=== PATIENT | male | born 1960 | race Caucasian/White ===

== ENCOUNTER → 2017-09-08 13:37 | Outpatient (CLI) | payer OTHER, SELFPAY ==
[2017-09-08 14:44] LABS: PSA,Total- Diagnostic 2.84 ng/mL (0.0-4.0)
== END ==
PROVIDERS: Family Provider Family Medicine Geriatric Medicine; PCP Family Medicine Geriatric Medicine; Visit Provider Urology
DX: R97.20 Elevated prostate specific antigen [PSA] (principal)
CPT/HCPCS: 36415; 84153

== ENCOUNTER → 2017-09-09 13:50 | Outpatient (CLI) | payer OTHER, SELFPAY ==
--- NOTE | 2017-09-09 13:52 | CT_ITS ---
STUDY: CT ABDOMEN AND PELVIS WITHOUT AND WITH CONTRAST REASON FOR EXAM: Male, 57 years old. Gross hematuria RADIATION DOSAGE (If Supplied By Facility): CTDIvol = ( 16.69 ) mGy, DLP = ( 2181.78 ) mGycm TECHNIQUE: Transaxial images were obtained from the lower chest to the upper thighs without oral contrast. Imaging was obtained before and after administration of 100 ml of Isovue 300. Sagittal and coronal images were reconstructed. Individualized dose optimization techniques were used for this CT. COMPARISON: February 02, 2013 FINDINGS: There is minimal dependent atelectasis in both lung bases. There is no pleural effusion. The heart is normal in size. The liver is unremarkable. The gallbladder and biliary system are unremarkable. The spleen is unremarkable. The pancreas is unremarkable. The adrenal glands are unremarkable. There are cysts in the right kidney without suspicious features. The largest measures about 2.2 cm in the midpole. There are approximately six calcifications in the right kidney measuring up to 4 mm in size in the mid pole. There is no dilatation of the collecting system in the right kidney. There are cysts in the left kidney without suspicious features. The largest measures about 1.8 cm in the upper pole. This shows stable rim calcification and no significant enhancement. At least three calcifications are seen in the left kidney measuring up to 3 mm in size. There is no dilatation of the collecting system in the left kidney. The stomach is unremarkable. The small bowel is unremarkable. There are diverticula scattered throughout the colon without adjacent stranding. The appendix is visualized and appears normal. There are minimal vascular calcifications. The inferior vena cava is unremarkable. The retroperitoneum is unremarkable. There is no free fluid in the abdomen. The urinary bladder is unremarkable. The prostate is normal in size with calcifications. There are small phleboliths scattered in the lower pelvis. There is a small umbilical hernia containing fat. There are mild degenerative changes in the visualized spine. CT/CT Abd/Pelvis W/WO Contrast IMPRESSION: There are calyceal stones in both kidneys which appear stable compared to the prior CT. Approximately six are seen in the right kidney and approximately three are seen in the left kidney. The largest measures about 4 mm in the midpole of the right kidney. There is no urinary tract dilatation bilaterally. No stones are seen in the ureters. There are cysts in both kidneys which are both simple and minimally complicated. These appear stable compared to the prior CT, however intravenous contrast was not given on the prior CT. A six month follow-up CT with renal mass protocol is recommended to document stability of the minimally complicated cysts. There are no abnormalities seen in the bladder. There is diverticulosis of the colon. There are no acute bowel abnormalities. There is no ascites, free air, inflammation or significant lymphadenopathy. Electronically Signed: Mayi Wright MD at 15:27 EDT Tel Direct: [phone], Service support ,
== END ==
PROVIDERS: Family Provider Family Medicine Geriatric Medicine; PCP Family Medicine Geriatric Medicine; Visit Provider Nurse Practitioner Adult Health
DX: R31.0 Gross hematuria (principal); Z87.442 Personal history of urinary calculi
CPT/HCPCS: 74178; Q9967

== ENCOUNTER → 2018-02-22 16:47 | Outpatient (CLI) | payer OTHER, SELFPAY ==
[2018-02-22 17:27] LABS: Absolute Lymphocyte Count 0.92 X10^3/ul (0.83-4.51); Absolute Neutrophil Count 5.5 X10^3/uL (2.0-7.7); Basophil# 0.02 X10^3/uL; Basophil% 0.3 % (0-1); Eosinophil# 0.08 X10^3/uL; Eosinophils% 1.1 % (0-5); Hematocrit 40.7 % (40-54); Hemoglobin 12.8 g/dl (13.0-16.5); Lymphocyte # 0.92 X10^3/ul (4.0); Lymphocyte % 12.7 % (19-41); Mean Corp Hgb Conc 31.4 g/gl (32-36); Mean Corpuscular Hgb 27.2 pg (27.0-32.0); Mean Corpuscular Volume 86.4 fL (80-94); Mean Platelet Vol. 9.6 fl (6.2-12.0); Monocyte# 0.76 X10^3/uL; Monocyte% 10.5 % (0-10); Neutrophil # 5.45 X10^3/uL (2.7-7.7); Neutrophil % 75.3 % (47-70); POSITIVE COUNT NO; POSITIVE DIFFERENTIAL NO; POSITIVE MORPHOLOGY NO; Platelet Count 420 K/mm3 (150-450); RBC Distribution Width CV 14.3 % (11.6-14.6); RBC Distribution Width SD 45.5 fl (35.1-43.9); Red Blood Count 4.71 M/mm3 (4.6-6.2); White Blood Count 7.2 K/mm3 (4.4-11.0)
[2018-02-22 17:40] LABS: Erythrocyte Sedimentation Rate 30 mm/hr (0-20)
[2018-02-22 18:19] LABS: Anion Gap 6 (5-15); BUN 19 mg/dL (7-18); BUN/Creat Ratio 15.6 RATIO (10-20); Calcium,Total 11.8 mg/dL (8.5-10.1); Chloride 104 mmol/L (98-107); Creatinine, Serum 1.22 mg/dL (0.70-1.30); EST Glomerular Filtration Rate 64 mL/min (>60); Est Glom Filt Rate - Afr Amer 78 mL/min (>60); Glucose 84 mg/dL (74-106); Potassium 4.2 mmol/L (3.5-5.1); Sodium Level 138 mmol/L (136-145); Uric Acid 7.4 mg/dL (3.5-7.2)
== END ==
PROVIDERS: Family Provider Family Medicine Geriatric Medicine; PCP Family Medicine Geriatric Medicine; Visit Provider Family Medicine Geriatric Medicine
DX: I10 Essential (primary) hypertension (principal); M10.9 Gout, unspecified
CPT/HCPCS: 36415; 80048; 84550; 85025; 85652; 86140

== ENCOUNTER → 2018-03-31 13:32 | Outpatient (CLI) | payer OTHER, SELFPAY ==
--- NOTE | 2018-03-31 13:35 | RAD_ITS ---
STUDY: X-RAY - PELVIS AND RIGHT HIP REASON FOR EXAM: Male, 57 years old. Pain TECHNIQUE: Radiological exam, hip, unilateral, with pelvis when performed; 2 or 3 views. COMPARISON: None. FINDINGS: There is a non-specific bowel gas pattern. Normal visualized soft tissue structures. Normal bilateral iliac wings, sacroiliac joints and visualized sacrum. Normal bilateral superior and inferior pubic rami. Normal pubic symphysis. Normal bilateral ischial tuberosities. Normal visualized femoral head. Normal acetabulum. Normal hip joint. RAD/HIP, UNI W/ Pelvis 2-3 Views IMPRESSION: Normal x-ray examination of the pelvis and hip. Electronically Signed: Matthew Aparicio DO at 19:13 EDT Tel [phone], Service support ,
== END ==
PROVIDERS: Family Provider Family Medicine Geriatric Medicine; PCP Family Medicine Geriatric Medicine; Referring Provider Family Medicine Geriatric Medicine; Visit Provider Family Medicine Geriatric Medicine
DX: M25.551 Pain in right hip (principal)
CPT/HCPCS: 73502

== ENCOUNTER → 2018-04-15 11:12 | Outpatient (CLI) | payer OTHER, SELFPAY ==
[2018-04-15 12:05] LABS: Absolute Lymphocyte Count 0.73 X10^3/ul (0.83-4.51); Absolute Neutrophil Count 9.2 X10^3/uL (2.0-7.7); Basophil# 0.02 X10^3/uL; Basophil% 0.2 % (0-1); Eosinophil# 0.15 X10^3/uL; Eosinophils% 1.4 % (0-5); Hematocrit 38.1 % (40-54); Hemoglobin 12.2 g/dl (13.0-16.5); Lymphocyte # 0.73 X10^3/ul (4.0); Lymphocyte % 6.6 % (19-41); Mean Corpuscular Volume 84.3 fL (80-94); Mean Platelet Vol. 10.4 fl (6.2-12.0); Monocyte# 0.89 X10^3/uL; Monocyte% 8.1 % (0-10); Neutrophil # 9.15 X10^3/uL (2.7-7.7); Neutrophil % 83.3 % (47-70); Platelet Count 360 K/mm3 (150-450); RBC Distribution Width CV 14.5 % (11.6-14.6); Red Blood Count 4.52 M/mm3 (4.6-6.2)
[2018-04-15 12:06] LABS: POSITIVE COUNT NO; POSITIVE DIFFERENTIAL NO; POSITIVE MORPHOLOGY NO
[2018-04-15 12:23] LABS: AST(SGOT) 10 U/L (15-37); Alanine Aminotransfer ALT/SGPT 24 U/L (16-61); Albumin, Serum 3.5 g/dL (3.2-5.0); Alkaline Phosphatase 52 U/L (45-117); Anion Gap 8 (5-15); BUN 31 mg/dL (7-18); BUN/Creat Ratio 22.6 RATIO (10-20); Calcium,Total 11.1 mg/dL (8.5-10.1); Chloride 104 mmol/L (98-107); Creatinine, Serum 1.37 mg/dL (0.70-1.30); EST Glomerular Filtration Rate 56 mL/min (>60); Est Glom Filt Rate - Afr Amer 68 mL/min (>60); Globulin 3.6 g/dL (2.2-4.2); Glucose 83 mg/dL (74-106); Potassium 4.6 mmol/L (3.5-5.1); Protein, Total 7.1 g/dL (6.4-8.2); Sodium Level 138 mmol/L (136-145); Thyroid Stim Hormone (TSH) 1.36 uIU/mL (0.358-3.74); Uric Acid 7.3 mg/dL (3.5-7.2)
== END ==
PROVIDERS: Family Provider Family Medicine Geriatric Medicine; PCP Family Medicine Geriatric Medicine; Visit Provider Family Medicine Geriatric Medicine
DX: I10 Essential (primary) hypertension (principal); M10.9 Gout, unspecified; Z12.5 Encounter for screening for malignant neoplasm of prostate
CPT/HCPCS: 36415; 80053; 84443; 84550; 85025

== ENCOUNTER → 2018-06-01 11:14 | Outpatient (CLI) | payer OTHER, SELFPAY ==
--- NOTE | 2018-06-01 11:18 | RAD_ITS ---
STUDY: X-RAY - LEFT SHOULDER REASON FOR EXAM: Male, 58 years old. Chronic bilateral shoulder pain. TECHNIQUE: 4 view(s) of the shoulder. COMPARISON: None. FINDINGS: Normal glenohumeral articulation. There is degenerative arthrosis of the acromioclavicular joint without inferior osseous spur formation. Normal acromion. Normal humeral head and visualized proximal humerus. The soft tissue structures are unremarkable. Normal visualized pulmonary apex. RAD/Shoulder min 2 Views IMPRESSION: Degenerative changes of both acromioclavicular joints. Electronically Signed: Hasmukh Whaley MD at 11:38 EST Tel [phone], Service support ,
--- NOTE | 2018-06-01 11:18 | RAD_ITS ---
STUDY: X-RAY - RIGHT SHOULDER REASON FOR EXAM: Male, 58 years old. Chronic shoulder pain. TECHNIQUE: 4 view(s) of the shoulder. COMPARISON: None. FINDINGS: Normal glenohumeral articulation. There is widening of the AC joint, with displacement of the clavicle, consistent with a Type III acromioclavicular joint separation. Normal acromion. Normal humeral head and visualized proximal humerus. The soft tissue structures are unremarkable. Normal visualized pulmonary apex. 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 Electronically Signed: Hasmukh Whaley MD at 11:39 EST Tel [phone], Service support ,
== END ==
PROVIDERS: Family Provider Family Medicine Geriatric Medicine; PCP Family Medicine Geriatric Medicine; Referring Provider Family Medicine Geriatric Medicine; Visit Provider Family Medicine Geriatric Medicine
DX: M25.511 Pain in right shoulder (principal); M25.512 Pain in left shoulder
CPT/HCPCS: 73030

== ENCOUNTER → 2019-04-18 15:22 | Outpatient (CLI) | payer OTHER, SELFPAY ==
[2019-04-18 17:48] LABS: Absolute Lymphocyte Count 0.77 X10^3/uL (0.83-4.51); Absolute Neutrophil Count 4.9 X10^3/uL (2.0-7.7); Basophil# 0.03 X10^3/uL; Basophil% 0.5 % (0-1); Eosinophil# 0.06 X10^3/uL; Eosinophils% 0.9 % (0-5); Hematocrit 39.4 % (40-54); Hemoglobin 12.4 g/dL (13.0-16.5); Lymphocyte # 0.77 X10^3/ul (4.0); Lymphocyte % 11.8 % (19-41); Mean Corp Hgb Conc 31.5 g/dL (32-36); Mean Corpuscular Hgb 27.6 pg (27.0-32.0); Mean Corpuscular Volume 87.8 fL (80-94); Mean Platelet Vol. 10.4 fl (6.2-12.0); Monocyte# 0.72 X10^3/uL; NRBC Flagged by Analyzer 0 % (0-5); Neutrophil # 4.91 X10^3/uL (2.7-7.7); Neutrophil % 75.3 % (47-70); Platelet Count 315 K/mm3 (150-450); Red Blood Count 4.49 M/mm3 (4.6-6.2); White Blood Count 6.5 K/mm3 (4.4-11.0)
[2019-04-18 18:14] LABS: ALB/GLOB Ratio 1.5 RATIO (0.9-2.4); AST(SGOT) 16 U/L (15-37); Alanine Aminotransfer ALT/SGPT 21 U/L (16-61); Albumin, Serum 4.1 g/dL (3.2-5.0); Alkaline Phosphatase 53 U/L (45-117); Anion Gap 4 (5-15); BUN 21 mg/dL (7-18); Calcium,Total 11.1 mg/dL (8.5-10.1); Chloride 104 mmol/L (98-107); EST Glomerular Filtration Rate 55 mL/min (>60); Est Glom Filt Rate - Afr Amer 66 mL/min (>60); Globulin 2.8 g/dL (2.2-4.2); Glucose 91 mg/dL (74-106); PSA,Total - Annual Screen 3.58 ng/mL (0.00-4.00); Potassium 4.4 mmol/L (3.5-5.1); Protein, Total 6.9 g/dL (6.4-8.2); Sodium Level 138 mmol/L (136-145); Thyroid Stim Hormone (TSH) 1.14 uIU/mL (0.358-3.74); Uric Acid 8.3 mg/dL (3.5-7.2)
[2019-04-18 18:52] LABS: Hepatitis C Antibody Non-Reactive (Nonreactive); Vitamin D,25 Hydroxy 21.3 ng/mL (29.95-100.01)
== END ==
PROVIDERS: Family Provider Family Medicine Geriatric Medicine; PCP Family Medicine Geriatric Medicine; Visit Provider Family Medicine Geriatric Medicine
DX: E55.9 Vitamin D deficiency, unspecified (principal); I10 Essential (primary) hypertension; M10.9 Gout, unspecified; Z12.5 Encounter for screening for malignant neoplasm of prostate; Z13.89 Encounter for screening for other disorder
CPT/HCPCS: 36415; 80053; 82306; 84153; 84443; 84550; 85025; 86803; G0103

== ENCOUNTER → 2019-04-25 10:05 | Outpatient (CLI) | payer OTHER, SELFPAY ==
--- NOTE | 2019-04-25 10:05 | RAD_ITS ---
STUDY: X-RAY - PELVIS AND RIGHT HIP REASON FOR EXAM: Pain, increased with bearing weight. TECHNIQUE: 2 views of the pelvis and hip. COMPARISON: Radiographs 03/31/2018. FINDINGS: There are prostatic calcifications as on the prior study. Normal bilateral iliac wings, sacroiliac joints and visualized sacrum. Normal bilateral superior and inferior pubic rami. Normal pubic symphysis. Normal bilateral ischial tuberosities. Normal visualized femoral head. Normal acetabulum. There is interval development of moderate joint space narrowing of the superolateral right hip joint and small marginal osteophytes of the right femoral head. RAD/HIP, UNI W/ Pelvis 2-3 Views IMPRESSION: Right hip arthrosis. Electronically Signed: Aries Singh MD at 10:56 EDT Tel , Service support ,
== END ==
PROVIDERS: Family Provider Family Medicine Geriatric Medicine; PCP Family Medicine Geriatric Medicine; Referring Provider Orthopaedic Surgery; Visit Provider Orthopaedic Surgery
DX: R10.31 Right lower quadrant pain (principal)
CPT/HCPCS: 73502

== ENCOUNTER → 2019-06-16 14:57 | Outpatient (CLI) | payer OTHER, SELFPAY ==
[2019-06-13 08:26] VITALS: BMI 22.4
[2019-06-16 16:55] LABS: Absolute Lymphocyte Count 0.88 X10^3/uL (0.83-4.51); Absolute Neutrophil Count 4.2 X10^3/uL (2.0-7.7); Basophil# 0.04 X10^3/uL; Basophil% 0.7 % (0-1); Eosinophil# 0.06 X10^3/uL; Hematocrit 41.1 % (40-54); Lymphocyte # 0.88 X10^3/ul (4.0); Lymphocyte % 15.1 % (19-41); Mean Corp Hgb Conc 31.6 g/dL (32-36); Mean Corpuscular Hgb 27.4 pg (27.0-32.0); Mean Corpuscular Volume 86.5 fL (80-94); Mean Platelet Vol. 10.2 fl (6.2-12.0); Monocyte# 0.59 X10^3/uL; Monocyte% 10.1 % (0-10); NRBC Flagged by Analyzer 0 % (0-5); Neutrophil # 4.24 X10^3/uL (2.7-7.7); Neutrophil % 72.8 % (47-70); Platelet Count 320 K/mm3 (150-450); RBC Distribution Width CV 13.4 % (11.6-14.6); RBC Distribution Width SD 42.6 fl (35.1-43.9); Red Blood Count 4.75 M/mm3 (4.6-6.2); White Blood Count 5.8 K/mm3 (4.4-11.0)
[2019-06-16 17:03] LABS: Anion Gap 6 (5-15); BUN 17 mg/dL (7-18); BUN/Creat Ratio 14.7 RATIO (10-20); Calcium,Total 10.9 mg/dL (8.5-10.1); Chloride 105 mmol/L (98-107); Creatinine, Serum 1.16 mg/dL (0.70-1.30); EST Glomerular Filtration Rate 68 mL/min (>60); Est Glom Filt Rate - Afr Amer 82 mL/min (>60); Glucose 96 mg/dL (74-106); Potassium 4.1 mmol/L (3.5-5.1); Sodium Level 138 mmol/L (136-145)
== END ==
PROVIDERS: Family Provider Family Medicine Geriatric Medicine; PCP Family Medicine Geriatric Medicine; Visit Provider Family Medicine Geriatric Medicine
DX: Z01.818 Encounter for other preprocedural examination (principal)
CPT/HCPCS: 36415; 80048; 85025

== ENCOUNTER 2019-07-12 09:15 | Observation (INO) | payer OTHER, SELFPAY ==
[2019-06-13 08:26] VITALS: BMI 22.4
[2019-07-05 14:54] VITALS: BMI 22.4
--- NOTE | 2019-07-06 10:06 | EKG12_ITS ---
Test Reason : PRE OP Blood Pressure : / mmHG Vent. Rate : 077 BPM Atrial Rate : 077 BPM P-R Int : 182 ms QRS Dur : 108 ms QT Int : 364 ms P-R-T Axes : 056 089 047 degrees QTc Int : 411 ms Normal sinus rhythm Normal ECG Confirmed by TERA DUMAS ([id number]), electronic news gathering editor THOMAS RIBEIRO ([id number]) on 07/07/2019 10:42:23 AM Referred By: Cayetano Rubio Confirmed By:TERA DUMAS
[2019-07-06 13:22] LABS: M R Staph aureus DNA By PCR POSITIVE (Negative); Probe Check PASS; Specimen Processing Control PASS
--- NOTE | 2019-07-11 14:28 | PCM.HP.BLA ---
History and Physical Date of Admission: 07/12/19 Intake Vital Signs 06/13/19 BMI 22.4 Intake Visit Reasons: SX CONSENT SIGNING Is patient in pain?: Yes Allergies No Known Allergies Allergy (Verified 06/04/15 13:43) Medications Losartan/Hydrochlorothiazide [Losartan-Hctz 100-12.5 mg Tab] 1 tab PO DAILY 06/04/15 [History Confirmed 06/13/19] sertraline 25 mg tablet 12.5 mg PO DAILY PRN 04/25/19 [History Confirmed 06/13/19] PFS Social History (Updated 06/14/19 @ 14:38 by SANGITA Toth) Smoking Status: Never smoker HPI SX CONSENT SIGNING: Details: Parts of this documentation were recorded by a scribe, this documentation accurately reflects the service provided and the decisions made by me, SANGITA Toth 06/13/19 0826. GREGORY MAGAÑA is a 59 year old M here today for right hip pain. He is here to sign consent for upcoming 07/12/19 right total hip arthroplasty. He continues to have pain with prolonged walking and sit to stand. Denies numbness, tingling or other associated symptoms.He has pain in his buttock and shooting pain down the leg when he does any twisting on the right leg. He does use tylenol prn. Ortho Exam Right Hip Skin: No Ecchymosis, No soft tissue swelling, No Erythema Special Tests: No TTP Greater Troch Homans Sign: No HIP: Patient has evident decreased internal and external rotation of the hip as pretty significant discomfort with these maneuvers. He does have good strength against resistance. He has normal sensation throughout the extremity. Assessment & Plan Problems 1. Arthritis of right hip M16.11 Plan Patient presents the office today to sign surgical consent for a right total hip arthroplasty. Patient is already met with the surgeon and discussed the procedure in detail and questions were answered. We did review the procedure today in office and again discussed questions with him regarding the procedure as well as the rehabilitation/recovery. We did discuss potential risks as well as possible benefits of the procedure. Once his questions were answered consent was signed in office today. Patient already has the date of his surgery and will be notified the day before of the time of his procedure. Patient be contacted by surgical department for presurgery/anesthesia testing. Patient was given antimicrobial cleansed to be used the week prior to his procedure. Patient can notify the office if he has any questions or other concerns or complaints in the meantime. This note was generated with [employer] dictation software. It may contain incorrect words, spelling, and punctuation that were not noted in checking the note before signing. Coding Level of Care Code Off vis,est,level 2 Diagnoses Arthritis of right hip M16.11 I have re-examined the patient. There are no clinical changes since date of exam
[2019-07-12] VITALS (27 sets, daily range): BP systolic 80–155; BP diastolic 51–101; PULSE 48–79; RESP 16–18; TEMP 36.2–37; O2SAT 94–100; BMI 22.7
[2019-07-12 06:16] LABS: Bedside Glucose 75 mg/dL (70-110)
[2019-07-12] MEDS: Lactated Ringers 1,000 ML 100 ML IV (06:17)
[2019-07-12] MEDS: Magnesium Sulfate 4gm/100mL 4 GM/100 ML IV.SOLN. IV (06:18)
[2019-07-12] MEDS: Acetaminophen 500 MG Tablet 1000 MG PO ×3 (06:23→21:56)
[2019-07-12] MEDS: Gabapentin 600 MG Tablet PO (06:23)
[2019-07-12] MEDS: Scopolamine 1mg/72hr Patch 1 PATCH TRANSDERM. (06:23)
[2019-07-12] MEDS: dexAMETHasone 10 MG/ML Vial IV (07:21)
[2019-07-12] MEDS: Cefazolin 2 GM in 0.9% Normal Saline 100 ML IV (07:23)
--- NOTE | 2019-07-12 09:19 | PCM.OPRPT ---
Report of Operation Date of Procedure: 07/12/19 Description of Surgical Findings:: Preoperative diagnosis: DJD right hip Postoperative diagnosis: Same Procedure: Right total hip arthroplasty Implants: [place] Accolade II stem size 5 132 degree neck angle +2.5 neck length 56 mm cup with 40 and 20 mm cancellous screw 36 mm ceramic head Anesthesia: Spinal EBL: 300 cc Complications: None Condition: Stable to PACU Indication for procedure: This is a 59-year-old male who has had long-standing arthrosis of the hip who has failed conservative treatment and wished to undergo total hip arthroplasty. We did discuss operative versus nonoperative intervention including risks of bleeding, infection , nerve artery tissue damage, need for further surgery, fracture, leg length discrepancy dislocation blood clot and need for postoperative physical therapy and postoperative expectations. An informed consent was signed. Procedure: Patient was met in the preoperative holding area once again the operative extremity was identified by both patient and physician and was marked. Patient was met by anesthesia and a spinal was placed. patient was then positioned in the lateral decubitus position on a well-padded pegboard with an axillary roll. All bony prominences were checked and padded. The patient was prepped and draped in the usual sterile fashion. A timeout was called to ensure the proper patient procedure and extremity were being contemplated. Anatomic landmarks were palpated and marked for a standard posterior lateral approach. A 10 blade scalpel was used to make a posterior incision through the skin and subcutaneous tissue. In retractors were used and electrocautery was used to maintain meticulous hemostasis and dissect full-thickness flaps until the gluteal fascia was reached. The gluteal fascia was incised in line with the gluteal fibers. The bursal tissue was then freed from the underside and a Charnley retractor was placed. The fat pad was elevated off of the external rotators with electrocautery and the external rotators were dissected off of the greater trochanter including the piriformis and were tagged with #1 Ethibond for later repair. The joint capsule opened with posterior trapdoor technique. The hip was surgically dislocated. Hohmann was placed around the lesser trochanter. A neck cutting guide was used to lisa the neck with a Bovie and an oscillating saw was used complete the femoral neck cut. The femoral head was then removed and sized. We then turned our attention to the acetabulum. A Bovie was used to make a perforation in the anterior joint capsule and a pointed Hohmann was placed this was repeated in the 6 o'clock position a wide fatimah was placed there. With a long handled knife the labral and pulvinar tissue were removed. We then began sequential reaming until the appropriate size was achieved. We then fit the acetabular shell in place with good dinkey mechanic to the acetabulum. We then proceeded to place a posterior superior screw by drilling first measuring and inserting the screw. We then inserted a trial liner. And turned our attention back to the femur at this point a femoral elevator was used. As well as a pointed wide Hohmann around the lesser trochanter and a Hohmann to help retract the gluteus medius. A box chisel was used to remove excess lateral neck followed by a canal finder and a lateralizing reamer. This was followed by sequential broaches. Attention was made of the version within the canal. Once the final broach was seated we then trialed reduced the hip it was determined that a 132 degree neck angle with a +2.5 neck length was the appropriate size. We then checked ability with shuck testing as well as flexion and internal rotation. then proceeded with hip extension and checked leg lengths at the knees and heels. At this point trials were removed. A posterior lipped liner was inserted to the cup. The femoral stem was inserted. We re-trialed and then proceeded to impact the femoral head onto the Anibal taper. We then surgically reduce the hip check stability again and leg lengths and were satisfied. Betadine rinse was allowed to sit for 5 minutes while everyone changed their gloves. Thorough irrigation was performed. Followed by closure of the external rotators with #2 FiberWire followed by closure of gluteal fascia with #1 Ethibond. 0 Vicryl fat stitches and 2-0 Vicryl subcutaneous stitches and guicho in the skin. Dressing was applied Mepilex Ag and an abduction pillow was placed. Patient tolerated the procedure well there was no intraoperative complications all counts were correct and the patient was brought back to the PACU in stable condition
[2019-07-12] MEDS: Lactated Ringers 1,000 ML 125 ML IV ×3 (09:54→21:56)
[2019-07-12] MEDS: Cefazolin 1 GM/50 ML BAG IV ×2 (09:57→18:21)
--- NOTE | 2019-07-12 10:00 | RAD_ITS ---
STUDY: X-RAY - PELVIS REASON FOR EXAM: Male, 59 years old. POST OP TECHNIQUE: One view of the pelvis was obtained. COMPARISON: Comparison is made with prior study dated April 25, 2019. FINDINGS: The patient is status post right hip replacement. There appears to be superior and lateral subluxation of the prosthetic joint. RAD/Pelvis 1 or 2 Views IMPRESSION: Status post right hip replacement with evidence of superior and lateral subluxation at the prosthetic joint. Electronically Signed: Hasmukh Whaley, at 10:42 EST , Service support ,
--- NOTE | 2019-07-12 11:34 | SUR.PHASEI ---
Pt returned to OR from PACU per Dr Luke.
--- NOTE | 2019-07-12 11:40 | RAD_ITS ---
STUDY: X-RAY - PELVIS AND RIGHT HIP REASON FOR EXAM: Reduction of dislocated hip arthroplasty. TECHNIQUE: 2 fluoroscopic views of the pelvis and hip. COMPARISON: Radiograph of the pelvis at 0957 hours the same day. FINDINGS: There is a right total hip arthroplasty with reduction of the dislocation. Electronically Signed: Aries Singh MD at 14:25 EST Tel , Service support , RAD/Hip Min 2 Views (Portable)
--- NOTE | 2019-07-12 12:11 | RAD_ITS ---
STUDY: X-RAY - PELVIS AND RIGHT HIP REASON FOR EXAM: Status post reduction in operating room. TECHNIQUE: 2 views of the pelvis and hip. COMPARISON: Radiograph of the same day at 0957 hours. FINDINGS: There are skin guicho overlying the right hip and postoperative gas in the soft tissues. There are prostatic calcifications. Normal visualized bilateral iliac wings, visualized sacroiliac joints and visualized sacrum. Normal bilateral superior and inferior pubic rami. Normal pubic symphysis. Normal bilateral ischial tuberosities. There is reduction of the right hip arthroplasty. RAD/Hip 1 view with Pelvis IMPRESSION: Reduction of right hip arthroplasty. Electronically Signed: Aries Singh MD at 15:23 EST Tel , Service support ,
[2019-07-12] MEDS: oxyCODONE HCl Cr 10 MG Tablet PO (13:24)
[2019-07-12] MEDS: Senna/Docusate Sodium 1 Tablet 2 TABLET PO ×2 (13:30→21:56)
--- NOTE | 2019-07-12 15:20 | NURSING ---
therapy working with pt at this time- will completed Post op checks as soon as finished
--- NOTE | 2019-07-12 15:40 | NURSING ---
Pt ambulating in hallway with PT/OT, c/o blurry vision and not feeling well. Pt assisted to recliner in hallway and laid back. BP 80/51, pulse 48. Ce ALBARADO aware. Dr. Rubio paged, new orders for NS bolus 500cc and to consult hospitalist.
--- NOTE | 2019-07-12 16:14 | NURSING ---
SANGITA Tapia in with pt at this time.
[2019-07-12] MEDS: Ketorolac 15 MG/ML Vial IV (16:23)
--- NOTE | 2019-07-12 16:23 | PN_ITS ---
<Jerry Perales - Last Filed: 07/12/19 16:23> Reason for Visit: hypotension Subjective: Consult for hypotension: The patient is a 59 yr old male with pmhx of HTN, depression, and nonaggressive prostate cancer for which he is not receiving treatment. He underwent a right total hip today which post op was dislocated requiring operative reduction. Post op he was up ambulating with therapy when he became lightheaded, had blurry vision, and turned oliveira. He was found to have low BP with 70s systolic. He was laid flat and administered IV NaCl. Currently his pressure is now 140s systolic and he has no LH/dizziness/nausea/palp/chest pain/LE edema/SOB. He does have 8/10 right hip pain and is requesting pain medication. Vitals/I&O's: Vital Signs Temp Pulse Resp BP Pulse Ox 97.8 F 64 18 145/82 H 100 07/12/19 14:58 07/12/19 16:20 07/12/19 14:58 07/12/19 16:20 07/12/19 14:58 Oxygen Flow Rate (L/min) 6 Oxygen Delivery Method Room Air Weight: 172 lb 6.424 oz Body Mass Index (BMI) 22.7 Intake and Output for Last 24 Hours 07/10/19 07/11/19 07/12/19 23:59 23:59 23:59 Intake Total 2317.50 / 2317.50 Balance 2317.50 / 2317.50 General: Alert, Oriented x3, Cooperative HEENT: Atraumatic, PERRLA, EOMI, Normocephalic Neck: Supple, No JVD, Negative Carotid Bruits Lungs: Clear to auscultation, Normal air movement Cardiovascular: Regular rate, No murmurs Abdomen: Bowel Sounds Present, Soft, Non Tender Extremities: No edema, Capillary Refill Less than 3 Seconds Skin: No rashes, No breakdown Musculoskeletal: No Tenderness to Palpation of Joints or Extremities Neurological: Cranial nerves II-XII grossly intact Psych/Mental Status: Normal Affect, Appropriate, Alert and oriented to time, place, person, mood and affect Laboratory Results 07/12/19 06:07: POC Glucose 75 Current Medications Acetaminophen (Tylenol) 1,000 mg PO Q8 [facility] Last Admin: 07/12/19 13:30 Dose: 1,000 mg Documented by: Apixaban (Eliquis) 2.5 mg PO BID [facility] Hydromorphone HCl (Dilaudid Inj) 0.5 mg IV Q2H PRN PRN PRN Reason: .BREAKTHROUGH PAIN (>4/10) Lactated Ringer's () 1,000 mls @ 125 mls/hr IV .Q8H [facility] Last Admin: 07/12/19 13:25 Dose: 125 mls/hr Documented by: Cefazolin Sodium () 1 gm in 50 mls @ 100 mls/hr IV Q8H [facility] Stop: 07/13/19 01:59 Last Infusion: 07/12/19 10:43 Dose: Infused Documented by: Sodium Chloride () 250 mls @ 15 mls/hr IV .[id number] PRN PRN Reason: Saline Flush Sodium Chloride () 250 mls @ 15 mls/hr IV .[id number] PRN PRN Reason: Additional IVPB Infusion Sodium Chloride () 500 mls @ 999 mls/hr IV .Q31M ONE Stop: 07/12/19 16:43 Insulin Human Lispro (Humalog Kwikpen (Bkc)) 1 - 6 unit SC Q4H PRN PRN; Protocol PRN Reason: BG>/= 180, SEE PROTOCOL Ketorolac Tromethamine (Toradol) 15 mg IV Q6H PRN PRN PRN Reason: Pain Score 1-5/10 Stop: 07/14/19 09:16 Ondansetron HCl (Zofran) 4 mg IV Q6H PRN PRN PRN Reason: NAUSEA Oxycodone HCl (Oxyir) 5 - 10 mg PO Q4H PRN PRN PRN Reason: Pain Score 4-10/10 Oxycodone HCl (Oxycontin) 10 mg PO BID [facility] Stop: 07/12/19 22:01 Last Admin: 07/12/19 13:24 Dose: 10 mg Documented by: Senna/Docusate Sodium (Senokot-S, Saba-Colace) 2 tablet PO BID [facility] Last Admin: 07/12/19 13:30 Dose: 2 tablet Documented by: Sodium Chloride () 5 - 15 ml IV UD PRN PRN Reason: SALINE FLUSH Sodium Chloride () 10 - 40 ml IV UD PRN PRN Reason: SALINE FLUSH STROKE Vital Signs/Narrative: Vital Signs Temp Pulse Resp BP BP Pulse Ox 07/12/19 16:20 64 145/82 H 07/12/19 16:12 64 144/76 H 07/12/19 15:40 56 L 93/69 07/12/19 15:38 54 L 91/53 L 07/12/19 15:35 48 L 80/51 L 07/12/19 14:58 97.8 F 59 L 18 98/62 100 07/12/19 13:59 95 07/12/19 12:58 97.6 F L 57 L 18 141/91 H 99 07/12/19 12:30 97.6 F L 65 16 129/78 H 95 Medical Necessity - Tobacco Use Smoking Status: Never smoker Tobacco Use: Non-smoker Assessment/Plan 1. post op Right total hip/right hip reduction of dislocation - care per ortho. doing well. 02/05 pain. received perioperative cefazolin 2. Post op hypotension - symptoms are c/w orthostatic hypotension. He recovered his pressure laying flat and receiving IV fluids, and currently is asymptomatic. total bolus will be 1000 nacl continue LR maintenance fluids. Scopalamine patch removed. Hold pain meds until pressures remain stable with position change. Currently has oxycontin on board. Will check orthostatic vitals once 1000 cc bolus complete. Home HTN meds held for now but likely ok to restart in the AM. 3. HTN - as above likely ok to resume home meds in AM. 4. Hx prostate cancer - states this is nonaggressive and he has opted for surveillance only with Dr. Bacon. DVT ppx: per ortho-Eliquis Thank you for the opportunity to participate in the care of this patient This patient was seen by Jerry Perales PA-C under the supervision of Doctor Lam. <Britt Lam - Last Filed: 07/12/19 20:09> Vitals/I&O's: Vital Signs Temp Pulse Resp BP Pulse Ox 97.5 F L 68 16 141/78 H 96 07/12/19 16:58 07/12/19 17:34 07/12/19 16:58 07/12/19 17:34 07/12/19 16:58 Oxygen Flow Rate (L/min) 6 Oxygen Delivery Method Room Air Weight: 172 lb 6.424 oz Body Mass Index (BMI) 22.7 Orthostatic Vital Signs Start: 07/12/19 17:34 Freq: q24h Status: Active Protocol: Activity Type Activity Date Activity User E-Sign Co-Sign Detail Recorded Client Recorded Date Recorded By Document 07/12/19 17:34 [facility] [id number] 07/12/19 17:35 [facility] 07/12/19 17:34 Orthostatic Vitals Standing -Blood Pressure (90/60-120/80) 117/79 -Extremity Use Right Arm -Pulse Rate (60-100) 79 Sitting -Blood Pressure (90/60-120/80) 135/89 H -Extremity Use Right Arm -Pulse Rate (60-100) 68 Lying -Blood Pressure (90/60-120/80) 141/78 H -Extremity Use Right Arm -Pulse Rate (60-100) 68 Intake and Output for Last 24 Hours 07/10/19 07/11/19 07/12/19 23:59 23:59 23:59 Intake Total 4184.17 / 4184.17 Balance 4184.17 / 4184.17 Laboratory Results 07/12/19 06:07: POC Glucose 75 Current Medications Acetaminophen (Tylenol) 1,000 mg PO Q8 [facility] Last Admin: 07/12/19 13:30 Dose: 1,000 mg Documented by: Apixaban (Eliquis) 2.5 mg PO BID [facility] Hydromorphone HCl (Dilaudid Inj) 0.5 mg IV Q2H PRN PRN PRN Reason: .BREAKTHROUGH PAIN (>4/10) Lactated Ringer's () 1,000 mls @ 125 mls/hr IV .Q8H [facility] Last Infusion: 07/12/19 19:00 Dose: 125 mls/hr Documented by: Cefazolin Sodium () 1 gm in 50 mls @ 100 mls/hr IV Q8H [facility] Stop: 07/13/19 01:59 Last Infusion: 07/12/19 18:51 Dose: Infused Documented by: Sodium Chloride () 250 mls @ 15 mls/hr IV .[id number] PRN PRN Reason: Saline Flush Sodium Chloride () 250 mls @ 15 mls/hr IV .[id number] PRN PRN Reason: Additional IVPB Infusion Insulin Human Lispro (Humalog Ferny (Bkc)) 1 - 6 unit SC Q4H PRN PRN; Protocol PRN Reason: BG>/= 180, SEE PROTOCOL Ketorolac Tromethamine (Toradol) 15 mg IV Q6H PRN PRN PRN Reason: Pain Score 1-5/10 Stop: 07/14/19 09:16 Last Admin: 07/12/19 16:23 Dose: 15 mg Documented by: Ondansetron HCl (Zofran) 4 mg IV Q6H PRN PRN PRN Reason: NAUSEA Oxycodone HCl (Oxyir) 5 - 10 mg PO Q4H PRN PRN PRN Reason: Pain Score 4-10/10 Senna/Docusate Sodium (Senokot-S, Saba-Colace) 2 tablet PO BID [facility] Last Admin: 07/12/19 13:30 Dose: 2 tablet Documented by: Sodium Chloride () 5 - 15 ml IV UD PRN PRN Reason: SALINE FLUSH Last Admin: 07/12/19 16:24 Dose: 10 ml Documented by: Sodium Chloride () 10 - 40 ml IV UD PRN PRN Reason: SALINE FLUSH STROKE Vital Signs/Narrative: Vital Signs Temp Pulse Pulse Pulse Pulse Resp BP 07/12/19 17:34 68 68 79 07/12/19 16:58 97.5 F L 68 16 135/89 H 07/12/19 16:20 64 07/12/19 16:12 64 07/12/19 15:40 56 L 07/12/19 15:38 54 L 07/12/19 15:35 48 L BP BP BP BP Pulse Ox 07/12/19 17:34 141/78 H 135/89 H 117/79 07/12/19 16:58 96 07/12/19 16:20 145/82 H 07/12/19 16:12 144/76 H 07/12/19 15:40 93/69 07/12/19 15:38 91/53 L 07/12/19 15:35 80/51 L Assessment/Plan Patient seen by Jerry Perales PA-C under my supervision Patient is a 59-year-old male with a history as above who was admitted onto the orthopedic surgery service today for right total hip replacement. Patient was ambulating with therapy after surgery and became lightheaded with blurry vision. Blood pressure was found to be in the 70s systolic. Hospitalist service was consulted for management of hypotension. He was started on hydration with IV fluid. Patient seen and examined. Pain was well controlled. He denied any lightheadedness or dizziness or chest pain, palpitations, abdominal pain, shortness of breath, diarrhea vomiting. Review systems otherwise negative. o/e: Vital Signs Height 6 ft 1 in Weight: 172 lb 6.424 oz Weight in Pounds 172.4 lbs Pulse Ox 96 Temperature 97.5 F Pulse Rate [Standing] 79 Pulse Rate [Sitting] 68 Pulse Rate [Lying] 68 Pulse Rate 68 Respiratory Rate 16 Blood Pressure [Standing] 117/79 Blood Pressure [Sitting] 135/89 Blood Pressure [Lying] 141/78 Blood Pressure [BP] 145/82 Blood Pressure 135/89 Blood Pressure Position [BP] Supine Blood Pressure Position Sitting General: Alert, Oriented x3, Cooperative HEENT: Atraumatic, PERRLA, EOMI, Normocephalic Neck: Supple, No JVD, Negative Carotid Bruits Lungs: Clear to auscultation, Normal air movement Cardiovascular: Regular rate, No murmurs Abdomen: Bowel Sounds Present, Soft, Non Tender Extremities: No edema, Capillary Refill Less than 3 Seconds Skin: No rashes, No breakdown Musculoskeletal: No Tenderness to Palpation of Joints or Extremities Neurological: Cranial nerves II-XII grossly intact Psych/Mental Status: Normal Affect, Appropriate, Alert and oriented to time, place, person, mood and affect Symptoms are consistent with hypotension likely due to surgery. Orthostatic hypotension were positive. Continue hydration with IV fluid normal saline. Hold home BP meds of losartan and hydrochlorothiazide for now. Monitor blood pressure. Fall precautions. Rest as per Jerry Perales PA-C's notes which I have reviewed and endorsed. Thank you for the courtesy of the consult. We will continue to follow with you. Please do not hesitate to contact hospitalist team if you have any questions. Code Visit Inpatient E&M: 30424 Subs Hosp L2
[2019-07-12] MEDS: 0.9% NaCl Peripheral Flush Adult/Peds IV (16:24)
--- NOTE | 2019-07-12 17:52 | NURSING ---
scop patch removed from behind pt's right ear- ortho vitals taken and documented. Pt requested to walk hallways and was able to walk around nurses' station without any issues.
--- NOTE | 2019-07-12 18:13 | NURSING ---
Pt experiencing hesitancy with urination- however, refusing to be straight cath'ed at this time. Pt able to urinate but states it takes a while.
[2019-07-13 02:34] VITALS: BP 131/79; PULSE 65; RESP 16; TEMP 36.9; O2SAT 96
[2019-07-13] MEDS: Cefazolin 1 GM/50 ML BAG IV (02:35)
[2019-07-13] MEDS: Ketorolac 15 MG/ML Vial IV ×2 (02:59→15:37)
[2019-07-13] MEDS: 0.9% NaCl Peripheral Flush Adult/Peds IV ×2 (03:00→15:37)
[2019-07-13 06:03] LABS: Hematocrit 29.7 % (40-54); Hemoglobin 9.6 g/dL (13.0-16.5); Mean Corp Hgb Conc 32.3 g/dL (32-36); Mean Corpuscular Hgb 27.6 pg (27.0-32.0); Mean Corpuscular Volume 85.3 fL (80-94); Platelet Count 222 K/mm3 (150-450); RBC Distribution Width CV 13.9 % (11.6-14.6); RBC Distribution Width SD 43.1 fl (35.1-43.9); Red Blood Count 3.48 M/mm3 (4.6-6.2); White Blood Count 9.6 K/mm3 (4.4-11.0)
[2019-07-13 06:21] LABS: Anion Gap 5 (5-15); BUN 21 mg/dL (7-18); BUN/Creat Ratio 18.1 RATIO (10-20); Calcium,Total 9.7 mg/dL (8.5-10.1); Chloride 108 mmol/L (98-107); Creatinine, Serum 1.16 mg/dL (0.70-1.30); EST Glomerular Filtration Rate 68 mL/min (>60); Est Glom Filt Rate - Afr Amer 82 mL/min (>60); Estimated Creatinine Clearance 73.97 ml/min; Glucose 104 mg/dL (74-106); Potassium 4.1 mmol/L (3.5-5.1); Sodium Level 138 mmol/L (136-145)
[2019-07-13] MEDS: Acetaminophen 500 MG Tablet 1000 MG PO ×2 (06:37→15:14)
[2019-07-13] MEDS: APIXABAN 2.5 MG TABLET PO (06:37)
--- NOTE | 2019-07-13 07:12 | PN_ITS ---
Reason for Visit: ?Status post right total hip arthroplasty ?Hypotension Subjective: Patient is a 59-year-old gentleman who underwent right total hip arthroplasty on 07/12/2019. Patient did develop significant hypotension following the procedure admitted to regular nursing floor with consultation placed to hospitalist service. Patient seen this a.m. denies being dizzy blood pressure appears to have stabilized. Objective: GENERAL: cooperative HEENT: Atraumatic; EYES; Anicteric, Normal Conjunctiva NECK; supple, normal thyroid, RESPIRATORY: Diminished to auscultation CARDIOVASCULAR: Regular S1 S2, GI: soft, normoactive bowel sounds, : No Renal angle tenderness; EXTREMITIES: No edema, no clubbing, MUSCULOSKELETAL: no muscle waisting NEURO: Awake; no lateralizing signs. SKIN: No Rash PSYCH; Flat affect Vitals/I&O's: Vital Signs Temp Pulse Resp BP Pulse Ox 98.4 F 65 16 131/79 H 96 07/13/19 02:34 07/13/19 02:34 07/13/19 02:34 07/13/19 02:34 07/13/19 02:34 Oxygen Flow Rate (L/min) 6 Oxygen Delivery Method Room Air Weight: 78.2 kg Body Mass Index (BMI) 22.7 Orthostatic Vital Signs Start: 07/12/19 17:34 Freq: q24h Status: Active Protocol: Activity Type Activity Date Activity User E-Sign Co-Sign Detail Recorded Client Recorded Date Recorded By Document 07/12/19 17:34 [facility] [id number] 07/12/19 17:35 [facility] 07/12/19 17:34 Orthostatic Vitals Standing -Blood Pressure (90/60-120/80) 117/79 -Extremity Use Right Arm -Pulse Rate (60-100) 79 Sitting -Blood Pressure (90/60-120/80) 135/89 H -Extremity Use Right Arm -Pulse Rate (60-100) 68 Lying -Blood Pressure (90/60-120/80) 141/78 H -Extremity Use Right Arm -Pulse Rate (60-100) 68 Intake and Output for Last 24 Hours 07/11/19 07/12/19 07/13/19 23:59 23:59 23:59 Intake Total 5600.84 / 5600.84 1650.00 / 1650.00 Output Total 575 / 575 Balance 5600.84 / 5600.84 1075.00 / 1075.00 Laboratory Results 07/13/19 05:36: WBC 9.6, RBC 3.48 L, Hgb 9.6 L, Hct 29.7 L, MCV 85.3, MCH 27.6, MCHC 32.3, RDW Std Deviation 43.1, RDW Coeff of Izzy 13.9, Plt Count 222, MPV 10.0 07/13/19 05:36: Sodium 138, Potassium 4.1, Chloride 108 H, Carbon Dioxide 25.0, Anion Gap 5, BUN 21 H, Creatinine 1.16, Estim Creat Clear Calc 73.97, Est GFR (MDRD) Af Amer 82, Est GFR (MDRD) Non-Af 68, BUN/Creatinine Ratio 18.1, Glucose 104, Calcium 9.7 Current Medications Acetaminophen (Tylenol) 1,000 mg PO Q8 [facility] Last Admin: 07/13/19 06:37 Dose: 1,000 mg Documented by: Apixaban (Eliquis) 2.5 mg PO BID [facility] Last Admin: 07/13/19 06:37 Dose: 2.5 mg Documented by: Hydromorphone HCl (Dilaudid Inj) 0.5 mg IV Q2H PRN PRN PRN Reason: .BREAKTHROUGH PAIN (>4/10) Sodium Chloride () 250 mls @ 15 mls/hr IV .[id number] PRN PRN Reason: Saline Flush Sodium Chloride () 250 mls @ 15 mls/hr IV .[id number] PRN PRN Reason: Additional IVPB Infusion Insulin Human Lispro (Humalog Kwikpen (Bkc)) 1 - 6 unit SC Q4H PRN PRN; Protocol PRN Reason: BG>/= 180, SEE PROTOCOL Ketorolac Tromethamine (Toradol) 15 mg IV Q6H PRN PRN PRN Reason: Pain Score 1-5/10 Stop: 07/14/19 09:16 Last Admin: 07/13/19 02:59 Dose: 15 mg Documented by: Ondansetron HCl (Zofran) 4 mg IV Q6H PRN PRN PRN Reason: NAUSEA Oxycodone HCl (Oxyir) 5 - 10 mg PO Q4H PRN PRN PRN Reason: Pain Score 4-10/10 Senna/Docusate Sodium (Senokot-S, Saba-Colace) 2 tablet PO BID [facility] Last Admin: 07/12/19 21:56 Dose: 2 tablet Documented by: Sodium Chloride () 5 - 15 ml IV UD PRN PRN Reason: SALINE FLUSH Last Admin: 07/13/19 03:00 Dose: 10 ml Documented by: Sodium Chloride () 10 - 40 ml IV UD PRN PRN Reason: SALINE FLUSH Medical Necessity - Tobacco Use Smoking Status: Never smoker Tobacco Use: Non-smoker Assessment/Plan Patient is a 59-year-old gentleman who underwent right total hip arthroplasty on 07/12/2019. Patient did develop significant hypotension following the procedure admitted to regular nursing floor with consultation placed to hospitalist service. 1. Degenerative joint disease involving the right hip ?Patient underwent right total hip arthroplasty on 07/12/[address] Rubio patient should not postoperative orders regarding PT OT DVT prophylaxis as well as pain management deferred to primary service 2. Postop hypotension - Patient was resuscitated with IV fluids. His scheduled antihypertensive medications held. Blood pressure as of the morning of 07/13/2019?131/79 3. Essential hypertension Does patient antihypertensive medication were held in view of above reasons 4. History of prostate cancer ?Currently being managed with surveillance by urology as outpatient 5. DVT prophylaxis ?Eliquis Code Visit Inpatient E&M: 06365 Subs Hosp L2
[2019-07-13 09:15] VITALS: BP 151/88; PULSE 69; RESP 18; TEMP 36.9; O2SAT 96
[2019-07-13] MEDS: Senna/Docusate Sodium 1 Tablet 2 TABLET PO (10:42)
--- NOTE | 2019-07-13 10:55 | CASEMGMT ---
RN DELFINO Face to Face with patient for initial transition planning/care coordination assessment. RN CM introduced self and role at [facility]. Patient sitting in chair, alert and oriented. Patient willing to participate in assessment and is able to answer all questions appropriately. Care providers, pharmacy, and demographics verified. Patient wishes to discharge home, has outpatient therapy scheduled at [facility] for tomorrow. Patient will need FWW at discharge. Patient states he has no further needs or concerns at this time. CM to follow for discharge planning needs that may arise. PCP: Lance Specialists: Joanne Simon Pharmacy: [facility] Insurance: [employer] Prescription Benefit: yes Living Will/HPOA: none LNOK: Living Arrangements: patient lives with in 1 story home with 2 steps to enter. Patient independent at home. Transportation: DME/HHC: Patient has shower chair, cane, raised toilet. Patient will need FWW at discharge. Patient provided with list of DME in-network with insurance, patient would like [employer] Disposition Plan: Patient to discharge home with outpatient therapy, family support, and follow-up plans in place. Massiel CHU, RN, CM
--- NOTE | 2019-07-13 13:30 | CASEMGMT ---
RN CM received script for FWW. [place] [facility] and arranged for walker to be delivered to patient's room prior to discharge.
--- NOTE | 2019-07-13 13:45 | PCM.DC.ORTHO ---
Discharge Diet: No Restrictions Call your doctor if you observe: Shortness of breath, Dizziness, Chest pain Additional Instructions: Begin daily showering warm water antibacterial soap postop day #3( 72hrs Post-operatively) and then daily. Leave the dressing on for 72 hours postoperatively then may remove prior to first shower and change dressing daily after this until no drainage for 2 consecutive days then may leave open to air. Follow hip precautions as reviewed by hospital physical therapist. Wear compression stockings, may remove at night. Start physical therapy as directed in hospital. Call with any concerns. If feeling dizzy or lightheaded hold blood pressure medications and call physician. Allergies/Adverse Reactions: Allergies No Known Allergies Allergy (Verified 07/12/19 05:58) Medications to take at Discharge Losartan/Hydrochlorothiazide [Losartan-Hctz 100-12.5 mg Tab] 1 tab PO DAILY 06/04/15 Acetaminophen [Tylenol] 1,000 mg PO Q6H PRN #100 tab 07/13/19 Apixaban [Eliquis] 2.5 mg PO BID #42 tab 07/13/19 Oxycodone [Oxyir] 5 - 10 mg PO Q4H PRN PRN #60 tablet 07/13/19 The following prescriptions were given: Apixaban [Eliquis] 2.5 mg PO BID #42 tab Transmission Status: Pending to [facility] Oxycodone [Oxyir] 5 - 10 mg PO Q4H PRN PRN #60 tablet PRN Reason: Pain Score 4-10/10 Transmission Status: Sent to [facility] Acetaminophen [Tylenol] 1,000 mg PO Q6H PRN #100 tab Transmission Status: Pending to [facility] Primary Care Physician: Josué Lucas Chi, MD [Primary Care Provider] - Test Results: Test results from this visit will be discussed in further detail at your follow-up appointment, if applicable. Please Follow Up With: Cayetano Rubio DO - 2 weeks
--- NOTE | 2019-07-13 13:47 | DS.PCM_ITS ---
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 Patient underwent left total hip arthroplasty day of admission. Patient did receive pre-and postoperative antibiotics which were discontinued within 23 hours postoperatively. Patient did receive spinal anesthesia and postoperatively her pain was controlled with both IV and p.o. pain medication. Between the operating room and the postanesthesia care unit patient had dislocated his operative hip which was demonstrated on postop x-rays in PACU. Patient was then brought back to the operating room and a close reduction was performed postreduction x-rays demonstrated no fracture and reduced joint. Patient did receive 2 g of tranexamic acid. Her hemoglobin and hematocrit were monitored postoperatively as well as her vital signs and she did not require any blood transfusion. Patient did have hypotension postoperatively which resolved with IV fluids and vitals remained stable and patient asymptomatic following this.Dressing will be changed daily beginning postop day #3 before shower will be removed and replaced after. Pt was started on Eliquis 2.5 mg twice daily postop day #1 for which will continue for 3 weeks post hospital discharge . Patient was seen by physical therapy was ambulating the halls well. patient will be discharged home with home health longterm physical therapy will follow-up in the office in 2 weeks. No intrahospital complications. Subjective: Patient is doing well now denies any shortness of breath chest pain dizziness today pain controlled ambulating well - Physical Exam Vitals/I&O's: Vital Signs Temp Pulse Resp BP Pulse Ox 98.4 F 69 18 151/88 H 96 07/13/19 09:15 07/13/19 09:15 07/13/19 09:15 07/13/19 09:15 07/13/19 09:15 Oxygen Flow Rate (L/min) 6 Oxygen Delivery Method Room Air Weight: 172 lb 6.424 oz Body Mass Index (BMI) 22.7 Orthostatic Vital Signs Start: 07/12/19 17:34 Freq: q24h Status: Active Protocol: Activity Type Activity Date Activity User E-Sign Co-Sign Detail Recorded Client Recorded Date Recorded By Document 07/12/19 17:34 [facility] [id number] 07/12/19 17:35 [facility] 07/12/19 17:34 Orthostatic Vitals Standing -Blood Pressure (90/60-120/80) 117/79 -Extremity Use Right Arm -Pulse Rate (60-100) 79 Sitting -Blood Pressure (90/60-120/80) 135/89 H -Extremity Use Right Arm -Pulse Rate (60-100) 68 Lying -Blood Pressure (90/60-120/80) 141/78 H -Extremity Use Right Arm -Pulse Rate (60-100) 68 Intake and Output for Last 24 Hours 07/11/19 07/12/19 07/13/19 23:59 23:59 23:59 Intake Total 5600.84 / 5600.84 1650.00 / 1650.00 Output Total 575 / 575 Balance 5600.84 / 5600.84 1075.00 / 1075.00 General: Alert, Oriented x3, Cooperative, No apparent distress Extremities: - - Dressing clean dry and intact compartment soft neurovascular intact Laboratory Results 07/13/19 05:36: WBC 9.6, RBC 3.48 L, Hgb 9.6 L, Hct 29.7 L, MCV 85.3, MCH 27.6, MCHC 32.3, RDW Std Deviation 43.1, RDW Coeff of Izzy 13.9, Plt Count 222, MPV 10.0 07/13/19 05:36: Sodium 138, Potassium 4.1, Chloride 108 H, Carbon Dioxide 25.0, Anion Gap 5, BUN 21 H, Creatinine 1.16, Estim Creat Clear Calc 73.97, Est GFR (MDRD) Af Amer 82, Est GFR (MDRD) Non-Af 68, BUN/Creatinine Ratio 18.1, Glucose 104, Calcium 9.7 Current Medications Acetaminophen (Tylenol) 1,000 mg PO Q8 [facility] Last Admin: 07/13/19 06:37 Dose: 1,000 mg Documented by: Apixaban (Eliquis) 2.5 mg PO BID [facility] Last Admin: 07/13/19 06:37 Dose: 2.5 mg Documented by: Hydrochlorothiazide () 12.5 mg PO DAILY [facility] Hydromorphone HCl (Dilaudid Inj) 0.5 mg IV Q2H PRN PRN PRN Reason: .BREAKTHROUGH PAIN (>4/10) Sodium Chloride () 250 mls @ 15 mls/hr IV .[id number] PRN PRN Reason: Saline Flush Sodium Chloride () 250 mls @ 15 mls/hr IV .[id number] PRN PRN Reason: Additional IVPB Infusion Insulin Human Lispro (Humalog Kwikpen (Bkc)) 1 - 6 unit SC Q4H PRN PRN; Protocol PRN Reason: BG>/= 180, SEE PROTOCOL Ketorolac Tromethamine (Toradol) 15 mg IV Q6H PRN PRN PRN Reason: Pain Score 1-5/10 Stop: 07/14/19 09:16 Last Admin: 07/13/19 02:59 Dose: 15 mg Documented by: Losartan Potassium (Cozaar) 100 mg PO DAILY [facility] Ondansetron HCl (Zofran) 4 mg IV Q6H PRN PRN PRN Reason: NAUSEA Oxycodone HCl (Oxyir) 5 - 10 mg PO Q4H PRN PRN PRN Reason: Pain Score 4-10/10 Senna/Docusate Sodium (Senokot-S, Saba-Colace) 2 tablet PO BID [facility] Last Admin: 07/13/19 10:42 Dose: 2 tablet Documented by: Sodium Chloride () 5 - 15 ml IV UD PRN PRN Reason: SALINE FLUSH Last Admin: 07/13/19 03:00 Dose: 10 ml Documented by: Sodium Chloride () 10 - 40 ml IV UD PRN PRN Reason: SALINE FLUSH Discharge Diet: No Restrictions Call your doctor if you observe: Shortness of breath, Dizziness, Chest pain Home Medications: Medications to take at Discharge Losartan/Hydrochlorothiazide [Losartan-Hctz 100-12.5 mg Tab] 1 tab PO DAILY 06/04/15 Acetaminophen [Tylenol] 1,000 mg PO Q6H PRN #100 tab 07/13/19 Apixaban [Eliquis] 2.5 mg PO BID #42 tab 07/13/19 Oxycodone [Oxyir] 5 - 10 mg PO Q4H PRN PRN #60 tablet 07/13/19 Following Prescrptions Were Given to Patient: Apixaban [Eliquis] 2.5 mg PO BID #42 tab Transmission Status: Pending to [facility] Oxycodone [Oxyir] 5 - 10 mg PO Q4H PRN PRN #60 tablet PRN Reason: Pain Score 4-10/10 Transmission Status: Sent to [facility] Acetaminophen [Tylenol] 1,000 mg PO Q6H PRN #100 tab Transmission Status: Pending to [facility] Primary Care Physician: Josué Lucas Chi, MD [Primary Care Provider] - Please Follow Up With: Cayetano Rubio DO - 2 weeks Additional Instructions: Begin daily showering warm water antibacterial soap postop day #3( 72hrs Post- operatively) and then daily. Leave the dressing on for 72 hours postoperatively then may remove prior to first shower and change dressing daily after this until no drainage for 2 consecutive days then may leave open to air. Follow hip precautions as reviewed by hospital physical therapist. Wear compression stockings, may remove at night. Start physical therapy as directed in hospital. Call with any concerns. If feeling dizzy or lightheaded hold blood pressure medications and call physician. Medical Necessity - Tobacco Use Smoking Status: Never smoker Tobacco Use: Non-smoker Meaningful Use Info Meaningful Use Diagnoses (Choose all that apply): None applicable
[2019-07-13] MEDS: oxyCODONE 5 MG Tablet PO (15:14)
[2019-07-13 15:28] VITALS: BP 158/73; PULSE 76; RESP 18; TEMP 37.1; O2SAT 98
[2019-07-13] MEDS: Losartan Potassium 100 MG Tablet PO (15:37)
[2019-07-13] MEDS: hydroCHLOROthiazide 12.5mg 12.5 MG PO (15:37)
[2019-07-13 18:15] VITALS: BP 135/72; PULSE 78; RESP 18; TEMP 36.7; O2SAT 97
== END 2019-07-13 18:26 | disposition home or self-care (01) ==
LOC: SDC 10:04 → MS3 10:56
PROVIDERS: Admitting Provider Orthopaedic Surgery; Family Provider Family Medicine Geriatric Medicine; PCP Family Medicine Geriatric Medicine; Referring Provider Orthopaedic Surgery; Visit Provider Internal Medicine
PROC: 0SR90JZ Replacement of Right Hip Joint with Synthetic Substitute, Open Approach (ICD-10-PCS; CPT 27130; principal; 2019-07-12 07:05)
PROC: (CPT 27570; principal; 2019-07-12 15:05)
DX: M16.11 Unilateral primary osteoarthritis, right hip (principal); I10 Essential (primary) hypertension; Z79.899 Other long term (current) drug therapy; T84.020A Dislocation of internal right hip prosthesis, initial encounter; Y79.2 Prosthetic and other implants, materials and accessory orthopedic devices associated with adverse incidents; Y92.239 Unspecified place in hospital as the place of occurrence of the external cause; I95.81 Postprocedural hypotension; Z85.46 Personal history of malignant neoplasm of prostate
CPT/HCPCS: 01200; 01214; 27130; 27266; 36415; 72170; 73501; 73502; 76000; 80048; 82962; 85027; 87081; 87641; 93005; 96361; 96365; 96366; 96375; 96376; 97110; 97116; 97163; 97166; 97530; 97535; 99218; 99251; C1713; C1776; J7040; J7120; A4216; G0378; G0379; G0463

== ENCOUNTER → 2019-07-27 10:53 | Outpatient (CLI) | payer OTHER, SELFPAY ==
[2019-07-27 07:48] VITALS: BMI 22.7
[2019-07-27 12:32] LABS: Absolute Lymphocyte Count 0.64 X10^3/uL (0.83-4.51); Absolute Neutrophil Count 5.8 X10^3/uL (2.0-7.7); Basophil# 0.03 X10^3/uL; Basophil% 0.4 % (0-1); Eosinophil# 0.07 X10^3/uL; Hematocrit 35.1 % (40-54); Hemoglobin 11.1 g/dL (13.0-16.5); Lymphocyte # 0.64 X10^3/ul (4.0); Lymphocyte % 8.9 % (19-41); Mean Corp Hgb Conc 31.6 g/dL (32-36); Mean Corpuscular Hgb 27.1 pg (27.0-32.0); Mean Corpuscular Volume 85.6 fL (80-94); Mean Platelet Vol. 9.6 fl (6.2-12.0); Monocyte# 0.58 X10^3/uL; Monocyte% 8.1 % (0-10); NRBC Flagged by Analyzer 0 % (0-5); Neutrophil # 5.84 X10^3/uL (2.7-7.7); Neutrophil % 81.3 % (47-70); Platelet Count 496 K/mm3 (150-450); RBC Distribution Width CV 13.2 % (11.6-14.6); RBC Distribution Width SD 41.7 fl (35.1-43.9); White Blood Count 7.2 K/mm3 (4.4-11.0)
== END ==
PROVIDERS: PCP Family Medicine Geriatric Medicine; Visit Provider Family Medicine Geriatric Medicine
DX: D64.9 Anemia, unspecified (principal)
CPT/HCPCS: 36415; 85025

== ENCOUNTER → 2019-08-22 11:31 | Outpatient (CLI) | payer OTHER, SELFPAY ==
[2019-07-27 07:48] VITALS: BMI 22.7
[2019-08-22 11:34] LABS: Pathologist Comment May follow
[2019-08-22 12:21] LABS: Anion Gap 6 (5-15); BUN 19 mg/dL (7-18); BUN/Creat Ratio 15.8 RATIO (10-20); CRP < 2.90 mg/L (0.0-3.0); Calcium,Total 10.5 mg/dL (8.5-10.1); Chloride 106 mmol/L (98-107); EST Glomerular Filtration Rate 65 mL/min (>60); Est Glom Filt Rate - Afr Amer 79 mL/min (>60); Glucose 87 mg/dL (74-106); Potassium 4.3 mmol/L (3.5-5.1); Sodium Level 139 mmol/L (136-145); Uric Acid 8.5 mg/dL (3.5-7.2)
[2019-08-22 12:25] LABS: Erythrocyte Sedimentation Rate 6 mm/hr (0-20)
[2019-08-22 12:32] LABS: Synovial Fld Mononuclear WBC % 77.9 %; Synovial Fld Polynuclear WBC # 0.059 10^3/uL; Synovial Fld Polynuclear WBC % 22.1 %
[2019-08-22 12:33] LABS: Absolute Lymphocyte Count 0.83 X10^3/uL (0.83-4.51); Absolute Neutrophil Count 4.2 X10^3/uL (2.0-7.7); Basophil# 0.03 X10^3/uL; Basophil% 0.5 % (0-1); Eosinophil# 0.08 X10^3/uL; Eosinophils% 1.4 % (0-5); Hematocrit 39.4 % (40-54); Hemoglobin 12.3 g/dL (13.0-16.5); Lymphocyte # 0.83 X10^3/ul (4.0); Lymphocyte % 14.5 % (19-41); Mean Corp Hgb Conc 31.2 g/dL (32-36); Mean Corpuscular Hgb 27.3 pg (27.0-32.0); Mean Corpuscular Volume 87.4 fL (80-94); Mean Platelet Vol. 9.8 fl (6.2-12.0); Monocyte# 0.59 X10^3/uL; Monocyte% 10.3 % (0-10); NRBC Flagged by Analyzer 0 % (0-5); Neutrophil # 4.16 X10^3/uL (2.7-7.7); Neutrophil % 72.9 % (47-70); Platelet Count 336 K/mm3 (150-450); RBC Distribution Width CV 14.9 % (11.6-14.6); RBC Distribution Width SD 47.1 fl (35.1-43.9); Red Blood Count 4.51 M/mm3 (4.6-6.2); White Blood Count 5.7 K/mm3 (4.4-11.0)
[2019-08-22 12:34] LABS: RBC /Synovial Fluid 0.003 10^6/uL (0)
[2019-08-22 14:00] LABS: AUTO B FLUID DILUENT BKGD CT WBC <0.1 RBC <0.01 (W<.1,R<.01); Lymph 13 %; Monocyte /Synovial Fluid 87 %
[2019-08-22 14:01] LABS: Appearance /Synovial Fluid Sl Cl (CLEAR); Color / Synovial Fluid Yellow (Pale Yellow)
[2019-08-22 14:03] LABS: Source- Body Fluid SYNOVIAL
[2019-08-22 14:10] LABS: Body Fluid QC Type(s) BF1Q,BF2Q
[2019-08-23 14:35] LABS: Pathologist Review Reviewed
== END ==
PROVIDERS: PCP Family Medicine Geriatric Medicine; Visit Provider Family Medicine Geriatric Medicine
DX: I10 Essential (primary) hypertension (principal); M10.9 Gout, unspecified; D18.1 Lymphangioma, any site
CPT/HCPCS: 36415; 80048; 84550; 85025; 85652; 86140; 87070; 87075; 87205; 89050; 89051; 89060

== ENCOUNTER 2019-09-02 15:30 | Outpatient (RCR) | payer OTHER, SELFPAY ==
[2019-06-13 08:26] VITALS: BMI 22.4
[2019-07-12 12:58] VITALS: BMI 22.7
--- NOTE | 2019-07-14 12:20 | HP.PTEVAL ---
Patient's Visit Information GREGORY MAGAÑA is a 59 year old M referred to Physical Therapy by Cayetano Rubio DO with a diagnosis of R MARCO ANTONIO. Date of Evaluation: 07/14/19 Physical Therapist: Gomez Raygoza, PT, ATC - Visit Plan Frequency: 2-3x /Week Duration: 6 Weeks Plan: R LE strengthening, balance and proprio, core stab ex's, nustep, and HEP - Subjective Findings: DOS: 07/12/19. Pt reports he had a R MARCO ANTONIO performed after a chronic Hx of R hip pain. Pt reports he is really sore today. Pt reports he had his hip surgery performed. Pt reports he literally woke up in the recovery room and was told he had to go back to surgery due to his hip being out of socket. Pt reports he had PT twice yesterday in the hospital which was very taxing on him. Pt denies tingling or numbness in R LE this date. Sleep difficulty without pain meds. Pt reports he only has 2 steps into house, then he lives on one floor. 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 pt notes this is a physical job that requires a lot of lifting. 1/10 pain at rest, 7/10 pain after doing ex's. - Pain R hip Pain Intensity (Out of 10): 1 Pain Intensity Range: 7 - Objective Neuro: B LE sensation is WNL to light touch. B patellar reflex= 2/3. MMT: R LE is grossly 3/5 and painful. L LE 5/5 throughout. ROM: B LE's are WFL following hip precautions. Gait: Pt ambulates with a slow cadance. able to ambulate 340' with WW and CGAx1. Needs VC'ing for heelstrike and toe off. - Goals Goal 1:: Decrease R hip pain x 50% to aid with sleep Goal Time Frame: 6-8 Weeks Goal 2:: Increase R hip strength x 1 grade to aid with RTW without limitation Goal Time Frame: 6-8 Weeks Goal 3:: Pt will be able to ambulate 1000 feet with least restrictive device to aid with community ambulation Goal Time Frame: 6-8 Weeks Goal 4:: I with HEP Goal Time Frame: 6-8 Weeks - Rehabilitation Potential Physical Therapy Diagnosis: Pt has R hip pain, weakness, and difficulty with ambulation secondary to R MARCO ANTONIO Rehabilitation Potential: Good - Anticipated Interventions Patient/Client Instruction: Educate patient on: Condition, Plan of Care For the Purpose of:: To improve self management Therapeutic Exercise to Include: Strength training, Endurance training, Balance training, Gait and locomotor training, Dynamic Lumbar Stabilization For the Purpose of:: To decrease pain, To increase ROM, To improve muscle performance and motor function Cryotherapy (ice pack, ice massage): Yes For the Purpose of:: To decrease pain Thank you for the opportunity to evaluate your patient. For Medicare and Medicare HMO plans, please review the plan of care and approve it. It will need to be FAXED BACK to us at [phone] for Medicare purposes. For Medicare only, by signing this I certify the plan of care. Please let me know if there are questions or concerns regarding this plan of care. Physician Signature: Date:
--- NOTE | 2019-09-02 16:06 | HP.PTDCSUM ---
HP - PT D/C Summary It has been my pleasure to treat GREGORY MAGAÑA referred by Cayetano Rubio DO, with the diagnosis of R MARCO ANTONIO for a total of 20 visit(s). Discharge Date: Please see the following information for a summary of their discharge status. - Subjective Subjective: Pt reports no pain this date - Pain R hip Pain Intensity (Out of 10): 0 - Overall Improvement % Improvement: 95 - Objective Objective/Function: R hip pain 0/10. R LE strength 5/5. Pt can ambulate 1000' with ease. Pt is I with HEP. Rx goals achieved - Goals Goal 1:: Decrease R hip pain x 50% to aid with sleep Goal Progress: Goal Met Goal 2:: Increase R hip strength x 1 grade to aid with RTW without limitation Goal Progress: Goal Met Goal 3:: Pt will be able to ambulate 1000 feet with least restrictive device to aid with community ambulation Goal Progress: Goal Met Goal 4:: I with HEP Goal Progress: Goal Met - Plan Plan: Discharge - D/C Information If there are questions or concerns regarding this patient's physical therapy, please feel free to call me at [phone]. Thank you for the referral of this patient. Sincerely, Gomez Raygoza, PT, ATC
== END 2019-09-02 19:00 | disposition home or self-care (01) ==
LOC: PT 15:30
PROVIDERS: Family Provider Family Medicine Geriatric Medicine; PCP Family Medicine Geriatric Medicine; Referring Provider Orthopaedic Surgery; Visit Provider Orthopaedic Surgery
DX: Z96.641 Presence of right artificial hip joint (principal); Z47.1 Aftercare following joint replacement surgery
CPT/HCPCS: 97110; 97116; 97161; 97164; 97530

== ENCOUNTER → 2019-11-23 11:52 | Outpatient (CLI) | payer OTHER, SELFPAY ==
[2019-08-24 08:53] VITALS: BMI 22.7
[2019-11-28 03:06] LABS: Lyme IgG P18 Ab Absent (.); Lyme IgG P23 Ab Absent (.); Lyme IgG P28 Ab Absent (.); Lyme IgG P30 Ab Absent (.); Lyme IgG P39 Ab Absent (.); Lyme IgG P41 Ab Absent (.); Lyme IgG P45 Ab Absent (.); Lyme IgG P58 Ab Absent (.); Lyme IgG P66 Ab Absent (.); Lyme IgG P93 Ab Absent (.); Lyme IgM P23 Ab Absent (.); Lyme IgM P39 Ab Absent (.); Lyme IgM P41 Ab Absent (.)
[2019-11-28 04:45] LABS: Lyme IgG WB Interpretation Negative (.); Lyme IgM WB Interpretation Negative (.)
== END ==
PROVIDERS: PCP Family Medicine Geriatric Medicine; Visit Provider Family Medicine Geriatric Medicine
DX: T14.90XA Injury, unspecified, initial encounter (principal); B95.62 Methicillin resistant Staphylococcus aureus infection as the cause of diseases classified elsewhere; X58.XXXA Exposure to other specified factors, initial encounter; Y93.9 Activity, unspecified; Y92.9 Unspecified place or not applicable
CPT/HCPCS: 36415; 86617; 87070; 87205; 87640

== ENCOUNTER → 2020-04-24 15:20 | Outpatient (CLI) | payer OTHER, SELFPAY ==
[2019-08-24 08:53] VITALS: BMI 22.7
[2020-04-24 16:22] LABS: Absolute Lymphocyte Count 0.79 X10^3/uL (0.83-4.51); Absolute Neutrophil Count 3.7 X10^3/uL (2.0-7.7); Basophil# 0.03 X10^3/uL; Basophil% 0.6 % (0-1); Eosinophils% 1.9 % (0-5); Hematocrit 40.2 % (40-54); Hemoglobin 12.6 g/dL (13.0-16.5); Lymphocyte # 0.79 X10^3/ul (4.0); Lymphocyte % 15.2 % (19-41); Mean Corp Hgb Conc 31.3 g/dL (32-36); Mean Corpuscular Hgb 28.4 pg (27.0-32.0); Mean Corpuscular Volume 90.5 fL (80-94); Mean Platelet Vol. 10.1 fl (6.2-12.0); Monocyte# 0.53 X10^3/uL; Monocyte% 10.2 % (0-10); NRBC Flagged by Analyzer 0 % (0-5); Neutrophil # 3.74 X10^3/uL (2.7-7.7); Neutrophil % 71.7 % (47-70); Platelet Count 308 K/mm3 (150-450); RBC Distribution Width CV 13.2 % (11.6-14.6); RBC Distribution Width SD 43.6 fl (35.1-43.9); Red Blood Count 4.44 M/mm3 (4.6-6.2); White Blood Count 5.2 K/mm3 (4.4-11.0)
[2020-04-24 16:39] LABS: Vitamin D,25 Hydroxy 14.4 ng/mL
[2020-04-24 16:43] LABS: ALB/GLOB Ratio 1.2 RATIO (0.9-2.4); AST(SGOT) 16 U/L (15-37); Alanine Aminotransfer ALT/SGPT 26 U/L (16-61); Albumin, Serum 3.8 g/dL (3.2-5.0); Alkaline Phosphatase 47 U/L (45-117); Anion Gap 6 (5-15); BUN 15 mg/dL (7-18); BUN/Creat Ratio 11.5 RATIO (10-20); Calcium,Total 10.4 mg/dL (8.5-10.1); Chloride 106 mmol/L (98-107); Creatinine, Serum 1.31 mg/dL (0.70-1.30); EST Glomerular Filtration Rate 59 mL/min (>60); Est Glom Filt Rate - Afr Amer 71 mL/min (>60); Globulin 3.2 g/dL (2.2-4.2); Glucose 99 mg/dL (74-106); PSA,Total - Annual Screen 3.91 ng/mL (0.00-4.00); Potassium 3.9 mmol/L (3.5-5.1); Sodium Level 141 mmol/L (136-145); Thyroid Stim Hormone (TSH) 1.11 uIU/mL (0.358-3.74); Uric Acid 7.8 mg/dL (3.5-7.2)
== END ==
PROVIDERS: PCP Family Medicine Geriatric Medicine; Visit Provider Family Medicine Geriatric Medicine
DX: I10 Essential (primary) hypertension (principal); E55.9 Vitamin D deficiency, unspecified; M10.9 Gout, unspecified; Z12.5 Encounter for screening for malignant neoplasm of prostate
CPT/HCPCS: 36415; 80053; 82306; 84153; 84443; 84550; 85025; G0103

== ENCOUNTER → 2021-04-18 11:49 | Outpatient (CLI) | payer OTHER, SELFPAY ==
[2021-04-18 12:39] LABS: Absolute Lymphocyte Count 0.82 X10^3/uL (0.83-4.51); Absolute Neutrophil Count 5.9 X10^3/uL (2.0-7.7); Basophil# 0.03 X10^3/uL; Basophil% 0.4 % (0-1); Eosinophils% 1.3 % (0-5); Hematocrit 42.1 % (40-54); Hemoglobin 13.3 g/dL (13.0-16.5); Lymphocyte # 0.82 X10^3/ul (0.83-4.51); Lymphocyte % 10.8 % (19-41); Mean Corp Hgb Conc 31.6 g/dL (32-36); Mean Corpuscular Volume 88.6 fL (80-94); Monocyte# 0.67 X10^3/uL; Monocyte% 8.8 % (0-10); NRBC Flagged by Analyzer 0 % (0-5); Neutrophil # 5.91 X10^3/uL (2.7-7.7); Platelet Count 306 K/mm3 (150-450); RBC Distribution Width CV 13.5 % (11.6-14.6); RBC Distribution Width SD 44.3 fl (35.1-43.9); Red Blood Count 4.75 M/mm3 (4.6-6.2); White Blood Count 7.6 K/mm3 (4.4-11.0)
[2021-04-18 12:55] LABS: Anion Gap 7 (5-15); BUN 24 mg/dL (7-18); BUN/Creat Ratio 19.2 RATIO (10-20); Calcium,Total 11.4 mg/dL (8.5-10.1); Chloride 104 mmol/L (98-107); Creatinine, Serum 1.25 mg/dL (0.70-1.30); EST Glomerular Filtration Rate 62 mL/min (>60); Est Glom Filt Rate - Afr Amer 75 mL/min (>60); Glucose 105 mg/dL (74-106); Potassium 4.1 mmol/L (3.5-5.1); Sodium Level 137 mmol/L (136-145); Uric Acid 6.5 mg/dL (3.5-7.2)
== END ==
PROVIDERS: PCP Family Medicine Geriatric Medicine; Visit Provider Family Medicine Geriatric Medicine
DX: R79.9 Abnormal finding of blood chemistry, unspecified (principal)
CPT/HCPCS: 36415; 80048; 84550; 85025

== ENCOUNTER → 2021-04-25 15:10 | Outpatient (CLI) | payer OTHER, SELFPAY ==
[2021-04-25 16:42] LABS: Absolute Lymphocyte Count 0.62 X10^3/uL (0.83-4.51); Absolute Neutrophil Count 12.1 X10^3/uL (2.0-7.7); Basophil# 0.04 X10^3/uL; Basophil% 0.3 % (0-1); Eosinophil# 0.01 X10^3/uL; Eosinophils% 0.1 % (0-5); Hematocrit 41.2 % (40-54); Hemoglobin 13.6 g/dL (13.0-16.5); Lymphocyte # 0.62 X10^3/ul (0.83-4.51); Lymphocyte % 4.3 % (19-41); Mean Corpuscular Hgb 28.1 pg (27.0-32.0); Mean Corpuscular Volume 85.1 fL (80-94); Mean Platelet Vol. 10.1 fl (6.2-12.0); Monocyte# 1.06 X10^3/uL; Monocyte% 7.4 % (0-10); NRBC Flagged by Analyzer 0 % (0-5); Neutrophil # 12.12 X10^3/uL (2.7-7.7); Neutrophil % 83.9 % (47-70); Platelet Count 383 K/mm3 (150-450); RBC Distribution Width CV 13.7 % (11.6-14.6); RBC Distribution Width SD 42.7 fl (35.1-43.9); Red Blood Count 4.84 M/mm3 (4.6-6.2); White Blood Count 14.4 K/mm3 (4.4-11.0)
[2021-04-25 16:59] LABS: Vitamin D,25 Hydroxy 12.7 ng/mL
[2021-04-25 17:04] LABS: ALB/GLOB Ratio 1.1 RATIO (0.9-2.4); AST(SGOT) 14 U/L (15-37); Alanine Aminotransfer ALT/SGPT 32 U/L (16-61); Albumin, Serum 3.8 g/dL (3.2-5.0); Alkaline Phosphatase 36 U/L (45-117); Anion Gap 9 (5-15); BUN 50 mg/dL (7-18); BUN/Creat Ratio 26.6 RATIO (10-20); Calcium,Total 10.5 mg/dL (8.5-10.1); Chloride 106 mmol/L (98-107); Creatinine, Serum 1.88 mg/dL (0.70-1.30); EST Glomerular Filtration Rate 39 mL/min (>60); Est Glom Filt Rate - Afr Amer 47 mL/min (>60); Globulin 3.5 g/dL (2.2-4.2); Glucose 88 mg/dL (74-106); PSA,Total - Annual Screen 4.93 ng/mL (0.00-4.00); Potassium 4.5 mmol/L (3.5-5.1); Protein, Total 7.3 g/dL (6.4-8.2); Sodium Level 138 mmol/L (136-145); Thyroid Stim Hormone (TSH) 0.66 uIU/mL (0.358-3.74); Uric Acid 9.1 mg/dL (3.5-7.2)
== END ==
PROVIDERS: PCP Family Medicine Geriatric Medicine; Visit Provider Family Medicine Geriatric Medicine
DX: I10 Essential (primary) hypertension (principal); E55.9 Vitamin D deficiency, unspecified; M10.9 Gout, unspecified; Z12.5 Encounter for screening for malignant neoplasm of prostate
CPT/HCPCS: 36415; 80053; 82306; 84153; 84443; 84550; 85025; G0103

== ENCOUNTER 2021-07-09 15:45 | Outpatient (CLI) | payer OTHER, SELFPAY ==
[2021-07-09 16:33] LABS: Absolute Lymphocyte Count 0.67 X10^3/uL (0.83-4.51); Absolute Neutrophil Count 4.6 X10^3/uL (2.0-7.7); Basophil# 0.03 X10^3/uL; Basophil% 0.5 % (0-1); Eosinophil# 0.23 X10^3/uL; Eosinophils% 3.7 % (0-5); Hematocrit 40.1 % (40-54); Hemoglobin 12.7 g/dL (13.0-16.5); Lymphocyte # 0.67 X10^3/ul (0.83-4.51); Lymphocyte % 10.7 % (19-41); Mean Corp Hgb Conc 31.7 g/dL (32-36); Mean Corpuscular Hgb 27.6 pg (27.0-32.0); Mean Corpuscular Volume 87.2 fL (80-94); Mean Platelet Vol. 9.7 fl (6.2-12.0); Monocyte# 0.67 X10^3/uL; Monocyte% 10.7 % (0-10); NRBC Flagged by Analyzer 0 % (0-5); Neutrophil # 4.61 X10^3/uL (2.7-7.7); Neutrophil % 73.9 % (47-70); Platelet Count 299 K/mm3 (150-450); RBC Distribution Width CV 14.9 % (11.6-14.6); RBC Distribution Width SD 47.8 fl (35.1-43.9); White Blood Count 6.2 K/mm3 (4.4-11.0)
[2021-07-09 16:53] LABS: ALB/GLOB Ratio 1.2 RATIO (0.9-2.4); AST(SGOT) 18 U/L (15-37); Alanine Aminotransfer ALT/SGPT 33 U/L (16-61); Albumin, Serum 4.1 g/dL (3.2-5.0); Alkaline Phosphatase 36 U/L (45-117); Anion Gap 3 (5-15); BUN 23 mg/dL (7-18); Chloride 104 mmol/L (98-107); Cholesterol 259 mg/dL (200); Creatinine, Serum 1.28 mg/dL (0.70-1.30); EST Glomerular Filtration Rate 60 mL/min (>60); Est Glom Filt Rate - Afr Amer 73 mL/min (>60); Globulin 3.3 g/dL (2.2-4.2); Glucose 114 mg/dL (74-106); High Density Lipoprotein 85 mg/dL; Potassium 4.1 mmol/L (3.5-5.1); Protein, Total 7.4 g/dL (6.4-8.2); Sodium Level 138 mmol/L (136-145); Triglycerides 161 mg/dL; Uric Acid 7.7 mg/dL (3.5-7.2); Very Low Density Lipoprotein 32 mg/dL (5-40)
[2021-07-09 17:00] LABS: Vitamin D,25 Hydroxy 23.6 ng/mL
[2021-07-10 15:31] LABS: PTHIN 121.3 pg/mL (18.4-80.1)
== END 2021-07-09 23:59 | disposition short-term general hospital (02) ==
LOC: BIMLAB 15:46
PROVIDERS: PCP Internal Medicine; Visit Provider Internal Medicine
DX: I10 Essential (primary) hypertension (principal); E83.52 Hypercalcemia; E55.9 Vitamin D deficiency, unspecified; M10.9 Gout, unspecified
CPT/HCPCS: 36415; 80053; 80061; 82306; 83970; 84550; 85025

== ENCOUNTER 2021-07-15 07:12 | Outpatient (CLI) | payer OTHER, SELFPAY ==
--- NOTE | 2021-07-15 07:15 | US_ITS ---
STUDY: THYROID ULTRASOUND REASON FOR EXAM: Male, 61 years old. Hyperparathyroidism TECHNIQUE: Ultrasound evaluation of the thyroid was performed with real-time and static donis-scale imaging. COMPARISON: None. FINDINGS: RIGHT LOBE: The right lobe of the thyroid gland measures 4.1 cm x 2.2 cm x 0.9 cm. There is a homogeneous echotexture. There is a 4 mm x 4 mm x 4 mm cyst in the posterior aspect of the right lobe in the midportion. A similar-appearing cystic nodule is seen in the midpole measuring 3 mm x 2 mm x 3 mm. LEFT LOBE: The left lobe of the thyroid gland measures 3.7 cm x 2 cm x 0.8 cm. There is a homogeneous echotexture. There is a 3 mm x 3 mm x 2 mm solid and cystic nodule in the upper pole. There is also evidence of a 5 mm x 4 mm x 3 mm cyst with low level echoes within it and increased vascularity in the midpole. ISTHMUS: The isthmus measures 3 mm. The regional lymph nodes are normal. US/Thyroid IMPRESSION: 2 small cysts are seen in the right lobe. There is evidence of a 5 mm x 4 mm x 3 mm cyst with low-level echoes and increased vascularity in the midpole of the left lobe of the thyroid. Follow-up sonogram in 6 months is recommended. Electronically Signed: Hasmukh Whaley MD at 8:21 EST , Service support ,
== END 2021-07-15 23:59 | disposition short-term general hospital (02) ==
PROVIDERS: PCP Internal Medicine; Referring Provider Internal Medicine; Visit Provider Internal Medicine
DX: E21.3 Hyperparathyroidism, unspecified (principal)
CPT/HCPCS: 76536

== ENCOUNTER 2021-08-14 08:50 | Outpatient (CLI) | payer OTHER, SELFPAY ==
--- NOTE | 2021-08-14 08:55 | BD_ITS ---
STUDY: DUAL ENERGY X-RAY ABSORPTIOMETRY / DXA REASON FOR EXAM: Male, 61 years old. Hyperparathyroidism -- HYPERTHYROIDISM TECHNIQUE: Bone Mineral Density (BMD) measurements of lumbar spine and left hip were obtained. COMPARISON: None. FINDINGS: Lumbar Spine (L1-L4): g/cm2 (0.926) / T-score (-1.5) / Z-score (-0.8) Findings are suggestive of osteopenia with a moderate fracture risk. Left Femur Total: g/cm2 (0.797) / T-score (-1.6) / Z-score (-1.1) Left Femoral Neck: g/cm2 (0.697) / T-score (-1.7) / Z-score (-0.7) BD/Dexa Bone Density Study IMPRESSION: The patient is considered osteopenic as outlined below according to World [place] Organization (WHO) criteria with a moderate fracture risk. Reference Information: The T-score is the number of standard deviations above or below the standard which is normal for young adults at their peak bone mineral density. The World Health Organization (WHO) interprets the T-scores as follows: Above -1 Normal bone density Between -1 and -2.5 Osteopenia Equal to / or below -2.5 Osteoporosis As a practical clinical guideline, osteopenia may be graded as follows: Mild -1 through -1.5 Moderate -1.6 through -2.0 Severe -2.1 through -2.4 The Z-score is the number of standard deviations above or below age-matched controls. A Z-score of less than -1.5 would be considered abnormal. References: 1. NIH Osteoporosis and Related Bone Diseases www osteo.org 2. International Society for Clinical Densitometry www iscd.org 3. National Osteoporosis Foundation www nof.org Electronically Signed: Hasmukh Whaley MD at 9:11 EST ,
== END 2021-08-14 23:59 | disposition home or self-care (01) ==
LOC: OPBD 08:50
PROVIDERS: PCP Internal Medicine; Referring Provider Surgery; Visit Provider Surgery
DX: E21.3 Hyperparathyroidism, unspecified (principal); E83.52 Hypercalcemia
CPT/HCPCS: 77080

== ENCOUNTER 2021-08-26 09:56 | Outpatient (CLI) | payer OTHER, SELFPAY ==
--- NOTE | 2021-08-26 09:57 | NM_ITS ---
CLINICAL: 61-year-old male with history of clinical hyperparathyroidism. 99m Tc SESTAMIBI DUAL PHASE PLANAR and SPECT PARATHYROID SCINTIGRAPHY COMPARISON: Thyroid ultrasound report 07/15/2021 FINDINGS: Following the intravenous administration of 26.3 mCi of 99m Tc sestamibi, planar image acquisitions of the anterior neck at approximately 15 minutes and 3.0 hours post radiopharmaceutical provision and SPECT reconstructions obtained at 3.0 hours reveal: 1. Immediate static blood pool acquisitions demonstrate uniform distribution of the radiopharmaceutical in the right-left thyroid colloid. 2. Delayed planar images depict persistent visualized radiotracer in the right-left thyroid beds without evidence of focal retention readily identified. Emission computed tomographic reconstructions of the anterior neck reveal confirmation of the planar projection findings. NM/Parathyroid Image w/ SPECT IMPRESSION: 1. NEGATIVE 99m Tc SESTAMIBI PLANAR-SPECT PARATHYROID IMAGING DUAL PHASE EXAMINATION. 2. There is no definitive typical scintigraphic evidence of parathyroid adenoma on the current evaluation. 3. Incomplete-delayed washout of the radiopharmaceutical from the entire functioning thyroid colloid may be secondary to multinodular goiter, chronic lymphocytic thyroiditis. (Mora, Radiographics 19: 601, 1999). Electronically Signed: Mahesh Thorne DO at 22:33 EST ,
== END 2021-08-26 23:59 | disposition home or self-care (01) ==
LOC: NM 09:57
PROVIDERS: PCP Internal Medicine; Referring Provider Surgery; Visit Provider Surgery
DX: E21.3 Hyperparathyroidism, unspecified (principal); E83.52 Hypercalcemia
CPT/HCPCS: 78071; A9500

== ENCOUNTER 2021-09-27 15:57 | Outpatient (CLI) | payer OTHER, SELFPAY ==
[2021-09-27 17:24] LABS: ALB/GLOB Ratio 1.3 RATIO (0.9-2.4); AST(SGOT) 18 U/L (15-37); Alanine Aminotransfer ALT/SGPT 33 U/L (16-61); Albumin, Serum 4.1 g/dL (3.2-5.0); Alkaline Phosphatase 42 U/L (45-117); Anion Gap 2 (5-15); BUN 24 mg/dL (7-18); BUN/Creat Ratio 17.4 RATIO (10-20); Calcium,Total 11.4 mg/dL (8.5-10.1); Chloride 106 mmol/L (98-107); Creatinine, Serum 1.38 mg/dL (0.70-1.30); EST Glomerular Filtration Rate 55 mL/min (>60); Est Glom Filt Rate - Afr Amer 67 mL/min (>60); Globulin 3.1 g/dL (2.2-4.2); Glucose 103 mg/dL (74-106); Potassium 4.6 mmol/L (3.5-5.1); Protein, Total 7.2 g/dL (6.4-8.2); Sodium Level 137 mmol/L (136-145)
[2021-09-27 17:26] LABS: Vitamin D,25 Hydroxy 32.8 ng/mL
== END 2021-09-27 23:59 | disposition home or self-care (01) ==
LOC: BIMLAB 15:58
PROVIDERS: PCP Internal Medicine; Referring Provider Internal Medicine Endocrinology, Diabetes & Metabolism; Visit Provider Internal Medicine Endocrinology, Diabetes & Metabolism
DX: E21.3 Hyperparathyroidism, unspecified (principal); E83.52 Hypercalcemia; E55.9 Vitamin D deficiency, unspecified
CPT/HCPCS: 36415; 80053; 82306; 82330

== ENCOUNTER 2021-09-30 10:17 | Outpatient (CLI) | payer OTHER, SELFPAY ==
[2021-09-30 13:24] LABS: Calcium Urine pH Range 2; Urine Calcium (Random) 6.4 (Not Estab.)
[2021-09-30 13:30] LABS: 24HR. Urine Creatinine 107.14 g/24 HR (0.90-2.10)
[2021-09-30 13:32] LABS: (24 HR) Urine Calcium 138.2 mg/24 HR (42.0-353.0); 24HR UR TOTAL VOLUME 2160 ml
== END 2021-09-30 23:59 | disposition home or self-care (01) ==
LOC: LABSPEC 10:19
PROVIDERS: PCP Internal Medicine; Referring Provider Internal Medicine Endocrinology, Diabetes & Metabolism; Visit Provider Internal Medicine Endocrinology, Diabetes & Metabolism
DX: E21.3 Hyperparathyroidism, unspecified (principal); E83.52 Hypercalcemia
CPT/HCPCS: 81050; 82340; 82570

== ENCOUNTER 2021-10-07 15:02 | Outpatient (CLI) | payer OTHER, SELFPAY ==
--- NOTE | 2021-10-07 16:13 | US_ITS ---
STUDY: RENAL ULTRASOUND - COMPLETE REASON FOR EXAM: Male, 61 years old. follow-up status of kidney stones TECHNIQUE: Ultrasound evaluation of the kidneys was performed with real-time and static oliveira-scale imaging. COMPARISON: None. FINDINGS: RIGHT KIDNEY: Normal location of the right kidney, which is normal in size. The right kidney measures 11.0 x 6.0 x 6.0 cm. There is a normal cortex of the right kidney. The renal cortex measures 1.0 cm. Within the right kidney there are 2 round anechoic structure consistent with simple cysts, largest measuring 2.2 x 2.1 x 2.2 cm seen in the mid upper pole. Within the right kidney there are several echogenic structures largest measuring 0.5 x 0.5 x 0.3 cm suggestive of small stones versus nonspecific calcifications versus foci of sinus fat. There is no right hydronephrosis. DISTAL RIGHT URETER: There is non-visualization of the distal right ureter. There is no demonstrated right ureterovesical junction calculus. There is no demonstrated right ureteral jet. LEFT KIDNEY: Normal location of the left kidney, which is normal in size. The left kidney measures 11.8 x 5.3 x 5.1 cm. There is a normal cortex of the left kidney. The renal cortex measures 1.1 cm. There is no left renal mass or cyst. Within the left kidney there is a small echogenic focus which could represent nonspecific stone or calcification versus renal sinus fat measuring 0.3 x 0.5 x 0.3 cm. There is no left hydronephrosis. DISTAL LEFT URETER: There is non-visualization of the distal left ureter. There is no demonstrated left ureterovesical junction calculus. There is no demonstrated left ureteral jet. BLADDER: The urinary bladder has a volume of 42.4 ml There is a normal wall thickness of the distended urinary bladder. There is no demonstrated mass within the urinary bladder. There are no demonstrated bladder calculi. US/Kidney and Bladder IMPRESSION: Bilateral echogenic foci within the kidneys which could represent vascular calcifications, small stones are volume averaging related to sinus fat. No hydronephrosis seen bilaterally. Nonspecific right-sided simple renal cysts. Electronically Signed: Naz Willett MD at 3:49 EDT ,
== END 2021-10-07 23:59 | disposition home or self-care (01) ==
LOC: BIMLAB 15:04 → US 16:12
PROVIDERS: PCP Internal Medicine; Referring Provider Surgery; Visit Provider Internal Medicine
DX: E21.3 Hyperparathyroidism, unspecified (principal); N20.0 Calculus of kidney
CPT/HCPCS: 36415; 76770; 84550

== ENCOUNTER 2021-10-14 14:51 | Outpatient (CLI) | payer OTHER, SELFPAY ==
--- NOTE | 2021-10-14 14:52 | CT_ITS ---
EXAM: CT NECK WITHOUT AND WITH INTRAVENOUS CONTRAST CLINICAL INDICATION: Parathyroid localization TECHNIQUE: Helically acquired images were obtained of the neck without and with intravenous contrast. This CT exam was performed using one or more of the following dose reduction techniques: automated exposure control, adjustment of the mA and/or kV according to patient size, and/or use of iterative reconstruction technique. This report was created using [email or web address] report generation technology. CONTRAST: IV 100mL Isovue-300 RADIATION DOSE: CTDIvol = 6.15 mGy, DLP = 863.71 mGy-cm. COMPARISON: None. FINDINGS: NASOPHARYNX: Unremarkable. SUPRAHYOID NECK: Unremarkable. Oropharynx, oral cavity, parapharyngeal space and retropharyngeal space are unremarkable. INFRAHYOID NECK: Unremarkable. The larynx, hypopharynx and supraglottis are unremarkable. SUBMANDIBULAR/PAROTID GLANDS: Unremarkable. Glands are normal in size. THYROID: Unremarkable. No enlarged or calcified nodules. SINUSES: Mild mucosal thickening bilateral maxillary sinuses. BONES/JOINTS: No acute fracture. SOFT TISSUES: Unremarkable. VASCULATURE: No acute findings. LYMPH NODES: Unremarkable. No lymphadenopathy. LUNG APICES: Unremarkable as visualized. CT/Soft Tissue Neck W/WO Contrast IMPRESSION: No acute findings in the neck. Electronically Signed: Harvey Boyd MD at 6:36 EDT ,
== END 2021-10-14 23:59 | disposition home or self-care (01) ==
LOC: CT 14:51
PROVIDERS: PCP Internal Medicine; Visit Provider Surgery
DX: E21.3 Hyperparathyroidism, unspecified (principal)
CPT/HCPCS: 70492; Q9967

== ENCOUNTER → 2021-12-05 | Outpatient (CLI) | payer OTHER, SELFPAY ==
[2021-12-05 11:03] LABS: PSA,Total- Diagnostic 7.35 ng/mL (0.0-4.0)
== END | disposition home or self-care (01) ==
LOC: LAB 09:23
PROVIDERS: PCP Internal Medicine; Referring Provider Registered Nurse; Visit Provider Registered Nurse
DX: R97.20 Elevated prostate specific antigen [PSA] (principal)
CPT/HCPCS: 36415; 84153

== ENCOUNTER → 2021-12-06 | Outpatient (CLI) | payer OTHER, SELFPAY ==
--- NOTE | 2021-12-06 08:41 | EKG12_ITS ---
Test Reason : PREOP Blood Pressure : / mmHG Vent. Rate : 062 BPM Atrial Rate : 062 BPM P-R Int : 192 ms QRS Dur : 096 ms QT Int : 412 ms P-R-T Axes : 031 073 055 degrees QTc Int : 418 ms Normal sinus rhythm Normal ECG Confirmed by WYATT JAMES, JAMES ([id number]), editor dictionary TANIA MYERS ([id number]) on 12/09/2021 7:16:47 AM Referred By: Darrell Bacon Confirmed By:JAMES SCHNEIDER MD
[2021-12-06 09:15] LABS: Hematocrit 37.7 % (40-54); Hemoglobin 12.2 g/dL (13.0-16.5); Mean Corp Hgb Conc 32.4 g/dL (32-36); Mean Corpuscular Hgb 27.8 pg (27.0-32.0); Mean Corpuscular Volume 85.9 fL (80-94); Mean Platelet Vol. 9.3 fl (6.2-12.0); Platelet Count 378 K/mm3 (150-450); RBC Distribution Width CV 14.4 % (11.6-14.6); RBC Distribution Width SD 45.2 fl (35.1-43.9); Red Blood Count 4.39 M/mm3 (4.6-6.2); White Blood Count 6.4 K/mm3 (4.4-11.0)
[2021-12-06 09:33] LABS: BUN 23 mg/dL (7-18); Creatinine, Serum 1.36 mg/dL (0.70-1.30); Glucose 91 mg/dL (74-106)
[2021-12-06 09:34] LABS: Anion Gap 4 (5-15); BUN/Creat Ratio 16.9 RATIO (10-20); Calcium,Total 10.4 mg/dL (8.5-10.1); Chloride 108 mmol/L (98-107); EST Glomerular Filtration Rate 56 mL/min (>60); Est Glom Filt Rate - Afr Amer 68 mL/min (>60); Potassium 4.4 mmol/L (3.5-5.1); Sodium Level 140 mmol/L (136-145)
== END | disposition home or self-care (01) ==
LOC: PSN 08:39
PROVIDERS: PCP Internal Medicine; Referring Provider Urology; Visit Provider Urology
DX: Z01.810 Encounter for preprocedural cardiovascular examination (principal); Z01.812 Encounter for preprocedural laboratory examination
CPT/HCPCS: 36415; 80048; 85027; 93005

== ENCOUNTER → 2021-12-13 | Outpatient (CLI) | payer OTHER, SELFPAY ==
--- NOTE | 2021-12-13 | IMM_PTH ---
PATIENT: GREGORY MAGAÑA LOC: [facility] U#:[id number] AGE/SX: 61/M ROOM: RE12/13/[address]: Dr. Darrell Bcaon MD : 1960 BED: DIS: 12/13/2021 SPEC #: [id number] RECD: 12/17/21 11:41 STATUS: JANUSZ REQ #: [id number] JOLYNN: 12/13/21 00:[address]: Darrell Bacon DEPT: IMMUNOHISTOCHEMISTRY RECD BY: Saray Nolasco ENTERED: 12/17/21 11:42 SP TYPE: IMMUNO OTHR DR: Dr. Courtney Barton MD Tissues: F - PROSTATE LEFT Procedures: P40 (add) 34BE12 (initial) PHYSICIAN [facility] INSTITUTION [address] [address] SPECIMEN INFORMATION: Tissue Source: F - Left prostate, apex, core biopsy Clinical Info: Elevated PSA, malignant neoplasm Specimen Number: [id number] CPT code: 94985, 11740 METHODOLOGY: Deparaffinized sections of prefer/formalin-fixed tissue or PAP/DQ stained slides are incubated with monoclonal/polyclonal antibodies/oligonucleotide probes. Localization is made via biotin free immunoperoxidase method. Appropriate controls are performed and reacted as expected. Results on target cell population are indicated in the following table: RESULTS: ANTIBODY / CLONE RESULT Block F P40 (BC28) negative 34BE12 (34BE12) negative These tests were developed and their performance characteristics determined by [facility]. They may not have been cleared or approved by the U.S. Food and Drug Administration. The FDA has determined that such clearance or approval is not necessary. The above immunohistochemical/dualISH markers are ordered and reviewed by the Pathologist. INTERPRETATION: F. Left prostate, apex, core biopsy: Adenocarcinoma. FRANCINE:pavithra 12/18/2021
--- NOTE | 2021-12-13 10:30 | PROSBIL_PTH ---
PATIENT: GREGORY MAGAÑA LOC: [facility] U#:[id number] AGE/SX: 61/M ROOM: RE12/13/[address]: Dr. Darrell Bacon MD : 1960 BED: DIS: 12/13/2021 SPEC #: [id number] RECD: 12/13/21 15:01 STATUS: JANUSZ REArun #: [id number] JOLYNN: 12/13/21 10:[address]: Darrell Bacon DEPT: SURGICAL PATHOLOGY RECD BY: Whitney Eid ENTERED: 12/16/21 09:38 SP TYPE: PROST BX KUSHAL DR: [place]. Courtney [place] [facility] [place]: A - PROSTATE RIGHT B - PROSTATE RIGHT C - PROSTATE RIGHT D - PROSTATE LEFT E - PROSTATE LEFT F - PROSTATE LEFT Procedures: PROSTATE BX HEADER OPERATION: Prostate biopsy PRE-OP DIAGNOSIS: Elevated PSA, malignant neoplasm TISSUE SUBMITTED: A - Right base, B - Right mid, C - Right apex, D - Left base, E - Left mid, F - Left apex MICROSCOPIC DIAGNOSIS A. Right prostate, base, core biopsy: Prostatic tissue, negative for malignancy. B. Right prostate, mid, core biopsy: Prostatic tissue, negative for malignancy. C. Right prostate, apex, core biopsy: Prostatic tissue, negative for malignancy. D. Left prostate, base, core biopsy: Prostatic tissue, negative for malignancy. E. Left prostate, mid, core biopsy: Prostatic tissue, negative for malignancy. F. Left prostate, apex, core biopsy: Prostatic adenocarcinoma. [place] grade: 3+3=6 Number of cores involved: 1/2 Proportion of tissue involved: 5% to10% Perineural invasion: Not identified. Greatest tumor length: 0.9 cm, discontinuous See comment. SJ:pavithra 12/17/2021 COMMENT F. Immunohistochemistry ([id number]) supports the above diagnosis. Please make reference to previous specimens ([id number]) right prostate, apex, core biopsy with diagnosis of ?prostatic adenocarcinoma? and right prostate, mid and base, left prostate, apex, mid and base, core biopsies with diagnosis of ?negative for malignancy? and ([id number]) right prostate, apex, mid and base and left prostate, apex, mid and base, core biopsies with diagnosis of ?negative for malignancy.? Case has been reviewed in consultation with Dr. Boo who concurs with the above diagnosis. IDC:AM MICROSCOPIC DESCRIPTION Slides are reviewed. GROSS DESCRIPTION A - Received is one container designated prostate, right base. The specimen consists of two elongated fragments of light celis-white soft tissue each measuring 1 cm in length and 0.1 cm in diameter. The specimen is totally submitted in one cassette. B - Received is one container designated prostate, right mid. The specimen consists of three elongated fragments of light celis-white soft tissue measuring 0.5 to 1 cm in length and 0.1 cm in diameter. The specimen is totally submitted in one cassette. C - Received is one container designated prostate, right apex. The specimen consists of two elongated fragments of light celis-white soft tissue each measuring 1.5 cm in length and 0.1 cm in diameter. The specimen is totally submitted in one cassette. D - Received is one container designated prostate, left base. The specimen consists of two elongated fragments of light celis-white soft tissue each measuring 1.6 cm in length and 0.1 cm in diameter. The specimen is totally submitted in one cassette. E - Received is one container designated prostate, left mid. The specimen consists of three elongated fragments of light celis-white soft tissue measuring 1.2 to 1.9 cm in length and 0.1 cm in diameter. The specimen is totally submitted in one cassette. F - Received is one container designated prostate, left apex. The specimen consists of two elongated fragments of light celis-white soft tissue each measuring 1.4 cm in length and 0.1 cm in diameter. The specimen is totally submitted in one cassette. / SJ:rg 12/16/2021 TC:0 [facility]: [id number] [phone]
== END | disposition home or self-care (01) ==
LOC: LABSPEC 15:22
PROVIDERS: PCP Internal Medicine; Referring Provider Urology; Visit Provider Urology
DX: C61 Malignant neoplasm of prostate (principal)
CPT/HCPCS: 88305; 88341; 88342; G0416

== ENCOUNTER → 2022-01-15 | Outpatient (CLI) | payer OTHER, SELFPAY ==
[2022-01-15 17:53] LABS: Vitamin D,25 Hydroxy 34.5 ng/mL
== END | disposition home or self-care (01) ==
LOC: LAB 14:48
PROVIDERS: PCP Internal Medicine; Referring Provider Surgery; Visit Provider Surgery
DX: E21.3 Hyperparathyroidism, unspecified (principal); E55.9 Vitamin D deficiency, unspecified
CPT/HCPCS: 36415; 82306

== ENCOUNTER 2022-02-13 13:50 | Observation (INO) | payer OTHER, SELFPAY ==
[2022-02-13] VITALS (11 sets, daily range): BP systolic 135–151; BP diastolic 78–91; PULSE 69–79; RESP 14–16; TEMP 36.2–37.7; O2SAT 94–98; BMI 23.0
[2022-02-13] MEDS: Lactated Ringers 1,000 ML 15 ML IV ×2 (06:51→14:25)
--- NOTE | 2022-02-13 07:23 | HP.PCM_ITS ---
History and Physical Date of Service:? 11/21/21 MR#: [id number] Acct: [id number] Name:? GREGORY MAGAÑA Rep #: [id number] : 1960 ? ? Provider: Dr. Harvey Dotson MD Age/Sex:? 61/M ? ? Location: [facility] Status: Signed Intake Vital Signs ? 11/21/2214:08 Height 6 ft 1 in Weight: 178 lb BMI 23.5 BP 134/72 H Blood Pressure Location Rt brachial Position Sitting Respiration 16 Pulse 80 Pulse Source Monitor Temp 97.5 F L Temp Source Temporal Pulse Oximetry (%) 97 Oxygen Delivery Method room air Intake Visit Reasons:?DISCUSS THYROID Chief Complaint: Discuss thyroid/parathyroid options Lapping Machine Set Up Operator Required: No Is patient in pain?: No Allergies No Known Allergies Allergy (Verified 11/21/21 15:09) Medications acetaminophen 1,000 mg PO Q6H PRN #100 tab 07/13/19 [Rx Confirmed 11/21/21] colchicine 0.6 mg tablet 0.6 mg PO DAILY 08/24/19 [History Confirmed 11/21/21] cholecalciferol (vitamin D3) 50 mcg (2,000 unit) capsule 50 mcg PO DAILY 07/09/21 [History Confirmed 11/21/21] esomeprazole magnesium 20 mg capsule,delayed release 20 mg PO DAILY 07/09/21 [History Confirmed 11/21/21] allopurinol 100 mg tablet 100 mg PO DAILY #90 tab 07/31/21 [Rx Confirmed 11/21/21] losartan 100 mg-hydrochlorothiazide 12.5 mg tablet 1 tab PO DAILY #90 tab 08/26/21 [Rx Confirmed 11/21/21] PFSH Medical History? Arthritis Gout Hypercalcemia Hyperparathyroidism Hypertension Kidney stones Osteopenia Prostate cancer Vitamin D deficiency Surgical History? Hip joint replacement status History of hernia repair History of hip replacement Family History? Brother Myocardial infarction,? Onset Age: 55Sister Myocardial infarction,? Onset Age: 43Other Hypertension Social History? Smoking Status:? Never smoker alcohol intake:? current alcohol intake frequency: 3 or more drinks per day Alcohol type: beer substance use type:? does not use what type of physical activity do you participate in:? walking HPI HPI HPI: GREGORY MAGAÑA, is a 61 M who presents to the office today for hyperparathyroidism.? They are referred from Dr. Barton.? Patient has initial surgical consultation on 08/12/2021.? He presents with his today to review his work-up to?date and discuss his surgical options.? He denies any interval changes to his health history aside from the development of some gout. Below is recapitulated from patient's initial surgical consultation for ease of review: Patient has no history of bone densitometry. Patient has no history of pathologic fractures but does claim a history of significant arthritis.? He states this led to a hip replacement with Dr. Dumont in June 2019. ? Patient has a history of kidney stones.? He states for a while he was experiencing an attack every 5 to 6 years.? He had a stone so large that it required as well therapy in the late .? His last kidney stone issue was greater than 10 years ago.? Patient has a history of cavities, but no history of frequent dental caries or chipped teeth and states his last cavity was diagnosed some 20 years ago.? Patient has no history of brittle fingernails.? Patient has a history of GERD, but conditions this stating that his reflux was in response to the start of Suboxone stat for his gout and once this medication was stopped his symptoms resolved.? Patient has a history of hypertension which has been well controlled on losartan for roughly the last 10 years.? Pertinent negatives otherwise include no history of constipation, no difficulty concentrating, and no recent fatigue. Patient has no history of prior radiation exposure.? Patient has a family history of other endocrinopathies including a younger sister who is diagnosed with primary hyperparathyroidism.? He believes she was treated with medications for her calcium. Patient's current labs are calcium: 12 mg/dL 07/09/2021 range of 9.7-12 since 2011, Vitamin D: 23.6 ng/mL 07/09/2021, Ionized calcium: [Value]mg/dL [date], PTH: 121.3 pg/mL 07/09/2021 AD ~121.3 since 2011, Phosphorus: [Value] [date] Current medications include: Cholecalciferol 50 mcg daily. Imaging has been done with thyroid ultrasound on 07/15/2021 and showed 2 small cysts of the right thyroid lobe as well as a 5 mm x 4 mm x 3 mm cyst in the midpole of the left thyroid lobe. Interval history: Patient completed DEXA imaging as well as nuclear medicine, sestamibi imaging.? He denies any changes to his health history.? He did meet with Dr. Sanchez of endocrinology last week and urine studies were requested to completely exclude a diagnosis of familial hypocalciuric hypercalcemia as well as secondary hyperparathyroidism due to vitamin D deficiency.? Mr. Magaña presents with his to today's visit.? He states that he finds it strange that he is not experienced any kidney stone troubles since he met his in 2001, but prior to this time experienced kidney stones approximately every 5 years. ROS General General: No weight change, appetite, fatigue, colon cancer, breast cancer or weakness HEENT HEENT: No difficulty swallowing, eye injury, eye surgery, swollen glands or hoarseness Endo Endocrine: No thyroid disease, diabetes mellitus, thyroid cancer, Hair loss, heat intolerance or cold intolerance Skin Skin: No rash or changing moles Musc Musculoskeletal: Yes gout; No back problems, arthritis, rheumatoid arthritis or joint pain Cardio Cardiovascular: Yes high blood pressure; No murmur, pacemaker, heart disease, atrial fibrillation, heart attack, heart stent, palpitations, shortness of breat with exertion or chest pain Psych Psychiatric: No depression, anxiety or hearing voices Resp Respiratory: No shortness of breath, No sleep apnea, No cough, No COPD, No asthma, No emphysema and No wheezing Gastro Gastrointestinal: No abdominal pain, No nausea or vomiting, No diarrhea, No constipation, No blood in stool, No acid reflux, Yes hemorrhoids, No ulcers, No gallbladder problem and No black,tarry stools Shankar Hematologic: No blood thinners, No blood disorders, No bleeding, No anemia and No blood clots Neuro Neurologic: No system reviewed and no additional complaints, except as documented, No as per HPI, No abnormal gait, No abnormal hearing, No abnormal movements, No abnormal speech, No behavioral changes, No burning sensations, No confusion, No convulsions, No disequilibrium, No dizziness, No localized weakness, No frequent falls, No headache(s), No lack of coordination, No loss of vision, No memory loss, No numbness, No other visual disturbances, No radicular pain, No restless legs, No sensory deficit, No syncope, No tingling, No tremor(s), No weakness and No other Exam Const General: cooperative, comfortable and no acute distress Orientation: alert, awake and oriented x3 Assessment and Plan Assessment and Plan (1) Hyperparathyroidism: ?Status:?Acute ?Comment: This is a 61-year-old male with diagnosis of primary hyperparathyroidism who presents for review of his clinical work-up as well as discussion of his surgical options.? He has undergone rule out for familial hypocalciuric hypercalcemia.? He has undergone localization studies with ultrasound, sestamibi, and 4D CT imaging.? However, all of these have been nonlocalizing.? Additionally, he has completed renal ultrasound to assess for any persistent nephrolithiasis and DEXA imaging for evaluation of his skeletal health.? These latter studies were somewhat equivocal for the ultrasound imaging and densitometry was remarkable for some bone loss consistent with osteopenia.? I shared with Mr. Magaña and his that he meets criteria for surgical exploration of an asymptomatic primary hyperparathyroid patient being that he has experienced kidney stones in the past, has evidence of bone demineralization, and has a calcium greater than 1 g/dL over the range of normal.? I also shared with him that his nonlocalizing work-up puts him at a higher risk for diagnosis of parathyroid hyperplasia and thereby likely would require a 4 gland exploration.? We discussed the risks of such a surgery to include nerve injury, increased risk of postoperative hypoparathyroidism, and even persistent hyperparathyroidism should we encounter a scenario of ectopic glands.? I have shared with him the reasons to pursue an operative exploration would be to decrease his risk for recurrent kidney stones (preserve kidney function) and reduces future fracture risk.? I have also detailed 1 approach to his situation operatively could be to perform internal jugular venous sampling and assess for any PTH differentials.? Patient expresses an understanding of all this information and wishes for additional time to discuss this with his .? They promised to deliver a phone call with her decision in the next couple of days. ?Plan - Dr. Harvey Dotson MD: ? Await phone call from Mr. Magaña regarding his decision for surgery or not I have examined the patient the following changes are noted: Patient has elected for surgery to include parathyroidectomy versus subtotal parathyroidectomy via a 4 gland exploration. He has been counseled on the surgical plan to include PTH monitoring in the risk for both possible postoperative hypoparathyroidism as well as a failure of cure in the event of a ectopic gland. Both he and his spouse expressed understanding of this information and willing to proceed. If we are successful with keeping the procedure a simple parathyroidectomy, patient is planning for outpatient status, however, if 4 gland exploration with subtotal parathyroidectomy is required he is planning for an observation status. This will be dependent on the proceedings in the OR. Consents were reviewed and signed.
[2022-02-13 07:32] LABS: PTHIN 88.3 pg/mL (18.4-80.1)
[2022-02-13 08:48] LABS: PTHIN 116.8 pg/mL (18.4-80.1)
[2022-02-13 08:52] LABS: PTHIN 117.2 pg/mL (18.4-80.1)
--- NOTE | 2022-02-13 09:49 | PARA_PTH ---
PATIENT: GREGORY MAGAÑA LOC: [facility] U#:[id number] AGE/SX: 61/M ROOM: TX317 RE02/13/[address]: Dr. Harvey Dotson MD : 1960 BED: 1 DIS: 02/14/2022 SPEC #: [id number] RECD: 02/13/22 09:55 STATUS: JANUSZ REArun #: [id number] JOLYNN: 02/13/22 09:[address]: Harvey Dotson DEPT: SURGICAL PATHOLOGY RECD BY: Jose Armstrong ENTERED: 02/13/22 10:24 SP TYPE: PARATHY OTHR DR: Dr. Courtney Barton MD Tissues: A - Parathyroid B - Parathyroid C - Parathyroid D - Parathyroid E - Parathyroid F - Thyroid gland, NOS G - Thyroid gland, NOS Procedures: Frozen Section (charge) Surgery Specimen Level IV HEADER OPERATION: Parathyroidectomy vs subtotal with intraoperative nerve monitoring PRE-OP DIAGNOSIS: Hyperparathyroidism TISSUE SUBMITTED: A - Right inferior parathyroid sent at 0949, FS, B - Right superior parathyroid sent at 1003, FS, C - Left parathyroid sent at 1008, FS, D - Right inferior parathyroid tissue #1, FS, E - Right inferior parathyroid tissue #2, FS, F - Left thymus tissue, G - Additional left thymus tissue FROZEN SECTION DIAGNOSIS A. Right inferior parathyroid, biopsy: Parathyroid tissue. B. Right superior parathyroid, biopsy: Fibrofatty tissue. C: Left parathyroid, biopsy: Parathyroid tissue. D. Right inferior parathyroid tissue #1, biopsy: Fibrofatty tissue. E. Right inferior parathyroid tissue #2, biopsy: Parathyroid tissue. AM:sanchez 02/13/22 MICROSCOPIC DIAGNOSIS A. Right inferior parathyroid tissue, biopsy: Parathyroid tissue. B. Right superior parathyroid, biopsy: A piece of fibrofatty tissue. C. Left parathyroid, biopsy: Parathyroid tissue. D. Right inferior parathyroid tissue #1, biopsy: A piece of adipose tissue. E. Right inferior parathyroid tissue #2, biopsy: Parathyroid tissue. F. Left thymus tissue: Benign thymic tissue. G. Additional left thymic tissue: Predominantly adipose tissue with a minute fragment of benign thymic tissue. FRANCINE:pavithra 02/17/2022 COMMENT Case has been reviewed in consultation with Dr. Boo who concurs with the above diagnosis. IDC:IVONNE MICROSCOPIC DESCRIPTION Slides are reviewed. GROSS DESCRIPTION A - Received fresh for frozen section diagnosis labeled with the patient's name is a specimen designated right inferior parathyroid. The specimen consists of a piece of celis-pink soft tissue measuring 0.6 x 0.2 x 0.1 cm. The entire specimen is submitted for frozen section diagnosis in one cassette. / AM: 02/14/2022 B - Received fresh for frozen section diagnosis labeled with the patient's name is a specimen designated right superior parathyroid. The specimen consists of a piece of celis-pink soft tissue measuring 0.5 x 0.3 x 0.1 cm. The entire specimen is submitted for frozen section diagnosis in one cassette. / AM: 02/14/2022 C - Received fresh for frozen section diagnosis labeled with the patient's name is a specimen designated left parathyroid. The specimen consists of a piece of celis-pink soft tissue measuring 0.2 x 0.2 x 0.1 cm. The entire specimen is submitted for frozen section diagnosis in one cassette. / AM: 02/14/2022 D - Received fresh for frozen section diagnosis labeled with the patient's name is a specimen designated right inferior parathyroid #1. The specimen consists of a piece of celis-yellow soft tissue measuring 0.8 x 0.3 x 0.1 cm. The entire specimen is submitted for frozen section diagnosis in one cassette. / AM: 02/14/2022 E - Received fresh for frozen section diagnosis labeled with the patient's name is a specimen designated right inferior parathyroid tissue #2. The specimen consists of two fragments of celis soft tissue measuring in aggregate 0.2 x 0.2 x 0.1 cm in greatest dimension. The entire specimen is submitted for frozen section diagnosis in one cassette. / AM: 02/14/2022 F - Received in fixative is one container labeled with the patient's name and designated left thymus tissue. The specimen consists of an irregular and partially disrupted piece of yellow adipose tissue weighing 13.9 gm and measuring 8 x 4 x 1 cm. Sections reveal adipose cut surfaces. No obvious glandular tissue is identified. The entire specimen is submitted in eight cassettes. / SJ: 02/14/2022 G - Received in fixative is one container labeled with the patient's name and designated additional left thymus tissue. The specimen consists of a piece of celis-yellow adipose tissue measuring 2.5 x 1 x 0.3 cm. Also present is a piece of celis-yellow adipose tissue measuring 0.8 x 0.5 x 0.2 cm. The entire specimen is submitted in one cassette. / SJ: 02/14/2022 TC:5 CPT: 77816 x7, 28924 x5
[2022-02-13 11:45] LABS: PTHIN 84.7 pg/mL (18.4-80.1)
[2022-02-13 12:52] LABS: PTHIN 79.9 pg/mL (18.4-80.1)
[2022-02-13] MEDS: Bupivacaine 0.25% 30 ML Vial (13:30)
[2022-02-13 14:32] LABS: PTHIN 70.4 pg/mL (18.4-80.1)
[2022-02-13] MEDS: 0.9% Normal Saline 1,000 ML 125 ML IV ×2 (15:37→23:52)
[2022-02-13] MEDS: Acetaminophen 500 MG Tablet PO (16:33)
[2022-02-13] MEDS: BENZOCAINE/MENTHOL 1 LOZENGE MUCOUS MEM ×2 (16:33→21:31)
[2022-02-13] MEDS: Ibuprofen 400 MG Tablet PO ×2 (17:30→23:31)
[2022-02-13 18:41] LABS: PTHIN 26.3 pg/mL (18.4-80.1)
--- NOTE | 2022-02-13 20:32 | OP.PCM_ITS ---
Report of Operation Date of Procedure: 02/13/22 Pre-Operative Diagnosis: Primary hyperparathyroidism Post-Operative Diagnosis: Same Surgery/Procedure Performed:: 1. Parathyroidectomy with 4 gland exploration 2. Cervical thymectomy Description of Surgical Findings:: ? Biopsy-proven identification of right superior and inferior parathyroid glands that are grossly normal in appearance ? Biopsy-proven identification of left superior parathyroid gland that was grossly normal in appearance ? Intact recurrent laryngeal nerve signals ? Minimal downturn of intraoperative PTH values from 88 preop to 79.9 Surgeon: Harvey Dotson strategic communications specialist: Boyd Weathers strategic communications specialist: Dahlia Melendez Type of Anesthesia: General/Supplemental Anesthesiologist: Mikel Baron Specimen's removed: 1. Right inferior parathyroid?frozen confirmed as parathyroid tissue 2. Right superior parathyroid??Frozen confirmed as fibrofatty tissue 3. Left parathyroid??Frozen confirmed as parathyroid tissue (later confirmed as superior gland based on relationship to inferior thyroid artery and recurrent laryngeal nerve) 4. Left thymus tissue 5. Additional left thymus tissue Drains: None Estimated Blood Loss (mL): <50 Description of Procedure: After appropriate identification in the preoperative holding area the patient was brought to the operating room where he was positioned supine on the operating room table. There he was induced with general endotracheal anesthetic. Of note, a preoperative PTH had been obtained and was reported as 88. Patient was then intubated using a NIMS tube and glide a scope to ensure coaptation between the vocal cords and the Nims tube electrodes. A resistance check confirmed appropriate function of the tube after the electrodes were properly connected to the monitoring box. Patient was then positioned on a shoulder roll to optimize exposure. He was prepped and draped in the usual sterile fashion and a formal timeout followed to confirm patient and the procedure to be performed. A local block was produced with infiltration of local anesthetic and an incision was made 4 cm in transverse orientation. This was deepened through the platysma with the use of electrocautery. Subplatysmal flaps were raised with electrocautery. The strap muscles were exposed and these were divided along their raphe with electrocautery. I then the sternohyoid and sternothyroid muscles bilaterally and carried my dissection laterally until I could expose the anterior surface of the internal jugular veins. PTH specimens were sent from each side to attempt to assess whether t here was a differential and the values. However, these values were not very telling as they both returned 117 pg/mL. Since I had a small suspicion for a right-sided adenoma based on a hypoechoic area in the mid polar region on the right, I elected to start with dissection on this side. The right thyroid lobe was exposed and freed of all muscular attachments laterally. Additionally, the middle thyroid vein was sacrificed with the hand-held LigaSure device to provide mobility on the gland. Ultimately we uncovered a normal?appearing right superior parathyroid gland on the underside of the right thyroid lobe superior to the tubercle of Zuckerkandl. A biopsy of this gland was performed by placing a clip along the distal aspect and sharply removing its tip. This was submitted for frozen section and pathology confirmed its identity is parathyroid tissue. Moving inferiorly the thyroid thymic ligament was scrutinized. I biopsied a lobular structure within the tissue (using similar technique to that described previously), but unfortunately this returned as consistent with fibrofatty tissue. More medially, however, I did encounter a second structure at that appeared, grossly, like normal parathyroid tissue and again a clip was placed and a biopsy was obtained. This time pathology confirmed its identity as parathyroid tissue. It should be noted that during the dissection of the thyroid thymic ligament and investigation for the inferior parathyroid gland, I visually identified the right recurrent laryngeal nerve and elicited a strong signal with our [employer] nerve monitor. With 2 grossly?normal-appearing glands on the right we moved to the left side of the neck and discovered a left superior parathyroid gland at an almost identical location to the right-sided superior gland. This gland was biopsied with the same technique as had been used on the patient's right side and pathology confirmed this as parathyroid tissue. Its identity as a true superior gland was further confirmed with its superior position to the recurrent laryngeal nerve and inferior thyroid artery which crossed inferior to its vascular pole. A careful investigation for the patient's left inferior parathyroid gland was undertaken, but despite opening all the soft tissue planes apparent between the recurrent laryngeal nerve and the trachea, no candidates were found. With this result, I elected to perform a cervical thymectomy, but identified the left recurrent laryngeal nerve both visually and with nerve monitor before doing so. Thymic tissue was delivered out of the mediastinum with gentle traction and LigaSure was used to seal all vessels that we encountered to maintain hemostasis. This tissue was carefully inspected for possible parathyroid candidates, but, again none were found. It was therefore passed off the field for permanent pathologic processing. Prior to clearly determining that our positively identified parathyroid gland on the left side was a true superior gland, a search was made of the usual locations for ectopic parathyroid of the superior position?including examination of the paratracheal and retroesophageal spaces?as well as opening the carotid sheath. No parathyroid adenoma was found in any of these locations. I did repeat a PTH on the left side at this time given the removal of the thymic tissue?on the chance that we had inadvertently removed the offending adenoma. This value returned at 80 ng/mL. I considered the possibility of performing a subtotal parathyroidectomy, however, the patient's left superior parathyroid gland appeared somewhat dusky and its viability was questionable. I then decided not to remove the 2 glands on the right, given the higher probability of creating a situation of postoperative hypoparathyroidism. Instead, I proceeded to lisa each positively identified gland with a long 3-0 Prolene stitch. The surgical cavity was then inspected for hemostasis and very selective electrocautery was used along with Surgicel hemostatic agent to obtain this status. Given the extensive dissection on patient's left side of the neck, I again checked for a signal in the left recurrent laryngeal nerve and found this to be strongly present. Once this was confirmed as intact, I performed closure of the neck in layers. The strap muscles were run with a 3-0 Vicryl suture to approximate the raphe but a gap was left in the inferior most portion of the strap muscles. Then the platysmal layer was reapproximated with interrupted 3-0 Vicryl. Additional local anesthetic was instilled. Then the skin was closed using a running 4-0 Monocryl in a subcuticular fashion. Steri-Strips and Telfa OpSite was applied as a dressing. Patient was then awoken from general anesthetic and taken to PACU for ongoing recovery. Complications None Admit VTE Documentation VTE Present on Admission: Yes VTE Mechan Device Prophylaxis: SCD's
[2022-02-13] MEDS: MELATONIN 3 MG TABLET PO (23:49)
[2022-02-14 03:30] VITALS: BP 138/79; PULSE 69; RESP 16; TEMP 36.3; O2SAT 98
[2022-02-14 06:36] LABS: Calcium,Total 9.5 mg/dL (8.5-10.1)
[2022-02-14] MEDS: Ibuprofen 400 MG Tablet PO (06:56)
--- NOTE | 2022-02-14 07:16 | DCINST_ITS ---
Discharge Instructions Diet Discharge Diet: Soft diet (Okay to advance to unrestricted once tolerating) Activity Discharge Activity: May Not Drive (While still difficult to turn head from side to side (impairing blindspot checking) OR if taking narcotic pain medications) May shower in (days): 2 Ice area for (Minutes): 20 Dressing / Incision Call your doctor if your incision/area has: Continuous Slow Oozing, Sudden Increased Bleeding, Increased Pain/ Swelling, Increased Redness and Swelling at the incision site Call your doctor if you observe: Fever of 101 or Higher, Numbness or Tingling (of fingertips or lips) and - (Difficulty swallowing) Remove Dressing in: 2 days (Remove outer dressing but leave steri strips in place until they fall off spontaneously) Cleanse incision/area with: Soap & Water (Avoid scrubbing/ submersing) Follow Up Care Please Follow Up With: Harvey Dotson MD When: In 10days-2weeks for postop check Test Results: Test results from this visit will be discussed in further detail at your follow- up appointment, if applicable. Discharge Plan Admission Admit Date/Time: 02/13/22 13:50 Primary Reason for Your Visit: Hyperparathyroidism Attending Provider: Harvey Dotson Primary Care Provider: Courtney Barton Instructions Patient Instructions: Having Parathyroid Surgery Discharge Orders/Prescriptions Prescriptions: No Action cholecalciferol (vitamin D3) 50 mcg (2,000 unit) capsule 50 mcg PO DAILY esomeprazole magnesium 20 mg capsule,delayed release(DR/EC) 20 mg PO DAILY losartan-hydrochlorothiazide 100-12.5 mg tablet 1 tab PO DAILY Qty: 90 1RF acetaminophen 500 MG tablet 1,000 mg PO Q6H PRN Qty: 100 1RF allopurinol 100 mg tablet 100 mg PO DAILY Qty: 90 1RF Referrals / Follow Up: Courtney Barton MD [Primary Care Provider] - Disposition Disposition (needs filled in before D/C Order can be placed): Home, Self Care
--- NOTE | 2022-02-14 07:19 | PCM.DC.SUM ---
Providers Date of Admission: 02/13/22 Primary Care Physician: Dr. Courtney Barton MD Reason For Visit: HYPERPARATHYROIDISM Medications at Discharge Home Medications acetaminophen 500 mg tablet 1,000 mg PO Q6H PRN #100 tabs 07/13/19 cholecalciferol (vitamin D3) 50 mcg (2,000 unit) capsule 50 mcg PO DAILY 07/09/21 esomeprazole magnesium 20 mg capsule,delayed release 20 mg PO DAILY 07/09/21 losartan 100 mg-hydrochlorothiazide 12.5 mg tablet 1 tab PO DAILY BP #90 tabs 11/22/21 allopurinol 100 mg tablet 100 mg PO DAILY #90 tabs 02/04/22 Hospital Course Operations - (Parathyroidectomy for gland exploration and cervical thymectomy) Summary of Care Provided Hospital Course: Patient underwent parathyroidectomy with 4 gland exploration and cervical thymectomy on 02/13/2022. He was admitted for observation postoperatively given the extensiveness of his surgical dissection. He immediately tolerated a liquid diet and was advanced to a soft diet without issue the following morning. Postoperative day 1 he denied any paresthesias and stated that he felt somewhat better, but still had a slight sore throat. His calcium was rechecked and was within normal limits. With these positive clinic improvements, he is discharged home with postoperative instructions to continue range of motion exercising and application of ice to his incision. We are planning for postoperative follow-up in 10 days to 2 weeks for review of his healing and repeat labs. Physical Exam Const alert, oriented x3 and no apparent distress General Appearance: cooperative Neck Neck Narrative: Operative dressing intact without strikethrough. Soft tissues remain soft. He has some expected tenderness right overlying the incision site. Resp normal respiratory effort Weight / BMI Weight Weight: 174 lb 9.698 oz Body Mass Index (BMI) 23.0 ABG / Lab / Microbiology Data Laboratory: Laboratory Results - last 24 hr 02/13/22 07:08: PTH Intact 88.3 H 02/13/22 14:10: PTH Intact 70.4 02/13/22 17:10: PTH Intact 26.3 02/13/22 : PTH Intact 116.8 H 02/13/22 : PTH Intact 117.2 H 02/13/22 : PTH Intact 84.7 H 02/13/22 : PTH Intact 79.9 02/14/22 05:48: Calcium 9.5 D/C Instructions Discharge Diet: Soft diet (Okay to advance to unrestricted once tolerating) May shower in (days): 2 Ice area for (Minutes): 20 Call your doctor if your incision/area has: Continuous Slow Oozing, Sudden Increased Bleeding, Increased Pain/ Swelling, Increased Redness and Swelling at the incision site Call your doctor if you observe: Fever of 101 or Higher, Numbness or Tingling (of fingertips or lips) and - (Difficulty swallowing) Cleanse incision/area with: Soap & Water (Avoid scrubbing/ submersing) Please Follow Up With: Harvey Dotson MD When: In 10days-2weeks for postop check Meaningful Use Info Meaningful Use Diagnoses (Choose all that apply): None applicable Discharge Plan Admission Admit Date/Time: 02/13/22 13:50 Primary Reason for Your Visit: Hyperparathyroidism Attending Provider: Harvey Dotson Primary Care Provider: Courtney Barton Instructions Patient Instructions: Having Parathyroid Surgery Discharge Orders/Prescriptions Prescriptions: No Action cholecalciferol (vitamin D3) 50 mcg (2,000 unit) capsule 50 mcg PO DAILY esomeprazole magnesium 20 mg capsule,delayed release(DR/EC) 20 mg PO DAILY losartan-hydrochlorothiazide 100-12.5 mg tablet 1 tab PO DAILY Qty: 90 1RF acetaminophen 500 MG tablet 1,000 mg PO Q6H PRN Qty: 100 1RF allopurinol 100 mg tablet 100 mg PO DAILY Qty: 90 1RF Referrals / Follow Up: Courtney Barton MD [Primary Care Provider] - Disposition Disposition (needs filled in before D/C Order can be placed): Home, Self Care Charges/Coding Visit Charges Inpatient E&M: 95397 Disch Hosp
[2022-02-14 08:06] LABS: PTHIN 74.7 pg/mL (18.4-80.1)
[2022-02-14 08:10] VITALS: BP 154/81; PULSE 68; RESP 16; TEMP 36.6; O2SAT 95
--- NOTE | 2022-02-14 09:53 | PHA.DC.MR ---
Pharmacy Service has performed discharge medication reconciliation for this patient. The patient's discharge medication list was reviewed for discrepancies and discrepancies were resolved. Home Medications acetaminophen 500 mg tablet 1,000 mg PO Q6H PRN #100 tabs 07/13/19 cholecalciferol (vitamin D3) 50 mcg (2,000 unit) capsule 50 mcg PO DAILY 07/09/21 esomeprazole magnesium 20 mg capsule,delayed release 20 mg PO DAILY 07/09/21 losartan 100 mg-hydrochlorothiazide 12.5 mg tablet 1 tab PO DAILY BP #90 tabs 11/22/21 allopurinol 100 mg tablet 100 mg PO DAILY #90 tabs 02/04/22
[2022-02-14 11:24] VITALS: BP 145/88; PULSE 76; RESP 16; TEMP 36.6; O2SAT 98
== END 2022-02-14 11:19 | disposition home or self-care (01) ==
LOC: SDC 14:08 → MS3 14:08
PROVIDERS: Admitting Provider Surgery; PCP Internal Medicine; Referring Provider Surgery; Visit Provider Surgery
PROC: (CPT 60500; principal; 2022-02-13 07:15)
DX: E21.0 Primary hyperparathyroidism (principal); I10 Essential (primary) hypertension; Z79.899 Other long term (current) drug therapy; M10.9 Gout, unspecified; E55.9 Vitamin D deficiency, unspecified; M19.90 Unspecified osteoarthritis, unspecified site
CPT/HCPCS: 60500; 60520; 36415; 82310; 83970; 88305; 88307; 88331; 96360; 96361; 99218; J7030; J7120; G0378; J2405

== ENCOUNTER → 2022-02-24 | Outpatient (CLI) | payer OTHER, SELFPAY ==
[2022-02-24 15:43] LABS: Absolute Lymphocyte Count 0.95 X10^3/uL (0.83-4.51); Absolute Neutrophil Count 4.9 X10^3/uL (2.0-7.7); Basophil# 0.03 X10^3/uL; Basophil% 0.5 % (0-1); Eosinophil# 0.04 X10^3/uL; Eosinophils% 0.6 % (0-5); Hematocrit 37.6 % (40-54); Hemoglobin 12.1 g/dL (13.0-16.5); Lymphocyte # 0.95 X10^3/ul (0.83-4.51); Lymphocyte % 14.4 % (19-41); Mean Corp Hgb Conc 32.2 g/dL (32-36); Mean Corpuscular Hgb 27.3 pg (27.0-32.0); Mean Corpuscular Volume 84.9 fL (80-94); Mean Platelet Vol. 9.9 fl (6.2-12.0); Monocyte% 10.6 % (0-10); NRBC Flagged by Analyzer 0 % (0-5); Neutrophil # 4.87 X10^3/uL (2.7-7.7); Neutrophil % 73.6 % (47-70); Platelet Count 397 K/mm3 (150-450); RBC Distribution Width SD 46.5 fl (35.1-43.9); Red Blood Count 4.43 M/mm3 (4.6-6.2); White Blood Count 6.6 K/mm3 (4.4-11.0)
[2022-02-24 16:16] LABS: Anion Gap 8 (5-15); BUN 27 mg/dL (7-18); BUN/Creat Ratio 19.7 RATIO (10-20); Chloride 106 mmol/L (98-107); Creatinine, Serum 1.37 mg/dL (0.70-1.30); EST Glomerular Filtration Rate 56 mL/min (>60); Est Glom Filt Rate - Afr Amer 67 mL/min (>60); Glucose 65 mg/dL (74-106); Sodium Level 139 mmol/L (136-145)
[2022-02-25 08:19] LABS: PTHIN 86.8 pg/mL (18.4-80.1)
== END | disposition home or self-care (01) ==
LOC: LAB 13:37
PROVIDERS: PCP Internal Medicine; Referring Provider Surgery; Visit Provider Surgery
DX: I10 Essential (primary) hypertension (principal); E89.2 Postprocedural hypoparathyroidism; M10.9 Gout, unspecified
CPT/HCPCS: 36415; 80048; 83970; 84550; 85025

== ENCOUNTER → 2022-03-17 | Outpatient (CLI) | payer OTHER, SELFPAY ==
[2022-03-17 08:17] LABS: Calcium,Total 11.3 mg/dL (8.5-10.1)
[2022-03-17 08:34] LABS: PTHIN 86.6 pg/mL (18.4-80.1)
== END | disposition home or self-care (01) ==
LOC: LAB 07:19
PROVIDERS: PCP Internal Medicine; Referring Provider Surgery; Visit Provider Surgery
DX: E89.2 Postprocedural hypoparathyroidism (principal)
CPT/HCPCS: 36415; 82310; 83970

== ENCOUNTER 2022-03-22 05:53 | Emergency (ER) | payer OTHER, SELFPAY ==
[2022-03-22 05:54] VITALS: BP 163/95; PULSE 73; RESP 16; TEMP 36.1; O2SAT 99; BMI 23.3
--- NOTE | 2022-03-22 06:03 | RAD_ITS ---
INDICATION: Injury to foot, painful and swollen at proximal left fourth and fifth metatarsal regions. EXAMINATION/TECHNIQUE: X-RAY - LEFT XR Foot Min 3 Views COMPARISON: Left foot radiographs from 02/01/2013 FINDINGS: SOFT TISSUES: No significant soft tissue swelling. No radiopaque foreign body detected. BONES/JOINTS: No acute fracture or subluxation. Adequate alignment. Preservation of the joint space(s). Mild degenerative spurring dorsum of midfoot. Small plantar calcaneal enthesophyte. RAD/Foot min 3 Views IMPRESSION: No significant injury. Mild degenerative changes noted. Electronically Signed: Kyrie Durand MD at 6:24 EDT ,
--- NOTE | 2022-03-22 06:05 | EX.ED.DYSGE1 ---
HPI History of Present Illness Chief Complaint: Lower Extremity Injury Narrative Narrative: Patient is a 61-year-old male with past medical history of hyperparathyroidism hypertension and gout. He states that on his 150 pound dog jumped out of the car and landed on his left foot. He states he had pain after the trauma but did not think much of this. He states this time past the foot became swollen and more painful. He states he has been no repeat trauma but since the initial injury the foot continues to swell and has had increasing pain which is not controlled with [id number] medications. Therefore with concern for underlying fracture he presents for evaluation [facility] Medical History Alcohol use Anxiety and depression Arthritis Blackout Gastric reflux GERD (gastroesophageal reflux disease) Gout History of stress test Hypercalcemia Hyperparathyroidism Hypertension Kidney stones Leg cramps Osteopenia Osteoporosis Prostate cancer Vitamin D deficiency Home Medications acetaminophen 500 mg tablet 1,000 mg PO Q6H PRN #100 tabs 07/13/19 [Rx Last Taken Unknown] cholecalciferol (vitamin D3) 50 mcg (2,000 unit) capsule 50 mcg PO DAILY 07/09/21 [History Last Taken 02/12/22] esomeprazole magnesium 20 mg capsule,delayed release 20 mg PO DAILY 07/09/21 [History Last Taken 02/12/22] losartan 100 mg-hydrochlorothiazide 12.5 mg tablet 1 tab PO DAILY BP #90 tabs 11/22/21 [Rx Last Taken 02/12/22] allopurinol 100 mg tablet 200 mg PO DAILY 3 months #180 tabs 03/14/22 [Rx Last Taken Unknown] methylprednisolone 4 mg tablets in a dose pack (Medrol (Erik)) See Rx Instructions PO PER PKG DIR #21 tabs 03/18/22 [Rx Last Taken Unknown] oxycodone-acetaminophen 5 mg-325 mg tablet (Percocet) 1 tab PO Q6H PRN pain 3 days #12 tabs 03/22/22 [Rx Last Taken Unknown] sulfamethoxazole 800 mg-trimethoprim 160 mg tablet (Bactrim DS) 1 tab PO BID 7 days #14 tabs 03/22/22 [Rx Last Taken Unknown] Allergy/AdvReac Type Severity Reaction Status Date / Time No Known Allergies Allergy Verified 03/17/22 09:46 Family History Brother Myocardial infarction, Onset Age: 55 Sister Myocardial infarction, Onset Age: 43 Other Hypertension Surgical History (Updated 03/17/22 @ 11:[address] Harvey Dotson MD) Hip joint replacement status History of cardiac catheterization History of colonoscopy History of hernia repair History of hip replacement History of parathyroidectomy Social History Smoking Status: Never smoker alcohol intake: current alcohol intake frequency: 3 or more drinks per day Alcohol type: beer substance use type: does not use what type of physical activity do you participate in: walking ROS ROS ED Constitutional Constitutional ED: Denies chills or fever(s) ENT ENT ED: Denies sore throat Cardiovascular Cardiovascular: Denies chest pain Respiratory/Chest Respiratory/Chest: Denies cough or dyspnea Gastrointestinal Gastrointestinal: Denies abdominal pain, diarrhea, nausea or vomiting Genitourinary Genitourinary ED: Denies dysuria Musculoskeletal Musculoskeletal: Reports other Details: Positive left foot pain ; Denies myalgias Integumentary Reports other Details: Positive erythema/soft tissue swelling to the left foot ; Denies rash Neurologic Neurologic: Denies headache(s) or paresthesias Hematologic/Lymphatic Hematologic/Lymphatic: Denies easy bleeding or easy bruising EXAM Physical Exam Const Vital Signs: 03/22/22 05:54 Temperature 97.0 F L Temperature Source Temporal Pulse Rate 73 Respiratory Rate 16 Blood Pressure 163/95 H Blood Pressure Mean 117 Pulse Ox 99 Oxygen Delivery Method Room Air Positive well nourished and well developed General Appearance ED: well developed Eyes PERRL and EOMs intact bilaterally Neck supple Resp normal respiratory effort and clear to auscultation bilaterally Cardio regular rate and regular rhythm Extremity Extremity Narrative: Left lower extremity is neurovascularly intact. Dorsalis pedis pulses plus 2 out of 4 and capillary refill is less than 3 seconds. Patient has diffuse soft tissue swelling to the left foot with faint erythema and warmth mainly along the dorsal aspect of the lateral foot over top the fourth and fifth metatarsals. There is no obvious bony deformity or joint effusion. No ligamentous or tendon injury noted. No lymphangitic streaking. Remainder of the exam is normal Neuro oriented x3 and CN's II-XII intact bilaterally Sensorium / Orientation: alert Psych mental status grossly normal Skin Skin Narrative: Soft tissue changes to the left foot as documented above MDM MDM MDM Narrative Medical decision making narrative: Patient presented to the ER hypertensive but has a history of hypertension and has not had his morning medication yet so this was value was expected. He reported pain in his left foot that began after his large dog weighing approximately 150 pounds jumped on it from the back of his car. Therefore the most likely reason for his pain was a possible fracture so an x-ray was ordered. The x-ray revealed no acute fracture or dislocation. The patient does have a history of gout but his redness and warmth is not located over the joint space to suggest this and patient has been on prednisone for the past few days which should have helped reduce the gout flare by now. The patient does not have any calf swelling or tenderness or streaking and even though he had a surgery 1 month ago there is no physical exam findings to suggest DVT so do not feel there is need for a venous duplex. Also he has maintained a strong pulse with good capillary refill going against a arterial occlusion or compartment syndrome. There is a chance that this could be an atypical soft tissue infection because of the persistent swelling redness and warmth. Therefore this time I will trial the patient on a 7-day course of Bactrim. He will finish out his steroids and also prescribed pain medication. If patient does not have improvement of symptoms in the next few days he was advised to return to the hospital for repeat evaluation. Patient states he is comfortable with this plan Radiography Diagnostic Testing: Clinical Impression(s) from Imaging Studies Foot X-Ray 03/22/22 06:03 IMPRESSION: No significant injury. Mild degenerative changes noted. Electronically Signed: Kyrie Durand MD at 6:24 EDT , Left foot x-ray interpreted by the emergency medicine physician reveals degenerative changes without acute fracture dislocation or foreign body Discharge Plan Triage Chief Complaint: Lower Extremity Injury ED Provider: Marcelo Cotter Dx/Rx/DC Orders Clinical Impression: Contusion of foot, left, Cellulitis of foot, left Instructions: ED Cellulitis, ED Foot Contusion Prescriptions: New sulfamethoxazole-trimethoprim [Bactrim DS] 800-160 mg tablet 1 tab PO BID 7 Days Qty: 14 0RF oxycodone-acetaminophen [Percocet] 5-325 mg tablet 1 tab PO Q6H PRN (Reason: pain) 3 Days Qty: 12 0RF No Action cholecalciferol (vitamin D3) 50 mcg (2,000 unit) capsule 50 mcg PO DAILY esomeprazole magnesium 20 mg capsule,delayed release(DR/EC) 20 mg PO DAILY losartan-hydrochlorothiazide 100-12.5 mg tablet 1 tab PO DAILY Qty: 90 1RF allopurinol 100 mg tablet 200 mg PO DAILY 90 Days Qty: 180 1RF acetaminophen 500 MG tablet 1,000 mg PO Q6H PRN Qty: 100 1RF methylprednisolone [Medrol (Erik)] 4 mg tablets,dose pack See Rx Instructions PO PER PKG DIR Qty: 21 0RF Rx Instructions: PO PER PKG DIR Primary Care Provider: Courtney Barton Referrals: Courtney Barton MD [Primary Care Provider] - Activity Restrictions/Additional Instructions: Please take the pain medication and antibiotic as directed as I do have concern that the redness and swelling could be an atypical presentation for infection as your x-ray did not reveal any fracture or dislocation. Continue to ice the area to help reduce pain and speed healing and if you have any further concerns or no improvement despite treatment please return for repeat evaluation Disposition Disposition: Home, Self Care
[2022-03-22] MEDS: morphine 10 MG/ML Syringe IM (06:09)
[2022-03-22] MEDS: Ondansetron ODT 4 MG Tablet PO (06:09)
[2022-03-22] MEDS: Smz/Tmp Ds Tablet 1 TABLET PO (06:53)
[2022-03-22 07:03] VITALS: BP 145/81; PULSE 75; RESP 16; O2SAT 98
== END 2022-03-22 07:05 | disposition home or self-care (01) ==
PROVIDERS: Emergency Provider Emergency Medicine; PCP Internal Medicine; Visit Provider Emergency Medicine
DX: S90.32XA Contusion of left foot, initial encounter (principal); E21.3 Hyperparathyroidism, unspecified; L03.116 Cellulitis of left lower limb; M10.9 Gout, unspecified; I10 Essential (primary) hypertension; K21.9 Gastro-esophageal reflux disease without esophagitis; F32.A Depression, unspecified; F41.9 Anxiety disorder, unspecified; Z87.442 Personal history of urinary calculi; Z85.46 Personal history of malignant neoplasm of prostate; E55.9 Vitamin D deficiency, unspecified; M81.0 Age-related osteoporosis without current pathological fracture; Z79.899 Other long term (current) drug therapy; W54.1XXA Struck by dog, initial encounter
CPT/HCPCS: 73630; 96372; 99283

== ENCOUNTER 2022-04-22 05:59 | Day surgery (SDC) | payer OTHER, SELFPAY ==
[2022-04-22 06:44] VITALS: BP 150/91; PULSE 72; RESP 16; TEMP 36.7; O2SAT 96; BMI 22.9
[2022-04-22] MEDS: Lactated Ringers 1,000 ML 15 ML IV (06:53)
--- NOTE | 2022-04-22 07:36 | DS.PCM_ITS ---
Providers Primary Care Physician: Dr. Courtney Barton MD Reason For Visit: DIRECT LARYNGOSCOPY WITH VOCAL CORD INJECTION Medications at Discharge Home Medications acetaminophen 500 mg tablet 1,000 mg PO Q6H PRN #100 tabs 07/13/19 cholecalciferol (vitamin D3) 50 mcg (2,000 unit) capsule 50 mcg PO DAILY 07/09/21 esomeprazole magnesium 20 mg capsule,delayed release 20 mg PO DAILY 07/09/21 losartan 100 mg-hydrochlorothiazide 12.5 mg tablet 1 tab PO DAILY BP #90 tabs 0 11/22/21 allopurinol 100 mg tablet 200 mg PO DAILY 3 months #180 tabs 03/14/22 Weight / BMI Weight Weight: 79 kg Body Mass Index (BMI) 22.9 D/C Instructions Discharge Diet: No restrictions Discharge Activity: Return to Normal Activity Additional Activity Instructions: Absolute voice rest for 3 days. arms length talking for a week after that. Meaningful Use Info Meaningful Use Diagnoses (Choose all that apply): None applicable Discharge Plan Admission Attending Provider: Catarino Aguilera Primary Care Provider: Courtney Barton Discharge Orders/Prescriptions Prescriptions: No Action cholecalciferol (vitamin D3) 50 mcg (2,000 unit) capsule 50 mcg PO DAILY esomeprazole magnesium 20 mg capsule,delayed release(DR/EC) 20 mg PO DAILY losartan-hydrochlorothiazide 100-12.5 mg tablet 1 tab PO DAILY Qty: 90 1RF allopurinol 100 mg tablet 200 mg PO DAILY 90 Days Qty: 180 1RF acetaminophen 500 MG tablet 1,000 mg PO Q6H PRN Qty: 100 1RF Referrals / Follow Up: Courtney Barton MD [Primary Care Provider] - Disposition Disposition (needs filled in before D/C Order can be placed): Home, Self Care
[2022-04-22] MEDS: Epinephrine (1 mg/ml) 1 MG/ML VIAL (08:08)
--- NOTE | 2022-04-22 08:24 | PCM.OPRPT ---
Report of Operation Date of Procedure: 04/22/22 Pre-Operative Diagnosis: left vocal cord paralysis hoarseness Post-Operative Diagnosis: same Surgery/Procedure Performed:: MicroDirect Laryngoscopy with injection of the left vocal cord (prolaryn gel) Surgeon: Catarino Aguilera Type of Anesthesia: General Anesthesiologist: Thiago Montano Estimated Blood Loss (mL): minimal Description of Procedure: The patient was taken to the operating room on 04/22/2022. He was placed in the supine position on the operating room table. He was given sufficient general endotracheal anesthesia. The table was turned 90 degrees in a clockwise fashion. The patient was draped sterilely. A gum guard was placed on the patient's upper dentition. A Jaycee laryngoscope was inserted in the patient's mouth and into the pharynx. The epiglottis was identified. The larynx was then exposed. He was then placed in suspension on the [place] stand. The operating microscope was then brought into use. Next, I identified the vocal process on the left side. I inserted the needle just anterior and lateral to the vocal process. I then injected the entire syringe of prolaryn gel. This provided excellent medialization of the left vocal cord. The needle was then removed. I then treated the injection site with some topical adrenaline for hemostasis. Once hemostasis was achieved all instrumentation was then removed. The patient was then awoken brought to recovery room in stable condition. Blood loss minimal, replacement none. Sponge, needle, and instrument count were correct at the end of the procedure.
[2022-04-22 08:43] VITALS: BP 150/91; BP 151/86; PULSE 72; RESP 18; TEMP 36.8; O2SAT 96
[2022-04-22 08:58] VITALS: BP 148/90; BP 150/91; PULSE 73; RESP 18; O2SAT 95
[2022-04-22 09:13] VITALS: BP 134/87; BP 150/91; PULSE 65; RESP 16; O2SAT 93
[2022-04-22 09:16] VITALS: BP 138/87; BP 150/91; PULSE 65; RESP 18; TEMP 36.9; O2SAT 95
[2022-04-22 10:01] VITALS: BP 150/91; BP 157/86; PULSE 57; RESP 16; TEMP 36.6; O2SAT 94
== END 2022-04-22 10:04 | disposition home or self-care (01) ==
LOC: SDC 06:00 → AC 06:01
PROVIDERS: PCP Internal Medicine; Referring Provider Otolaryngology; Visit Provider Otolaryngology
PROC: 0CJS8ZZ Inspection of Larynx, Via Natural or Artificial Opening Endoscopic (ICD-10-PCS; CPT 31575; principal; 2022-04-22 07:25)
DX: J38.01 Paralysis of vocal cords and larynx, unilateral (principal); E21.3 Hyperparathyroidism, unspecified; C61 Malignant neoplasm of prostate; R49.0 Dysphonia; I10 Essential (primary) hypertension; K21.9 Gastro-esophageal reflux disease without esophagitis; E55.9 Vitamin D deficiency, unspecified; M19.90 Unspecified osteoarthritis, unspecified site; M10.9 Gout, unspecified; M81.0 Age-related osteoporosis without current pathological fracture; Z79.899 Other long term (current) drug therapy
CPT/HCPCS: 31571; 00320; J7120; J2405

== ENCOUNTER 2022-05-15 14:32 | Outpatient (CLI) | payer OTHER, SELFPAY ==
[2022-05-15 16:57] LABS: Anion Gap 7 (5-15); BUN 18 mg/dL (7-18); BUN/Creat Ratio 13.7 RATIO (10-20); Chloride 105 mmol/L (98-107); Creatinine, Serum 1.31 mg/dL (0.70-1.30); EST Glomerular Filtration Rate 59 mL/min (>60); Est Glom Filt Rate - Afr Amer 71 mL/min (>60); Glucose 80 mg/dL (74-106); PSA,Total- Diagnostic 5.28 ng/mL (0.0-4.0); Potassium 4.3 mmol/L (3.5-5.1); Sodium Level 139 mmol/L (136-145); Uric Acid 4.6 mg/dL (3.5-7.2)
== END 2022-05-15 23:59 | disposition home or self-care (01) ==
LOC: BIMLAB 14:33
PROVIDERS: PCP Internal Medicine; Referring Provider Urology; Visit Provider Urology
DX: R97.20 Elevated prostate specific antigen [PSA] (principal); I10 Essential (primary) hypertension; M10.9 Gout, unspecified
CPT/HCPCS: 36415; 80048; 84153; 84550

== ENCOUNTER → 2022-06-27 | Outpatient (CLI) | payer OTHER, SELFPAY | END | disposition home or self-care (01) | LOC: LABSPEC 14:21 | PROVIDERS: PCP Internal Medicine; Referring Provider Internal Medicine; Visit Provider Internal Medicine | DX: J01.90 Acute sinusitis, unspecified (principal) | CPT/HCPCS: 87635; U0003; U0005 ==

== ENCOUNTER → 2022-08-06 | Outpatient (CLI) | payer OTHER, SELFPAY ==
[2022-08-06 16:05] LABS: Calcium,Total 10.6 mg/dL (8.5-10.1)
[2022-08-06 16:12] LABS: Vitamin D,25 Hydroxy 34.2 ng/mL
[2022-08-07 08:32] LABS: PTHIN 78.5 pg/mL (18.4-80.1)
== END | disposition home or self-care (01) ==
LOC: LAB 14:40
PROVIDERS: PCP Internal Medicine; Visit Provider Surgery
DX: E21.3 Hyperparathyroidism, unspecified (principal); E89.2 Postprocedural hypoparathyroidism; E55.9 Vitamin D deficiency, unspecified
CPT/HCPCS: 36415; 82306; 82310; 83970

== ENCOUNTER → 2022-12-03 | Outpatient (CLI) | payer OTHER, SELFPAY | END | disposition home or self-care (01) | LOC: LAB 10:33 | PROVIDERS: PCP Internal Medicine; Referring Provider Urology; Visit Provider Urology | DX: C61 Malignant neoplasm of prostate (principal) | CPT/HCPCS: 36415; 84153 ==

== ENCOUNTER → 2023-06-05 | Outpatient (CLI) | payer OTHER, SELFPAY ==
[2023-06-05 10:53] LABS: PSA,Total- Diagnostic 6.64 ng/mL (0.0-4.0)
== END | disposition home or self-care (01) ==
LOC: LAB 09:40
PROVIDERS: PCP Internal Medicine; Referring Provider Urology; Visit Provider Urology
DX: C61 Malignant neoplasm of prostate (principal)
CPT/HCPCS: 36415; 84153

== ENCOUNTER → 2023-07-10 | Outpatient (CLI) | payer OTHER, SELFPAY ==
[2023-07-10 12:10] LABS: Absolute Lymphocyte Count 0.81 X10^3/uL (0.83-4.51); Absolute Neutrophil Count 5.7 X10^3/uL (2.0-7.7); Basophil# 0.03 X10^3/uL; Basophil% 0.4 % (0-1); Eosinophil# 0.12 X10^3/uL; Eosinophils% 1.6 % (0-5); Hematocrit 42.1 % (40-54); Hemoglobin 13.2 g/dL (13.0-16.5); Lymphocyte # 0.81 X10^3/ul (0.83-4.51); Lymphocyte % 11.1 % (19-41); Mean Corp Hgb Conc 31.4 g/dL (32-36); Mean Corpuscular Hgb 27.8 pg (27.0-32.0); Mean Corpuscular Volume 88.6 fL (80-94); Mean Platelet Vol. 10.4 fl (6.2-12.0); Monocyte# 0.64 X10^3/uL; Monocyte% 8.8 % (0-10); NRBC Flagged by Analyzer 0 % (0-5); Neutrophil # 5.65 X10^3/uL (2.7-7.7); Neutrophil % 77.6 % (47-70); Platelet Count 289 K/mm3 (150-450); RBC Distribution Width CV 14.4 % (11.6-14.6); RBC Distribution Width SD 46.7 fl (35.1-43.9); Red Blood Count 4.75 M/mm3 (4.6-6.2); White Blood Count 7.3 K/mm3 (4.4-11.0)
[2023-07-10 12:31] LABS: Vitamin D,25 Hydroxy 48.9 ng/mL
[2023-07-10 12:34] LABS: PTHIN 98.6 pg/mL (18.4-80.1)
[2023-07-10 12:47] LABS: ALB/GLOB Ratio 1.2 RATIO (0.9-2.4); AST(SGOT) 22 U/L (15-37); Alanine Aminotransfer ALT/SGPT 25 U/L (16-61); Albumin, Serum 3.9 g/dL (3.2-5.0); Alkaline Phosphatase 44 U/L (45-117); Anion Gap 4 (5-15); BUN 20 mg/dL (7-18); BUN/Creat Ratio 15.2 RATIO (10-20); Calcium,Total 10.6 mg/dL (8.5-10.1); Chloride 106 mmol/L (98-107); Cholesterol 207 mg/dL (200); Creatinine, Serum 1.32 mg/dL (0.70-1.30); EST Glomerular Filtration Rate 58 mL/min (>60); Est Glom Filt Rate - Afr Amer 70 mL/min (>60); Globulin 3.2 g/dL (2.2-4.2); Glucose 102 mg/dL (74-106); High Density Lipoprotein 76 mg/dL; Potassium 4.8 mmol/L (3.5-5.1); Protein, Total 7.1 g/dL (6.4-8.2); Sodium Level 138 mmol/L (136-145); Triglycerides 100 mg/dL; Uric Acid 4.9 mg/dL (3.5-7.2); Very Low Density Lipoprotein 20 mg/dL (5-40)
== END | disposition home or self-care (01) ==
PROVIDERS: PCP Internal Medicine; Referring Provider Internal Medicine; Visit Provider Internal Medicine
DX: I10 Essential (primary) hypertension (principal); E21.3 Hyperparathyroidism, unspecified; M10.9 Gout, unspecified
CPT/HCPCS: 36415; 80053; 80061; 82306; 83970; 84550; 85025

== ENCOUNTER → 2023-09-24 | Outpatient (CLI) | payer OTHER, SELFPAY ==
[2023-09-24 07:57] LABS: 24H Urine Creat. Total Vol. 1.75 L; 24HR UR TOTAL VOLUME 1750 ml; 24HR. Urine Creatinine 1.44 g/24 HR (0.90-2.10); Calcium Urine pH Range 1; Urine Calcium (Random) < 5.0 (Not Estab.)
== END | disposition home or self-care (01) ==
LOC: LABSPEC 07:15
PROVIDERS: PCP Internal Medicine; Referring Provider Internal Medicine Endocrinology, Diabetes & Metabolism; Visit Provider Internal Medicine Endocrinology, Diabetes & Metabolism
DX: E21.0 Primary hyperparathyroidism (principal); M85.89 Other specified disorders of bone density and structure, multiple sites
CPT/HCPCS: 81050; 82340; 82570

== ENCOUNTER 2023-10-28 13:22 | Outpatient (CLI) | payer OTHER, SELFPAY ==
[2023-10-28 13:38] VITALS: BP 129/70; PULSE 87; RESP 16; TEMP 36.3; O2SAT 98; BMI 24.0
[2023-10-28] MEDS: Zoledronic Acid 5 MG 100 ML 300 MG IV (13:48)
[2023-10-28] MEDS: 0.9% NaCl Peripheral Flush Adult/Peds IV (13:48)
[2023-10-28 14:09] VITALS: BP 117/65; PULSE 81; RESP 16; TEMP 35.8; O2SAT 97
== END 2023-10-28 13:23 | disposition home or self-care (01) ==
PROVIDERS: PCP Internal Medicine; Referring Provider Internal Medicine Endocrinology, Diabetes & Metabolism; Visit Provider Internal Medicine Endocrinology, Diabetes & Metabolism
DX: M85.89 Other specified disorders of bone density and structure, multiple sites (principal)
CPT/HCPCS: 96365; A4216; J3489

== ENCOUNTER → 2023-12-10 | Outpatient (CLI) | payer OTHER, SELFPAY ==
[2023-12-10 10:29] LABS: PSA,Total- Diagnostic 6.33 ng/mL (0.0-4.0)
== END | disposition home or self-care (01) ==
LOC: LAB 07:31
PROVIDERS: PCP Internal Medicine; Referring Provider Urology; Visit Provider Urology
DX: C61 Malignant neoplasm of prostate (principal)
CPT/HCPCS: 36415; 84153

== ENCOUNTER → 2024-02-04 | Outpatient (CLI) | payer OTHER, SELFPAY ==
[2024-02-04 08:47] LABS: Anion Gap 5 (5-15); BUN 29 mg/dL (7-18); BUN/Creat Ratio 18.6 RATIO (10-20); Calcium,Total 9.7 mg/dL (8.5-10.1); Chloride 109 mmol/L (98-107); Creatinine, Serum 1.56 mg/dL (0.70-1.30); EST Glomerular Filtration Rate 48 mL/min (>60); Est Glom Filt Rate - Afr Amer 58 mL/min (>60); Glucose 99 mg/dL (74-106); Potassium 4.2 mmol/L (3.5-5.1); Sodium Level 139 mmol/L (136-145)
== END | disposition home or self-care (01) ==
LOC: LAB 07:58
PROVIDERS: PCP Internal Medicine; Referring Provider Internal Medicine Endocrinology, Diabetes & Metabolism; Visit Provider Internal Medicine Endocrinology, Diabetes & Metabolism
DX: E21.0 Primary hyperparathyroidism (principal)
CPT/HCPCS: 36415; 80048

== ENCOUNTER → 2024-04-13 | Outpatient (CLI) | payer OTHER, SELFPAY ==
[2024-04-13 12:18] LABS: Absolute Lymphocyte Count 0.63 X10^3/uL (0.83-4.51); Basophil# 0.03 X10^3/uL; Basophil% 0.6 % (0-1); Eosinophil# 0.08 X10^3/uL; Eosinophils% 1.5 % (0-5); Hematocrit 40.2 % (40-54); Hemoglobin 12.4 g/dL (13.0-16.5); Lymphocyte # 0.63 X10^3/ul (0.83-4.51); Mean Corp Hgb Conc 30.8 g/dL (32-36); Mean Corpuscular Hgb 27.9 pg (27.0-32.0); Mean Corpuscular Volume 90.3 fL (80-94); Mean Platelet Vol. 10.3 fl (6.2-12.0); Monocyte# 0.51 X10^3/uL; Monocyte% 9.7 % (0-10); NRBC Flagged by Analyzer 0 % (0-5); Neutrophil # 3.97 X10^3/uL (2.7-7.7); Neutrophil % 75.6 % (47-70); Platelet Count 289 K/mm3 (150-450); RBC Distribution Width CV 14.9 % (11.6-14.6); RBC Distribution Width SD 49.2 fl (35.1-43.9); Red Blood Count 4.45 M/mm3 (4.6-6.2); White Blood Count 5.3 K/mm3 (4.4-11.0)
[2024-04-13 13:28] LABS: Anion Gap 6 (5-15); BUN 19 mg/dL (7-18); BUN/Creat Ratio 14.8 RATIO (10-20); Calcium,Total 9.8 mg/dL (8.5-10.1); Chloride 105 mmol/L (98-107); Cholesterol 204 mg/dL (200); Creatinine, Serum 1.28 mg/dL (0.70-1.30); EST Glomerular Filtration Rate 60 mL/min (>60); Est Glom Filt Rate - Afr Amer 72 mL/min (>60); Glucose 103 mg/dL (74-106); High Density Lipoprotein 69 mg/dL; Potassium 4.4 mmol/L (3.5-5.1); Sodium Level 137 mmol/L (136-145); Triglycerides 166 mg/dL; Very Low Density Lipoprotein 33 mg/dL (5-40)
== END | disposition home or self-care (01) ==
PROVIDERS: PCP Internal Medicine; Referring Provider Internal Medicine; Visit Provider Internal Medicine
DX: I10 Essential (primary) hypertension (principal)
CPT/HCPCS: 36415; 80048; 80061; 85025

== ENCOUNTER → 2024-06-09 | Outpatient (CLI) | payer OTHER, SELFPAY ==
[2024-06-09 08:26] LABS: PSA,Total- Diagnostic 5.79 ng/mL (0.0-4.0)
== END | disposition home or self-care (01) ==
LOC: LAB 07:39
PROVIDERS: PCP Internal Medicine; Referring Provider Urology; Visit Provider Urology
DX: C61 Malignant neoplasm of prostate (principal)
CPT/HCPCS: 36415; 84153

== ENCOUNTER 2024-10-27 13:37 | Outpatient (CLI) | payer OTHER, SELFPAY ==
[2024-10-27 13:52] VITALS: BP 158/93; PULSE 68; RESP 16; TEMP 36.1; O2SAT 99; BMI 23.7
[2024-10-27] MEDS: Zoledronic Acid 5 MG 100 ML 300 MG IV (14:04)
[2024-10-27] MEDS: 0.9% NaCl IVPB Med Flush (100mL) 15 ML IV (14:06)
[2024-10-27] MEDS: 0.9% NaCl Peripheral Flush Adult IV (14:06)
[2024-10-27 14:44] VITALS: BP 153/84; PULSE 64; RESP 16; TEMP 36.2; O2SAT 97
== END 2024-10-27 23:59 | disposition home or self-care (01) ==
LOC: MEDOUTP 13:38
PROVIDERS: PCP Internal Medicine; Referring Provider Internal Medicine Endocrinology, Diabetes & Metabolism; Visit Provider Internal Medicine Endocrinology, Diabetes & Metabolism
DX: M85.89 Other specified disorders of bone density and structure, multiple sites (principal)
CPT/HCPCS: 96365; A4216; J3489

== ENCOUNTER → 2024-12-08 | Outpatient (CLI) | payer OTHER, SELFPAY ==
[2024-12-08 15:57] LABS: Absolute Lymphocyte Count 0.82 X10^3/uL (0.83-4.51); Absolute Neutrophil Count 3.6 X10^3/uL (2.0-7.7); Basophil# 0.04 X10^3/uL; Basophil% 0.8 % (0-1); Eosinophil# 0.14 X10^3/uL; Eosinophils% 2.8 % (0-5); Hematocrit 37.6 % (40-54); Hemoglobin 12.1 g/dL (13.0-16.5); Lymphocyte # 0.82 X10^3/ul (0.83-4.51); Lymphocyte % 16.1 % (19-41); Mean Corp Hgb Conc 32.2 g/dL (32-36); Mean Corpuscular Hgb 28.3 pg (27.0-32.0); Mean Corpuscular Volume 88.1 fL (80-94); Mean Platelet Vol. 10.4 fl (6.2-12.0); Monocyte% 9.8 % (0-10); NRBC Flagged by Analyzer 0 % (0-5); Neutrophil # 3.55 X10^3/uL (2.7-7.7); Neutrophil % 69.9 % (47-70); Platelet Count 305 K/mm3 (150-450); RBC Distribution Width SD 44.8 fl (35.1-43.9); Red Blood Count 4.27 M/mm3 (4.6-6.2); White Blood Count 5.1 K/mm3 (4.4-11.0)
[2024-12-08 18:03] LABS: ALB/GLOB Ratio 1.9 RATIO (0.9-2.4); AST(SGOT) 21 U/L (<=37); Alanine Aminotransfer ALT/SGPT 19 U/L (<=46); Albumin, Serum 4.5 g/dL (3.4-4.8); Alkaline Phosphatase 31 U/L (40-129); Anion Gap 11 (5-15); BUN 20 mg/dL (4-19); BUN/Creat Ratio 16.1 RATIO (10-20); Calcium,Total 10.6 mg/dL (7.6-11.0); Carbon Dioxide 24.5 mmol/L (21.0-32.0); Chloride 102 mmol/L (98-108); Creatinine, Serum 1.22 mg/dL (0.70-1.20); EST Glomerular Filtration Rate 65 (>60); Globulin 2.3 g/dL (2.2-4.2); Glucose 93 mg/dL (70-99); Potassium 4.5 mmol/L (3.3-5.1); Protein, Total 6.8 g/dL (5.9-8.4); Sodium Level 138 mmol/L (133-145); Total Bilirubin 0.28 mg/dL (0.00-1.30)
== END | disposition home or self-care (01) ==
LOC: BIMLAB 14:06
PROVIDERS: PCP Internal Medicine; Referring Provider Internal Medicine; Visit Provider Internal Medicine
DX: I10 Essential (primary) hypertension (principal)
CPT/HCPCS: 36415; 80053; 85025

== ENCOUNTER → 2025-01-26 | Outpatient (CLI) | payer OTHER, SELFPAY ==
--- OUTSIDE RECORDS SUMMARY | 2025-01-26 07:40 | XMS RPT_ITS | CCD ---
Author Organization [facility] Care Team Providers Care Immigration Services Officer Name Role Phone VRABEC, FAROOQ BLANCA Unavailable Unavailable VRABEC, FAROOQ BLANCA Unavailable Unavailable VRABEC, FAROOQ BLANCA Unavailable Unavailable VRABEC, FAROOQ BLANCA Unavailable Unavailable VRABEC, FAROOQ BLANCA Unavailable Unavailable VRABEC, FAROOQ BLANCA Unavailable Unavailable VRABEC, FAROOQ BLANCA Unavailable Unavailable VRABEC, FAROOQ BLANCA Unavailable Unavailable GURAN, REENA Unavailable Unavailable VRABEC, FAROOQ BLANCA Unavailable Unavailable VRABEC, FAROOQ BLANCA Unavailable Unavailable VRABEC, FAROOQ BLANCA Unavailable Unavailable VRABEC, FAROOQ BLANCA Unavailable Unavailable VRABEC, FAROOQ BLANCA Unavailable Unavailable VRABEC, FAROOQ BLANCA Unavailable Unavailable VRABEC, FAROOQ BLANCA Unavailable Unavailable VRABEC, FAROOQ A Unavailable Unavailable VRABEC, FAROOQ A Unavailable Unavailable NO REFERRING DR Unavailable Unavailable IMCA Unavailable Unavailable VRABEC, FAROOQ A Unavailable Unavailable IMCA Unavailable Unavailable VRABEC, FAROOQ A Unavailable Unavailable GURAN, REENA Unavailable Unavailable VRABEC, FAROOQ A Unavailable Unavailable VRABEC, FAROOQ A Unavailable Unavailable IMCA Unavailable Unavailable VRABEC, FAROOQ A Unavailable Unavailable VRABEC, FAROOQ A Unavailable Unavailable VRABEC, FAROOQ A Unavailable Unavailable VRABEC, FAROOQ A Unavailable Unavailable VRABEC, FAROOQ A Unavailable Unavailable VRABEC, FAROOQ A Unavailable Unavailable Josué Lucas Chi Primary Care Provider Dr. Josué Lucas Chi Primary Care Provider Dr. Josué Lucas Chi Referring Provider [phone] Min Barton Attending Provider Dr. Min Barton Primary Care Provider Dr. Min Barton Referring Provider [phone] Dr. Harvey Dotson Attending Provider Dr. Santy Sanchez Attending Provider Dr. Harvey Dotson Referring Provider Mick, Dr. Valdez Attending Provider [phone] [place], [place] Nimisha Attending Provider [facility] Mick, Dr. Valdez Primary Care Provider [phone] 0) Mick, Dr. Valdez Referring Provider [phone])2 Dr. Harvey Dotson Attending Provider Dr. Michael Eduardo Attending Provider Arleen, Dr. Darrell Enriquez Referring Provider Dr. Santy Sanchez Attending Provider Mick, Dr. Valdez Primary Care Provider 1(33 0) Dr. Min Barton Referring Provider [phone])2 Dr. Harvey Dotson Attending Provider Mauri, Dr. Gabriel Referring Provider Mauri, Dr. Gabriel Other Provider Mauri, Dr. Gabriel Admit Provider Dr. Min Barton Attending Provider [phone])2 Mick, Dr. Valdez Primary Care Provider 1(33 0) Dr. Min Barton Referring Provider [phone])2 Dr. Harvey Dotson Attending Provider Mick, Dr. Valdez Primary Care Provider [phone] Dr. Min Barton Referring Provider [phone])2 Mick, Dr. Valdez Primary Care Provider [phone] Dr. Harvey Dotson Attending Provider Dr. Harvey Dotson Referring Provider BorDr. Harvey robison Other Provider Dr. Harvey Dotson Admit Provider Dr. Min Barton Attending Provider [phone] Mick, Dr. Valdez Referring Provider [phone])2 SANGITA Siddiqi Attending Provider [phone] MIN BARTON Primary Care Unavailable АЛЕКСАНДР, JOSUÉ CHI Primary Care Unavailable АЛЕКСАНДР, JOSUÉ CHI Primary Care Unavailable АЛЕКСАНДР, JOSUÉ CHI Primary Care Unavailable Dr. Min Barton Primary Care Provider [phone] Dr. Min Barton Attending Provider [phone] Dr. Min Barton Referring Provider [phone])2 Dr. Harvey Dotson Attending Provider [phone] Min Barton MD Primary Care Provider [phone]) Mick, Dr. Valdez Primary Care Provider 1(33 0) Mick, Dr. Valdez Attending Provider [phone])2 Dr. Min Barton Referring Provider [phone])2 Dr. Harvey Dotson Attending Provider [phone] Min Barton Unavailable Unavailable Unavailable Bahman, Dr. Tracy Fletcher Attending U anupama Ruggiero, Dr. Tracy Fletcher Referring U navramiro Barton, Dr. Min Yun Primary Care Unavailable Bahman, Dr. Tracy Fletcher Attending U anupama Barton, Dr. Min Yun Primary Care Unavailable Bahman, Dr. Tracy Fletcher Attending U anupama Ruggiero, Dr. Tracy Fletcher Referring U anupama Ruggiero, Dr. Tracy Fletcher Admitting U anupama Barton, Dr. Min Yun Primary Care Unavailable Bahman, Dr. Tracy Fletcher Attending U anupama Barton, Dr. Min Yun Primary Care Unavailable Bahman, Dr. Tracy Fletcher Attending U anupama Barton, Dr. Min Yun Primary Care Unavailable Mick JAMES, Min Yun Primary Care Prov ider Mick, Dr. Valdez Primary Care Provider [phone] Mick, Dr. Valdez Referring Provider [phone] SANGITA Triana Attending Provider Dr. Trevor Giles Attending Provider [phone] Dr. Min Barton Attending Provider [phone] Mick, Dr. Valdez Primary Care Provider 1(33 0) Mick, Dr. Valdez Attending Provider [phone] Mick, Dr. Valdez Referring Provider [phone] TRACY RUGGIERO Attending Unavailable MIN BARTONCTA Primary Care Unav ailable TRACY RUGGIERO Attending Unavailable MIN BARTONCTA Primary Care Unav ailable BETH HINTON MD Attending Unavailable Mick JAMES, Dr. Valdez Primary Care Provider Dr. Beth Hinton MD Attending Provider Dr. Beth Hinton MD Referring Provider [phone] Mick JAMES, Dr. Valdez Attending Provider [phone]) Mick JAMES, Dr. Valdez Referring Provider [phone] Cayetano Rubio Attending Unavailable Oleghe, Efewongbe Primary Care Unavailable Oleghe, Efewongbe Referring Unavailable Oleghe, Efewongbe Primary Care Unavailable Oleghe, Efewongbe Attending Unavailable Oleghe, Efewongbe Referring Unavailable Oleghe, Efewongbe Primary Care Unavailable Oleghe, Efewongbe Attending Unavailable Oleghe, Efewongbe Referring Unavailable Oleghe, Efewongbe Primary Care Unavailable Oleghe, Efewongbe Attending Unavailable Oleghe, Efewongbe Referring Unavailable Runer, Beth Attending Unavailable Runer, Beth Referring Unavailable Oleghe, Efewongbe Primary Care Unavailable Oleghe, Efewongbe Attending Unavailable Oleghe, Efewongbe Referring Unavailable Oleghe, Efewongbe Primary Care Unavailable Oleghe, Efewongbe Primary Care Unavailable Runer, Beth Referring Unavailable Runer, Beth Attending Unavailable Oleghe, Efewongbe Primary Care Unavailable ArleenDarrellKeo Attending Unavailable Arleen Keo Referring Unavailable Oleghe, Efewongbe Primary Care Unavailable Oleghe, Efewongbe Attending Unavailable Oleghe, Efewongbe Referring Unavailable Oleghe, Efewongbe Attending Unavailable Oleghe, Efewongbe Referring Unavailable Oleghe, Efewongbe Primary Care Unavailable Oleghe, Efewongbe Primary Care Unavailable TishaTrevor nice Attending Unavailable Medications Current Medications Medication Drug Class(es) Dates Sig (Normalized) Sig (Original) acetaminophen 325 mg / oxyCODONE hydrochloride 5 mg oral tablet (1 source) Opioid Agonist Start: 03-22-2022 take 1 tablet by mouth every six hours Oxycodone-Acetami nophen (Percocet) 5-325 mg tablet Active 1 TABLET PO EVERY 6 HOURS 12 March 22, 2022 Start: 03-22-2022 take 1 tablet by yamilka th every six hours Oxycodone-Acetaminophen (Percocet) 5-325 mg tablet Active 1 TABLET PO EVERY 6 HOURS 12 March 22, 2022 cephalexin 500 mg oral capsule (2 sources) Cephalosporin Antibacterial Start: 07-27-2023 End: 02-09-2024 cephalexin (Keflex) 500 mg capsule TAKE 4 CAPSULES 1 HOUR PRIOR TO APPOINTMENT 07/27/2023 02/09/2024 Discontinued (Therapy completed) cholecalciferol 0.05 mg oral capsule (20 sources) Vitamin D Start: 07-09-2021 take 1 capsule by mouth once daily Cholecalciferol (Vitamin D3) 50 mcg (2,000 unit) capsule Active 50 ug PO DAILY July 09, 2021 1:00am cinacalcet 30 mg oral tablet (5 sources) Calcium-sensing Receptor Agonist Start: 01-11-2024 End: 12-08-2024 take 1 tablet by mouth once daily Cinacalcet 30 mg tablet Active 60 mg PO DAILY December 08, 2024 1:33pm methylPREDNISolone (20 sources) Corticosteroid Start: 03-19-2023 End: 02-09-2024 methylPREDNISolone (Medrol Dospak) 4 mg tablets TAKE 6 TABLETS ON DAY 1 DIRECTED ON PACKAGE AND DECREASE BY 1 TAB EACH DAY FOR A TOTAL OF 6 DAYS 03/19/2023 02/09/2024 Discontinued (Therapy completed) Start: 03-19-2023 methylPREDNISo lone (Medrol Dospak) 4 mg tablets TAKE 6 TABLETS ON DAY 1 DIRECTED ON PACKAGE AND DECREASE BY 1 TAB EACH DAY FOR A TOTAL OF 6 DAYS 0 03/19/2023 Active Start: 03-19-2023 End: 03-25-2023 take 1 tablet by mouth once Methylprednisolone (Medrol (Thad)) 4 mg tablets,dose pack Discontinued 4 mg PO per package directions 17 12March 19, 2023 12:00am March 24, 2023 12:00am March 25, 2023 12:04am Start: 03-14-2022 End: 03-18-2022 take 1 tablet by mouth once daily in the morning Methylprednisolone (Medrol (Thad)) 4 mg tablets,dose pack Discontinued 4 mg PO EVERY MORNING March 14, 2022 12:00am March 18, 2022 12:31pm Start: 04-28-2017 methylPREDNISo lone (MEDROL, THAD,) 4 mg Dose-Pack As Instructed per package 1 Package 0 04/28/2017 Active Comment on above: As Instructed per sangita reynoso omeprazole 40 mg delayed release oral capsule (4 sources) Proton Pump Inhibitor Start: 01-11-2024 End: 04-13-2024 take 1 capsule by mouth once daily Omeprazole 40 mg capsule,delayed release(DR/EC) Active 40 mg PO DAILY April 13, 2024 8:25am predniSONE 10 mg oral tablet (20 sources) Start: 06-29-2022 End: 07-04-2022 take 5 tablets by mouth once daily, then take 4 tablets by mouth once daily, then take 3 tablets by mouth once daily, then take 2 tablets by mouth once daily, then take 1 tablet by mouth once daily predniSONE (DELTASONE) 10 mg tablet Indications: Sore throat Take 5 tablets by mouth once daily for 1 day, THEN 4 tablets once daily for 1 day, THEN 3 tablets once daily for 1 day, THEN 2 tablets once daily for 1 day, THEN 1 tablet once daily for 1 day. 15 tablet 0 06/29/2022 07/04/2022 Active Start: 08-24-2019 End: 07-09-2021 Prednisone 10 mg tablet Disc ontinued PO August 24, 2019 1:00am July 09, 2021 3:53pm Start: 08-24-2019 End: 07-09-2021 Prednisone Discontinued PO F ebruary 2019 1:00am July 09, 2021 3:53pm Comment on above: Take 5 tablets by mo uth once daily for 1 day, THEN 4 tablets once daily for 1 day, THEN 3 tablets once daily for 1 day, THEN 2 tablets once daily for 1 day, THEN 1 tablet once daily for 1 day. sulfamethoxazole 800 mg / trimethoprim 160 mg oral tablet (1 source) Dihydrofolate Reductase Inhibitor Antibacterial, Sulfonamide Antimicrobial Start: 03-22-20 take 1 tablet by mouth twice daily Sulfamethoxazole- Trimethoprim (Bactrim Ds) 800-160 mg tablet Active 1 TABLET PO TWICE A DAY 14 March 22, 2022 12:00am Completed/Discontinued Medications Medication Drug Class(es) Dates Sig (Normalized) Sig (Original) acetaminophen 500 mg oral tablet (20 sources) Start: 07-13-2019 End: 07-10-2023 take 2 tablets by mouth every six hours as needed Acetaminophen 500 MG tablet Discontinued 1000 mg PO EVERY 6 HOURS NEEDED July 13, 2019 2:45pm July 10, 2023 9:39am Start: 07-13-2019 End: 07-10-2023 take 1000 mg by mouth every six hours as needed Acetaminophen Discontinued 1000 MG PO EVERY 6 HOURS NEEDED July 13, 2019 2:45pm July 10, 2023 9:39am allopurinol 100 mg oral tablet (20 sources) Xanthine Oxidase Inhibitor Start: 03-14-2022 End: 07-08-2024 Allopurinol 100 mg tablet Discontinued 0 .ROUTE .COMPLEX 180 February 09, 2024 12:16pm July 08, 2024 5:29pm TAKE 2 TABLETS EVERY DAY FOR 3 MONTHS Start: 03-14-2022 End: 07-13-2023 take 200 mg by mouth once daily Allopurinol Discontinu ed 200 MG PO DAILY 180 March 14, 2022 8:43am November 19, 2022 10:05am Start: 07-09-2021 End: 03-14-2022 take 1 tablet by mouth once daily Allopurinol 100 mg tablet Discontinued 100 mg PO DAILY February 04, 2022 8:32am March 14, 2022 8:48am amoxicillin 875 mg / clavulanate 125 mg oral tablet (9 sources) Penicillin-class Antibacterial Start: 05-18-2022 End: 06-27-2022 Amoxicillin-Pot Clavulanate 875-125 mg tablet Discontinued 1 {tbl} PO Q12H May 18, 2022 1:00am June 27, 2022 2:47pm Start: 05-18-2022 End: 06-27-2022 take 1 tablet by mouth every twelve hours Amoxicillin-Pot Clavulanate Discontinued 1 TABLET PO Q12H May 18, 2022 1:00am June 27, 2022 2:47pm apixaban 2.5 mg oral tablet (20 sources) Factor Xa Inhibitor Start: 07-13-2019 End: 08-24-2019 take 1 tablet by mouth twice daily Apixaban 2.5 MG tablet Discontinued 2.5 mg PO TWICE A DAY July 13, 2019 1:00am August 24, 2019 9:51am baclofen 10 mg oral tablet (4 sources) gamma-Aminobutyric Acid-ergic Agonist Start: 01-28-2017 baclofen (LIORESAL) 10 mg tablet benzonatate 100 mg oral capsule (9 sources) Non-narcotic Antitussive Start: 05-18-2022 End: 06-27-2022 Benzonatate 100 mg capsule Discontinued 100 mg PO 2 to 3 times per day as needed for cough May 18, 2022 1:00am June 27, 2022 2:47pm celecoxib 100 mg oral capsule (6 sources) Nonsteroidal Anti-inflammatory Drug Start: 07-27-2024 End: 12-08-2024 Celecoxib (Celebrex) 100 mg capsule Discontinued 100 mg PO TWICE A DAY as needed for pain 40 July 27, 2024 1:00am December 08, 2024 1:33pm Take for 2 weeks regularly then as needed . do not take in conjunction with other NSAID. Tylenol is okay Start: 12-05-2016 celecoxib (ALFREDITO EBREX) 200 mg capsule colchicine 0.6 mg oral tablet (20 sources) Start: 03-13-2022 End: 03-14-2022 take 2 tablets by mouth once daily, then take 1 tablet by mouth every hour Colchicine 0.6 mg tablet Discontinued 0.6 mg PO DAILY March 13, 2022 1:38pm March 14, 2022 8:30am 1.2 mg x 1 dose then .6mg 1 hour later Start: 03-13-2022 End: 03-14-2022 take 1.2 mg by mouth once daily, then take 0.6 mg by mouth every hour Colchicine Discontinued 0.6 MG PO DAILY March 13, 2022 1:38pm March 14, 2022 8:30am 1.2 mg x 1 dose then .6mg 1 hour later Start: 12-27-2021 take 1.2 mg by mouth once daily, then take 0.6 mg by mouth every hour Colchicine Active 0.6 MG PO DAILY December 27, 2021 11:05am 1.2 mg x 1 dose then .6mg 1 hour later Start: 11-22-2021 End: 11-26-2021 take 2 tablets by mouth once daily, then take 1 tablet by mouth every hour Colchicine 0.6 mg tablet Discontinued 0.6 mg PO DAILY November 22, 2021 8:10am November 26, 2021 4:26pm 1.2 mg x 1 dose then .6mg 1 hour later Start: 11-22-2021 End: 11-26-2021 take 1.2 mg by mouth once daily, then take 0.6 mg by mouth every hour Colchicine Discontinued 0.6 MG PO DAILY November 22, 2021 8:10am November 26, 2021 4:26pm 1.2 mg x 1 dose then .6mg 1 hour later Start: 08-24-2019 End: 11-22-2021 take 1 tablet by mouth once daily Colchicine 0.6 mg tablet Discontinued 0.6 mg PO DAILY August 24, 2019 1:00am November 22, 2021 8:11am Start: 07-05-2019 End: 07-13-2019 take 1 tablet by mouth once daily Colchicine 0.6 MG tablet Discontinued 0.6 mg PO DAILY July 05, 2019 1:00am July 13, 2019 2:43pm cyclobenzaprine hydrochloride 10 mg oral tablet (20 sources) Muscle Relaxant Start: 07-27-2019 End: 08-24-2019 take 1 tablet by mouth three times daily as needed for muscle spasms Cyclobenzaprine 10 mg tablet Discontinued 10 mg PO THREE TIMES A DAY as needed for muscle spasm July 27, 2019 1:00am August 24, 2019 9:51am esomeprazole 20 mg delayed release oral capsule (20 sources) Proton Pump Inhibitor Start: 07-09-2021 End: 01-11-2024 take 1 capsule by mouth once daily Esomeprazole Magnesium (Nexium) 20 mg capsule,delayed release(DR/EC) Discontinued 20 mg PO DAILY January 11, 2024 12:00am January 11, 2024 8:40am gabapentin 300 mg oral capsule (4 sources) Anti-epileptic Agent Start: 02-27-2017 gabapentin (NEURONTIN) 300 mg capsule hydroCHLOROthiazide 12.5 mg / losartan potassium 100 mg oral tablet (20 sources) Thiazide Diuretic, Angiotensin 2 Receptor Shaun Start: 12-01-2016 Losartan-Hydrochlor othiazide 100-12.5 mg per tablet Start: 06-04-2015 End: 10-07-2024 Losartan-Hydrochlorothiazide 100-12.5 mg tablet Discontinued 1 {tbl} PO DAILY October 09, 2023 10:31am October 07, 2024 11:13pm Start: 06-04-2015 End: 10-09-2023 take 1 tablet by mouth once daily Losartan-Hydrochlorothiazide Active 1 TA BLET PO DAILY October 09, 2023 10:31am indomethacin 50 mg oral capsule (20 sources) Nonsteroidal Anti-inflammatory Drug Start: 11-26-2021 End: 12-11-2021 take 1 capsule by mouth three times daily at mealtime Indomethacin 50 mg capsule Discontinued 50 mg PO THREE TIMES A DAY November 26, 2021 12:00am December 11, 2021 11:14am administer with food or milk meloxicam 15 mg oral tablet (3 sources) Nonsteroidal Anti-inflammatory Drug Start: 06-11-2022 take 1 tablet by mouth once daily Meloxicam 15 MG Oral Tablet TAKE 1 TABLET BY MOUTH EVERY DAY Quantity: 14 Refills: 0 Ordered: 11-Jun-2022 DO Start : 11-Jun-2022 Active Multivitamin (Daily Multi-Vitamin) tablet (3 sources) Start: 10-28-2023 End: 01-11-2024 Multivitamin (Daily Multi-Vitamin) tablet Discontinued 1 {tbl} PO DAILY October 28, 2023 12:00am January 11, 2024 8:28am Start: 10-28-2023 take 1 tablet by [facility] once daily Multivitamin (Daily Multi-Vitamin) tablet Active 1 TABLET PO DAILY October 28, 2023 12:00am oxyCODONE hydrochloride 5 mg oral tablet (20 sources) Opioid Agonist Start: 07-13-2019 End: 08-24-2019 take 5-10 mg by mouth every four hours as needed for pain Oxycodone 5 MG tablet Discontinued 5 - 10 mg PO EVERY 4 HOURS NEEDED as needed for Pain Score 4-10/10 60 July 13, 2019 August 24, 2019 9:50am pregabalin 75 mg oral capsule (12 sources) Start: 04-28-2017 take 1 capsule by mouth three times daily as needed pregabalin (LYRICA) 50 mg capsule Take 1 capsule by mouth three times daily. As needed 90 capsule 0 04/28/2017 Active Start: 04-15-2017 take 1 capsule by mo [facility] every twenty-four hours as needed pregabalin (LYRICA) 75 mg capsule Take 1 capsule by mouth at bedtime as needed. 90 capsule 0 06/12/2017 Active Comment on above: Take 1 capsule by mo [facility] once daily. Take 1 capsule by mo [facility] three times daily. As needed Take 1 capsule by mo [facility] at bedtime as needed. sertraline 25 mg oral tablet (20 sources) Serotonin Reuptake Inhibitor Start: 06-04-2015 End: 04-25-2019 Sertraline 25 MG tablet Discontinued 12.5 mg PO DAILY as needed for Pain June 04, 2015 1:00am April 25, 2019 9:56am Start: 06-04-2015 End: 04-25-2019 take 12.5 mg by mouth once daily Sertraline Discontinued 12.5 MG PO DAILY June 04, 2015 1:00am April 25, 2019 9:56am traMADol hydrochloride 50 mg oral tablet (4 sources) Opioid Agonist Start: 03-20-2017 traMADol (ULTR AM) 50 mg tablet One tablet every eight hours as needed for pain 50 tablet 0 03/20/2017 Active Comment on above: One tablet every eig ht hours as needed for pain Problems Active Problems Problem Classification Problem Date Documented Date Episodic/Chronic Anxiety disorders (20 sources) Mixed anxiety and depressive disorder; Translations: [Anxiety disorder, unspecified] Chronic Calculus of urinary tract (20 sources) Kidney stone; Translations: [Calculus of kidney] 07-09-2021 Episodic Cancer of prostate (20 sources) Malignant neoplasm of prostate; Translations: [Malignant tumor of prostate] Onset: 7 02-27-2017 Chronic Complications of surgical procedures or medical care (20 sources) History of parathyroidectomy; 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 Diverticulosis and diverticulitis (1 source) Diverticulosis of large intestine without perforation or abscess without bleeding; Translations: [DVRTCLOS LG INT NO PERF/] Onset: 7 Chronic Esophageal disorders (5 sources) Gastro-esophageal reflux disease without esophagitis; Translations: [Gastroesophageal reflux disease without esophagitis] Onset: 3 12-24-2022 Chronic Essential hypertension (20 sources) Hypertensive disorder; Translations: [Essential (primary) hypertension] Onset: 3 Chronic Gout and other crystal arthropathies (20 sources) Gout; Translations: [Gout, unspecified] Chronic Nutritional deficiencies (20 sources) Vitamin D deficiency; Translations: [Vitamin D deficiency, unspecified] Chronic Osteoarthritis (20 sources) Arthritis; Translations: [Unspecified osteoarthritis, unspecified site] Onset: 5 07-09-2021 Chronic Other bone disease and musculoskeletal deformities (19 sources) Osteopenia; Translations: [Other specified disorders of bone density and structure, unspecified site] 10-07-2021 Episodic Other bone disease and musculoskeletal deformities (4 sources) Other specified disorders of bone density and structure, unspecified site; Translations: [Disorder of bone and cartilage, unspecified] Episodic Other bone disease and musculoskeletal deformities (1 source) Other specified disorders of bone density and structure, multiple sites; Translations: [Other specified disorders of bone density and structure, multiple sites] Onset: 5 Episodic Other connective tissue disease (20 sources) History of repair of hip joint; Translations: [Presence of unspecified artificial hip joint] 07-09-2021 Chronic Comment on above: 2020 Other connective tissue disease (10 sources) Foot pain; Translations: [Pain in left foot] 05-15-2022 Episodic Other connective tissue disease (6 sources) Pain in left foot; Translations: [Pain in limb] Episodic Other endocrine disorders (20 sources) Hyperparathyroidism; Translations: [Hyperparathyroidism, unspecified] 08-06-2022 Chronic Other endocrine disorders (20 sources) Hyperparathyroidism, unspecified; Translations: [Hyperparathyroidism, unspecified] Chronic Other endocrine disorders (1 source) Primary hyperparathyroidism; Translations: [Primary hyperparathyroidism] Onset: 4 Chronic Other lower respiratory disease (10 sources) Cough; Translations: [Cough] Episodic Other nervous system disorders (20 sources) H/O: migraine; Translations: [Personal history of other diseases of the nervous system and sense organs] 06-06-2015 Episodic Other nutritional; endocrine; and metabolic disorders (20 sources) Hypercalcemia; Translations: [Hypercalcemia] 07-10-2021 Chronic Other nutritional; endocrine; and metabolic disorders (6 sources) Hypercalcemia; Translations: [Hypercalcemia] Chronic Other upper respiratory disease (3 sources) Vocal cord paralysis; Translations: [Unilateral paralysis of vocal cords or larynx, partial] Chronic Other upper respiratory disease (3 sources) Paralysis of vocal cords and larynx, unilateral; Translations: [Paralysis of vocal cords and larynx, unilateral] Onset: 3 Chronic Other upper respiratory disease (4 sources) Paralysis of vocal cords and larynx, unspecified; Translations: [Paralysis of vocal cords and larynx, unspecified] Onset: 3 Chronic Other upper respiratory disease (1 source) Paralysis of larynx; Translations: [Paralysis of vocal cords and larynx, unspecified] 12-22-2022 Chronic Other upper respiratory disease (3 sources) Paralysis of left vocal cord; Translations: [Paralysis of vocal cords and larynx, unilateral] Onset: 4 08-17-2023 Chronic Other upper respiratory disease (20 sources) Hoarse; Translations: [Dysphonia] Onset: 4 08-06-2022 Episodic Comment on above: Patient 6 months sta tus post 4 gland exploration parathyroidectomy with identification of 3 glands and cervical thymectomy (left) and persistent hoarseness of voice. 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 He underwent injection of the cord with a good result, but has subsequently dealt with more hoarseness. He is awaiting repeat evaluation with ENT in September. He suspects possible referral to [facility] for more permanent vocal cord intervention. Other upper respiratory disease (20 sources) Dysphonia; Translations: [Dysphonia] Onset: 3 Episodic Other upper respiratory disease (3 sources) Disorder of vocal cord; Translations: [Other diseases of vocal cords] Episodic Other upper respiratory disease (1 source) Other diseases of larynx; Translations: [Other diseases of larynx] Onset: 3 Episodic Other upper respiratory disease (1 source) Other diseases of vocal cords; Translations: [Other diseases of vocal cords] Onset: 3 Episodic Other upper respiratory disease (1 source) Dysphonia; Translations: [Dysphonia] 12-24-2022 Episodic Other upper respiratory disease (1 source) Disorder of the larynx; Translations: [Other diseases of larynx] 12-24-2022 Episodic Other upper respiratory infections (20 sources) Acute sinusitis; Translations: [Acute sinusitis, unspecified] Episodic Residual codes; unclassified (20 sources) History of hernia repair; Translations: [Other specified postprocedural states] 07-09-2021 Episodic Residual codes; unclassified (1 source) Other specified health status; Translations: [Other specified health status] Onset: 3 Episodic Residual codes; unclassified (6 sources) History of parathyroidectomy; Translations: [Other specified postprocedural states] 08-06-2022 Episodic Comment on above: Patient status post 4 gland exploration with positive identification (via intraoperative frozen section) of 3/4 glands and left cervical thymectomy. Left inferior parathyroid gland was not identified at the time of surgery despite cervical thymectomy. We are planning to update patient's laboratories to assess the state of his hyperparathyroidism as well as repeat his 4D CT imaging to see if his unidentified gland can be localized. I have shared with him that I would only consider intervention if it could be preoperatively localized. Skin and subcutaneous tissue infections (12 sources) Cellulitis of foot; Translations: [Cellulitis of left lower limb] 03-30-2022 Episodic Spondylosis; intervertebral disc disorders; other back problems (20 sources) Radiculopathy, lumbar region; Translations: [Chronic back pain ] Onset: 7 06-06-2015 Episodic Sprains and strains (8 sources) Strain of muscle and/or tendon of elbow region; Translations: [Strain of unspecified muscle, fascia and tendon at shoulder and upper arm level, right arm, initial encounter] 03-19-2023 Episodic Superficial injury; contusion (12 sources) Contusion of foot; Translations: [Contusion of left foot, initial encounter] 03-30-2022 Episodic Unclassified (1 source) Unknown / UNK(Unknown) Onset: 7 Unclassified (2 sources) Hoarseness; Translations: [Hoarseness] Onset: 4 Past or Other Problems Problem Classification Problem Date Documented Da te Episodic/Chronic Other connective tissue disease (7 sources) Patellar tendinitis, left knee; Translations: [Pain in leg, unspecified] Onset: 02-06-2017 Episodic Other connective tissue disease (4 sources) Pain in lower limb; Translations: [Pain in leg, unspecified] Onset: 02-27-2017 02-27-2017 Episodic Other connective tissue disease (1 source) Bicipital tendinitis, right shoulder; Translations: [Bicipital tendinitis, right shoulder] Onset: 07-27-2024 Episodic Other non-traumatic joint disorders (1 source) Pain in unspecified shoulder; Translations: [Pain in unspecified shoulder] Onset: 07-27-2024 Episodic Unclassified (2 sources) Onset: 08-10-2023 Resolved: 02-09-2024 08-10-2023 Results Test Name Value Interpretation Reference Range Facility Absolute lymphocyte countOrd ered By: Min Barton on 12-08-2024 Lymphocytes Auto (Unsp spec) [#/Vol] 0.82 10*3/uL Low 0.83-4.51 [facility] Absolute neutrophil countOrd ered By: Min Barton on 12-08-2024 Neutrophils (Bld) [#/Vol] 3.6 10*3/uL 2.0-7.7 [facility] Anion gap in Serum or Plasma Ordered By: Min Barton on 12-08-2024 Anion gap [Moles/Vol] 11 mmol/L 5-15 [facility] Automated lymphocyte count a s percentage of total leukocytesOrdered By: Min Barton on 12-08-2024 Lymphocytes/100 WBC Auto (Unsp spec) 16.1 % Low 19-41 [facility] BUN/creatinine ratioOrdered By: Min Barton on 12-08-2024 Urea nitrogen/Creatinine [Mass ratio] 16.1 mg/mg 10-20 [facility] Basophil percentageOrdered B y: Min Barton on 12-08-2024 Basophils/100 WBC (Bld) 0.8 % 0-1 [facility] Bilirubin, totalOrdered By: manny Barton on 12-08-2024 Bilirubin [Mass/Vol] 0.28 mg/dL 0.00-1.30 [facility] CBC W/Diff, Automatedon 11-27 Absolute Lymph 0.82 X10 3/uL Low 0.83-4.51 [facility] Comment on above: Performed By: #### L 500.4050, L100.0100 #### [facility] [address] [place], [address] Absolute Neut 3.6 X10 3/uL Normal 2.0-7.7 [facility] Comment on above: Performed By: #### L 500.4050, L100.0100 #### [facility] [address] [place], [address] Basophils/100 WBC (Bld) 0.8 % Normal 0-1 [facility] Comment on above: Performed By: #### L 500.4050, L100.0100 #### [facility] [address] [place], [address] Eosinophils/100 WBC (Bld) 2.8 % Normal 0-5 [facility] Comment on above: Performed By: #### L 500.4050, L100.0100 #### [facility] [address] [place], [address] Erythrocyte distribution width (RBC) [Ratio] 14.0 % Normal 11.6-14.6 [facility] Comment on above: Performed By: #### L 500.4050, L100.0100 #### [facility] [address] [place], [address] Hematocrit (Bld) [Volume fraction] 37.6 % Low 40-54 [facility] Comment on above: Performed By: #### L 500.4050, L100.0100 #### [facility] [address] [place], [address] Hemoglobin (Bld) [Mass/Vol] 12.1 g/dL Low 13.0-16.5 [facility] Comment on above: Performed By: #### L 500.4050, L100.0100 #### [facility] [address] [place], [address] IG% 0.600 Normal 0.0-0.9 [facility] Comment on above: Result Comment: IG% - Immature Granulocytes (promyelocytes, myelocytes and metamyelocytes) > 1% indicates that a LEFT SHIFT is Present. Performed By: #### L 500.4050, L100.0100 #### [facility] [address] [place], [address] Lymphocytes/100 WBC (Bld) 16.1 % Low 19-41 [facility] Comment on above: Performed By: #### L 500.4050, L100.0100 #### [facility] [address] [place], [address] MCH (RBC) [Entitic mass] 28.3 pg Normal 27.0-32.0 [facility] Comment on above: Performed By: #### L 500.4050, L100.0100 #### [facility] [address] [place], [address] MCHC (RBC) [Mass/Vol] 32.2 g/dL Normal 32-36 [facility] Comment on above: Performed By: #### L 500.4050, L100.0100 #### [facility] [address] [place], [address] MCV (RBC) [Entitic vol] 88.1 fL Normal 80-94 [facility] Comment on above: Performed By: #### L 500.4050, L100.0100 #### [facility] [address] [place], [address] Monocytes/100 WBC (Bld) 9.8 % Normal 0-10 [facility] Comment on above: Performed By: #### L 500.4050, L100.0100 #### [facility] [address] [place], [address] Neutrophils/100 WBC (Bld) 69.9 % Normal 47-70 [facility] Comment on above: Performed By: #### L 500.4050, L100.0100 #### [facility] [address] [place], [address] Nucleated RBC (Bld) [#/Vol] 0 10*3/uL Normal 0-5 [facility] Comment on above: Performed By: #### L 500.4050, L100.0100 #### [facility] [address] [place], [address] Platelet mean volume (Bld) [Entitic vol] 10.4 fL Normal 6.2-12.0 [facility] Comment on above: Performed By: #### L 500.4050, L100.0100 #### [facility] [address] [place], [address] Platelets (Bld) [#/Vol] 305 10*3/uL Normal 150-450 [facility] Comment on above: Performed By: #### L 500.4050, L100.0100 #### [facility] [address] [place], [address] RBC (Bld) [#/Vol] 4.27 10*6/uL Low 4.6-6.2 [facility] Comment on above: Performed By: #### L 500.4050, L100.0100 #### [facility] [address] [place], [address] RDW SD 44.8 fl High 35.1-43.9 [facility] Comment on above: Performed By: #### L 500.4050, L100.0100 #### [facility] [address] [place], [address] WBC (Bld) [#/Vol] 5.1 10*3/uL Normal 4.4-11.0 [facility] Comment on above: Performed By: #### L 500.4050, L100.0100 #### [facility] [address] [place], [address] Carbon dioxide, total [Moles /volume] in Central venous bloodOrdered By: Min Barton on 12-08-2024 CO2 [Moles/Vol] 24.5 mmol/L 21.0-32.0 [facility] Chloride assayOrdered By: Chidi Barton on 12-08-2024 Chloride [Moles/Vol] 102 mmol/L 98-108 [facility] Comprehensive Metabolic Prof ilon 12-08-2024 Albumin [Mass/Vol] 4.5 g/dL Normal 3.4-4.8 [facility] Comment on above: Performed By: #### L 500.4050, L100.0100 #### [facility] [address] [place], [address] Albumin/Globulin [Mass ratio] 1.9 {ratio} Normal 0.9-2.4 [facility] Comment on above: Performed By: #### L 500.4050, L100.0100 #### [facility] [address] [place], [address] ALK PHOS 31 U/L Low 40-129 [facility] Comment on above: Performed By: #### L 500.4050, L100.0100 #### [facility] [address] [place], [address] ALT [Catalytic activity/Vol] 19 U/L Normal <=46 [facility] Comment on above: Performed By: #### L 500.4050, L100.0100 #### [facility] [address] [place], [address] AST [Catalytic activity/Vol] 21 U/L Normal <=37 [facility] Comment on above: Performed By: #### L 500.4050, L100.0100 #### [facility] [address] [place], [address] Bilirubin [Mass/Vol] 0.28 mg/dL Normal 0.00-1.30 [facility] Comment on above: Performed By: #### L 500.4050, L100.0100 #### [facility] [address] [place], [address] BUN/CRE 16.1 RATIO Normal 10-20 [facility] Comment on above: Performed By: #### L 500.4050, L100.0100 #### [facility] [address] [place], [address] Calcium [Mass/Vol] 10.6 mg/dL Normal 7.6-11.0 [facility] Comment on above: Performed By: #### L 500.4050, L100.0100 #### [facility] [address] [place], [address] Chloride [Moles/Vol] 102 mmol/L Normal 98-108 [facility] Comment on above: Performed By: #### L 500.4050, L100.0100 #### [facility] [address] [place], [address] CO2 [Moles/Vol] 24.5 mmol/L Normal 21.0-32.0 [facility] Comment on above: Performed By: #### L 500.4050, L100.0100 #### [facility] [address] [place], [address] Creatinine [Mass/Vol] 1.22 mg/dL High 0.70-1.20 [facility] Comment on above: Performed By: #### L 500.4050, L100.0100 #### [facility] [address] [place], [address] GAP 11 Normal 5-15 [facility] Comment on above: Performed By: #### L 500.4050, L100.0100 #### [facility] [address] [place], [address] GFR/1.73 sq M.predicted among non-blacks MDRD (S/P/Bld) [Vol rate/Area] 65 mL/min/{1.73_m2} Normal >60 [facility] Comment on above: Result Comment: mL/m in/1.73m2 CKD-EPI Creatinine Equation (2020) Performed By: #### L 500.4050, L100.0100 #### [facility] [address] [place], [address] Globulin (S) [Mass/Vol] 2.3 g/dL Normal 2.2-4.2 [facility] Comment on above: Performed By: #### L 500.4050, L100.0100 #### [facility] [address] [place], [address] Glucose [Mass/Vol] 93 mg/dL Normal 70-99 [facility] Comment on above: Performed By: #### L 500.4050, L100.0100 #### [facility] [address] [place], [address] Potassium [Moles/Vol] 4.5 mmol/L Normal 3.3-5.1 [facility] Comment on above: Performed By: #### L 500.4050, L100.0100 #### [facility] [address] [place], [address] Sodium [Moles/Vol] 138 mmol/L Normal 133-145 [facility] Comment on above: Performed By: #### L 500.4050, L100.0100 #### [facility] [address] [place], [address] T PROT 6.8 g/dL Normal 5.9-8.4 [facility] Comment on above: Performed By: #### L 500.4050, L100.0100 #### [facility] [address] [place], [address] Urea nitrogen [Mass/Vol] 20 mg/dL High 4-19 [facility] Comment on above: Performed By: #### L 500.4050, L100.0100 #### [facility] [address] [place], [address] Eosinophil percentageOrdered By: Min Barton on 12-08-2024 Eosinophils/100 WBC (Bld) 2.8 % 0-5 [facility] Erythrocyte distribution wid th ratioOrdered By: Min Barton on 12-08-2024 Erythrocyte distribution width (RBC) [Ratio] 14.0 % 11.6-14.6 [facility] Erythrocyte distribution wid th standard deviationOrdered By: Min Barton on 12-08-2024 Erythrocyte distribution width (RBC) [Ratio] 44.8 fl High 35.1-43.9 [facility] Glomerular filtration rate ( GFR) estimation/1.73 sq m using serum, plasma, or whole bOrdered By: Min Barton on 12-08-2024 GFR/1.73 sq M.predicted among non-blacks MDRD (S/P/Bld) [Vol rate/Area] 65 mL/min/{1.73_m2} >60 [facility] Comment on above: mL/min/1.73m2 CKD-EP I Creatinine Equation (2020) Hematocrit Auto (Bld) [Volum e fraction]Ordered By: Min Barton on 12-08-2024 Hematocrit (Bld) [Volume fraction] 37.6 % Low 40-54 [facility] Hemoglobin measurementOrdere d By: Min Barton on 12-08-2024 Hemoglobin (Bld) [Mass/Vol] 12.1 g/dL Low 13.0-16.5 [facility] Immature granulocytes/100 WB C Auto (Bld)Ordered By: Min Barton on 12-08-2024 Immature granulocytes/100 WBC (Bld) 0.600 % 0.0-0.9 [facility] Comment on above: IG% - Immature Granu locytes (promyelocytes, myelocytes and metamyelocytes) > 1% indicates that a LEFT SHIFT is Present. Internal Medicine Office Vis [place] 12-08-2024 Internal Medicine Office Visit [facility] [address] [place] [address] [place] [address] OFFICE VISIT Date of Service: 12/08/24 MR#: [id number] Acct: [id number] Name: GREGORY REYNOSO Rep #: [id number] : 1960 Provider: Dr. Min souza MD Age/Sex: 64/M Location: [facility] Status: Signed Intake Vital Signs 08/02/24 12:00 10/27/24 13:52 12/08/24 13:32 Height 6 ft 1 in 6 ft 1 in 6 ft 1 in Weight: 181 lb BMI 23.8 BP 134/72 H Blood Pressure Location Lt brachial Position Sitting Respiration 18 Pulse 76 Pulse Source Monitor Temp 98.0 F Temp Source Temporal Pulse Oximetry (%) 98 Oxygen Delivery Method room air Intake Visit Reasons: 5 M Chief Complaint: 5 M Is patient in pain?: No Allergies No Known Allergies Allergy (Verified 12/08/24 13:33) Medications ???Medication ???Instructions ???Recorded ???Confirmed ???Type cholecalciferol (vitamin D3) 50 50 mcg PO DAILY 07/09/21 12/08/24 History mcg (2,000 unit) capsule omeprazole 40 mg capsule,delayed 40 mg PO DAILY #90 caps 04/13/24 0 12/08/24 Rx release allopurinol 100 mg tablet See Rx Instructions .Route 5 12/08/24 Rx .COMPLEX #180 tabs losartan 100 1 tab PO DAILY BP #90 tabs 5 12/08/24 Rx mg-hydrochlorothiazide 12.5 mg tablet cinacalcet 30 mg tablet 60 mg PO DAILY 12/08/24 12/08/24 H istory Have you fallen in the past year?: No PFSH Medical History Health care maintenance URI (upper respiratory infection) Cough Left foot pain Non-smoker Osteoporosis GERD (gastroesophageal reflux disease) Anxiety and depression Alcohol use Blackout Gastric reflux Leg cramps History of stress test Osteopenia Hyperparathyroidism Hypercalcemia Vitamin D deficiency Arthritis Kidney stones Prostate cancer Hypertension Gout Surgical History History of parathyroidectomy History of cardiac catheterization History of colonoscopy History of hernia repair History of hip replacement Hip joint replacement status Family History Brother Myocardial infarction, Onset Age: 55 Sister Myocardial infarction, Onset Age: 43 Other Hypertension Social History household members: spouse Smoking Status: Never smoker alcohol intake: current alcohol intake frequency: 3 or more drinks per day Alcohol type: beer substance use type: does not use what type of physical activity do you participate in: walking HPI HPI Chief Complaint: 5 M Details: GREGORY REYNOSO, is a 64 M who presents to the office today for follow-up of his chronic medical conditions. No acute concerns at this time. History of hypertension, blood pressure today is at 134/72 mmHg. He states that he is taking his medications consistently. Stays active but has reduced his work hours overall. No chest pain, palpitation or shortness of breath. History of reflux, worse with certain foods, typically English foods. Takes an [id number] Prilosec which he continues to find helpful for the most part. No dark or bloody stools or unintentional weight changes. Other chronic medical conditions ROS Const Constitutional: No body ache, chills, excessive sweating, fatigue, fever(s), frequent falls, headache(s), snoring, weight change, sleep problems, abnormal sleep pattern or change in appetite Eyes Eyes: No blurry vision, change in vision, floaters, visual disturbances, eye pain or Light sensitivity ENT ENT: No abnormal hearing, ear or mastoid pain, tinnitus, balance problems, nosebleed/epistaxis, nasal congestion, headache(s), neck pain or sore throat Resp Respiratory: No cough, excessive phlegm production, pain on inspiration, shortness of breath, snoring or wheezing Cardio Cardiology: No chest pain at rest, chest pain with exertion, excessive sweating, shortness of breath, dyspnea on exertion, lightheadedness, orthopnea or palpitations Gastro GI: No abdominal pain, change in bowel habits, constipation, cramping, diarrhea, nausea/dyspepsia or vomiting Genitourinary Male: No burning urination, painful urination, urinary incontinence or urinary frequency Musc Musculoskeletal: No abnormal gait, joint pain, back pain, limited range of motion, neck pain, numbness or tingling Skin Skin: No dry skin, redness, excessive hair growth, yellowing of the eye, lesions, itchy eyes, rash or wounds Neuro Neurology: No abnormal gait, abnormal hearing, behavioral changes, unsteady gait/balance, frequent falls, headache(s), memory loss, numbness, tingling or visual disturbances Psych Psychiatric: No abnormal sleep pattern, No anxiety, No behavior (more content not included)... Normal [facility] - Chemistry and C hemistry - challengeOrdered By: Min Barton on 12-08-2024 AST [Catalytic activity/Vol] 21 U/L <38 [facility] MCV (mean corpuscular volume ) determinationOrdered By: Min Barton on 12-08-2024 MCV (RBC) [Entitic vol] 88.1 fL 80-94 [facility] Mean corpuscular hemoglobin (MCH) determinationOrdered By: Min Barton on 12-08-2024 MCH (RBC) [Entitic mass] 28.3 pg 27.0-32.0 [facility] Mean corpuscular hemoglobin concentration (MCHC) determinationOrdered By: Min Barton on 12-08-2024 MCHC (RBC) [Mass/Vol] 32.2 g/dL 32-36 [facility] Mean platelet volume determi nationOrdered By: Min Barton on 12-08-2024 Platelet mean volume (Bld) [Entitic vol] 10.4 fL 6.2-12.0 [facility] Monocyte percentageOrdered B y: Min Barton on 12-08-2024 Monocytes/100 WBC (Bld) 9.8 % 0-10 [facility] Neutrophil percentageOrdered By: Min Barton on 12-08-2024 Neutrophils/100 WBC (Bld) 69.9 % 47-70 [facility] Nucleated red blood cell per centageOrdered By: Min Barton on 12-08-2024 Nucleated RBC/100 WBC (Bld) [Ratio] 0 % 0-5 [facility] Platelet countOrdered By: Chidi Barton on 12-08-2024 Platelets (Bld) [#/Vol] 305 10*3/uL 150-450 [facility] Potassium measurement (mass/ volume)Ordered By: Min Barton on 12-08-2024 Potassium (Unsp spec) [Mass/Vol] 4.5 mmol/L 3.3-5.1 [facility] RBC Auto (Bld) [#/Vol]Ordere d By: Min Barton on 12-08-2024 RBC (Bld) [#/Vol] 4.27 10*6/uL Low 4.6-6.2 [facility] Serum creatinine measurement (mass/volume)Ordered By: Min Barton on 12-08-2024 Creatinine [Mass/Vol] 1.22 mg/dL High 0.70-1.20 [facility] Serum globulin measurementOr dered By: Min Barton on 12-08-2024 Globulin (S) [Mass/Vol] 2.3 g/dL 2.2-4.2 [facility] Serum glucose measurement (m ass/volume)Ordered By: Min Barton on 12-08-2024 Glucose [Mass/Vol] 93 mg/dL 70-99 [facility] Serum or plasma alanine ledezma otransferase (ALT) measurementOrdered By: Min Barton on 12-08-2024 ALT [Catalytic activity/Vol] 19 U/L <47 [facility] Serum or plasma albumin ruthy urement (mass/volume)Ordered By: Min Barton on 12-08-2024 Albumin [Mass/Vol] 4.5 g/dL 3.4-4.8 [facility] Serum or plasma albumin/glob ulin mass ratioOrdered By: Min Barton on 12-08-2024 Albumin/Globulin [Mass ratio] 1.9 {ratio} 0.9-2.4 [facility] Serum or plasma alkaline sara sphatase measurementOrdered By: Min Barton on 12-08-2024 ALP [Catalytic activity/Vol] 31 U/L Low 40-129 [facility] Serum or plasma calcium ruthy urement (mass/volume)Ordered By: Min Barton on 12-08-2024 Calcium [Mass/Vol] 10.6 mg/dL 7.6-11.0 [facility] Serum or plasma urea nitroge n measurement (mass/volume)Ordered By: Min Barton on 12-08-2024 Urea nitrogen [Mass/Vol] 20 mg/dL High 4-19 [facility] Sodium levelOrdered By: Michael jiricky Mick on 12-08-2024 Sodium [Moles/Vol] 138 mmol/L 133-145 [facility] Total proteinOrdered By: Jaswant Barton on 12-08-2024 Protein [Mass/Vol] 6.8 g/dL 5.9-8.4 [facility] White blood cell (WBC) count Ordered By: Min Barton on 12-08-2024 WBC (Bld) [#/Vol] 5.1 10*3/uL 4.4-11.0 [facility] .GFRon 08-03-2024 Estimated Glomerular Filtration Rate 59 ml/min/1.73sqm Normal [facility] Comment on above: Result Comment: Stages of Chronic Kidney Disease [...] calculate the eGFR results. Performed By: #### P TH, BMP, VIDH, GFR #### [address] [address] [facility] BUN/Creatinine Ratio 20.5 ratio Normal 10.0-22.0 [facility] Comment on above: Performed By: #### P TH, BMP, VIDH, GFR #### [address] [address] Calcium [Mass/Vol] 10.7 mg/dL High 8.7-10.4 [facility] Comment on above: Performed By: #### P TH, BMP, VIDH, GFR #### [address] [address] Chloride [Moles/Vol] 103 mmol/L Normal 98-110 [facility] Comment on above: Performed By: #### P TH, BMP, VIDH, GFR #### [address] [address] CO2 [Moles/Vol] 29 mmol/L Normal 22-32 [facility] Comment on above: Performed By: #### P TH, BMP, VIDH, GFR #### [address] [address] Creatinine [Mass/Vol] 1.32 mg/dL Normal 0.60-1.40 [facility] Comment on above: Result Comment: Test ing performed on [employer] analyzer using enzymatic creatinine methodology. Performed By: #### P TH, BMP, VIDH, GFR #### [address] [address] Electrolyte Balance 7.0 mEq/L Normal 4.0-15.0 [facility] Comment on above: Performed By: #### P TH, BMP, VIDH, GFR #### [address] [address] Glucose [Mass/Vol] 103 mg/dL Normal 82-115 [facility] Comment on above: Performed By: #### P TH, BMP, VIDH, GFR #### [address] [address] Potassium [Moles/Vol] 5.0 mmol/L Normal 3.5-5.0 [facility] Comment on above: Performed By: #### P TH, BMP, VIDH, GFR #### [address] [address] Sodium [Moles/Vol] 139 mmol/L Normal 136-145 [facility] Comment on above: Performed By: #### P TH, BMP, VIDH, GFR #### [address] [address] Urea nitrogen [Mass/Vol] 27.0 mg/dL High 8.0-22.0 [facility] Comment on above: Performed By: #### P TH, BMP, VIDH, GFR #### [address] [address] PTHon 08-03-2024 PTH, Intact 98.6 pg/mL High 18.5-88.0 [facility] Comment on above: Performed By: #### P TH, BMP, VIDH, GFR #### [address] [address] VIDHon 08-03-2024 Vit. D 25-Hydroxy 37.4 ng/mL Normal [facility] Comment on above: Result Comment: Inte rpretive Values Based on Total 25(OH)D: Severe Deficiency <20 ng/mL Mild to Moderate Deficiency 20-30 ng/mL Optimum Levels 30-100 ng/mL Toxicity Possible >100 ng/mL Performed By: #### P TH, BMP, VIDH, GFR #### [address] [place], [place] [address] Orthopedic Visit Reporton Orthopedic Visit Report [facility] [address] [place], [place] [address] OFFICE VISIT Date of Service: 07/27/24 MR#: [id number] Acct: [id number] Name: GREGORY REYNOSO Rep #: [id number] : 1960 Provider: Dr. Cayetano Coleman so, DO Age/Sex: 64/M Location[facility] Status: Signed Intake Vital Signs 04/13/24 08:13 07/27/24 09:56 Height 6 ft 1 in 6 ft 1 in Weight: 184 lb 184 lb BMI 24.3 24.3 BP 118/76 Blood Pressure Location Lt brachial Position Sitting Respiration 16 Pulse 87 Pulse Source Monitor Temp 97.8 F Temp Source Temporal Pulse Oximetry (%) 95 Oxygen Delivery Method room air Intake Visit Reasons: RIGHT SHOULDER Accompanied by: Self Is patient in pain?: Yes Pain scale (1-10): 7 Allergies No Known Allergies Allergy (Verified 07/27/24 09:57) Medications ???Medication ???Instructions ???Recorded ???Confirmed ???Type cholecalciferol (vitamin D3) 50 50 mcg PO DAILY 07/09/21 07/27/24 History mcg (2,000 unit) capsule losartan 100 1 tab PO DAILY BP #90 tabs 10/09/23 07/27/24 Rx mg-hydrochlorothiazide 12.5 mg tablet cinacalcet 30 mg tablet 30 mg PO DAILY 01/11/24 07/27/24 History omeprazole 40 mg capsule,delayed 40 mg PO DAILY #90 caps 04/13/24 07/27/24 Rx release allopurinol 100 mg tablet See Rx Instructions .Route 07/08/24 07/27/24 Rx .COMPLEX #180 tabs celecoxib 100 mg capsule (Celebrex) 100 mg PO BID PRN pain #40 caps 07/27/24 07/27/24 Rx Have you fallen in the past year?: No PFSH Medical History Health care maintenance URI (upper respiratory infection) Cough Left foot pain Non-smoker Osteoporosis GERD (gastroesophageal reflux disease) Anxiety and depression Alcohol use Blackout Gastric reflux Leg cramps History of stress test Osteopenia Hyperparathyroidism Hypercalcemia Vitamin D deficiency Arthritis Kidney stones Prostate cancer Hypertension Gout Surgical History History of parathyroidectomy History of cardiac catheterization History of colonoscopy History of hernia repair History of hip replacement Hip joint replacement status Family History Brother Myocardial infarction, Onset Age: 55 Sister Myocardial infarction, Onset Age: 43 Other Hypertension Social History (Updated 07/27/24 @ 09:58 by Ritika Nielsen) household members: spouse Smoking Status: Never smoker alcohol intake: current alcohol intake frequency: 3 or more drinks per day Alcohol type: beer substance use type: does not use what type of physical activity do you participate in: walking HPI RIGHT SHOULDER Details: This documentation accurately reflects the service provided and the decisions made by me, Dr. Cayetano Rubio, DO 07/27/24 0808. Part of today???s visit was documented by [ ], acting as scribe. GREGORY REYNOSO is a 64 year old M here today for right shoulder pain. Patient notes that he has had shoulder pain since March. He denies any known injury although he does heavy lifting for work. Patient denies any prior surgery or injury to his shoulder. Patient complains of pain over his anterior shoulder. He has good range of motion although it is painful with certain positions. He notes that he has popping in his shoulder. He has a catching sensation when he lowers his shoulder. He has a constant dull pain but when he does heavy lifting his pain increases. Patient denies any numbness or tingling. He notes that at times he has pain into his biceps. He denies any physical therapy or injections. He has tried tylenol, topical ointment- biofreeze and voltaten, which was slightly helpful. Patient denies any xrays or MRI. Patient had an AC separation years ago on the right. Ortho Exam General General: Yes no acute distress Neurologic: Yes alert and Yes oriented x3 Psychologic: Yes reasonable and appropriate Right Shoulder Skin/Wound: Yes CDI, No ecchymosis, No erythema and No swelling Testing: Positive Speed's, TTP Biceps, AROM-Forward Elevation 0-180 (160) and belly press normal; Negative TTP AC Joint, Yergason's or translation SHOULDER: no pain over AC joint although deformity from prior injury. shoulder abduction full with pain, mild crepitation. ER at side: 90 IR:78. Office Procedures Ortho Injections Injections Yes Biceps Right Is this a patient provided medication?: No Details: Obtained consent for injection. Under sterile conditions, injected the patient's right biceps tendon sheath with 1cc bupivacaine, 1cc lidocaine and 1cc depomedrol. The patient tolerated the injection well without any noted complication. Patient should call our office if redness deve (more content not included)... Normal [facility] Shoulder min 2 Viewson 07-27 Shoulder min 2 Views [facility] [address] [place] [address] Shoulder min 2 Views MR#: [id number] Acct: [id number] Name: GREGORY REYNOSO Rep #: [id number] : 1960 M 64 From: Mario Alberto Win PCP: Dr. Min Barton MD Status: DEP AMB Study: Shoulder min 2 Views Date of Exam: 07/27/24 Exam# [id number] Ordering Dr: Cayetano Rubio DO PROCEDURE: SHOULDER MIN 2 VIEWS REASON FOR EXAM: Pain. No injury. TECHNIQUE: Three-view right shoulder series COMPARISON: None. RAD/Shoulder min 2 Views IMPRESSION: Mild right acromioclavicular joint degenerative changes are seen. The right glenohumeral joint demonstrates minimal degenerative changes, without apparent joint narrowing. No acute fracture or dislocation is seen. Reading Location: [address] CC: Dr. Min Barton MD; Dr. Cayetano Rubio DO Regulatory Lead: Signed Normal [facility] PSA,Total- Diagnosticon 05-29 PSA, DIAGNOSTIC 5.79 ng/mL High 0.0-4.0 [facility] Comment on above: Result Comment: This test was performed using the TPSA assay method for the VeedMe system. Values obtained with different assay methods cannot be used interchangably. When changing PSA assays in the course of monitoring a patient, additional sequential testing should be carried out to confirm baseline values. Performed By: #### L 501.9940 #### [facility] [address] [place], [address] Basic Metabolic Profile (BMP )on 04-13-2024 BUN/CRE 14.8 RATIO Normal 10-20 [facility] Comment on above: Performed By: #### L 100.0100, L500.2500, L500.4100 #### [facility] [address] [place], [address] CA,Total 9.8 mg/dL Normal 8.5-10.1 [facility] Comment on above: Performed By: #### L 100.0100, L500.2500, L500.4100 #### [facility] [address] [place], [address] Chloride [Moles/Vol] 105 mmol/L Normal 98-107 [facility] Comment on above: Performed By: #### L 100.0100, L500.2500, L500.4100 #### [facility] [address] [place], [address] CO2 [Moles/Vol] 26.0 mmol/L Normal 21.0-32.0 [facility] Comment on above: Performed By: #### L 100.0100, L500.2500, L500.4100 #### [facility] [address] [place], [address] Creatinine [Mass/Vol] 1.28 mg/dL Normal 0.70-1.30 [facility] Comment on above: Result Comment: The validity of the calculated GFR GFRAA in patients over 70 years has not been determined. Clinical correlation is essential. Performed By: #### L 100.0100, L500.2500, L500.4100 #### [facility] [address] [place], [address] EST GFR - AA 72 mL/min Normal >60 [facility] Comment on above: Result Comment: Afri can Puerto [place]ican GFR Calc Performed By: #### L 100.0100, L500.2500, L500.4100 #### [facility] [address] [place], [address] GAP 6 Normal 5-15 [facility] Comment on above: Performed By: #### L 100.0100, L500.2500, L500.4100 #### [facility] [address] [place], [address] GFR/1.73 sq M.predicted among non-blacks MDRD (S/P/Bld) [Vol rate/Area] 60 mL/min/{1.73_m2} Normal >60 [facility] Comment on above: Result Comment: Non- GFR Calc Performed By: #### L 100.0100, L500.2500, L500.4100 #### [facility] [address] [place], [address] Glucose [Mass/Vol] 103 mg/dL Normal 74-106 [facility] Comment on above: Result Comment: Fast ing Glucose result from 100 to 125 mg/dL suggests IMPAIRED HOMEOSTASIS per A.D.A. criteria. Performed By: #### L 100.0100, L500.2500, L500.4100 #### [facility] [address] [place], [address] Potassium [Moles/Vol] 4.4 mmol/L Normal 3.5-5.1 [facility] Comment on above: Performed By: #### L 100.0100, L500.2500, L500.4100 #### [facility] [address] [place], [address] Sodium [Moles/Vol] 137 mmol/L Normal 136-145 [facility] Comment on above: Performed By: #### L 100.0100, L500.2500, L500.4100 #### [facility] [address] [place], [address] Urea nitrogen [Mass/Vol] 19 mg/dL High 7-18 [facility] Comment on above: Performed By: #### L 100.0100, L500.2500, L500.4100 #### [facility] [address] [place], [address] CBC W/Diff, Automatedon 10 Absolute Lymph 0.63 X10 3/uL Low 0.83-4.51 [facility] Comment on above: Performed By: #### L 100.0100, L500.2500, L500.4100 #### [facility] [address] [place], [address] Absolute Neut 4.0 X10 3/uL Normal 2.0-7.7 [facility] Comment on above: Performed By: #### L 100.0100, L500.2500, L500.4100 #### [facility] [address] [place], [address] Basophils/100 WBC (Bld) 0.6 % Normal 0-1 [facility] Comment on above: Performed By: #### L 100.0100, L500.2500, L500.4100 #### [facility] [address] [place], [address] Eosinophils/100 WBC (Bld) 1.5 % Normal 0-5 [facility] Comment on above: Performed By: #### L 100.0100, L500.2500, L500.4100 #### [facility] [address] [place], [address] Erythrocyte distribution width (RBC) [Ratio] 14.9 % High 11.6-14.6 [facility] Comment on above: Performed By: #### L 100.0100, L500.2500, L500.4100 #### [facility] [address] [place], [address] Hematocrit (Bld) [Volume fraction] 40.2 % Normal 40-54 [facility] Comment on above: Performed By: #### L 100.0100, L500.2500, L500.4100 #### [facility] [address] [place], [address] Hemoglobin (Bld) [Mass/Vol] 12.4 g/dL Low 13.0-16.5 [facility] Comment on above: Performed By: #### L 100.0100, L500.2500, L500.4100 #### [facility] [address] [place], [address] IG% 0.600 Normal 0.0-0.9 [facility] Comment on above: Result Comment: IG% - Immature Granulocytes (promyelocytes, myelocytes and metamyelocytes) > 1% indicates that a LEFT SHIFT is Present. Performed By: #### L 100.0100, L500.2500, L500.4100 #### [facility] [address] [place], [address] Lymphocytes/100 WBC (Bld) 12.0 % Low 19-41 [facility] Comment on above: Performed By: #### L 100.0100, L500.2500, L500.4100 #### [facility] [address] [place], [address] MCH (RBC) [Entitic mass] 27.9 pg Normal 27.0-32.0 [facility] Comment on above: Performed By: #### L 100.0100, L500.2500, L500.4100 #### [facility] [address] [place], [address] MCHC (RBC) [Mass/Vol] 30.8 g/dL Low 32-36 [facility] Comment on above: Performed By: #### L 100.0100, L500.2500, L500.4100 #### [facility] [address] [place], [address] MCV (RBC) [Entitic vol] 90.3 fL Normal 80-94 [facility] Comment on above: Performed By: #### L 100.0100, L500.2500, L500.4100 #### [facility] [address] [place], [address] Monocytes/100 WBC (Bld) 9.7 % Normal 0-10 [facility] Comment on above: Performed By: #### L 100.0100, L500.2500, L500.4100 #### [facility] [address] [place], [address] Neutrophils/100 WBC (Bld) 75.6 % High 47-70 [facility] Comment on above: Performed By: #### L 100.0100, L500.2500, L500.4100 #### [facility] [address] [place], [address] Nucleated RBC (Bld) [#/Vol] 0 10*3/uL Normal 0-5 [facility] Comment on above: Performed By: #### L 100.0100, L500.2500, L500.4100 #### [facility] [address] [place], [address] Platelet mean volume (Bld) [Entitic vol] 10.3 fL Normal 6.2-12.0 [facility] Comment on above: Performed By: #### L 100.0100, L500.2500, L500.4100 #### [facility] [address] [place], [address] Platelets (Bld) [#/Vol] 289 10*3/uL Normal 150-450 [facility] Comment on above: Performed By: #### L 100.0100, L500.2500, L500.4100 #### [facility] [address] [place], [address] RBC (Bld) [#/Vol] 4.45 10*6/uL Low 4.6-6.2 [facility] Comment on above: Performed By: #### L 100.0100, L500.2500, L500.4100 #### [facility] [address] [place], [address] RDW SD 49.2 fl High 35.1-43.9 [facility] Comment on above: Performed By: #### L 100.0100, L500.2500, L500.4100 #### [facility] [address] [place], [address] WBC (Bld) [#/Vol] 5.3 10*3/uL Normal 4.4-11.0 [facility] Comment on above: Performed By: #### L 100.0100, L500.2500, L500.4100 #### [facility] [address] [place], [address] Internal Medicine Office Vis arline 04-13-2024 Internal Medicine Office Visit [facility] [address] [place] [address] [place] [address] OFFICE VISIT Date of Service: 04/13/24 MR#: [id number] Acct: [id number] Name: GREGORY REYNOSO Rep #: [id number] : 1960 Provider: Dr. Min souza MD Age/Sex: 63/M Location[place] [facility] Status: Signed Intake Vital Signs 01/11/24 08:25 04/13/24 08:13 Height 6 ft 1 in 6 ft 1 in Weight: 184 lb BMI 24.3 BP 118/76 Blood Pressure Location Lt brachial Position Sitting Respiration 16 Pulse 87 Pulse Source Monitor Temp 97.8 F Temp Source Temporal Pulse Oximetry (%) 95 Oxygen Delivery Method room air Intake Visit Reasons: 3 M FU Chief Complaint: 3 M FU [employer] Required: No Accompanied by: Self Is patient in pain?: No Allergies No Known Allergies Allergy (Verified 04/13/24 08:11) Medications ???Medication ???Instructions ???Recorded ???Confirmed ???Type cholecalciferol (vitamin D3) 50 50 mcg PO DAILY 07/09/21 04/13/24 History mcg (2,000 unit) capsule losartan 100 1 tab PO DAILY BP #90 tabs 10/09/23 04/13/24 Rx mg-hydrochlorothiazide 12.5 mg tablet cinacalcet 30 mg tablet 30 mg PO DAILY 01/11/24 04/13/24 History allopurinol 100 mg tablet See Rx Instructions .Route 02/09/24 04/13/24 Rx .COMPLEX #180 tabs omeprazole 40 mg capsule,delayed 40 mg PO DAILY #90 caps 04/13/24 04/13/24 Rx release Have you fallen in the past year?: No PFSH Medical History Health care maintenance URI (upper respiratory infection) Cough Left foot pain Non-smoker Osteoporosis GERD (gastroesophageal reflux disease) Anxiety and depression Alcohol use Blackout Gastric reflux Leg cramps History of stress test Osteopenia Hyperparathyroidism Hypercalcemia Vitamin D deficiency Arthritis Kidney stones Prostate cancer Hypertension Gout Surgical History History of parathyroidectomy History of cardiac catheterization History of colonoscopy History of hernia repair History of hip replacement Hip joint replacement status Family History Brother Myocardial infarction, Onset Age: 55 Sister Myocardial infarction, Onset Age: 43 Other Hypertension Social History Smoking Status: Never smoker alcohol intake: current alcohol intake frequency: 3 or more drinks per day Alcohol type: beer substance use type: does not use what type of physical activity do you participate in: walking HPI HPI Chief Complaint: 3 M FU Details: GREGORY REYNOSO, is a 63 M who presents to the office today for follow-up of his chronic medical conditions. No acute concerns at this time. History of reflux and at his last visit, he was switched from pantoprazole to omeprazole. He states that he did not try to fill the medication from his pharmacy but has been getting it [id number]. Has noted symptom improvement, currently taking only 20 mg. Still has some days with concerning symptoms but for the most part symptoms have been much better on omeprazole. No dark or bloody stool or unintentional weight changes. Blood pressure today at 118/76 mmHg. No chest pain, palpitation or shortness of breath. Other chronic medical conditions are stable. ROS Const Constitutional: No body ache, chills, excessive sweating, fatigue, fever(s), frequent falls, headache(s), snoring, weakness or change in appetite Eyes Eyes: No blurry vision, change in vision, floaters, visual disturbances, eye pain or Light sensitivity ENT ENT: No abnormal hearing, ear or mastoid pain, tinnitus, balance problems, nosebleed/epistaxis, nasal congestion, headache(s), neck pain or sore throat Resp Respiratory: No cough, excessive phlegm production, pain on inspiration, shortness of breath, snoring or wheezing Cardio Cardiology: No chest pain at rest, chest pain with exertion, excessive sweating, dyspnea on exertion, lightheadedness, orthopnea or palpitations Gastro GI: No abdominal pain, change in bowel habits, constipation, cramping, diarrhea, nausea/dyspepsia or vomiting Genitourinary Male: No burning urination, painful urination, urinary incontinence or urinary frequency Musc Musculoskeletal: No abnormal gait, joint pain, back pain, limited range of motion, muscle cramps, muscle weakness, neck pain or numbness Skin Skin: No dry skin, redness, excessive hair growth, yellowing of the eye, lesions, itchy eyes, rash or wounds Neuro Neurology: No abnormal gait, abnormal hearing, behavioral changes, unsteady gait/balance, weakness, frequent falls, headache(s), memory loss, numbness or visual disturbances Psych Psychiatric: No anxiety, No behavioral changes (more content not included)... Normal [facility] Lipid Profileon 04-13-2024 Cholesterol [Mass/Vol] 204 mg/dL High [address] [facility] Comment on above: Result Comment: <200 mg/dL Desirable 200-240 mg/dL Borderline >240 mg/dL High Risk Performed By: #### L 100.0100, L500.2500, L500.4100 ####[facility] [address] [place], [address] Cholesterol in HDL [Mass/Vol] 69 mg/dL Normal [facility] Comment on above: Result Comment: The drugs N-Acetylcysteine and Metamizole may falsely depress this assay. Reference Range HDL <40 mg/dL Low HDL Cholesterol HDL >or= 60 mg/dL High HDL Cholesterol Performed By: #### L 100.0100, L500.2500, L500.4100 ####[facility] [address] [place], [address] Cholesterol in LDL [Mass/Vol] 102 mg/dL Normal 0-130 [facility] Comment on above: Performed By: #### L 100.0100, L500.2500, L500.4100 ####[facility] [address] [place], [address] Cholesterol in VLDL [Mass/Vol] 33 mg/dL Normal 5-40 [facility] Comment on above: Performed By: #### L 100.0100, L500.2500, L500.4100 ####[facility] [address] [place], [address] Triglyceride [Mass/Vol] 166 mg/dL Normal [facility] Comment on above: Result Comment: The drugs N-Acetylcysteine and Metamizole may falsely depress this assay. Serum Triglycerides Reference Interval Normal <150 mg/dL Borderline high 150 - 199 mg/dL High 200 - 499 mg/dL Very High > or = 500 mg/dL Performed By: #### L 100.0100, L500.2500, L500.4100 ####[facility] [address] [place], [address] Basic Metabolic Profile (BMP )on 02-04-2024 BUN/CRE 18.6 RATIO Normal 10-20 [facility] Comment on above: Performed By: #### L 500.2500 #### [facility] [address] [place], [address] CA,Total 9.7 mg/dL Normal 8.5-10.1 [facility] Comment on above: Performed By: #### L 500.2500 #### [facility] [address] [place], [address] Chloride [Moles/Vol] 109 mmol/L High 98-107 [facility] Comment on above: Performed By: #### L 500.2500 #### [facility] [address] [place], [address] CO2 [Moles/Vol] 25.0 mmol/L Normal 21.0-32.0 [facility] Comment on above: Performed By: #### L 500.2500 #### [facility] [address] [place], [address] Creatinine [Mass/Vol] 1.56 mg/dL High 0.70-1.30 [facility] Comment on above: Result Comment: The validity of the calculated GFR GFRAA in patients over 70 years has not been determined. Clinical correlation is essential. Performed By: #### L 500.2500 #### [facility] [address] [place], [address] EST GFR - AA 58 mL/min Low >60 [facility] Comment on above: Result Comment: Afri can [place] GFR Calc Performed By: #### L 500.2500 #### [facility] [address] [place], [address] GAP 5 Normal 5-15 [facility] Comment on above: Performed By: #### L 500.2500 #### [facility] [address] [place], [address] GFR/1.73 sq M.predicted among non-blacks MDRD (S/P/Bld) [Vol rate/Area] 48 mL/min/{1.73_m2} Low >60 [facility] Comment on above: Result Comment: Non- GFR Calc Performed By: #### L 500.2500 #### [facility] [address] [place], [address] Glucose [Mass/Vol] 99 mg/dL Normal 74-106 [facility] Comment on above: Performed By: #### L 500.2500 #### [facility] [address] [place], [address] Potassium [Moles/Vol] 4.2 mmol/L Normal 3.5-5.1 [facility] Comment on above: Performed By: #### L 500.2500 #### [facility] [address] [place], [address] Sodium [Moles/Vol] 139 mmol/L Normal 136-145 [facility] Comment on above: Performed By: #### L 500.2500 #### [facility] [address] [place], [address] Urea nitrogen [Mass/Vol] 29 mg/dL High 7-18 [facility] Comment on above: Performed By: #### L 500.2500 #### [facility] [address] [place], [place], [address] [email or web address] Internal Medicine Office Visit [facility] [address] [place], [place] [address] OFFICE VISIT Date of Service: 01/11/24 MR#: [id number] Acct: [id number] Name: GREGORY REYNOSO Rep #: [id number] : 1960 Provider: Dr. Min souza MD Age/Sex: 63/M Location: [facility] Status: Signed Intake Vital Signs 07/10/23 08:39 10/28/23 13:38 01/11/24 08:25 Height 6 ft 1 in 6 ft 1 in 6 ft 1 in Weight: 180 lb BMI 23.7 BP 138/72 H Blood Pressure Location Lt brachial Position Sitting Respiration 17 Pulse 71 Pulse Source Monitor Temp 98.2 F Temp Source Temporal Pulse Oximetry (%) 98 Oxygen Delivery Method room air Intake Visit Reasons: 6 M FU Chief Complaint: 6 M FU Is patient in pain?: No Allergies No Known Allergies Allergy (Verified 01/11/24 08:27) Medications ???Medication ???Instructions ???Recorded ???Confirmed ???Type cholecalciferol (vitamin D3) 50 50 mcg PO DAILY 07/09/21 01/11/24 History mcg (2,000 unit) capsule allopurinol 100 mg tablet See Rx Instructions .Route 08/17/23 01/11/24 Rx .COMPLEX #180 tabs losartan 100 1 tab PO DAILY BP #90 tabs 10/09/23 01/11/24 Rx mg-hydrochlorothiazide 12.5 mg tablet cinacalcet 30 mg tablet 30 mg PO DAILY 01/11/24 01/11/24 History omeprazole 40 mg capsule,delayed 40 mg PO DAILY #90 caps 01/11/24 01/11/24 Rx release Have you fallen in the past year?: Yes (one fall while walking dog ) PFS Medical History (Updated 01/11/24 @ 09:[address] Min Barton MD) Health care maintenance URI (upper respiratory infection) Cough Left foot pain Non-smoker Osteoporosis GERD (gastroesophageal reflux disease) Anxiety and depression Alcohol use Blackout Gastric reflux Leg cramps History of stress test Osteopenia Hyperparathyroidism Hypercalcemia Vitamin D deficiency Arthritis Kidney stones Prostate cancer Hypertension Gout Surgical History History of parathyroidectomy History of cardiac catheterization History of colonoscopy History of hernia repair History of hip replacement Hip joint replacement status Family History Brother Myocardial infarction, Onset Age: 55 Sister Myocardial infarction, Onset Age: 43 Other Hypertension Social History Smoking Status: Never smoker alcohol intake: current alcohol intake frequency: 3 or more drinks per day Alcohol type: beer substance use type: does not use what type of physical activity do you participate in: walking HPI HPI Chief Complaint: 6 M FU Details: GREGORY REYNOSO, is a 63 M who presents to the office today for follow-up of his chronic medical conditions. Also has some concerns. He reports intermittent reflux symptoms. He states that he is unable to tolerate any amount of spice in his food. Has been taking OTC Nexium daily. No dark or bloody stool or unintentional weight changes. Initial blood pressure elevated however, repeat down to 122/80. Currently on losartan hydrochlorothiazide which he is taking as prescribed. No chest pain, palpitation or shortness of breath. Following up with endocrinology in [place], he states that he was recently started on Cinacalcet and has had his numbers monitored closely. Other chronic medical conditions are stable. ROS Const Constitutional: No body ache, chills, excessive sweating, fatigue, fever(s), frequent falls, headache(s), snoring, weight change, sleep problems, abnormal sleep pattern or change in appetite Eyes Eyes: No blurry vision, change in vision, eye pain or Light sensitivity ENT ENT: No abnormal hearing, ear or mastoid pain, tinnitus, balance problems, nosebleed/epistaxis, nasal congestion, nasal discharge, headache(s), neck pain or sore throat Resp Respiratory: No cough, excessive phlegm production, pain on inspiration, shortness of breath, snoring or wheezing Cardio Cardiology: No chest pain at rest, chest pain with exertion, excessive sweating, shortness of breath, dyspnea on exertion, lightheadedness, orthopnea or palpitations Gastro GI: Positive for heartburn; No abdominal pain, change in bowel habits, constipation, cramping, diarrhea, nausea/dyspepsia or vomiting Genitourinary Male: No burning urination, painful urination, urinary incontinence or urinary frequency Musc Musculoskeletal: No abnormal gait, joint pain, back pain, limited range of motion, neck pain, numbness or tingling Skin Skin: No dry skin, redness, lesions, itchy eyes, rash or wounds Neuro Neurology: No abnormal gait, abnormal hearing, frequent falls, headache(s), memory loss, numbness or tingling Psych Psychiatric: No abnormal sleep pattern, No anxiety, No change i (more content not included)... Normal [facility] 24 hour urine calcium measur ement (mass/time)Ordered By: Beth Hinton on 09-24-2023 Calcium (24H U) [Mass/Time] [facility] Comment on above: Test not performed 24 hour urine creatinine martin surement (mass/time)Ordered By: Beth Hinton on 09-24-2023 Creatinine (24H U) [Mass/Time] 1.44 g/24 HR 0.90-2.10 [facility] Basophil percentageOrdered B y: Beth Hinton on 09-24-2023 Creatinine (U) [Mass/Vol] 82.30 mg/dL NO RANGE EST. [facility] Laboratory - Chemistry and C hemistry - challengeOrdered By: Beth Hinton on 09-24-2023 pH (U) 1 [pH] [facility] Laboratory - Specimen inform ationOrdered By: Beth Hinton on 09-24-2023 Collection duration (U) 24.0 HOURS 24.0-24.0 [facility] Collection time (Yulia) [Date/time] 24.0 HR 24.0-24.0 [facility] Urine calcium measurement (m ass/volume)Ordered By: Beth Hinton on 09-24-2023 Calcium (U) [Mass/Vol] mg/dL Not Estab. [facility] Urine volume measurementOrde red By: Beth Hinton on 09-24-2023 Specimen volume (U) 1.75 L [facility] Comment on above: *Additional results available. Contact laboratory/see report* Absolute lymphocyte countOrd ered By: Min Barton on 07-10-2023 Lymphocytes Auto (Unsp spec) [#/Vol] 0.81 10*3/uL 0.83-4.51 [facility] Basophil percentageOrdered B y: Min Barton on 07-10-2023 Basophils/100 WBC (Bld) 0.4 % 0-1 [facility] Bilirubin [Mass/Vol] 0.40 mg/dL 0.20-1.00 [facility] Comment on above: For patients on eltr ombopag therapy, use of Dimension [place] TBIL is not recommended. Chloride [Moles/Vol] 106 mmol/L 98-107 [facility] Cholesterol [Mass/Vol] 207 mg/dL <[address] [facility] Comment on above: <200 mg/dL Desirable 200-240 mg/dL Borderline >240 mg/dL High Risk Eosinophils/100 WBC (Bld) 1.6 % 0-5 [facility] Glucose [Mass/Vol] 102 mg/dL 74-106 [facility] Comment on above: Fasting Glucose resu lt from 100 to 125 mg/dL suggests IMPAIRED HOMEOSTASIS per A.D.A. criteria. Neutrophils (Bld) [#/Vol] 5.7 10*3/uL 2.0-7.7 [facility] Neutrophils/100 WBC (Bld) 77.6 % 47-70 [facility] Potassium [Moles/Vol] 4.8 mmol/L 3.5-5.1 [facility] Protein [Mass/Vol] 7.1 g/dL 6.4-8.2 [facility] Sodium [Moles/Vol] 138 mmol/L 136-145 [facility] Triglyceride [Mass/Vol] 100 mg/dL <199 [facility] Comment on above: The drugs N-Acetylcy steine and Metamizole may falsely depress this assay.Serum Triglycerides Reference Interval Normal <150 mg/dL Borderline high 150 - 199 mg/dL High 200 - 499 mg/dL Very High > or = 500 mg/dL WBC (Bld) [#/Vol] 7.3 10*3/uL 4.4-11.0 [facility] Blood erythrocytes count (nu mber/volume)Ordered By: Min Barton on 07-10-2023 RBC (Bld) [#/Vol] 4.75 10*6/uL 4.6-6.2 [facility] Blood hemoglobin measurement (mass/volume)Ordered By: Min Barton on 07-10-2023 Hemoglobin (Bld) [Mass/Vol] 13.2 g/dL 13.0-16.5 [facility] Blood lymphocytes/100 leukoc ytesOrdered By: Min Barton on 07-10-2023 Lymphocytes/100 WBC (Bld) 11.1 % 19-41 [facility] Blood monocytes/100 leukocyt esOrdered By: Min Barton on 07-10-2023 Monocytes/100 WBC (Bld) 8.8 % 0-10 [facility] Blood platelet mean volumeOr dered By: Min Barton on 07-10-2023 Platelet mean volume (Bld) [Entitic vol] 10.4 fL 6.2-12.0 [facility] Determination of erythrocyte mean corpuscular volume (MCV)Ordered By: Min Barton on 07-10-2023 MCV (RBC) [Entitic vol] 88.6 fL 80-94 [facility] Hematocrit Auto (Bld) [Volum e fraction][facility]: [facility]enn on 07-10-2023 Hematocrit (Bld) [Volume fraction] 42.1 % 40-54 [facility] Laboratory - Chemistry and C hemistry - challengeOrdered By: [facility] on 07-10-2023 ALP [Catalytic activity/Vol] 44 U/L 45-117 [facility] ALT [Catalytic activity/Vol] 25 U/L 16-61 [facility] CO2 [Moles/Vol] 28.0 mmol/L 21.0-32.0 [facility] Globulin (S) [Mass/Vol] 3.2 g/dL 2.2-4.2 [facility] Urea nitrogen/Creatinine [Mass ratio] 15.2 mg/mg 10-20 [facility] Laboratory - Hematology and Cell countsOrdered By: [facility] Octaviokenn on 07-10-2023 Erythrocyte distribution width (RBC) [Entitic vol] 46.7 fL 35.1-43.9 [facility] Erythrocyte distribution width (RBC) [Ratio] 14.4 % 11.6-14.6 [facility] Immature granulocytes/100 WBC (Bld) 0.500 % 0.0-0.9 [facility] Comment on above: IG% - Immature Granu locytes (promyelocytes, myelocytes and metamyelocytes) > 1% indicates that a LEFT SHIFT is Present. MCH (RBC) [Entitic mass] 27.8 pg 27.0-32.0 [facility] Nucleated RBC/100 WBC (Bld) [Ratio] 0 % 0-5 [facility] MCHC Auto (RBC) [Mass/Vol]Or dered By: manny Barton on 07-10-2023 MCHC (RBC) [Mass/Vol] 31.4 g/dL 32-36 [facility] No Panel InformationOrdered By: kaiasacramentokayli Barton on 01-12-2024 Estimated GFR (MDRD) Amer 70 mL/min >60 [facility] Comment on above: GFR Calc Estimated GFR (MDRD) Non-Af Amer 58 mL/min >60 [facility] Comment on above: Non- GFR Calc Parathyroid Hormone (Intact) 98.6 pg/mL 18.4-80.1 [facility] Vitamin D 25-Hydroxy 48.9 ng/mL [facility] Comment on above: Vitamin D 25(OH) Sta tus Range Deficiency <20 ng/mL (50nmol/L) Insufficiency 20 - 30 ng/mL (50 - 75 nmol/L) Sufficiency 30 - 100 ng/mL (75 - 250 nmol/L) Toxicity >100 ng/mL (>250 nmol/L) Platelets bldOrdered By: Jaswant Barton on 07-10-2023 Platelets (Bld) [#/Vol] 289 10*3/uL 150-450 [facility] Serum or plasma albumin ruthy urement (mass/volume)Ordered By: Min Barton on 07-10-2023 Albumin [Mass/Vol] 3.9 g/dL 3.2-5.0 [facility] Serum or plasma albumin/glob ulin mass ratioOrdered By: Min Barton on 07-10-2023 Albumin/Globulin [Mass ratio] 1.2 {ratio} 0.9-2.4 [facility] Serum or plasma calcium ruthy urement (mass/volume)Ordered By: Min Barton on 07-10-2023 Calcium [Mass/Vol] 10.6 mg/dL 8.5-10.1 [facility] Serum or plasma cholesterol in HDL measurement (mass/volume)Ordered By: Min Barton on 07-10-2023 Cholesterol in HDL [Mass/Vol] 76 mg/dL >40 [facility] Comment on above: The drugs N-Acetylcy steine and Metamizole may falsely depress this assay. Reference Range HDL <40 mg/dL Low HDL Cholesterol HDL >or= 60 mg/dL High HDL Cholesterol Serum or plasma cholesterol in VLDL measurement (mass/volume)Ordered By: Min Barton on 07-10-2023 Cholesterol in VLDL [Mass/Vol] 20 mg/dL 5-40 [facility] Serum or plasma creatinine m easurement (mass/volume)Ordered By: Min Barton on 07-10-2023 Creatinine [Mass/Vol] 1.32 mg/dL 0.70-1.30 [facility] Comment on above: The validity of the calculated GFR & GFRAA in patients over 70 years has not been determined. Clinical correlation is essential. Serum or plasma low density lipoprotein (LDL) cholesterol measurement (mass/volume)Ordered By: Min Barton on 07-10-2023 Cholesterol in LDL [Mass/Vol] 111 mg/dL 0-130 [facility] Serum or plasma urea nitroge n measurement (mass/volume)Ordered By: Min Barton on 07-10-2023 Urea nitrogen [Mass/Vol] 20 mg/dL 7-18 [facility] Serum or plasma uric acid me asurement (mass/volume)Ordered By: [facility] on 07-10-2023 Urate [Mass/Vol] 4.9 mg/dL 3.5-7.2 [facility] Comment on above: The drugs N-Acetylcy steine and Metamizole may falsely depress this assay. Thin prep Papanicolaou smear with manual screeningOrdered By: Min Barton on 07-10-2023 Thin prep Papanicolaou smear with manual screening 22 U/L 15-37 [facility] Thin prep Papanicolaou smear with manual screening 4 5-15 [facility] No Panel InformationOrdered By: Darrell Bacon on 06-05-2023 Prostate Specific Antigen Total 6.64 ng/mL 0.0-4.0 [facility] Comment on above: This test was perfor med using the TPSA assay method for theAcunote chemistry system. Values obtained with differentassay methods cannot be used interchangably.When changing PSA assays in the course of monitoring apatient, additional sequential testing should be carriedout to confirm baseline values. 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 Follow up in June Welcome to Dr. Ruggiero?s clinic. We are here to assist you through your ENT care at [facility]. Dr. Ruggiero is an ENT surgeon who specializes in voice, airway and swallowing issues. This means that she specializes in taking care of patients with complex voice, airway and swallowing problems. Dr. Ruggiero's office number is [phone]. Please use this number to contact her and her care team regardless of which office you use to access care. This number is the most direct way to communicate with all the members of the care team. Dr. Ruggiero?s field secretary answers the office phone from 9am-4pm Mon-Thu. Call [phone] and push 2. She can help you with scheduling of appointments, general questions and information. You may need to leave a message if she is helping another patient. In this case, someone from the team will call you back the same day if you leave your message before 3pm, or the next business morning. Dr. Ruggiero?s nurse and can be reached by calling [phone]. We make every effort to return phone calls the same day. If you are in need of urgent assistance after hours, please call [phone] and ask for ENT online content editor. Dr. Ruggiero works closely with speech therapists as they work together to help solve your issues with speech and swallowing. You may see a speech therapist during your appointment if Dr. Ruggiero feels this is needed. If you need to reach speech therapy to talk with a therapist or to schedule an appointment, please call [phone]. Others who may be included in your care are dieticians, social workers, audiologists, neurologists, and physical therapists. Dr. Ruggiero will provide these referrals as needed. Please let her know if you would like to request a specific referral. For your convenience, Dr. Ruggiero sees patients at different [facility] locations including the [facility] at [facility], and [facility] at the main campus of [facility]. While we try to make your appointments as convenient as possible, occasionally a visit to another location may be necessary to provide the best care for you. Dr. Ruggiero makes every effort to run on time for your appointments. Therefore, if you are more than 30 minutes late unrelated to a scan or another appointment such therapy or audiology, your appointment will need to be rescheduled to another day. We appreciate your understanding. We look forward to working with you to meet your healthcare goals. By signing my name below, I, Gurjit Neelyibe, attest that this documentation has been prepared under the direction and in the presence of Dr. Tracy Ruggiero MD. All medical record entries made by the Scribe were at my direction and personally dictated by me. I have reviewed the chart and agree that the record accurately reflects my personal performance of the history, physical exam, discussion and plan. Provider Impressions This is a follow up for problem of hoarseness with clinical findings of left-sided vocal fold paralysis s/p fat injection on 12/22/22. Today's exam shows improved closure and overall wave of the left vocal cord.He is very pleased. We discussed: 1. He will continue using his speech strategies. He will follow up in June 2023. The patient's questions were answered. Chief Complaint POV History of Present IllnessLeft vocal cord paralysis. Interval History (10/2022): She is s/p a left fat injection on 12/22/2022. He has a raspy voice is low volume phonation. He reports that he has fatigue at the end of the day, but has noticed overall voice improvement. He has worked with speech therapy. No swallowing, breathing, laryngospasm, fever, chills, nausea or vomiting. ROS performed. All other systems are reviewed and are negative for complaint except as noted in HPI. 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) Social History Non-smoker (V49.89) (Z78.9) Allergies No Known Drug Allergies Recorded By: Abby Vanessa; 11/13/2022 3:10:15 PM Current Meds Medication NameInstruction Colchicine 0.6 MG Oral TabletTAKE 2 TABS TO START THEN 1 TAB 1 HOUR LATER Indomethacin 50 MG Oral CapsuleTAKE 1 CAPSULE BY MOUTH 3 TIMES A DAY WITH FOOD FOR GOUT Losartan Potassium-HCTZ 100-12.5 MG Oral TabletTAKE 1 TABLET BY MOUTH EVERY DAY FOR BLOOD PRESSURE Meloxicam 15 MG Oral TabletTAKE 1 TABLET BY MOUTH EVERY DAY Vitals Vital Signs Recorded: [id number] 10:20AM Bettwcyzvid86.2 F Height6 ft 1.5 in Osiqwt076 lb 8.0 oz BMI Ciwkxyvoeb97.23 kg/m2 BSA Calculated2.06 Tobacco Useb) No PHQ-2 #1. Over the last 2 weeks have you felt down, depressed or hopeless? (If yes, an (more content not included)... 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 Discussed plan of care with: patient Patient/caregiver agreeable with plan of care. Assessment Patient reports good follow through of HEP including throat clear reduction and completing voice rebalancing exercises at least twice a day. He had trouble gargling with a voice without choking and therefore did not practice that after a few days. He states he notices some improvements in his voice, however, continues to experience vocal fatigue at the end of most work days. He has reduced his throat clearing by > 50% per his report via an effortful swallow and RTB. Monitored performance with RVT bubble blowing, trilling and humming with a lingual anchor. Improvements noted. Advanced forward focus voice training to include humming without a lingual anchor and reciting initial [m] words and phrases. Multimodality cueing, instruction in proper posture and repeated trials improved patient performance accuracy. Encouraged home practice several times a day for limited duration. Handout emailed to facilitate accurate home carryover. Patient to continue CTT training as well targeting increased breath support with speech via use of a confidential voice with a slightly higher pitch. Voice: Voice quality based on the GRBAS scale: 0=absent; 1=mild; 2=moderate; 3=severe Grade: 1 Roughness: 1 Breathiness: 0 Asthenia: 0 Strain: 1-2 Voice: level 5 initial Reason For Visit An interactive audio and video telecommunication system which permits real time communications between the patient (at the originating site) and provider (at the distant site) was utilized to provide this telehealth service. Verbal consent was requested and obtained from GREGORY REYNOSO on this date, 01/19/2023 01:00 PM , for a telehealth visit. Adult Risk Screening Initial Fall Risk Screening: GREGORY has not fallen in the last 6 months. Pain Scale: On a scale of 0 to 10, the patient rates the pain at 0. Nguyen Learner(s) are identified by the patient as person(s) most likely to participate in providing care, such as managing medications or taking them to doctors? appointments. Primary Language for learning: Chadian. Insurance Insurance reviewed Visit number: 2 Onset Date: 2022 Subjective Living Environment: home - patient lives with spouse. Patient arrival: independent Patient alert and ready to participate in telehealth visit this date. Objective Progress to date: [facility]CI goals: Improve overall vocal health to foster increased participation levels at home, work and in the community environment. Short term goals: Patient will increase vocal wellness and decrease phono trauma in adherence with clinician prescribed vocal hygiene and wellness program per patient report 80% of his/her day. Patient will increase ability to produce voice without tension within 5 minute conversational task x 80% accuracy as judged by clinician observation and/or patient report. Patient will demonstrate independent use of voice techniques x 80% accuracy. Patient will increase the balance of the respiratory/laryngeal musculature x 80% accuracy. Treatment Time in clinic started at 1300 Time in clinic ended at 1335 Total time in clinic is 35 minutes. Provided to: patient Response to education: verbalized understanding, demonstrated understanding and needs reinforcement Patient/caregiver verbalized understanding and agreement: yes CPT Code 31376 Treatment of speech, language AND voice Signatures Electronically signed by : Cathy Stoddard 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 Short term goals: Patient will increase vocal wellness and decrease phono trauma in adherence with clinician prescribed vocal hygiene and wellness program per patient report 80% of his/her day. Patient will increase ability to produce voice without tension within 5 minute conversational task x 80% accuracy as judged by clinician observation and/or patient report. Patient will demonstrate independent use of voice techniques x 80% accuracy. Patient will increase the balance of the respiratory/laryngeal musculature x 80% accuracy. Recommendations For Therapeutic Interventions: speech/voice exercises and vocal hygiene program Patient/family understands and agrees with goals/plan. Factors affecting prognosis: none Discussed plan of care with: patient Discussed risks/benefits with patient/caregiver. Patient/caregiver agreeable with plan of care. Plan of care was developed with input and agreement by the patient. Assessment Voice assessment: Patient presents with dysphonia 2/2 a diagnosis of left vocal cord immobility, s/p augmentation procedure on 12/22/2022. Residual compensatory MTD suspected with frequent throat clearing. Patient appears to be an excellent candidate for therapy which will target vocal wellness and voice rebalancing. Voice quality based on the GRBAS scale: 0=absent; 1=mild; 2=moderate; 3=severe Grade: 1-2 Roughness: 1-2 Breathiness: 0 Asthenia: 0 Strain: 1-2 Contributing Factors: supraglottic compression , inadequate breath support , decreased neuromuscular control of speech/swallow muscles , habitual behaviors that misuse/abuse the voice and abnormal vibratory mechanisms due to physical changes NOMS Score: mild-moderate: level 5 Treatment recommendations: treatment indicated (see goals below) Reason For Visit An interactive audio and video telecommunication system which permits real time communications between the patient (at the originating site) and provider (at the distant site) was utilized to provide this telehealth service. Verbal consent was requested and obtained from GREGORY REYNOSO on this date, 01/06/2023 09:45 AM , for a telehealth visit. Adult Risk Screening There are no spiritual/cultural practices/values/needs that are important to know Initial Fall Risk Screening: GREGORY has not fallen in the last 6 months. Pain Scale: On a scale of 0 to 10, the patient rates the pain at 0. Nguyen Learner(s) are identified by the patient as person(s) most likely to participate in providing care, such as managing medications or taking them to doctors? appointments. Primary Language for learning: Chadian. Insurance Insurance reviewed Visit number: 1 Onset Date: 2022 Subjective Living Environment: home - patient lives with spouse. Patient arrival: independent Voice evaluation: Reason for Referral: GREGORY REYNOSO is a 62 year male referred to Dr. Ruggiero [facility] by Dr. Catarino Aguilera for further evaluation and treatment of hoarseness. Patient has a history of hyperparathyroidism and in January 2022 he underwent a reported 4 gland exploration for this reason. Per patient report during the procedure on the left side his recurrent laryngeal nerve was compromised. Since then he has had issues with his voice consisting of breathy voice, difficulty voicing throughout the day and vocal fatigue. He then saw an outside ENT who performed a vocal fold injection in March with Prolaryn. He reports that he did have immediate improvement after this procedure but developed an illness in April 2022 with cough and then he felt the Prolaryn benefits were lost. 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 On 12/22/2022 he underwent a left vocal cord fat augmentation procedure with Dr. Ruggiero. He reports good compliance with 2 days of voice rest following the procedure. He states at times her hears a very clear voice. However, he notes intermittent raspiness with prolonged voicing. PMH: prostate cancer, hypertension, GERD, thyroid issues Social: Tobacco - none; ETOH - occasional Referred by: Dr. Ruggiero Prior level of function: within functional limits Objective Motor speech production: within normal limits Pitch: within normal limits and too low Voice quality: within normal limits and harsh Fluency: within normal limits Prosody: within normal limits Resonance: within normal limits Loudness: excessive volume FLEXIBLE LARYNGOSCOPY WITH STROBOSCOPY (Bahman, 11/13/2022) Glottic closure: incomplete with mid glottal gap Vocal fold mobility: left immobile; right normal Supraglottic compression: (more content not included)... Normal Touchworks Homegoing Instructionson Homegoing Instructions Additional Instru ctions: Additional Information: Additional Instructions [facility] [place] Surgical Discharge Instructions Procedure: Microdirect laryngoscopy, left vocal cord injection, fat harvest from thigh Date of Surgery: 12/22/2022 Surgeon: Tracy Ruggiero MD Location: [place] [address] Pain Control: You may use mrau-eql-[id number] Tylenol (acetaminophen) and Motrin (ibuprofen) for pain control as needed. If you have a history of liver disease, ask your physician prior to using Tylenol. If you have a history of gastric ulcers, bleeding, or significant kidney disease, ask your physician prior to using Motrin. Do not exceed 4,000 mg of acetaminophen in one day. Do not exceed 3,000 mg of ibuprofen in one day. If your pain is still poorly controlled despite consistent use of uvmr-ubj-xlxqrnw medications, please call our office. Antibiotics: Not indicated Incision Care: Keep thigh harvest site clean and dry. OK to use gentle soap and water. It is closed with absorbable suture. Diet: You may resume a normal diet today. Clear liquids are best at first as the effects of general anesthesia wear off, but as you feel more comfortable, you may resume your regular diet.. Home Medications: You may resume all of your home medications today. Follow-up Plan: You will be called for a follow-up visit. You will see speech pathology in about one week. You will see Dr. Ruggiero in several weeks. Other Instructions: Voice rest: Do not use your voice for 48 hours. After that, you may resume conservative voice use, no yelling, singing, shouting. Please avoid engaging in excessively strenuous activity for the next 1-2 weeks. The effects of anesthesia may linger for the next several days and can include fatigue, nausea. You may also experience some pain in your throat from the breathing tube. This should slowly improve with time. Please do not hesitate to call [phone] with questions. If outside of normal business hours, you may call the [facility] soap drier operator and ask to speak with the ENT Resident On-Call.. Electronic Signatures: Peter Chu ( (Resident)) (Signed 22-Dec-2022 08:16) Authored: Additional Instructions Last Updated: 22-Dec-2022 08:16 by Peter Chu ( (Resident)) [facility] Order Reconciliationon 12-22 Order Reconciliation Page 1 Discharge Reconciliation Document Reconciliation Type: Discharge requested on behalf of Peter Chu (Resident) done by Peter Chu ( (Resident)) Discharge - Reconciliation: 22-Dec-2022 08:06 by: Peter Chu ( (Resident)) Home Medications EnteredHOME MEDICATIONS AT DISCHARGE DateReconciliation Comment/ Additional Information allopurinol 100 mg oral tablet 2 orally once a day 09-Dec-2022 08:05 allopurinol 100 mg oral tablet 2 orally once a day 09-Dec-2022 08:05 allopurinol 100 mg oral tablet is continued as allopurinol 100 mg oral tablet losartan-hydroCHLOROthiazid e 100 mg-12.5 mg oral tablet 1 tab(s) orally once a day 09-Dec-2022 08:08 losartan-hydroCHLOROthiazid e 100 mg-12.5 mg oral tablet 1 tab(s) orally once a day 09-Dec-2022 08:08 losartan-hydroCHLOROthiazid e 100 mg-12.5 mg oral tablet is continued as losartan-hydroCHLOROthiazid e 100 mg-12.5 mg oral tablet PriLOSEC OTC 20 mg oral delayed release tablet 1 tab(s) orally once a day 09-Dec-2022 08:13 PriLOSEC OTC 20 mg oral delayed release tablet 1 tab(s) orally once a day 09-Dec-2022 08:13 PriLOSEC OTC 20 mg oral delayed release tablet is continued as PriLOSEC OTC 20 mg oral delayed release tablet Vitamin D3 09-Dec-2022 08:12 Vitamin D3 09-Dec-2022 08:12 Vitamin D3 is continued as Vitamin D3 Current OrdersDateHOME MEDICATIONS AT DISCHARGE DateReconciliation Comment/ Additional Information Lactated Ringers Infusion IV Bag Volume = 1,000 mL Run at: 100 mL/hr IntraVenous Clinician Notes: Saba-operative order ONLY 19-Dec-2022 10:41 Lactated Ringers Infusion is not required All Active Home Medications at time of Discharge Reconciliation: 22-Dec-2022 08:06 allopurinol 100 mg oral tablet 2 orally once a day losartan-hydroCHLOROthiazid e 100 mg-12.5 mg oral tablet 1 tab(s) orally once a day PriLOSEC OTC 20 mg oral delayed release tablet 1 tab(s) orally once a day Vitamin D3 [facility] Patient Profile - Preop v3on 12-09-2022 Patient Profile - Preop v3 Patient Profile - Preop: Initial Info: Patient DemographicsName: GREGORY REYNOSO Date: 1960 Address: [address] [place] [address] Date/Time [id number] 08:18 Instructions Givenappropriate clothing, bring glasses/contacts case, bring list of medications, insurance information, center location, remove jewerly/piercings How to be AddressedRobert Spoken Language PreferredEnglish Source of Informationpatient Stated Reason for AdmissionMicroDirect laryngoscopy, abdominal versus right thigh fat graft harvest with left vocal cord injection by Dr. Tracy Ruggiero on December 22, 2022 Primary Contact Name and NumberDeb [phone] Medications Brought to Hospitalno General Health: Weight in kg78 kilogram(s) Weight in plw687.9 pound(s) Weight Methodactual (measured) Scale Typestanding Height in feet6 feet Height in inches0.99 inch(es) Height in cm185.3 centimeter(s) Height Methodstated BMI (kg/m2)22.716 square meter Patient or Family Member Reaction to Anesthesiano previous reaction; Patient is a 62-year-old male with hypertension; GERD; hyperparathyroidism; history of prostate cancer; gout. Patient with paralysis of vocal cord and Larynex scheduled for MicroDirect laryngoscopy. Patient states he walks for 30 minutes every day and golfs twice a week. Patient states he is able to do moderate ADLs such as yard work: Raking leaves, weeding, pushing a lawnmower. Patient able to do housework such as scrubbing floors, carrying groceries up and down stairs. Patient denies history of chest pain, LERMA. METS 4 Patient Reaction to Anesthesianone Blood Avoidance/Restrictionsnone Previous Transfusion Reactionno Health Mgmt: Symptoms/Conditions Managed at Homeendocrine; gastrointestinal; HEENT (head, eyes, ears, nose, throat); cardiovascular; behavioral health; genitourinary Behavioral Health Symptoms/Conditions CommentHistory of depression Cardiovascular Symptoms/Conditionshyperten thomas Cardiovascular Management Strategiesmedication therapy Cardiovascular Symptoms/Conditions CommentPatient denies chest pain, arrhythmias, valvular disease. Endocrine Symptoms/Conditionsthyroid disease Endocrine Symptoms/Conditions CommentHyperparathyroidism s/p parathyroidectomy Gastrointestinal Symptoms/Conditionsreflux/h eartburn Gastrointestinal Management Strategiesmedication therapy Gastrointestinal Symptoms/Conditions CommentReflux symptoms stable on daily PPI Genitourinary Symptoms/Conditions CommentLow-grade prostate cancer monitored via prostate biopsies HEENT Symptoms/Conditions CommentParalysis of vocal cord and Larynx 2/2 parathyroidectomy surgery-cc Barriers to Managing Healthnone Relationship/Environ: Lives Withspouse Living Arrangementshouse Resource/Environmental Concernsnone Anticipated Transition Tolanding Services Anticipated at Transitionnone Tobacco Use: Tobacco Useno Never smoker EtOH: 6-8 drinks a week Denies medical marijuana, recreational drug use Pre-op Checklist: Arrival [id number] Arrival Time07:38 Procedure Typelaryngoscopy NPOyes Last Food [id number] 21:00 Last Clear Fluid [id number] 21:00 ID Band On Patientpatient ID (name), allergy Consent Signedpending Additional Information: Information Review: Allergies, Home Meds and Significant Events have been Reviewed and Verified with Patient/Familyyes Allergy, Intolerance, Adverse Event: Allergies: No Known Allergies: Active Problem List: Medical History: Paralysis of vocal cords and larynx, unspecified: Catalog Name: Paralysis of vocal cords and larynx, unspecified Cancer determined by prostate biopsy: Catalog Name: Malignant neoplasm of prostate Elevated PSA: Catalog Name: Elevated prostate specific antigen [PSA] History of kidney stones: Catalog Name: Personal history of urinary calculi Hyperparathyroidism: Catalog Name: Hyperparathyroidism, unspecified Gout: Catalog Name: Gout, unspecified Hypertension: Catalog Name: Essential (primary) hypertension Surg History: History of hernia repair: Catalog Name: Other specified postprocedural states History of parathyroidectomy: Catalog Name: Postprocedural hypoparathyroidism History of total hip replacement: Onset Date: 09-Dec-2022, Catalog Name: Presence of unspecified artificial hip joint, Description: Right hip History of prostate biopsy: Catalog Name: Other specified postprocedural states Electronic Signatures: Talita Sharma (PAC) (Signed 09-Dec-2022 08:30) Authored: Initial Info, General Health, Health Mgmt, Tobacco Use, Additional Information Mayi Paulino (RN) (Signed 22-Dec-2022 07:45) Authored: Initial Info, General Health, Health Mgmt, Relationship/Environ, Pre-op Checklist Last Updated: 22-Dec-2022 07:45 by Mayi Paulino (RN) [facility] Initial Visit (Otolaryngolog y)on 11-13-2022 Initial Visit (Otolaryngology) Diagnoses/Problems Vocal fold paralysis, 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 We discussed the risks, benefits and alternatives of surgical intervention to include but not be limited to, bleeding and infection, damage to surrounding structures including the teeth, gums, lips tongue, surrounding muscles, nerves, blood vessels as well as scarring. We further discussed the possibility of change in voice with persistent or worsened hoarseness, swallowing difficulty, breathing difficulty, taste change that may be long lasting, medical complications and risks of anesthesia. Provider Impressions This is an initial visit for problem of hoarseness with clinical findings of left-sided vocal fold paralysis. Treatment options discussed including: Proceeding to the operating room for a left-sided vocal fold fat injection versus thyroplasty. We discussed these options and that these would be more of a permanent solution, which based on the length of time since the original injury a more permanent option is appropriate. We discussed that the vocal fold would not regain its motion with more time given that it has been so long. We also discussed that either of these 2 procedures would not result in a fully functioning vocal fold but would allow him better voice with complete closure. Ultimately we discussed that our recommendation at this time would be proceeding to the operating room for MicroDirect laryngoscopy with adipose injection into the left vocal cord with harvest from the right thigh versus abdomen. We discussed that we would like this to be done in the near future. We discussed the indications, risk, benefits, and alternatives including but not limited to need for further procedures such as the thyroplasty as there is a small chance that that may atrophied more than we would want it to. We did discuss that we do over inject to allow for this happenstance. All patient questions were answered and they understand the plan of care moving forward. Surgical consent was signed today. Chief Complaint hoarseness s/p parathyroidectomy History of Present IllnessGREGORY REYNOSO is a 62 year male referred to me today by Dr. Catarino Aguilera for further evaluation and treatment of hoarseness. Patient has a history of hyperparathyroidism and in January 2022 he underwent a reported 4 gland exploration for this reason. Per patient report during the procedure on the left side his recurrent laryngeal nerve was compromised. Since then he has had issues with his voice consisting of breathy voice, difficulty voicing throughout the day and vocal fatigue. He then saw an outside ENT who performed a vocal fold injection in March with ProLaryn. He reports that he did have immediate improvement after this procedure but unfortunately developed an illness in April that was complicated by thoughts of coughing and issues breathing and then he feels his voice was never the same. He does work for himself but talks a lot on the phone and his desiring better church of his voice. PMH: Prostate cancer, hypertension, GERD, thyroid issues. Social: Denies any tobacco use occasional alcohol use I personally reviewed the patient AEMR notes, and consult notes , ROS performed. All other systems are reviewed and are negative for complaint. Social History Non-smoker (V49.89) (Z78.9) Allergies No Known Drug Allergies Recorded By: Abby Vanessa; 11/13/2022 3:10:15 PM Current Meds Medication NameInstruction Colchicine 0.6 MG Oral TabletTAKE 2 TABS TO START THEN 1 TAB 1 HOUR LATER Indomethacin 50 MG Oral CapsuleTAKE 1 CAPSULE BY MOUTH 3 TIMES A DAY WITH FOOD FOR GOUT Losartan Potassium-HCTZ 100-12.5 MG Oral TabletTAKE 1 TABLET BY MOUTH EVERY DAY FOR BLOOD PRESSURE Meloxicam 15 MG Oral TabletTAKE 1 TABLET BY MOUTH EVERY DAY No Reported Medications Vitals Vital Signs Recorded: [id number] 03:04PM Soyloahcjxb81 F Height6 ft 1 in Worvwr301 lb BMI Izdlysbogr81.35 kg/m2 BSA Calculated2.04 Tobacco Usea) Yes PHQ-2 #1. Over the last 2 weeks have you felt down, depressed or hopeless? (If yes, answer PHQ-9 below)No PHQ-2 #2. Over the last 2 weeks have you felt little interest or pleasure in doing things? (If yes, answer PHQ-9 below)NoNo Falls Screening (Age 18+)a) No falls within the last year Physical Exam CONSTITUTIONAL: Vitals -reviewed from intake field, well developed, well nourished. VOICE:moderate Breathy hoarseness RESPIRATION: Breathing comfortably, no stridor. CV: No clubbing/cyanosis/edema in hands. EYES: EOM Intact, sclera normal. NEURO: Alert and oriented times 3, Cranial nerves II-XII intact and symmetric bilaterally. HEAD AND FACE: Symmetric facial features, no masses or lesions, sinuses nontender to palpation. SALIVARY GLANDS: Parotid and submandibular glands normal bilaterally. EARS: Normal external ears, external audito (more content not included)... Normal [facility] No Panel InformationOrdered By: Dr. Dotson on 08-06-2022 Parathyroid Hormone (Intact) 78.5 pg/mL 18.4-80.1 [facility] Vitamin D 25-Hydroxy 34.2 ng/mL [facility] Comment on above: Vitamin D 25(OH) Sta tus Range Deficiency <20 ng/mL (50nmol/L) Insufficiency 20 - 30 ng/mL (50 - 75 nmol/L) Sufficiency 30 - 100 ng/mL (75 - 250 nmol/L) Toxicity >100 ng/mL (>250 nmol/L) Serum or plasma calcium ruthy urement (mass/volume)Ordered By: Dr. Dotson on 08-06-2022 Calcium [Mass/Vol] 10.6 mg/dL 8.5-10.1 [facility] CNOVon 06-29-2022 CNOV Office Visit (UCWSTR ) GREGORY REYNOSO ([id number]) 1960 M Date Time Provider Department 06/29/22 8:30 AM TRACY OATES During your visit today, we recorded the following information about you: Temperature Pulse Respiration Blood pressure 97 degrees 54/minute 16/minute 148/98 Weight 83 kg Tracy Oates APRN.CNP 06/29/2022 8:46 AM Signed This note was created using CICCWORLDriter. Subjective Gregory Reynoso is a 62 year old male. HPI by patient: Gregory is a 62 year old presenting to the office with the complaint of URI Started approximately 4 days ago. Was seen by PCP 3 days ago for same complaint. Was negative for Covid and Flu at that time. Associated symptoms include sore throat, congestion, hoarseness, PND, chills Denies fever Vaccinated for influenza: no Covid Immunization Dates Overdue - COVID-19 VACCINE (4 - Booster for Moderna series) Overdue since 06/13/2021 04/18/2021 Outside Immunization: Covid (Moderna) 10/11/2020 Imm Admin: COVID-19 original vaccine, full dose, monovalent (MODERNA) 09/13/2020 Imm Admin: COVID-19 original vaccine, full dose, monovalent (MODERNA) Personal history of Covid: no Flu/RSV contacts: no Strep contacts: no Sick contacts: no Covid + contacts: no Travel in the last 14 days: no Smoking history/second hand smoke: no OTC mucinex No antibiotic use in the last 60 days. ALLERGIES No Known Allergies No family history on file. Social History Tobacco Use Smoking status: Never Smokeless tobacco: Never Alcohol use: No Drug use: No Review of Systems Constitutional: Positive for chills. Negative for fever. HENT: Positive for congestion, postnasal drip, rhinorrhea and sore throat. Negative for ear pain. Respiratory: Positive for cough. Cardiovascular: Negative for chest pain. Allergic/Immunologic: Negative for immunocompromised state. Neurological: Negative for headaches. Hematological: Negative for adenopathy. Objective There were no vitals taken for this visit. Physical Exam Vitals and nursing note reviewed. Constitutional: Appearance: He is well-developed. HENT: Right Ear: Tympanic membrane and ear canal normal. Left Ear: Tympanic membrane and ear canal normal. Nose: Congestion and rhinorrhea present. Mouth/Throat: Mouth: Mucous membranes are moist. Pharynx: Oropharynx is clear. Uvula midline. Posterior oropharyngeal erythema present. No oropharyngeal exudate. Cardiovascular: Rate and Rhythm: Normal rate and regular rhythm. Heart sounds: Normal heart sounds. Pulmonary: Effort: Pulmonary effort is normal. Breath sounds: Normal breath sounds. Lymphadenopathy: Cervical: No cervical adenopathy. Skin: General: Skin is warm and dry. Neurological: Mental Status: He is alert and oriented to person, place, and time. Assessment and Plan ASSESSMENT/PLAN: 1. Sore throat - ICD9: 462, ICD10: J02.9 - suspect viral - Rapid Strep negative in the office today - Discussed supportive care treatment with fluids, rest and analgesia. - STREP A MOLECULAR (POC) - PREDNISONE 10 MG TABLET Tracy Oates APRN.CNP Medical Decision Making: Problems: Moderate: New problem with uncertain prognosis Data: Unique test(s) ordered: 1 Risk: Moderate: Drug management Medical Decision Making Level: 4 - Moderate This patient encounter involved the screening or treatment of novel coronavirus infection (COVID-19). Tracy Oates APRN.CNP 06/29/2022 8:45 AM Signed --------- UPPER RESPIRATORY INFECTIONS Most cases are caused by viruses and most cases are mild, temporary, and harmless. Symptoms can last 2 to 3 weeks and can include: nasal congestion, sore throat, coughing, muscles aches, headaches, nausea, diarrhea, fatigue and fever. 1. Drink plenty of fluids. 2. Get lots of rest. 3. Avoid dehydrants such as caffeine and alcohol. 4. Nasal saline is an effective decongestant and be used frequently throughout the day. 5. To loosen phlegm and help coughing, drink plenty of fluids and using a humidifier. 6. For sore throats, it is ok to use cough drops, throat sprays, or gargling warm salt water. 7. Always cover your mouth when you cough or sneeze, and wash your hands frequently. Avoid crowded areas like shopping centers, movies while you are sick so you don't machine pecan picker a different virus, or infect others. 8. Avoid exposure to cigarettes or fumes. 9. Avoid irritants such as potpourri, dust, perfumes, scented candles and scented sprays 10. Air conditioning is an effective allergen and irritant avoidance strategy in the spring, summer and fall. 11. Honey is an effective cough suppressant. Try one tsp two to three times per day. The below information is from prescribersletter[employer]: Antibiotics Will rarel (more content not included)... Normal [facility] STREP A MOLECULAR (POC)on Procedural Control Valid [facility] Strep A (POCT) Negative Negative [facility] Laboratory - Microbiology an d Antimicrobial susceptibilityOrdered By: Dr. Barton on 06-27-2022 SARS-CoV-2 (COVID-19) RNA GIRMA+probe Ql (Unsp spec) Not detected Not Detect [facility] Comment on above: Normal Reference Ran ge: Not DetectedMethod:(RT-PCR) real-time reverse transcriptase PCRLuminex JONATAN Instrument*The Food and Drug Administration (FDA) has issued an Emergency Use Authorization (EAU) for the JONATAN SARS-CoV-2 Assay for the rapid detection of the virus that causes COVID-19. This test has been validated, but the FDAs independent review of this validation is pending.*Negative results do not preclude infection and should not be used as the sole basis for treatment or patient management. Optimum specimen types and timing for peak viral levels during infections caused by SARS-CoV-2 have not been determined. Collection of multiple specimens from the same patient may be necessary to detect the virus. The possibility of a false negative result should be considered if the patient has clinical presentation or has had recent exposure. Laboratory - Microbiology an d Antimicrobial susceptibilityon 05-18-2022 SARS-CoV-2 (COVID-19) RNA GIRMA+probe Ql (Unsp spec) Not detected [facility] No Panel Informationon 05-18 POC Nasal Swab Influenza A,B Not detected [facility] POC Nasal Swab RSV Not detected [facility] Basophil percentageOrdered B y: Dr. Barton on 05-15-2022 Chloride [Moles/Vol] 105 mmol/L 98-107 [facility] Glucose [Mass/Vol] 80 mg/dL 74-106 [facility] Potassium [Moles/Vol] 4.3 mmol/L 3.5-5.1 [facility] Sodium [Moles/Vol] 139 mmol/L 136-145 [facility] Laboratory - Chemistry and C hemistry - challengeOrdered By: Dr. Barton on 05-15-2022 CO2 [Moles/Vol] 27.0 mmol/L 21.0-32.0 [facility] Urea nitrogen/Creatinine [Mass ratio] 13.7 mg/mg 10-20 [facility] No Panel InformationOrdered By: Dr. Barton on 05-15-2022 Estimated GFR (MDRD) Amer 71 mL/min >60 [facility] Comment on above: GFR Calc Estimated GFR (MDRD) Non-Af Amer 59 mL/min >60 [facility] Comment on above: Non- GFR Calc Prostate Specific Antigen Total 5.28 ng/mL 0.0-4.0 [facility] Comment on above: This test was perfor med using the TPSA assay method for theDestineer chemistry system. Values obtained with differentassay methods cannot be used interchangably.When changing PSA assays in the course of monitoring apatient, additional sequential testing should be carriedout to confirm baseline values. Serum or plasma calcium ruthy urement (mass/volume)Ordered By: Dr. Barton on 05-15-2022 Calcium [Mass/Vol] 10.0 mg/dL 8.5-10.1 [facility] Serum or plasma creatinine m easurement (mass/volume)Ordered By: Dr. Barton on 05-15-2022 Creatinine [Mass/Vol] 1.31 mg/dL 0.70-1.30 [facility] Comment on above: The validity of the calculated GFR & GFRAA in patients over 70 years has not been determined. Clinical correlation is essential. Serum or plasma urea nitroge n measurement (mass/volume)Ordered By: Dr. Barton on 05-15-2022 Urea nitrogen [Mass/Vol] 18 mg/dL 7-18 [facility] Serum or plasma uric acid me asurement (mass/volume)Ordered By: Dr. Barton on 05-15-2022 Urate [Mass/Vol] 4.6 mg/dL 3.5-7.2 [facility] Comment on above: The drugs N-Acetylcy steine and Metamizole may falsely depress this assay. Thin prep Papanicolaou smear with manual screeningOrdered By: Dr. Barton on 05-15-2022 Thin prep Papanicolaou smear with manual screening 7 5-15 [facility] No Panel Informationon 03-17 Parathyroid Hormone (Intact) 86.6 pg/mL 18.4-80.1 [facility] Work Phone: Serum or plasma calcium ruthy urement (mass/volume)on 03-17-2022 Calcium [Mass/Vol] 11.3 mg/dL 8.5-10.1 [facility] Work Phone: Absolute lymphocyte counton 02-24-2022 Lymphocytes Auto (Unsp spec) [#/Vol] 0.95 10*3/uL 0.83-4.51 [facility] Work Phone: Basophil percentageon 2021 Basophils/100 WBC (Bld) 0.5 % 0-1 [facility] Work Phone: Chloride [Moles/Vol] 106 mmol/L 98-107 [facility] Work Phone: Eosinophils/100 WBC (Bld) 0.6 % 0-5 [facility] Work Phone: Glucose [Mass/Vol] 65 mg/dL 74-106 [facility] Work Phone: Neutrophils (Bld) [#/Vol] 4.9 10*3/uL 2.0-7.7 [facility] Work Phone: [phone] Neutrophils/100 WBC (Bld) 73.6 % 47-70 [facility] Work Phone: Potassium [Moles/Vol] 4.0 mmol/L 3.5-5.1 [facility] Work Phone: Sodium [Moles/Vol] 139 mmol/L 136-145 [facility] Work Phone: WBC (Bld) [#/Vol] 6.6 10*3/uL 4.4-11.0 [facility] Work Phone: Blood erythrocytes count (nu mber/volume)on 02-24-2022 RBC (Bld) [#/Vol] 4.43 10*6/uL 4.6-6.2 [facility]: Blood hemoglobin measurement (mass/volume)on 02-24-2022 Hemoglobin (Bld) [Mass/Vol] 12.1 g/dL 13.0-16.5 [facility] Work Phone: Blood lymphocytes/100 leukoc yteson 02-24-2022 Lymphocytes/100 WBC (Bld) 14.4 % 19-41 [facility] Work Phone: Blood monocytes/100 leukocyt eson 02-24-2022 Monocytes/100 WBC (Bld) 10.6 % 0-10 [facility] Work Phone: [phone] Blood platelet mean volumeon 02-24-2022 Platelet mean volume (Bld) [Entitic vol] 9.9 fL 6.2-12.0 [facility] Work Phone: Determination of erythrocyte mean corpuscular volume (MCV)on 02-24-2022 MCV (RBC) [Entitic vol] 84.9 fL 80-94 [facility] Work Phone: Hematocrit Auto (Bld) [Volum e fraction]on 02-24-2022 Hematocrit (Bld) [Volume fraction] 37.6 % 40-54 [facility] Work Phone: Laboratory - Chemistry and C hemistry - challengeon 02-24-2022 CO2 [Moles/Vol] 25.0 mmol/L 21.0-32.0 [facility] Work Phone: Urea nitrogen/Creatinine [Mass ratio] 19.7 mg/mg 10-20 [facility] Work Phone: Laboratory - Hematology and Cell countson 02-24-2022 Erythrocyte distribution width (RBC) [Entitic vol] 46.5 fL 35.1-43.9 [facility] Work Phone: Erythrocyte distribution width (RBC) [Ratio] 15.0 % 11.6-14.6 [facility] Work Phone: Immature granulocytes/100 WBC (Bld) 0.300 % 0.0-0.9 [facility] Work Phone: Comment on above: IG% - Immature Granu locytes (promyelocytes, myelocytes and metamyelocytes) > 1% indicates that a LEFT SHIFT is Present. MCH (RBC) [Entitic mass] 27.3 pg 27.0-32.0 [facility] Work Phone: Nucleated RBC/100 WBC (Bld) [Ratio] 0 % 0-5 [facility] Work Phone: MCHC Auto (RBC) [Mass/Vol]on 02-24-2022 MCHC (RBC) [Mass/Vol] 32.2 g/dL 32-36 [facility] Work Phone: No Panel Informationon 02-24 Estimated GFR (MDRD) Amer 67 mL/min >60 [facility] Work Phone: Comment on above: GFR Calc Estimated GFR (MDRD) Non-Af Amer 56 mL/min >60 [facility] Work Phone: Comment on above: Non- GFR Calc Parathyroid Hormone (Intact) 86.8 pg/mL 18.4-80.1 [facility] Work Phone: Platelets bldon 02-24-2022 Platelets (Bld) [#/Vol] 397 10*3/uL 150-450 [facility] Work Phone: Serum or plasma calcium ruthy urement (mass/volume)on 02-24-2022 Calcium [Mass/Vol] 11.0 mg/dL 8.5-10.1 [facility] Work Phone: Serum or plasma creatinine m easurement (mass/volume)on 02-24-2022 Creatinine [Mass/Vol] 1.37 mg/dL 0.70-1.30 [facility] Work Phone: Comment on above: The validity of the calculated GFR & GFRAA in patients over 70 years has not been determined. Clinical correlation is essential. Serum or plasma urea nitroge n measurement (mass/volume)on 02-24-2022 Urea nitrogen [Mass/Vol] 27 mg/dL 7-18 [facility] Work Phone: Serum or plasma uric acid me asurement (mass/volume)on 02-24-2022 Urate [Mass/Vol] 7.0 mg/dL 3.5-7.2 [facility] Work Phone: Comment on above: The drugs N-Acetylcy steine and Metamizole may falsely depress this assay. Thin prep Papanicolaou smear with manual screeningon 02-24-2022 Thin prep Papanicolaou smear with manual screening 8 5-15 [facility] Work Phone: No Panel Informationon 02-14 Parathyroid Hormone (Intact) 74.7 pg/mL 18.4-80.1 [facility] Work Phone: Serum or plasma calcium ruthy urement (mass/volume)on 02-14-2022 Calcium [Mass/Vol] 9.5 mg/dL 8.5-10.1 [facility] Work Phone: No Panel Informationon 01-15 Vitamin D 25-Hydroxy 34.5 ng/mL [facility] Work Phone: Comment on above: Vitamin D 25(OH) Sta tus Range Deficiency <20 ng/mL (50nmol/L) Insufficiency 20 - 30 ng/mL (50 - 75 nmol/L) Sufficiency 30 - 100 ng/mL (75 - 250 nmol/L) Toxicity >100 ng/mL (>250 nmol/L) Basophil percentageon 06-10- 2022 Chloride [Moles/Vol] 108 mmol/L 98-[address] [facility] [address] [facility] Work Phone: Glucose [Mass/Vol] 91 mg/dL 74-106 [facility] Work Phone: Potassium [Moles/Vol] 4.4 mmol/L 3.5-5.1 [facility] Work Phone: Sodium [Moles/Vol] 140 mmol/L 136-145 [facility] Work Phone: WBC (Bld) [#/Vol] 6.4 10*3/uL 4.4-11.0 [facility] Work Phone: Blood erythrocytes count (nu mber/volume)on 12-06-2021 RBC (Bld) [#/Vol] 4.39 10*6/uL 4.6-6.2 [facility] Work Phone: Blood hemoglobin measurement (mass/volume)on 12-06-2021 Hemoglobin (Bld) [Mass/Vol] 12.2 g/dL 13.0-16.5 [facility] Work Phone: Blood platelet mean volumeon 12-06-2021 Platelet mean volume (Bld) [Entitic vol] 9.3 fL 6.2-12.0 [facility] Work Phone: Determination of erythrocyte mean corpuscular volume (MCV)on 12-06-2021 MCV (RBC) [Entitic vol] 85.9 fL 80-94 [facility] Work Phone: Hematocrit Auto (Bld) [Volum e fraction]on 12-06-2021 Hematocrit (Bld) [Volume fraction] 37.7 % 40-54 [facility] Work Phone: Laboratory - Chemistry and C hemistry - challengeon 12-06-2021 CO2 [Moles/Vol] 28.0 mmol/L 21.0-32.0 [facility] Work Phone: Urea nitrogen/Creatinine [Mass ratio] 16.9 mg/mg 10-20 [facility] Work Phone: Laboratory - Hematology and Cell countson 12-06-2021 Erythrocyte distribution width (RBC) [Entitic vol] 45.2 fL 35.1-43.9 [facility] Work Phone: Erythrocyte distribution width (RBC) [Ratio] 14.4 % 11.6-14.6 [facility] Work Phone: MCH (RBC) [Entitic mass] 27.8 pg 27.0-32.0 [facility] Work Phone: MCHC Auto (RBC) [Mass/Vol]on 12-06-2021 MCHC (RBC) [Mass/Vol] 32.4 g/dL 32- [facility] Work Phone: No Panel Informationon 12-06 Estimated GFR (MDRD) Amer 68 mL/min >60 [facility] Work Phone: Comment on above: GFR Calc Estimated GFR (MDRD) Non-Af Amer 56 mL/min >60 [facility] Work Phone: Comment on above: Non- GFR Calc Platelets bldon 12-06-2021 Platelets (Bld) [#/Vol] 378 10*3/uL 150-450 [facility] Work Phone: Serum or plasma calcium ruthy urement (mass/volume)on 12-06-2021 Calcium [Mass/Vol] 10.4 mg/dL 8.5-10.1 [facility] Work Phone: Serum or plasma creatinine m easurement (mass/volume)on 12-06-2021 Creatinine [Mass/Vol] 1.36 mg/dL 0.70-1.30 [facility] Work Phone: Comment on above: The validity of the calculated GFR & GFRAA in patients over 70 years has not been determined. Clinical correlation is essential. Serum or plasma urea nitroge n measurement (mass/volume)on 12-06-2021 Urea nitrogen [Mass/Vol] 23 mg/dL 7-18 [facility] Work Phone: Thin prep Papanicolaou smear with manual screeningon 12-06-2021 Thin prep Papanicolaou smear with manual screening 4 5-15 [facility] Work Phone: No Panel Informationon 12-05 Prostate Specific Antigen Total 7.35 ng/mL 0.0-4.0 [facility] Work Phone: Comment on above: This test was perfor med using the TPSA assay method for the[employer] chemistry system. Values obtained with differentassay methods cannot be used interchangably.When changing PSA assays in the course of monitoring apatient, additional sequential testing should be carriedout to confirm baseline values. Serum or plasma uric acid me asurement (mass/volume)on 10-07-2021 Urate [Mass/Vol] 5.0 mg/dL 3.5-7.2 [facility] Work Phone: Comment on above: The drugs N-Acetylcy steine and Metamizole may falsely depress this assay. 24 hour urine calcium measur ement (mass/time)on 09-30-2021 Calcium (24H U) [Mass/Time] 138.2 mg/24 HR 42.0-353.0 [facility] Work Phone: 24 hour urine creatinine martin surement (mass/time)on 09-30-2021 Creatinine (24H U) [Mass/Time] 107.14 g/24 HR 0.90-2.10 [facility] Work Phone: 24 hour urine specimen volum e measurementon 09-30-2021 Specimen volume (24H U) 2.16 L [facility] Work Phone: Laboratory - Chemistry and C hemistry - challengeon 09-30-2021 pH (U) 2 [pH] [facility] Work Phone: Laboratory - Specimen inform ationon 09-30-2021 Collection duration (U) 24.0 HOURS 24.0-24.0 [facility] Work Phone: Collection time (Yulia) [Date/time] 24.0 HR 24.0-24.0 [facility] Work Phone: No Panel Informationon 09-30 Urine Calcium 6.4 Not Estab. [facility] Work Phone: Urine creatinine measurement (mass/volume)on 09-30-2021 Creatinine (U) [Mass/Vol] 49.60 mg/dL NO RANGE EST. [facility] Work Phone: Basophil percentageon 2021 Bilirubin [Mass/Vol] 0.40 mg/dL 0.20-1.00 [facility] Work Phone: Comment on above: For patients on eltr ombopag therapy, use of Dimension [place] TBIL is not recommended. Chloride [Moles/Vol] 106 mmol/L 98-107 [facility] Work Phone: Glucose [Mass/Vol] 103 mg/dL 74-106 [facility] Work Phone: Comment on above: Fasting Glucose resu lt from 100 to 125 mg/dL suggests IMPAIRED HOMEOSTASIS per A.D.A. criteria. Potassium [Moles/Vol] 4.6 mmol/L 3.5-5.1 [facility] Work Phone: Protein [Mass/Vol] 7.2 g/dL 6.4-8.2 [facility] Work Phone: Sodium [Moles/Vol] 137 mmol/L 136-145 [facility] Work Phone: Laboratory - Chemistry and C hemistry - challengeon 09-27-2021 ALP [Catalytic activity/Vol] 42 U/L 45-117 [facility] Work Phone: ALT [Catalytic activity/Vol] 33 U/L 16-61 [facility] Work Phone: CO2 [Moles/Vol] 29.0 mmol/L 21.0-32.0 [facility] Work Phone: Globulin (S) [Mass/Vol] 3.1 g/dL 2.2-4.2 [facility] Work Phone: Urea nitrogen/Creatinine [Mass ratio] 17.4 mg/mg 10-20 [facility] Work Phone: No Panel Informationon 09-27 Vitamin D 25-Hydroxy 32.8 ng/mL [facility] Work Phone: Comment on above: Vitamin D 25(OH) Sta tus Range Deficiency <20 ng/mL (50nmol/L) Insufficiency 20 - 30 ng/mL (50 - 75 nmol/L) Sufficiency 30 - 100 ng/mL (75 - 250 nmol/L) Toxicity >100 ng/mL (>250 nmol/L) Estimated GFR (MDRD) Amer 67 mL/min >60 [facility] Work Phone: Comment on above: GFR Calc Estimated GFR (MDRD) Non-Af Amer 55 mL/min >60 [facility] Work Phone: Comment on above: Non- GFR Calc Ionized Calcium 6.5 mg/dL 4.5-5.6 [facility] Work Phone: Comment on above: Performed at: [place] [id number] Director: Kiran Del Cid PhD, Phone: [phone] Serum or plasma albumin ruthy urement (mass/volume)on 09-27-2021 Albumin [Mass/Vol] 4.1 g/dL 3.2-5.0 [facility] Work Phone: Serum or plasma albumin/glob ulin mass ratioon 09-27-2021 Albumin/Globulin [Mass ratio] 1.3 {ratio} 0.9-2.4 [facility] Work Phone: Serum or plasma calcium ruthy urement (mass/volume)on 09-27-2021 Calcium [Mass/Vol] 11.4 mg/dL 8.5-10.1 [facility] Work Phone: Serum or plasma creatinine m easurement (mass/volume)on 09-27-2021 Creatinine [Mass/Vol] 1.38 mg/dL 0.70-1.30 [facility] Work Phone: Comment on above: The validity of the calculated GFR & GFRAA in patients over 70 years has not been determined. Clinical correlation is essential. Serum or plasma urea nitroge n measurement (mass/volume)on 09-27-2021 Urea nitrogen [Mass/Vol] 24 mg/dL 7-18 [facility] Work Phone: Thin prep Papanicolaou smear with manual screeningon 09-27-2021 Thin prep Papanicolaou smear with manual screening 18 U/L 15-37 [facility] Work Phone: Thin prep Papanicolaou smear with manual screening 2 5-15 [facility] Work Phone: NM PARATHYROID W SPECT/CTon 09-23-2021 NM PARATHYROID W SPECT/CT * * *Final Report* * * * * * SEE BOTTOM OF REPORT FOR ADDENDED TEXT * * * DATE OF EXAM: Sep 23 2021 1:19PM ALAN 0089 - NM PARATHYROID W SPECT/CT / PROCEDURE REASON: hyperparathyroid * * * * Physician Interpretation * * * * * * * * * * * * ORIGINAL REPORT * * * * * * * * PARATHYROID SCAN: HISTORY: Hyperparathyroidism. TECHNIQUE: 359 microcuries of 123-I sodium iodide PO, followed by thyroid uptake measurements and scan. 35 mCi Tc-99m sestamibi was given IV. Planar and SPECT imaging of the neck and chest was performed; anatomic mapping noncontrast CT imaging of the same body region was performed using 1 bed (39cm). CT Dose-Length Product (DLP): 303 mGy*cm. CT Dose Reduction Employed: Automated exposure control (AEC) was used RESULT: The 4.0 hour I-123 neck uptake is 9.0% (normal range, 5-15%). The I-123 images demonstrate homogeneous uptake of activity by the thyroid, without focal thyroid abnormalities identified. SPECT images demonstrate no foci of residual post-subtraction sestamibi activity to suggest abnormal parathyroid tissue. Auditor (topogram) images: No additional findings. CT: Mild dependent atelectasis. No lymphadenopathy by size criteria. Moderate coronary artery calcifications. Degenerative changes of spine. No destructive osseous lesions. IMPRESSION: No site of abnormal parathyroid tissue identified. * * * * * * * * ADDENDUM #1 * * * * * * * * Correction: The 3 hour I-123 neck uptake is 4.1% Regulatory Lead: NINO Transcribe Date/Time: Sep 23 2021 2:36P Dictated by : AZ JAEGER MD This examination was interpreted and the report reviewed and electronically signed by: ZA JAEGER MD on Sep 23 2021 2:13PM EST This document has been addended by: AZ JAEGER MD on Sep 23 2021 2:40PM EST [id number] [facility] NM THY UPTAKE ONLYon 022 NM THY UPTAKE ONLY * * *Final Report* * * * * * SEE BOTTOM OF REPORT FOR ADDENDED TEXT * * * DATE OF EXAM: Sep 23 2021 1:15PM [facility] 0041 - NM THY UPTAKE ONLY / PROCEDURE REASON: hyperparathyroid * * * * Physician Interpretation * * * * * * * * * * * * ORIGINAL REPORT * * * * * * * * PARATHYROID SCAN: HISTORY: Hyperparathyroidism. TECHNIQUE: 359 microcuries of 123-I sodium iodide PO, followed by thyroid uptake measurements and scan. 35 mCi Tc-99m sestamibi was given IV. Planar and SPECT imaging of the neck and chest was performed; anatomic mapping noncontrast CT imaging of the same body region was performed using 1 bed (39cm). CT Dose-Length Product (DLP): 303 mGy*cm. CT Dose Reduction Employed: Automated exposure control (AEC) was used RESULT: The 4.0 hour I-123 neck uptake is 9.0% (normal range, 5-15%). The I-123 images demonstrate homogeneous uptake of activity by the thyroid, without focal thyroid abnormalities identified. SPECT images demonstrate no foci of residual post-subtraction sestamibi activity to suggest abnormal parathyroid tissue. Auditor (topogram) images: No additional findings. CT: Mild dependent atelectasis. No lymphadenopathy by size criteria. Moderate coronary artery calcifications. Degenerative changes of spine. No destructive osseous lesions. IMPRESSION: No site of abnormal parathyroid tissue identified. * * * * * * * * ADDENDUM #1 * * * * * * * * Correction: The 3 hour I-123 neck uptake is 4.1% Regulatory Lead: PSCB Transcribe Date/Time: Sep 23 2021 2:36P Dictated by : AZ JAEGER MD This examination was interpreted and the report reviewed and electronically signed by: AZ JAEGER MD on Sep 23 2021 2:13PM EST This document has been addended by: AZ JAEGER MD on Sep 23 2021 2:40PM EST [id number] [facility] Absolute lymphocyte counton 07-09-2021 Lymphocytes Auto (Unsp spec) [#/Vol] 0.67 10*3/uL 0.83-4.51 [facility] Work Phone: Basophil percentageon 2021 Basophils/100 WBC (Bld) 0.5 % 0-1 [facility] Work Phone: Bilirubin [Mass/Vol] 0.50 mg/dL 0.20-1.00 [facility] Work Phone: Comment on above: For patients on eltr ombopag therapy, use of Dimension [place] TBIL is not recommended. Chloride [Moles/Vol] 104 mmol/L 98-107 [facility] Work Phone: Cholesterol [Mass/Vol] 259 mg/dL <[address] [facility] Work Phone: Comment on above: <200 mg/dL Desirable 200-240 mg/dL Borderline >240 mg/dL High Risk Eosinophils/100 WBC (Bld) 3.7 % 0-5 [facility] Work Phone: Glucose [Mass/Vol] 114 mg/dL 74-106 [facility] Work Phone: Comment on above: Fasting Glucose resu lt from 100 to 125 mg/dL suggests IMPAIRED HOMEOSTASIS per A.D.A. criteria.Please note revised GLUCOSE reference range effective 2017. Neutrophils (Bld) [#/Vol] 4.6 10*3/uL 2.0-7.7 [facility] Work Phone: Neutrophils/100 WBC (Bld) 73.9 % 47-70 [facility] Work Phone: Potassium [Moles/Vol] 4.1 mmol/L 3.5-5.1 [facility] Work Phone: Protein [Mass/Vol] 7.4 g/dL 6.4-8.2 [facility] Work Phone: Sodium [Moles/Vol] 138 mmol/L 136-145 [facility] Work Phone: Triglyceride [Mass/Vol] 161 mg/dL [facility] Work Phone: Comment on above: The drugs N-Acetylcy steine and Metamizole may falsely depress this assay.Serum Triglycerides Reference Interval Normal <150 mg/dL Borderline high 150 - 199 mg/dL High 200 - 499 mg/dL Very High > or = 500 mg/dL WBC (Bld) [#/Vol] 6.2 10*3/uL 4.4-11.0 [facility] Work Phone: Blood erythrocytes count (nu mber/volume)on 07-09-2021 RBC (Bld) [#/Vol] 4.60 10*6/uL 4.6-6.2 [facility] Work Phone: Blood hemoglobin measurement (mass/volume)on 07-09-2021 Hemoglobin (Bld) [Mass/Vol] 12.7 g/dL 13.0-16.5 [facility] Work Phone: Blood lymphocytes/100 leukoc yteson 07-09-2021 Lymphocytes/100 WBC (Bld) 10.7 % 19-41 [facility] Work Phone: Blood monocytes/100 leukocyt eson 07-09-2021 Monocytes/100 WBC (Bld) 10.7 % 0-10 [facility] Work Phone: Blood platelet mean volumeon 07-09-2021 Platelet mean volume (Bld) [Entitic vol] 9.7 fL 6.2-12.0 [facility] Work Phone: Determination of erythrocyte mean corpuscular volume (MCV)on 07-09-2021 MCV (RBC) [Entitic vol] 87.2 fL 80-94 [facility] Work Phone: Hematocrit Auto (Bld) [Volum e fraction]on 07-09-2021 Hematocrit (Bld) [Volume fraction] 40.1 % 40-54 [facility] Work Phone: Laboratory - Chemistry and C hemistry - challengeon 07-09-2021 ALP [Catalytic activity/Vol] 36 U/L 45-117 [facility] Work Phone: ALT [Catalytic activity/Vol] 33 U/L 16-61 [facility] Work Phone: CO2 [Moles/Vol] 31.0 mmol/L 21.0-32.0 [facility] Work Phone: Globulin (S) [Mass/Vol] 3.3 g/dL 2.2-4.2 [facility] Work Phone: Urea nitrogen/Creatinine [Mass ratio] 18.0 mg/mg 10-20 [facility] Work Phone: Laboratory - Hematology and Cell countson 07-09-2021 Erythrocyte distribution width (RBC) [Entitic vol] 47.8 fL 35.1-43.9 [facility] Work Phone: Erythrocyte distribution width (RBC) [Ratio] 14.9 % 11.6-14.6 [facility] Work Phone: Immature granulocytes/100 WBC (Bld) 0.500 % 0.0-0.9 [facility] Work Phone: Comment on above: IG% - Immature Granu locytes (promyelocytes, myelocytes and metamyelocytes) > 1% indicates that a LEFT SHIFT is Present. MCH (RBC) [Entitic mass] 27.6 pg 27.0-32.0 [facility] Work Phone: Nucleated RBC/100 WBC (Bld) [Ratio] 0 % 0-5 [facility] Work Phone: MCHC Auto (RBC) [Mass/Vol]on 07-09-2021 MCHC (RBC) [Mass/Vol] 31.7 g/dL 32-36 [facility] Work Phone: No Panel Informationon 07-09 Estimated GFR (MDRD) Amer 73 mL/min >60 [facility] Work Phone: Comment on above: GFR Calc Estimated GFR (MDRD) Non-Af Amer 60 mL/min >60 [facility] Work Phone: Comment on above: Non- GFR Calc Parathyroid Hormone (Intact) 121.3 pg/mL 18.4-80.1 [facility] Work Phone: Vitamin D 25-Hydroxy 23.6 ng/mL [facility] Work Phone: Comment on above: Vitamin D 25(OH) Sta tus Range Deficiency <20 ng/mL (50nmol/L) Insufficiency 20 - 30 ng/mL (50 - 75 nmol/L) Sufficiency 30 - 100 ng/mL (75 - 250 nmol/L) Toxicity >100 ng/mL (>250 nmol/L) Platelets bldon 07-09-2021 Platelets (Bld) [#/Vol] 299 10*3/uL 150-450 [facility] Work Phone: Serum or plasma albumin ruthy urement (mass/volume)on 07-09-2021 Albumin [Mass/Vol] 4.1 g/dL 3.2-5.0 [facility] Work Phone: Serum or plasma albumin/glob ulin mass ratioon 07-09-2021 Albumin/Globulin [Mass ratio] 1.2 {ratio} 0.9-2.4 [facility] Work Phone: Serum or plasma calcium ruthy urement (mass/volume)on 07-09-2021 Calcium [Mass/Vol] 12.0 mg/dL 8.5-10.1 [facility] Work Phone: Serum or plasma cholesterol in HDL measurement (mass/volume)on 07-09-2021 Cholesterol in HDL [Mass/Vol] 85 mg/dL [facility] Work Phone: Comment on above: The drugs N-Acetylcy steine and Metamizole may falsely depress this assay. Reference Range HDL <40 mg/dL Low HDL Cholesterol HDL >or= 60 mg/dL High HDL Cholesterol Serum or plasma cholesterol in VLDL measurement (mass/volume)on 07-09-2021 Cholesterol in VLDL [Mass/Vol] 32 mg/dL 5-40 [facility] Work Phone: Serum or plasma creatinine m easurement (mass/volume)on 07-09-2021 Creatinine [Mass/Vol] 1.28 mg/dL 0.70-1.30 [facility] Work Phone: Comment on above: The validity of the calculated GFR & GFRAA in patients over 70 years has not been determined. Clinical correlation is essential. Serum or plasma low density lipoprotein (LDL) cholesterol measurement (mass/volume)on 07-09-2021 Cholesterol in LDL [Mass/Vol] 142 mg/dL 0-130 [facility] Work Phone: Serum or plasma urea nitroge n measurement (mass/volume)on 07-09-2021 Urea nitrogen [Mass/Vol] 23 mg/dL 7-18 [facility] Work Phone: Serum or plasma uric acid me asurement (mass/volume)on 07-09-2021 Urate [Mass/Vol] 7.7 mg/dL 3.5-7.2 [facility] Work Phone: Comment on above: The drugs N-Acetylcy steine and Metamizole may falsely depress this assay. Thin prep Papanicolaou smear with manual screeningon 07-09-2021 Thin prep Papanicolaou smear with manual screening 18 U/L 15-37 [facility] Work Phone: Thin prep Papanicolaou smear with manual screening 3 5-15 [facility] Work Phone: PROGRESSon 06-15-2017 PROGRESS HNO ID: [id number] thor: Farooq Murrellervice: (none)Author Type: PhysicianType: Progress NotesFiled: 06/15/2017 2:57 PMNote Text:Gregory Reynoso is a 57 year old male who presents for follow-up of hisleft leg pain. He underwent his repeat lumbar MRI scan which is entirelynormal. I even reviewed this personally with one of ourneuroradiologists.Sympto matically there has been a change in his symptoms. He had to do alot of repetitive heavy lifting at work recently. He had to lift a couplethousand pounds worth of scrap metal. Rather than aggravating hiscondition he found that following this his pain has been the best it'sbeen in months.Otherwise no new symptoms other than the improvement after this ratherheavy exercise.Reviewed nursing note and current pain scale.PAST MEDICAL HISTORYDiagnosis Date- HTN (hypertension)- Prostate cancer (HCC)PAST SURGICAL HISTORYProcedure Laterality Date- EMG 04/24/2017- HERNIA REPAIR HX- PROSTATE BIOPSY 2013History reviewed. No pertinent family history.Social HistorySubstance Use Topics- Smoking status: Never Smoker- Smokeless tobacco: Never Used- Alcohol use NoMedications:Current Outpatient Prescriptions:pregabalin (LYRICA) 75 mg capsule Take 1 capsule by mouth at bedtime asneeded.gabapentin (NEURONTIN) 300 mg capsulemethylPREDNISolone (MEDROL, THAD,) 4 mg Dose-Pack As Instructed per packagepregabalin (LYRICA) 50 mg capsule Take 1 capsule by mouth three timesdaily. As neededpregabalin (LYRICA) 75 mg capsule Take 1 capsule by mouth once daily.traMADol (ULTRAM) 50 mg tablet One tablet every eight hours as needed forpainbaclofen (LIORESAL) 10 mg tabletcelecoxib (CELEBREX) 200 mg capsuleLosartan-Hydrochloro thiazide 100-12.5 mg per tabletNo current facility-administered medications for this visit.Allergies: ALLERGIESNo Known AllergiesPhysical Examination:Resp 16 Ht 6' 1 (1.85m) Wt 180 lb (81.6kg) BMI 23.75 kg/(m2).General Appearance: Well appearing, alert, in no acute distress,well-hydrated, well nourished.Skin: Skin color, texture, turgor normal, no suspicious rashes or lesions.Extremities: Today he can rise from the chair and walk with a good gait.He can do a single leg stance and single leg hop. He has good strengthresisted muscle testing.Peripheral Pulses: Normal.Images:MRI IMPRESSION: ?1. ?Minimal degenerative changes as detailed above. ?No significantcentral canalor foraminal stenosis. ?2. ?No evidence of osseous metastasis or fracture.Assessment and Plan:1. Pain of left lower extremity - ICD9: 729.5, ICD10: M79.605Functional Plan: I advised him that I'm still at a loss to explain his legsymptoms. Interesting that his symptoms eventually improved with heavyrepetitive lifting which one would've thought would aggravate hissituation. Given this some going to recommend to him a course of physicaltherapy. He's been through some in the past. He would like to work [employer] on his own and local gym and I think this is reasonable.I advised them that we will probably see one of 2 patterns with regards tohis pain. It may well disappear and we'll never know the exact cause.The other scenario is that something about his pain will change incharacter or symptomatology though will give us a clue as to herdiagnosis.He's can proceed with his exercise program.Return in about 6 weeks (around 07/24/2017), or if symptoms worsen or failto improve.Farooq Cabrera MD [facility] 06-12-2017 [facility] Office Visit (AGHWW1) -------GREGORY REYNOSO ([id number]) 1960 [facility] Qeptdqappb09/15/17 11:30 AM FAROOQ CABRERA AGHWW1 During your visit today, we recorded the following information about you: Respiration Weight Height 16/minute 81.6 kg 1.854 Mago Cabrera MD 06/15/2017 2:57 PM SignedRobmirian Hummel Edgardo is a 57 year old male who presents for follow-up of his leftleg pain. He underwent his repeat lumbar MRI scan which is entirely normal. Ieven reviewed this personally with one of our neuroradiologists.Symptomat thania there has been a change in his symptoms. He had to do a lot ofrepetitive heavy lifting at work recently. He had to lift a couple thousandpounds worth of scrap metal. Rather than aggravating his condition he foundthat following this his pain has been the ANDquot;best it's been in months.ANDquot;Otherwise no new symptoms other than the improvement after this rather heavyexercise.Reviewed nursing note and current pain scale.PAST MEDICAL HISTORYDiagnosis Date- HTN (hypertension)- Prostate cancer (HCC)PAST SURGICAL HISTORYProcedure Laterality Date- EMG 04/24/2017- HERNIA REPAIR HX- PROSTATE BIOPSY 2013History reviewed. No pertinent family history.Social HistorySubstance Use Topics- Smoking status: Never Smoker- Smokeless tobacco: Never Used- Alcohol use NoMedications:Current Outpatient Prescriptions:pregabalin (LYRICA) 75 mg capsule Take 1 capsule by mouth at bedtime as needed.gabapentin (NEURONTIN) 300 mg capsulemethylPREDNISolone (MEDROL, THAD,) 4 mg Dose-Pack As Instructed per packagepregabalin (LYRICA) 50 mg capsule Take 1 capsule by mouth three times daily. Asneededpregabalin (LYRICA) 75 mg capsule Take 1 capsule by mouth once daily.traMADol (ULTRAM) 50 mg tablet One tablet every eight hours as needed for painbaclofen (LIORESAL) 10 mg tabletcelecoxib (CELEBREX) 200 mg capsuleLosartan-Hydrochloro thiazide 100-12.5 mg per tabletNo current facility-administered medications for this visit.Allergies: ALLERGIESNo Known AllergiesPhysical Examination:Resp 16 Ht 6' 1ANDquot; (1.85m) Wt 180 lb (81.6kg) BMI 23.75 kg/(m2).General Appearance: Well appearing, alert, in no acute distress, well-hydrated,well nourished.Skin: Skin color, texture, turgor normal, no suspicious rashes or lesions.Extremities: Today he can rise from the chair and walk with a good gait. Hecan do a single leg stance and single leg hop. He has good strength resistedmuscle testing.Peripheral Pulses: Normal.Images:MRI IMPRESSION: ?1. ?Minimal degenerative changes as detailed above. ?No significant centralcanalor foraminal stenosis. ?2. ?No evidence of osseous metastasis or fracture.Assessment and Plan:1. Pain of left lower extremity - ICD9: 729.5, ICD10: M79.605Functional Plan: I advised him that I'm still at a loss to explain his legsymptoms. Interesting that his symptoms eventually improved with heavyrepetitive lifting which one would've thought would aggravate his situation.Given this some going to recommend to him a course of physical therapy. He'sbeen through some in the past. He would like to work on things on his own andlocal gym and I think this is reasonable.I advised them that we will probably see one of 2 patterns with regards to hispain. It may well disappear and we'll never know the exact cause. The otherscenario is that something about his pain will change in character orsymptomatology though will give us a clue as to her diagnosis.He's can proceed with his exercise program.Return in about 6 weeks (around 07/24/2017), or if symptoms worsen or fail toimprove.Farooq Cabrera, MDReferring Provider: FAROOQ CABRERA [[id number]]Allergies As of Date: 06/12/2017(No Known Allergies)Date Reviewed: 06/12/2017Reviewed by: Jennifer Bain - Fully AssessedReason for Visit: Follow Up [171] Cmt: LUMBAR MRI F/U [id number] Visit Diagnosis:Pain of left lower extremity [M79.605]Order(s):pregabali n (LYRICA) 75 mg capsuleTake 1 capsule by mouth at bedtime as needed.Disp: 90 capsuleRfl: 0Prescriptions as of 06/12/2017 Sig: PREGABALIN 75 MG CAPSULE Take 1 capsule by mouth at be* GABAPENTIN 300 MG CAPSULE METHYLPREDNISOLONE 4 MG TABLE* As Instructed per package PREGABALIN 50 MG CAPSULE Take 1 capsule by mouth three* PREGABALIN 75 MG CAPSULE Take 1 capsule by mouth once * TRAMADOL 50 MG TABLET One tablet every eight hours * BACLOFEN 10 MG TABLET CELECOXIB 200 MG CAPSULE LOSARTAN 100 MG-HYDROCHLOROTH*Problem List As Of Date 06/12/2017 Noted Resolved Pain of lower extremity [M79.606] INVALID FOR* Prostate cancer (HCC) [C61]Prescriptions ordered this encounter Disp Refills Start End PREGABALIN 75 MG CAPSULE 90 c* 0 06/12/2017 Class: Print RX Route: ORAL Sig: Take 1 capsule by mouth at bedtime as needed.Disposition: Return in about 6 weeks (around 07/24/2017), or if symptoms worsen or fail to improve.Follow-up and Disposition History RecordedEncounter Number: [id number] Status:Closed by FAROOQ CABRERA MD on 06/15/17 Normal [facility] MRI LUMBAR SPINE W/O CONTRAS T [id number] 06-02-2017 MRI LUMBAR SPINE W/O CONTRAST [id number] Performed at [facility] APPROVED BY: Brandon Gao MD EXAM TITLE: MRI OF THE LUMBAR SPINE WITHOUT CONTRAST DATE:06/02/2017 12:15 COMPARISON: MRI pelvis 03/10/2017 CLINICAL INDICATION/HISTORY: Left leg pain and lower back pain; history of prostate cancer TECHNIQUE: Multiplanar, multi-sequence MRI of the lumbar spine without intravenous contrast FINDINGS:There are 5 non-rib bearing lumbar type vertebral bodies.. For purposes of this dictation the most inferior well-formed disc will be designated as L5-S1. The iliac crests are approximately at the level of the L4-L5 disc space. Vertebral bodies are maintained in height without evidence of fracture.No subluxations are seen.There is a 1 cm osseous lesion within the right side of the sacrum at the S2 level. This was previously noted on MRI of the pelvis from February 2017. There appears to be some preserved fatty marrow signal suggesting a small hemangioma. No additional lesions are seen. No evidence of metastasis.The conus medullaris terminates normally.There are bilateral renal cysts. T12-L1: No significant disk bulge, protrusion, central canal stenosis or foraminal stenosis is present. L1-L2: No significant disk bulge, protrusion, central canal stenosis or foraminal stenosis is present. L2-L3: No significant disk bulge, protrusion, central canal stenosis or foraminal stenosis is present. L3-L4: No significant disk bulge, protrusion, central canal stenosis or foraminal stenosis is present. L4-L5: There is mild degenerative disc disease with mild disc bulging and a small left paracentral annular tear. No central canal stenosis. Minimal left lateral recess stenosis. No foraminal stenosis. Mild facet arthritis. L5-S1: No significant disk bulge, protrusion, central canal stenosis or foraminal stenosis is present. IMPRESSION: 1. Minimal degenerative changes as detailed above. No significant central canal or foraminal stenosis. 2. No evidence of osseous metastasis or fracture. Normal [facility] CNOVon 05-19-2017 CNOV Office Visit (AGPOB1) -------EDGARDOGREGORY Hummel ([id number]) 1960 MDate Time Provider Yedvunnzfe02/21/17 3:30 PM FAROOQ CABRERA POB1 During your visit today, we recorded the following information about you: Weight Height 81.6 kg 1.854 Mago Cabrera MD 05/22/2017 10:23 AM Abisai Hummel Edgardo is a 57 year old male who presents for follow-up of his leftthigh pain. Functionally and symptomatically no changes. His pain is stillworse with prolonged sitting. Difficulty driving any distance. When he getsup and starts to walk his pain improves, but doesn't totally go away. His painis still from his groin down into the prepatellar region of his knee.However he is now noticing a new pain that radiates in the posterior calfaround his ankle to the dorsum of his foot in an L4 dermatome. Occurs at thesame time as his chronic left leg pain particularly with prolonged sitting.Also had some increased low back pain. He has had a history of kidney stonesand he states that his back pain feels somewhat like his kidney stone also.He's had no urinary symptoms such as dysuria or hematuria. His back pain andleg pain seem to occur at the same time again particularly with prolongedsitting.Continues to find the Lyrica very helpful. Much better tolerated.Reviewed nursing note and current pain scale.PAST MEDICAL HISTORYDiagnosis Date- HTN (hypertension)- Prostate cancer (HCC)PAST SURGICAL HISTORYProcedure Laterality Date- EMG 04/24/2017- HERNIA REPAIR HX- PROSTATE BIOPSY 2013History reviewed. No pertinent family history.Social HistorySubstance Use Topics- Smoking status: Never Smoker- Smokeless tobacco: Never Used- Alcohol use NoREVIEW OF SYSTEMS:GENERAL: Well developed, well nourished. No acute distressPAIN: Negative for pain, history of chronic pain or current treatment forchronic pain conditionsCARDIOVASCULAR: Negative for chest pain, leg swelling and palpations.MSK: Negative for joint pain, swelling, back pain, muscle pain.SKIN: Negative for lesions, rash, itching, metal sensitivityNEURO: Negative for seizure, trauma, numbness/tingling of extremities.ENDOCRINE: Negative for Diabetes Type 1 and Type 2HEMATOLOGY: Negative for excessive bleeding, clots, bleeding disorders.Medications:Дмитрий ac Outpatient Prescriptions:gabapentin (NEURONTIN) 300 mg capsulemethylPREDNISolone (MEDROL, THAD,) 4 mg Dose-Pack As Instructed per packagepregabalin (LYRICA) 50 mg capsule Take 1 capsule by mouth three times daily. Asneededpregabalin (LYRICA) 75 mg capsule Take 1 capsule by mouth once daily.traMADol (ULTRAM) 50 mg tablet One tablet every eight hours as needed for painLosartan-Hydrochlorothi azide 100-12.5 mg per tabletbaclofen (LIORESAL) 10 mg tabletcelecoxib (CELEBREX) 200 mg capsuleNo current facility-administered medications for this visit.Allergies: ALLERGIESNo Known AllergiesPhysical Examination:Ht 6' 1ANDquot; (1.85m) Wt 180 lb (81.6kg) BMI 23.75 kg/(m2).General Appearance: Well appearing, alert, in no acute distress, well-hydrated,well nourished.Skin: Skin color, texture, turgor normal, no suspicious rashes or lesions.Extremities: He still has significant tenderness to palpation of his anteriorthigh and following the course of his femoral nerve. Pain down into theinfrapatellar region although he has no evidence of bursitis. No warmth,swelling, erythema. No knee effusion. Full extension. Flexion to 135?.Exquisite tenderness to even superficial portion of the skin around theinfrapatellar region.No inguinal lymphadenopathy. Negative straight leg raiser. Slightly positivefemoral stretch test.No loss of lumbar motion. Some pain to percussion on the left side.Paraspinal spasm.Peripheral Pulses: Normal.Neurologic: Intact light touch sensation both lower extremity.Assessment and Plan:1. Pain of left lower extremity - ICD9: 729.5, ICD10: M79.605 (primarydiagnosis)2. Radiculopathy, lumbar region - ICD9: 724.4, ICD10: M54.16Functional Plan: Advised him that with the new L4 dermatome changes and his newonset back pain I think total points to a radiculopathy. He may well have afar lateral disc. Particularly at the L3 4 level, which would also explain anormal EMG.The quality of his previous MRI was marginal. I don't believe there is enoughdetail to rule out a far lateral disc.At this point I recommend we rescan his lumbar spine on a high-resolutionscanner through the [employer] system.After discussion with him he was in agreement. We'll continue with hissymptomatic treatment utilizing the Lyrica which has been helpful for him andwell tolerated.We'll see him back after his MRI scan.Farooq Cabrera, MDReferring Provider: SELF [[id number]]Allergies As of Date: 05/19/2017(No Known Allergies)Date Reviewed: 05/19/2017Reviewed by: Farooq Cabrera - Fully AssessedReason for Visit: Musculoskeletal Problem [69] Cmt: Lt. legPrimary Visit Diagnosis:Pain of left lower extremity [M79.605] Other Visit Diagnosis:Radiculopathy, lumbar region [M54.16]Order(s):MRI LUMBAR SPINE WO IVCON [[id number]] Order #: [id number] FUTUREPrescriptions as of 05/19/2017 Sig: GABAPENTIN 300 MG CAPSULE METHYLPREDNISOLONE 4 MG TABLE* As Instructed per package PREGABALIN 50 MG CAPSULE Take 1 capsule by mouth three* PREGABALIN 75 MG CAPSULE Take 1 capsule by mouth once * TRAMADOL 50 MG TABLET One tablet every eight hours * LOSARTAN 100 MG-HYDROCHLOROTH* BACLOFEN 10 MG TABLET CELECOXIB 200 MG CAPSULEProblem List As Of Date 05/19/2017 Noted Resolved Pain of lower extremity [M79.606] INVALID FOR* Prostate cancer (HCC) [C61] Status:Closed by FAROOQ CABRERA MD on 05/22/17 [facility] PROGRESSon 05-19-2017 PROGRESS HNO ID: [id number] thor: Farooq Murrellervice: (none)Author Type: PhysicianType: Progress NotesFiled: 05/22/2017 10:23 AMNote Text:Gregory Reynoso is a 57 year old male who presents for follow-up of hisleft thigh pain. Functionally and symptomatically no changes. His painis still worse with prolonged sitting. Difficulty driving any distance.When he gets up and starts to walk his pain improves, but doesn't totallygo away. His pain is still from his groin down into the prepatellarregion of his knee.However he is now noticing a new pain that radiates in the posterior calfaround his ankle to the dorsum of his foot in an L4 dermatome. Occurs atthe same time as his chronic left leg pain particularly with prolongedsitting.Also had some increased low back pain. He has had a history of kidneystones and he states that his back pain feels somewhat like his kidneystone also. He's had no urinary symptoms such as dysuria or hematuria.His back pain and leg pain seem to occur at the same time againparticularly with prolonged sitting.Continues to find the Lyrica very helpful. Much better tolerated.Reviewed nursing note and current pain scale.PAST MEDICAL HISTORYDiagnosis Date- HTN (hypertension)- Prostate cancer (HCC)PAST SURGICAL HISTORYProcedure Laterality Date- EMG 04/24/2017- HERNIA REPAIR HX- PROSTATE BIOPSY 2013History reviewed. No pertinent family history.Social HistorySubstance Use Topics- Smoking status: Never Smoker- Smokeless tobacco: Never Used- Alcohol use NoREVIEW OF SYSTEMS:GENERAL: Well developed, well nourished. No acute distressPAIN: Negative for pain, history of chronic pain or current treatment forchronic pain conditionsCARDIOVASCULAR: Negative for chest pain, leg swelling and palpations.MSK: Negative for joint pain, swelling, back pain, muscle pain.SKIN: Negative for lesions, rash, itching, metal sensitivityNEURO: Negative for seizure, trauma, numbness/tingling of extremities.ENDOCRINE: Negative for Diabetes Type 1 and Type 2HEMATOLOGY: Negative for excessive bleeding, clots, bleeding disorders.Medications:[facility] Outpatient Prescriptions:gabapentin (NEURONTIN) 300 mg capsulemethylPREDNISolone (MEDROL, THAD,) 4 mg Dose-Pack As Instructed per packagepregabalin (LYRICA) 50 mg capsule Take 1 capsule by mouth three timesdaily. As neededpregabalin (LYRICA) 75 mg capsule Take 1 capsule by mouth once daily.traMADol (ULTRAM) 50 mg tablet One tablet every eight hours as needed forpainLosartan-Hydrochloro thiazide 100-12.5 mg per tabletbaclofen (LIORESAL) 10 mg tabletcelecoxib (CELEBREX) 200 mg capsuleNo current facility-administered medications for this visit.Allergies: ALLERGIESNo Known AllergiesPhysical Examination:Ht 6' 1 (1.85m) Wt 180 lb (81.6kg) BMI 23.75 kg/(m2).General Appearance: Well appearing, alert, in no acute distress,well-hydrated, well nourished.Skin: Skin color, texture, turgor normal, no suspicious rashes or lesions.Extremities: He still has significant tenderness to palpation of hisanterior thigh and following the course of his femoral nerve. Pain downinto the infrapatellar region although he has no evidence of bursitis. Nowarmth, swelling, erythema. No knee effusion. Full extension. Flexionto 135?.Exquisite tenderness to even superficial portion of the skin around theinfrapatellar region.No inguinal lymphadenopathy. Negative straight leg raiser. Slightlypositive femoral stretch test.No loss of lumbar motion. Some pain to percussion on the left side.Paraspinal spasm.Peripheral Pulses: Normal.Neurologic: Intact light touch sensation both lower extremity.Assessment and Plan:1. Pain of left lower extremity - ICD9: 729.5, ICD10: M79.605 (primarydiagnosis)2. Radiculopathy, lumbar region - ICD9: 724.4, ICD10: M54.16Functional Plan: Advised him that with the new L4 dermatome changes andhis new onset back pain I think total points to a radiculopathy. He maywell have a far lateral disc. Particularly at the L3 4 level, which wouldalso explain a normal EMG.The quality of his previous MRI was marginal. I don't believe there isenough detail to rule out a far lateral disc.At this point I recommend we rescan his lumbar spine on a high-resolutionscanner through the [employer] system.After discussion with him he was in agreement. We'll continue with hissymptomatic treatment utilizing the Lyrica which has been helpful for himand well tolerated.We'll see him back after his MRI scan.Farooq Cabrera MD Normal [facility] CNOVon 04-28-2017 CNOV Office Visit (AGPOB1) -------EDGARDOGREGORY Hummel ([id number]) 1960 MDate Time Provider Svdavokdvi28/31/17 1:15 PM FAROOQ CABRERA [facility] During your visit today, we recorded the following information about you: Weight Height 81.6 kg 1.854 mGelmer Cabrera MD 04/29/2017 1:46 PM Abisai Hummel Edgardo is a 57 year old male who presents for follow-up of his leftthigh pain. Functionally and symptomatically no changes. His pain is stillworse with prolonged sitting. Difficulty driving any distance. When he getsup and starts to walk his pain improves, but doesn't totally go away. His painis still from his groin down into the prepatellar region of his knee.She found the Lyrica very helpful. Much better tolerated.He underwent his EMG and nerve conduction study which is entirely normal.Reviewed nursing note and current pain scale.PAST MEDICAL HISTORYDiagnosis Date- HTN (hypertension)- Prostate cancer (HCC)PAST SURGICAL HISTORYProcedure Laterality Date- EMG 04/24/2017- HERNIA REPAIR HX- PROSTATE BIOPSY 2013History reviewed. No pertinent family history.Social HistorySubstance Use Topics- Smoking status: Never Smoker- Smokeless tobacco: Never Used- Alcohol use NoREVIEW OF SYSTEMS:GENERAL: Well developed, well nourished. No acute distressPAIN: Negative for pain, history of chronic pain or current treatment forchronic pain conditionsCARDIOVASCULAR: Negative for chest pain, leg swelling and palpations.MSK: joint pain yesSKIN: Negative for lesions, rash, itching, metal sensitivityNEURO: Negative for seizure, trauma, numbness/tingling of extremities.ENDOCRINE: Negative for Diabetes Type 1 and Type 2HEMATOLOGY: Negative for excessive bleeding, clots, bleeding disorders.Medications:Дмитрий ac Outpatient Prescriptions:gabapentin (NEURONTIN) 300 mg capsulepregabalin (LYRICA) 75 mg capsule Take 1 capsule by mouth once daily.traMADol (ULTRAM) 50 mg tablet One tablet every eight hours as needed for painbaclofen (LIORESAL) 10 mg tabletLosartan-Hydrochlorot hiazide 100-12.5 mg per tabletmethylPREDNISolone (MEDROL, THAD,) 4 mg Dose-Pack As Instructed per packagepregabalin (LYRICA) 50 mg capsule Take 1 capsule by mouth three times daily. Asneededcelecoxib (CELEBREX) 200 mg capsuleNo current facility-administered medications for this visit.Allergies: ALLERGIESNo Known AllergiesPhysical Examination:Ht 6' 1ANDquot; (1.85m) Wt 180 lb (81.6kg) BMI 23.75 kg/(m2).General Appearance: Well appearing, alert, in no acute distress, well-hydrated,well nourished.Skin: Skin color, texture, turgor normal, no suspicious rashes or lesions.Extremities: He still has significant tenderness to palpation of his anteriorthigh and following the course of his femoral nerve. Pain down into theinfrapatellar region although he has no evidence of bursitis. No warmth,swelling, erythema. No knee effusion. Full extension. Flexion to 135?.Exquisite tenderness to even superficial portion of the skin around theinfrapatellar region.Assessment and Plan:1. Patellar tendinitis of left knee - ICD9: 726.64, ICD10: M76.52 (primarydiagnosis)2. Pain of left lower extremity - ICD9: 729.5, ICD10: M79.605Functional Plan: I advised him at this point I still do not have a diagnosisfor his leg pain. He does have significant tenderness locally to theinfrapatellar tendon although doesn't seem to have findings consistent with atrue bursitis or tendinitis. However we'll give him a Medrol Dosepak to seehow this impacts his symptoms. Have him do some gentle quadricepsstrengthening which will teach him. Local heat or ice. We'll renew his Lyricaso that he can continue to function.He also relates a history of some recent hematuria. He has a history of kidneystones and he believes he probably did pass a kidney stone. Out of his backand pelvic pain have now resolved. He does have the pump to see his urologist.At this point we'll see how he responds to his home exercise program, theMedrol Dosepak and continued use of Lyrica.Return in 3 weeks (on 05/22/2017).Farooq Cabrera, MDReferring Provider: FAROOQ CABRERA [[id number]]Allergies As of Date: 04/28/2017(No Known Allergies)Date Reviewed: 04/28/2017Reviewed by: Juaquin WisemanAnkiEdwige Medeiros - Fully AssessedReason for Visit: Musculoskeletal Problem [69] Cmt: Lt. legPrimary Visit Diagnosis:Patellar tendinitis of left knee [M76.52] Other Visit Diagnosis:Pain of left lower extremity [M79.605]Order(s):methylPRE DNISolone (MEDROL, THAD,) 4 mg Dose-PackAs Instructed per packageDisp: 1 PackageRfl: 0 pregabalin (LYRICA) 50 mg capsuleTake 1 capsule by mouth three times daily. As neededDisp: 90 capsuleRfl: 0Prescriptions as of 04/28/2017 Sig: GABAPENTIN 300 MG CAPSULE PREGABALIN 75 MG CAPSULE Take 1 capsule by mouth once * TRAMADOL 50 MG TABLET One tablet every eight hours * BACLOFEN 10 MG TABLET LOSARTAN 100 MG-HYDROCHLOROTH* METHYLPREDNISOLONE 4 MG TABLE* As Instructed per package PREGABALIN 50 MG CAPSULE Take 1 capsule by mouth three* CELECOXIB 200 MG CAPSULEProblem List As Of Date 04/28/2017 Noted Resolved Pain of lower extremity [M79.606] INVALID FOR* Prostate cancer (HCC) [C61]Prescriptions ordered this encounter Disp Refills Start End METHYLPREDNISOLONE 4 MG TABLETS IN A* 1 Pa* 0 04/28/2017 Sig: As Instructed per package PREGABALIN 50 MG CAPSULE 90 c* 0 04/28/2017 Class: Print RX Route: ORAL Sig: Take 1 capsule by mouth three times daily. As neededDisposition: Return in 3 weeks (on 05/22/2017).Follow-up and Disposition History RecordedEncounter Number: [id number] Status:Closed by FAROOQ CABRERA MD on 04/29/17 [facility] PROGRESSon 04-28-2017 PROGRESS HNO ID: [id number] thor: Farooq Murrellervice: (none)Author Type: PhysicianType: Progress NotesFiled: 04/29/2017 1:46 PMNote Text:Gregory Reynoso is a 57 year old male who presents for follow-up of hisleft thigh pain. Functionally and symptomatically no changes. His painis still worse with prolonged sitting. Difficulty driving any distance.When he gets up and starts to walk his pain improves, but doesn't totallygo away. His pain is still from his groin down into the prepatellarregion of his knee.She found the Lyrica very helpful. Much better tolerated.He underwent his EMG and nerve conduction study which is entirely normal.Reviewed nursing note and current pain scale.PAST MEDICAL HISTORYDiagnosis Date- HTN (hypertension)- Prostate cancer (HCC)PAST SURGICAL HISTORYProcedure Laterality Date- EMG 04/24/2017- HERNIA REPAIR HX- PROSTATE BIOPSY 2013History reviewed. No pertinent family history.Social HistorySubstance Use Topics- Smoking status: Never Smoker- Smokeless tobacco: Never Used- Alcohol use NoREVIEW OF SYSTEMS:GENERAL: Well developed, well nourished. No acute distressPAIN: Negative for pain, history of chronic pain or current treatment forchronic pain conditionsCARDIOVASCULAR: Negative for chest pain, leg swelling and palpations.MSK: joint pain yesSKIN: Negative for lesions, rash, itching, metal sensitivityNEURO: Negative for seizure, trauma, numbness/tingling of extremities.ENDOCRINE: Negative for Diabetes Type 1 and Type 2HEMATOLOGY: Negative for excessive bleeding, clots, bleeding disorders.Medications:[facility] Outpatient Prescriptions:gabapentin (NEURONTIN) 300 mg capsulepregabalin (LYRICA) 75 mg capsule Take 1 capsule by mouth once daily.traMADol (ULTRAM) 50 mg tablet One tablet every eight hours as needed forpainbaclofen (LIORESAL) 10 mg tabletLosartan-Hydrochlorot hiazide 100-12.5 mg per tabletmethylPREDNISolone (MEDROL, THAD,) 4 mg Dose-Pack As Instructed per packagepregabalin (LYRICA) 50 mg capsule Take 1 capsule by mouth three timesdaily. As neededcelecoxib (CELEBREX) 200 mg capsuleNo current facility-administered medications for this visit.Allergies: ALLERGIESNo Known AllergiesPhysical Examination:Ht 6' 1 (1.85m) Wt 180 lb (81.6kg) BMI 23.75 kg/(m2).General Appearance: Well appearing, alert, in no acute distress,well-hydrated, well nourished.Skin: Skin color, texture, turgor normal, no suspicious rashes or lesions.Extremities: He still has significant tenderness to palpation of hisanterior thigh and following the course of his femoral nerve. Pain downinto the infrapatellar region although he has no evidence of bursitis. Nowarmth, swelling, erythema. No knee effusion. Full extension. Flexionto 135?.Exquisite tenderness to even superficial portion of the skin around theinfrapatellar region.Assessment and Plan:1. Patellar tendinitis of left knee - ICD9: 726.64, ICD10: M76.52 (primarydiagnosis)2. Pain of left lower extremity - ICD9: 729.5, ICD10: M79.605Functional Plan: I advised him at this point I still do not have adiagnosis for his leg pain. He does have significant tenderness locallyto the infrapatellar tendon although doesn't seem to have findingsconsistent with a true bursitis or tendinitis. However we'll give him aMedrol Dosepak to see how this impacts his symptoms. Have him do somegentle quadriceps strengthening which will teach him. Local heat or ice.We'll renew his Lyrica so that he can continue to function.He also relates a history of some recent hematuria. He has a history ofkidney stones and he believes he probably did pass a kidney stone. Out ofhis back and pelvic pain have now resolved. He does have the pump to seehis urologist.At this point we'll see how he responds to his home exercise program, theMedrol Dosepak and continued use of Lyrica.Return in 3 weeks (on 05/22/2017).Farooq Cabrera MD [facility] CNOVon 04-24-2017 CNOV Office Visit (AGSPINE3) ---------EDGARDOGREGORY Hummel ([id number]) 1960 MDate Time Provider Wwgrfvngdd82/27/17 9:15 AM REENA ENRIQUEZ AGSPINE3 During your visit today, we recorded the following information about you: Pulse Blood pressure Weight Height 70/minute 152/100 81.6 kg 1.854 Carly Enriquez MD 04/24/2017 9:55 AM SignedPatient Name: Gregory Hummel EdgardoDate: April 24, 2017Patient : 1960 Patient Age: 57 year oldCC: No chief complaint on file.Vitals: BP 152/100 Pulse 70 Ht 185.4 cm (6' 1ANDquot;) Wt 81.6 kg (180 lb) BMI 23.75 kg/m2The HANDamp;P completed. He has seen Dr. Cabrera for left quad pain/fasciulations.MRI lumbar and pelvis are negative. Pain started 4-5 months ago. Pain radiatesfrom the thigh region down towards his knee but not below the knee. Pain isworse with prolonged standing and walking. He has had episodes of painlessgiving way. Pain is described as shooting pain that feel like electrical shocksand ANDquot; his muscle is vibratingANDquot;.I have reviewed the history and physical and examined the patient and there areno changes unless noted below:Heart and lungs exam benign Full ROM of left leg, 5/5 strength, visiblefasciculations of left quadTimeout was performed to verify patient name, , allergies and [facility]being [facility] is aware of potential risks and benefits of this procedure. Patientwishes to proceed.Procedure start time: 925Procedure end time: 950Electrodiagnostic testing was performed today was significant for No evidenceof radiculopathy, no evidence of fasciculations in lumbar paraspinals, positiveinvoluntary muscle contractions of left vastus medialis and lateralis unable torelax, no increased insertional activity.Full report and data will be scanned into the chart.Return if symptoms worsen or fail to improve.ASSESSMENT/PLAN:1. Pain of left lower extremity - ICD9: 729.5, ICD10: M79.605- NEEDLE EMG EA EXTREMTY W/PARASPINL AREA COMPLETE- MOTOR ANDamp;/SENS 3-4 NRV CNDJ PRECONF ELTRODE Abdifatah Dumont MA 04/24/2017 9:23 AM SignedReview of SystemsEyes: Positive for blurred vision.Respiratory: Negative for shortness of breath.?Cardiovascular: Negative for chest pain. Negative for leg swelling.Gastrointestinal: Negative for constipation, diarrhea, nausea?and vomiting.Genitourinary: Negative for dysuria.Skin: Negative for itching.Neurological: Negative for headaches. Negative for dizziness, tingling?andweakness.Endo/H shi/Allergies: Negative for bruising/bleeding easily.Psychiatric/Behavior al: Negative for depression?and suicidal ideas.ROS entered by: Tanna Corona MD 04/24/2017 9:24 AM SignedExplanation of EMG and NCV ProcedureNerve conduction studies (NCS) and electromyography (EMG) are utilized toevaluate damage sustained to the peripheral nervous system. NCS are performedto measure the nerve response to electrical stimulation across a given segment.EMG evaluates the passive and active electrical discharges of the muscle, asspecific nerves and roots innervate muscles of the body. Often times, more thanone muscle motor nerve and sensory nerve must be studied to determine thepresences of disease. Further, nerves are often tested in a ymnd-nm-ceaxwywnmnktfs, as well as, additional extremities and are crucial in isolating thearea of the spine and/or distal nerve that has been damaged so that thediagnosis and treatment of the patient can be achieved. Therefore, the musclesand nerves examined were medically necessary.Referring Provider: FAROOQ CABRERA [[id number]]Allergies As of Date: 04/24/2017(No Known Allergies)Date Reviewed: 04/24/2017Reviewed by: Reena Enriquez - Fully AssessedPrimary Visit Diagnosis:Pain of left lower extremity [M79.605]Order(s):NEEDLE EMG EA EXTREMTY W/PARASPINL AREA COMPLETE [[id number]] Order #: [id number] MOTOR AND/SENS 3-4 NRV CNDJ PRECONF ELTRODE LIMB [[id number]] Order #: [id number] as of 04/24/2017 Sig: PREGABALIN 75 MG CAPSULE Take 1 capsule by mouth once * BACLOFEN 10 MG TABLET LOSARTAN 100 MG-HYDROCHLOROTH* TRAMADOL 50 MG TABLET One tablet every eight hours * CELECOXIB 200 MG CAPSULEMedication notes this encounter BACLOFEN 10 MG TABLET >> Barbie Kearney MA 04/24/2017 9:19 AM >> BARBIE KEARNEY MA ThuApr 24, 2017 9:19 AM PRN TRAMADOL 50 MG TABLET >> Barbie Kearney MA 04/24/2017 9:20 AM >> BARBIE KEARNEY MA ThuApr 24, 2017 9:20 AM Patient states not taking CELECOXIB 200 MG CAPSULE >> Barbie Kearney MA 04/24/2017 9:19 AM >> BARBIE KEARNEY MA ThuApr 24, 2017 9:19 AM Patient states not takingProblem List As Of Date 04/24/2017 Noted Resolved Pain of lower extremity [M79.606] INVALID FOR* Prostate cancer (HCC) [C61] Other instructions from your clinician: Explanation of EMG and NCV Procedure Nerve conduction studies (NCS) and electromyography (EMG) are utilized to evaluate damage sustained to the peripheral nervous system. NCS are performed to measure the nerve response to electrical stimulation across a given segment. EMG evaluates the passive and active electrical discharges of the muscle, as specific nerves and roots innervate muscles of the body. Often times, more than one muscle motor nerve and sensory nerve must be studied to determine the presences of disease. Further, nerves are often tested in a bmcm-yt-xqgk comparison, as well as, additional extremities and are crucial in isolating the area of the spine and/or distal nerve that has been damaged so that the diagnosis and treatment of the patient can be achieved. Therefore, the muscles and nerves examined were medically necessary.Visit Notes:>> Barbie Kearney ThuApr 24, 2017 9:20 AM Status: SignedReview of SystemsEyes: Positive for blurred vision.Respiratory: Negative for shortness of breath.?Cardiovascular: Negative for chest pain. Negative for leg swelling.Gastrointestinal: Negative for constipation, diarrhea, nausea?andvomiting.Genitour inary: Negative for dysuria.Skin: Negative for itching.Neurological: Negative for headaches. Negative for dizziness, tingling?andweakness.Endo/H shi/Allergies: Negative for bruising/bleeding easily.Psychiatric/Behavior al: Negative for depression?and suicidal ideas.ROS entered by: Sherry Coronaposition: Return if symptoms worsen or fail to improve.Follow-up and Disposition History RecordedEncounter Number: [id number] Status:Closed by REENA ENRIQUEZ MD on 04/24/17 Normal [facility] PROCEDUREon 04-24-2017 PROCEDURE HNO ID: [id number] thor: Reena Stoll: (none)Author Type: PhysicianType: ProceduresFiled: 04/24/2017 9:55 AMNote Text:Patient Name: Gregory ReynosoDate: April 24, 2017Patient : 1960 Patient Age: 57 year oldCC: No chief complaint on file.Vitals: BP 152/100 Pulse 70 Ht 185.4 cm (6' 1) Wt 81.6 kg (180 lb) BMI 23.75 kg/m2The HANDP completed. He has seen Dr. Cabrera for left quadpain/fasciulations. MRI lumbar and pelvis are negative. Pain started 4-5months ago. Pain radiates from the thigh region down towards his knee butnot below the knee. Pain is worse with prolonged standing and walking. Hehas had episodes of painless giving way. Pain is described as shootingpain that feel like electrical shocks and his muscle is vibrating.I have reviewed the history and physical and examined the patient andthere are no changes unless noted below:Heart and lungs exam benign Full ROM of left leg, 5/5 strength, visiblefasciculations of left quadTimeout was performed to verify patient name, , allergies and procedurebeing performed at [facility] is aware of potential risks and benefits of this procedure.Patient wishes to proceed.Procedure start time: 925Procedure end time: 950Electrodiagnostic testing was performed today was significant for Noevidence of radiculopathy, no evidence of fasciculations in lumbarparaspinals, positive involuntary muscle contractions of left vastusmedialis and lateralis unable to relax, no increased insertional activity.Full report and data will be scanned into the chart.Return if symptoms worsen or fail to improve.ASSESSMENT/PLAN:1. Pain of left lower extremity - ICD9: 729.5, ICD10: M79.605- NEEDLE EMG EA EXTREMTY W/PARASPINL AREA COMPLETE- MOTOR AND/SENS 3-4 NRV CNDJ PRECONF MARI Enriquez MD [facility] OBSOLETEon 04-14-2017 OBSOLETE Refill (AGPOB1) -------GREGORY REYNOSO ([id number]) 1960 MDate Time Provider Oqqziwjcqy98/17/17 [facility] During your visit today, we recorded the following information about you:Bev Black 04/16/2017 11:10 AM SignedCalled to Jimbo Perez As of Date: 04/14/2017(No Known Allergies)Date Reviewed: 04/03/2017Reviewed by: Ophelia Phillip - Fully AssessedReason for Visit: Refill Request [94]Order(s):pregabalin (LYRICA) 75 mg capsuleTake 1 capsule by mouth once daily.Disp: 30 capsuleRfl: 0Prescriptions as of 04/14/2017 Sig: PREGABALIN 75 MG CAPSULE Take 1 capsule by mouth once * TRAMADOL 50 MG TABLET One tablet every eight hours * BACLOFEN 10 MG TABLET CELECOXIB 200 MG CAPSULE LOSARTAN 100 MG-HYDROCHLOROTH*Problem List As Of Date 04/14/2017 Noted Resolved Pain of lower extremity [M79.606] INVALID FOR* Prostate cancer (HCC) [C61]Prescriptions ordered this encounter Disp Refills Start End PREGABALIN 75 MG CAPSULE 30 c* 0 04/15/2017 Class: Call Rx Route: ORAL Sig: Take 1 capsule by mouth once daily.Medications Discontinued During This Encounter pregabalin (LYRICA) 75 mg capsule 30 c* 0 04/03/2017 04/15/2017 Class: Print RX Route: ORAL Sig: Take 1 capsule by mouth three times daily. Disc: Reason for discontinue is not on file. Status:Closed by BEV BLACK on 04/16/17 [facility]AGHWW1[facility] -------GREGORY REYNOSO ([id number]) 1960 [facility] Time Provider Bcfhxnkzrv01/6/17 10:15 AM FAROOQ CABRERA AGHWW1 During your visit today, we recorded the following information about you: Respiration Weight Height 17/minute 81.6 kg 1.854 Mago Cabrera MD 04/04/2017 10:21 AM Abisai Reynoso is a 56 year old male who presents for followup of pain in hisleft thigh and knee region. ?This started atraumatically a few months ago.?Pain radiating in the thigh region down towards his knee but not below. ?Worsewith laying flat and sitting. Feels better when he is up and walking..?Associated episodes of painless giving way. ?Some episodes of shooting painthat feel like electrical shocks. ?He also feels like his ANDquot; muscle hisvibratingANDquot;.?He's had a negative lumbar and pelvic MRI scan.He comes in today for review of his left thigh MRI scan which is also negative.Reviewed nursing note and current pain scale.PAST MEDICAL HISTORYDiagnosis Date- HTN (hypertension)- Prostate cancer (HCC)PAST SURGICAL HISTORYProcedure Laterality Date- HERNIA REPAIR HX- PROSTATE BIOPSY 2013History reviewed. No pertinent family history.Social HistorySubstance Use Topics- Smoking status: Never Smoker- Smokeless tobacco: Never Used- Alcohol use NoMedications:Current Outpatient Prescriptions:traMADol (ULTRAM) 50 mg tablet One tablet every eight hours as needed for painbaclofen (LIORESAL) 10 mg tabletcelecoxib (CELEBREX) 200 mg capsuleLosartan-Hydrochloro thiazide 100-12.5 mg per tabletpregabalin (LYRICA) 75 mg capsule Take 1 capsule by mouth three times daily.No current facility-administered medications for this visit.Allergies: ALLERGIESNo Known AllergiesREVIEW OF SYSTEMS:GENERAL: Well developed, well nourished. No acute distressPAIN: Left leg pain.CARDIOVASCULAR: Hypertension.MSK: Joint and muscle pain.SKIN: Negative for lesions, rash, itching, metal sensitivityNEURO: Negative for seizure, trauma, numbness/tingling of extremities.ENDOCRINE: Negative for Diabetes Type 1 and Type 2HEMATOLOGY: Negative for excessive bleeding, clots, bleeding disorders.Physical Examination:Resp 17 Ht 6' 1ANDquot; (1.85m) Wt 180 lb (81.6kg) BMI 23.75 kg/(m2).General Appearance: Well appearing, alert, in no acute distress, well-hydrated,well nourished.Skin: Skin color, texture, turgor normal, no suspicious rashes or lesions.Extremities: He rises from the chair and stands in normal alignment. ?He hassome visible atrophy of the left quad compared to the right. ?He has noflattening of his lumbar lordosis. ?A well-preserved lumbar range of motionpain free. ?He can forward flex fingertips to mid tibia and rise from it.??In the seated position he has good strength resisted muscle testing. ?He doeshave visible fasciculations in his left quadriceps. He has exquisite tendernessto palpation along his rectus anteriorly and to the abductor hiatus. Nopalpable masses.?He has no effusion in his knee. ?0-130? range of motion bilaterally. ?Noinstability to varus or valgus stressing bilaterally. ?Excellent range ofmotion of both hips. ?90? of flexion. ?30? of external and 20? of internalrotation pain-free. ?He does have good strength and no pain on resisted hipflexion.No inguinal lymphadenopathy.Peripheral Pulses: Normal.?Images: [facility] is normalAssessment and Plan:1. Pain of left lower extremity - ICD9: 729.5, ICD10: M79.605Functional Plan: I advised him that I'm still at a loss to explain hissignificant pain. Still seems to have a neurologic component. He has triedthe Neurontin and has been intolerant to it secondary to sedation and feelinggroggy. Cousin the side effects he was unable to take it enough to see if itis actually helping his symptoms. I recommended to him today we switched himto Lyrica. Given the usual precautions for the use the medication.Given that his symptoms still seemed to be neurologic in nature and going torequest an EMG nerve conduction study of his left leg.After discussion with him he was in agreement. We'll proceed with the Lyrica.Obtain the EMG nerve conduction study. Encouraged him to continue to be asactive as he can.Farooq Cabrera, MDReferring Provider: FAROOQ CABRERA [[id number]]Allergies As of Date: 04/03/2017(No Known Allergies)Date Reviewed: 04/03/2017Reviewed by: Ophelia WisemanLifecare Behavioral Health HospitalEdwige Phillip - Fully AssessedReason for Visit: Follow Up [171] Cmt: Left leg MRI results.Primary Visit Diagnosis:Pain of left lower extremity [M79.605]Order(s):NERVE COND / EMG [[id number]] Order #: [id number]: 1 FUTURE pregabalin (LYRICA) 75 mg capsuleTake 1 capsule by mouth three times daily.Disp: 30 capsuleRfl: 0Prescriptions as of 04/03/2017 Sig: TRAMADOL 50 MG TABLET One tablet every eight hours * BACLOFEN 10 MG TABLET CELECOXIB 200 MG CAPSULE LOSARTAN 100 MG-HYDROCHLOROTH* PREGABALIN 75 MG CAPSULE Take 1 capsule by mouth three*Problem List As Of Date 04/03/2017 Noted Resolved Pain of lower extremity [M79.606] INVALID FOR* Prostate cancer (HCC) [C61]Prescriptions ordered this encounter Disp Refills Start End PREGABALIN 75 MG CAPSULE 30 c* 0 04/03/2017 Class: Print RX Route: ORAL Sig: Take 1 capsule by mouth three times daily.Medications Discontinued During This Encounter gabapentin (NEURONTIN) 300 mg capsule 11/30/2016 04/03/2017 Class: Historical Med Sig: Disc: Changing Therapy/Dosage FormEncounter Number: [id number] Status:Closed by FAROOQ CABRERA MD on 04/04/17 [facility] PROGRESSon 04-03-2017 PROGRESS HNO ID: [id number] thor: Farooq Murrellervice: (none)Author Type: PhysicianType: Progress NotesFiled: 04/04/2017 10:21 AMNote Text:Gregory Reynoso is a 56 year old male who presents for followup of pain inhis left thigh and knee region. ?This started atraumatically a few monthsago. ?Pain radiating in the thigh region down towards his knee but notbelow. ?Worse with laying flat and sitting. Feels better when he is up andwalking.. ?Associated episodes of painless giving way. ?Some episodes ofshooting pain that feel like electrical shocks. ?He also feels like his muscle his vibrating.?He's had a negative lumbar and pelvic MRI scan.He comes in today for review of his left thigh MRI scan which is alsonegative.Reviewed nursing note and current pain scale.PAST MEDICAL HISTORYDiagnosis Date- HTN (hypertension)- Prostate cancer (HCC)PAST SURGICAL HISTORYProcedure Laterality Date- HERNIA REPAIR HX- PROSTATE BIOPSY 2013History reviewed. No pertinent family history.Social HistorySubstance Use Topics- Smoking status: Never Smoker- Smokeless tobacco: Never Used- Alcohol use NoMedications:Current Outpatient Prescriptions:traMADol (ULTRAM) 50 mg tablet One tablet every eight hours as needed forpainbaclofen (LIORESAL) 10 mg tabletcelecoxib (CELEBREX) 200 mg capsuleLosartan-Hydrochloro thiazide 100-12.5 mg per tabletpregabalin (LYRICA) 75 mg capsule Take 1 capsule by mouth three timesdaily.No current facility-administered medications for this visit.Allergies: ALLERGIESNo Known AllergiesREVIEW OF SYSTEMS:GENERAL: Well developed, well nourished. No acute distressPAIN: Left leg pain.CARDIOVASCULAR: Hypertension.MSK: Joint and muscle pain.SKIN: Negative for lesions, rash, itching, metal sensitivityNEURO: Negative for seizure, trauma, numbness/tingling of extremities.ENDOCRINE: Negative for Diabetes Type 1 and Type 2HEMATOLOGY: Negative for excessive bleeding, clots, bleeding disorders.Physical Examination:Resp 17 Ht 6' 1 (1.85m) Wt 180 lb (81.6kg) BMI 23.75 kg/(m2).General Appearance: Well appearing, alert, in no acute distress,well-hydrated, well nourished.Skin: Skin color, texture, turgor normal, no suspicious rashes or lesions.Extremities: He rises from the chair and stands in normal alignment. ?Hehas some visible atrophy of the left quad compared to the right. ?He hasno flattening of his lumbar lordosis. ?A well-preserved lumbar range ofmotion pain free. ?He can forward flex fingertips to mid tibia and risefrom it.??In the seated position he has good strength resisted muscle testing. ?Hedoes have visible fasciculations in his left quadriceps. He has exquisitetenderness to palpation along his rectus anteriorly and to the abductorhiatus. No palpable masses.?He has no effusion in his knee. ?0-130? range of motion bilaterally. ?Noinstability to varus or valgus stressing bilaterally. ?Excellent range ofmotion of both hips. ?90? of flexion. ?30? of external and 20? of internalrotation pain-free. ?He does have good strength and no pain on resistedhip flexion.No inguinal lymphadenopathy.Peripheral Pulses: Normal.?Images: [facility] is normalAssessment and Plan:1. Pain of left lower extremity - ICD9: 729.5, ICD10: M79.605Functional Plan: I advised him that I'm still at a loss to explain hissignificant pain. Still seems to have a neurologic component. He hastried the Neurontin and has been intolerant to it secondary to sedationand feeling groggy. Cousin the side effects he was unable to take itenough to see if it is actually helping his symptoms. I recommended tohim today we switched him to Lyrica. Given the usual precautions for theuse the medication.Given that his symptoms still seemed to be neurologic in nature and goingto request an EMG nerve conduction study of his left leg.After discussion with him he was in agreement. We'll proceed with theLyrica. Obtain the EMG nerve conduction study. Encouraged him tocontinue to be as active as he can.Farooq Cabrera MD [facility] PROGRESSon 03-22-2017 PROGRESS HNO ID: [id number] thor: Farooq Murrellervice: (none)Author Type: PhysicianType: Progress NotesFiled: 03/22/2017 1:26 PMNote Text:Gregory Reynoso is a 56 year old male who presents for followup of pain inhis left thigh and knee region. This started atraumatically a few monthsago. Pain radiating in the thigh region down towards his knee but notbelow. Worse with prolonged standing and walking. Associated episodes ofpainless giving way. Some episodes of shooting pain that feel likeelectrical shocks. He also feels like his muscle his vibrating.He's had a negative lumbar MRI scan. I ordered a MRI of his pelvis whichshowed no significant pathology. No signs of avascular necrosis. He doeshave a small nodule that is consistent with a probable hemangioma.Reviewed nursing note and current pain scale.PAST MEDICAL HISTORYDiagnosis Date- HTN (hypertension)- Prostate cancer (HCC)PAST SURGICAL HISTORYProcedure Laterality Date- HERNIA REPAIR HX- PROSTATE BIOPSY 2013History reviewed. No pertinent family history.Social HistorySubstance Use Topics- Smoking status: Never Smoker- Smokeless tobacco: Never Used- Alcohol use NoMedications:Current Outpatient Prescriptions:baclofen (LIORESAL) 10 mg tabletcelecoxib (CELEBREX) 200 mg capsuleLosartan-Hydrochloro thiazide 100-12.5 mg per tabletgabapentin (NEURONTIN) 300 mg capsuletraMADol (ULTRAM) 50 mg tablet One tablet every eight hours as needed forpainNo current facility-administered medications for this visit.Allergies: ALLERGIESNo Known AllergiesPhysical Examination:Resp 17 Ht 6' 1 (1.85m) Wt 180 lb (81.6kg) BMI 23.75 kg/(m2).General Appearance: Well appearing, alert, in no acute distress,well-hydrated, well nourished.Skin: Skin color, texture, turgor normal, no suspicious rashes or lesions.Extremities: He rises from the chair and stands in normal alignment. Hehas some visible atrophy of the left quad compared to the right. He hasno flattening of his lumbar lordosis. A well-preserved lumbar range ofmotion pain free. He can forward flex fingertips to mid tibia and risefrom it.?In the seated position he has good strength resisted muscle testing. Hedoes have visible fasciculations in his left quadriceps. He has exquisitetenderness to palpation along his femoral nerve down to the abductorhiatus. Positive Tinel sign in this region. No palpable masses.?He has no effusion in his knee. 0-130? range of motion bilaterally. Noinstability to varus or valgus stressing bilaterally. Excellent range ofmotion of both hips. 90? of flexion. 30? of external and 20? of internalrotation pain-free. He does have good strength and no pain on resistedhip flexion.No inguinal lymphadenopathy.Peripheral Pulses: Normal.Assessment and Plan:1. Pain of left lower extremity - ICD9: 729.5, ICD10: M79.605Functional Plan:I advised him that again his symptoms seem to be neurologic in nature.Examination today would seem to follow the course of the femoral nerve inhis thigh. I can't palpate a mass but he could well have a nerve sheathtumor.At this point I like an MRI scan of his left thigh to look at the courseof the femoral nerve and see if he does have a nerve sheath tumor.We'll go ahead and arrange for this to see him back following.[facility]ooq Cabrera [facility] (AGHWW1) -------GREGORY REYNOSO ([id number]) 1960 MDate Time Provider Department03/20/17 9:30 AM FAROOQ CABRERA AGHWW1 During your visit today, we recorded the following information about you: Respiration Weight Height 17/minute 81.6 kg 1.854 mGregory A MD James 03/22/2017 1:26 PM SignedRobmirian Reynoso is a 56 year old male who presents for followup of pain in hisleft thigh and knee region. This started atraumatically a few months ago.Pain radiating in the thigh region down towards his knee but not below. Worsewith prolonged standing and walking. Associated episodes of painless givingway. Some episodes of shooting pain that feel like electrical shocks. He alsofeels like his ANDquot; muscle his vibratingANDquot;.He's had a negative lumbar MRI scan. I ordered a MRI of his pelvis whichshowed no significant pathology. No signs of avascular necrosis. He does havea small nodule that is consistent with a probable hemangioma.Reviewed nursing note and current pain scale.PAST MEDICAL HISTORYDiagnosis Date- HTN (hypertension)- Prostate cancer (HCC)PAST SURGICAL HISTORYProcedure Laterality Date- HERNIA REPAIR HX- PROSTATE BIOPSY 2013History reviewed. No pertinent family history.Social HistorySubstance Use Topics- Smoking status: Never Smoker- Smokeless tobacco: Never Used- Alcohol use NoMedications:Current Outpatient Prescriptions:baclofen (LIORESAL) 10 mg tabletcelecoxib (CELEBREX) 200 mg capsuleLosartan-Hydrochloro thiazide 100-12.5 mg per tabletgabapentin (NEURONTIN) 300 mg capsuletraMADol (ULTRAM) 50 mg tablet One tablet every eight hours as needed for painNo current facility-administered medications for this visit.Allergies: ALLERGIESNo Known AllergiesPhysical Examination:Resp 17 Ht 6' 1ANDquot; (1.85m) Wt 180 lb (81.6kg) BMI 23.75 kg/(m2).General Appearance: Well appearing, alert, in no acute distress, well-hydrated,well nourished.Skin: Skin color, texture, turgor normal, no suspicious rashes or lesions.Extremities: He rises from the chair and stands in normal alignment. He hassome visible atrophy of the left quad compared to the right. He has noflattening of his lumbar lordosis. A well-preserved lumbar range of motionpain free. He can forward flex fingertips to mid tibia and rise from it.?In the seated position he has good strength resisted muscle testing. He doeshave visible fasciculations in his left quadriceps. He has exquisite tendernessto palpation along his femoral nerve down to the abductor hiatus. PositiveTinel sign in this region. No palpable masses.?He has no effusion in his knee. 0-130? range of motion bilaterally. Noinstability to varus or valgus stressing bilaterally. Excellent range ofmotion of both hips. 90? of flexion. 30? of external and 20? of internalrotation pain-free. He does have good strength and no pain on resisted hipflexion.No inguinal lymphadenopathy.Peripheral Pulses: Normal.Assessment and Plan:1. Pain of left lower extremity - ICD9: 729.5, ICD10: M79.605Functional Plan:I advised him that again his symptoms seem to be neurologic in nature.Examination today would seem to follow the course of the femoral nerve in histhigh. I can't palpate a mass but he could well have a nerve sheath tumor.At this point I like an MRI scan of his left thigh to look at the course of thefemoral nerve and see if he does have a nerve sheath tumor.We'll go ahead and arrange for this to see him back following.Farooq Petty, MDReferring Provider: SELF [200]Allergies As of Date: 03/20/2017(No Known Allergies)Date Reviewed: 03/20/2017Reviewed by: Ophelia WisemanLifecare Behavioral Health HospitalEdwige Phillip - Fully AssessedReason for Visit: Follow Up [171] Cmt: MRI results of the pelvis.Primary Visit Diagnosis:Pain of left lower extremity [M79.605]Order(s):MRI UPPER LEG WO IVCON LT [[id number]] Order #: [id number] FUTURE traMADol (ULTRAM) 50 mg tabletOne tablet every eight hours as needed for painDisp: 50 tabletRfl: 0Prescriptions as of 03/20/2017 Sig: BACLOFEN 10 MG TABLET CELECOXIB 200 MG CAPSULE LOSARTAN 100 MG-HYDROCHLOROTH* GABAPENTIN 300 MG CAPSULE TRAMADOL 50 MG TABLET One tablet every eight hours *Problem List As Of Date 03/20/2017 Noted Resolved Pain of lower extremity [M79.606] INVALID FOR* Prostate cancer (HCC) [C61]Prescriptions ordered this encounter Disp Refills Start End TRAMADOL 50 MG TABLET 50 t* 0 03/20/2017 Class: Print RX Sig: One tablet every eight hours as needed for painFollow-up and Disposition History RecordedEncounter Number: [id number] Status:Closed by FAROOQ CABRERA MD on 03/22/17 Normal [facility] MRI PELVIS WITH CONTRAST 721 96on 03-10-2017 MRI PELVIS WITH CONTRAST [id number] Performed at [facility] APPROVED BY: Teddy Snell MD EXAM TITLE: MRI PELVIS WITH CONTRAST: DATE: 03/10/2017 17:20 COMPARISON: Plain film radiograph 02/06/2017 CLINICAL INDICATION/HISTORY: Hip and pelvic pain. History of prostate carcinoma TECHNIQUE: MRI the pelvis performed with IV contrast FINDINGS:There is a solitary 1 cm enhancing abnormality within the right side of the sacrum, depicted well on axial image 14 and coronal image 23. This is mildly hypointense on T1 weighted imaging, hyperintense on T2-weighted imaging and mildly enhancing after contrast administration. Although this is thought to most likely represent a benign process such as a small hemangioma, this cannot be said definitively and this patient with a history of prostate carcinoma. The remainder of the visualized bony structures are normal. No other nodule or lesion is identified. There is no significant arthritic change at either hip and no femoral head AVN. There is partial ankylosis along the superior aspect of the right sacroiliac joint. Mild hypertrophy at the lower lumbar facet joints. Normal signal and morphology of all visualized musculature. No soft tissue mass or lymphadenopathy. There is sigmoid colon diverticulosis. IMPRESSION:Solitary 1 cm enhancing nodule within the right side of the sacrum. Although thought to most likely represent a benign etiology such as a hemangioma, a CT examination of the osseous pelvis is recommended for further evaluation in this patient with a history of prostate carcinoma. Normal [facility] CNOVon 02-27-2017 CNOV Office Visit (AGHWW1) -------GREGORY REYNOSO ([id number]) 1960 MDate Time Provider Department02/27/17 9:00 AM FAROOQ CABRERA AGHWW1 During your visit today, we recorded the following information about you: Respiration Weight Height 17/minute 83.9 kg 1.854 mGelmer Cabrera MD 03/01/2017 9:47 PM SignedChief complaint: Left thigh and knee pain?Gregory Reynoso is a 56 year old male who presents for followup of pain in hisleft thigh and knee region. This started atraumatically a few months ago.Pain radiating in the thigh region down towards his knee but not below. Worsewith prolonged standing and walking. Associated episodes of painless givingway. Some episodes of shooting pain that feel like ANDquot;electricalshocksAND quot;. He also feels like his ANDquot; muscle his vibratingANDquot;. He hasnumbness of his left buttock region.I reviewed his MRI scan with one of the neuroradiologist, who agrees thatthere is no lumbar pathology to explain his radicular-like symptoms.With regards to his history of prostate cancer he has had a number of biopsies. His PSA had been elevated in the past but has improved. He follows up closelywith his urologist. Genetic testing apparently was negative for cancer. Itsounds like his prostate cancer has been very benign in its behavior. He doeshave a regularly scheduled appointment with his urologist coming up in the nextmonth.Overall he has had no constitutional signs or symptoms. No weight loss, nightsweats or changes in his urination pattern.Reviewed nursing note and current pain scale.PAST MEDICAL HISTORYDiagnosis Date- HTN (hypertension)- Prostate cancer (HCC)PAST SURGICAL HISTORYProcedure Laterality Date- HERNIA REPAIR HX- PROSTATE BIOPSYHistory reviewed. No pertinent family history.Social HistorySubstance Use Topics- Smoking status: Never Smoker- Smokeless tobacco: Never Used- Alcohol use NoMedications:Current Outpatient Prescriptions:baclofen (LIORESAL) 10 mg tabletcelecoxib (CELEBREX) 200 mg capsuleLosartan-Hydrochloro thiazide 100-12.5 mg per tabletgabapentin (NEURONTIN) 300 mg capsuleNo current facility-administered medications for this visit.Allergies: ALLERGIESNo Known AllergiesREVIEW OF SYSTEMS:GENERAL: Well developed, well nourished. No acute distressPAIN: left knee pain.CARDIOVASCULAR:Hyperte nsion.MSK: Joint and muscle pain.SKIN: Negative for lesions, rash, itching, metal sensitivityNEURO: Negative for seizure, trauma, numbness/tingling of extremities.ENDOCRINE: Negative for Diabetes Type 1 and Type 2HEMATOLOGY: Negative for excessive bleeding, clots, bleeding disorders.Physical Examination:Resp 17 Ht 6' 1ANDquot; (1.85m) Wt 185 lb (83.9kg) BMI 24.41 kg/(m2).General Appearance: Well appearing, alert, in no acute distress, well-hydrated,well nourished.Skin: Skin color, texture, turgor normal, no suspicious rashes or lesions.Extremities: He rises from the chair and stands in normal alignment. He hassome visible atrophy of the left quad compared to the right. He has noflattening of his lumbar lordosis. A well-preserved lumbar range of motionpain free. He can forward flex fingertips to mid tibia and rise from it.?In the seated position he has good strength resisted muscle testing. He doeshave visible fasciculations in his left quadriceps. He does develop increasedpain in the left hip thigh and knee region after range of motion to his hip.?He has no effusion in his knee. 0- 130? range of motion bilaterally. Noinstability to varus or valgus stressing bilaterally. Excellent range ofmotion of both hips. 90? of flexion. 30? of external and 20? of internalrotation pain-free. He does have good strength but some increased pain in histhigh after resisted hip flexion.No inguinal lymphadenopathy.Assessment and Plan:1. Left leg pain and paraesthesia2. History of Prostate CancerFunctional Plan: I advised him that his pain still seems to be radicular innature.Given that his lumbar MRI scan is unremarkable I think we need to follow thecourse of his L3=4 nerve roots down through the pelvis.At this point I would recommend an MRI scan of his pelvis. This should give usa good view of his bony architecture but also allow us to see if there isanything along the iliopsoas or femoral triangle that could be irritating hisfemoral nerve which seems to be the course of the symptoms.After discussion with him he is in agreement. He's going to follow up with hisurologist regarding his prostate cancer. We'll get him scheduled for hispelvic MRI and see him back following to go over the results with him onceavailable.Laura Kangergies As of Date: 02/27/2017(No Known Allergies)Date Reviewed: 02/27/2017Reviewed by: Farooq Cabrera - Fully AssessedReason for Visit: Follow Up [171] Cmt: MRI results. Also continues to complain of left knee pain.Primary Visit Diagnosis:Pain of lower extremity, unspecified laterality [M79.606] Other Visit Diagnosis:Prostate cancer (HCC) [C61]Order(s):MRI PELVIS W IVCON (CALL BACK) [[id number]] Order #: [id number] FUTUREPrescriptions as of 02/27/2017 Sig: BACLOFEN 10 MG TABLET CELECOXIB 200 MG CAPSULE LOSARTAN 100 MG-HYDROCHLOROTH* GABAPENTIN 300 MG CAPSULEProblem List As Of Date 02/27/2017 Noted Resolved Pain of lower extremity [M79.606] INVALID FOR* Prostate cancer (HCC) [C61]Level of Service: EST PATIENT VISIT LEVEL 4 [[id number]] Status:Closed by FAROOQ CABRERA MD on 03/01/17 [facility] PROGRESSon 02-27-2017 PROGRESS HNO ID: [id number] thor: Farooq Murrellervice: (none)Author Type: PhysicianType: Progress NotesFiled: 03/01/2017 9:47 PMNote Text:Chief complaint: Left thigh and knee pain?Gregory Reynoso is a 56 year old male who presents for followup of pain inhis left thigh and knee region. This started atraumatically a few monthsago. Pain radiating in the thigh region down towards his knee but notbelow. Worse with prolonged standing and walking. Associated episodes ofpainless giving way. Some episodes of shooting pain that feel likeelectrical shocks. He also feels like his muscle his vibrating. Hehas numbness of his left buttock region.I reviewed his MRI scan with one of the neuroradiologist, who agrees thatthere is no lumbar pathology to explain his radicular-like symptoms.With regards to his history of prostate cancer he has had a number ofbiopsies. His PSA had been elevated in the past but has improved. Hefollows up closely with his urologist. Genetic testing apparently wasnegative for cancer. It sounds like his prostate cancer has been verybenign in its behavior. He does have a regularly scheduled appointmentwith his urologist coming up in the next month.Overall he has had no constitutional signs or symptoms. No weight loss,night sweats or changes in his urination pattern.Reviewed nursing note and current pain scale.PAST MEDICAL HISTORYDiagnosis Date- HTN (hypertension)- Prostate cancer (HCC)PAST SURGICAL HISTORYProcedure Laterality Date- HERNIA REPAIR HX- PROSTATE BIOPSYHistory reviewed. No pertinent family history.Social HistorySubstance Use Topics- Smoking status: Never Smoker- Smokeless tobacco: Never Used- Alcohol use NoMedications:Current Outpatient Prescriptions:baclofen (LIORESAL) 10 mg tabletcelecoxib (CELEBREX) 200 mg capsuleLosartan-Hydrochloro thiazide 100-12.5 mg per tabletgabapentin (NEURONTIN) 300 mg capsuleNo current facility-administered medications for this visit.Allergies: ALLERGIESNo Known AllergiesREVIEW OF SYSTEMS:GENERAL: Well developed, well nourished. No acute distressPAIN: left knee pain.CARDIOVASCULAR:Hyperte nsion.MSK: Joint and muscle pain.SKIN: Negative for lesions, rash, itching, metal sensitivityNEURO: Negative for seizure, trauma, numbness/tingling of extremities.ENDOCRINE: Negative for Diabetes Type 1 and Type 2HEMATOLOGY: Negative for excessive bleeding, clots, bleeding disorders.Physical Examination:Resp 17 Ht 6' 1 (1.85m) Wt 185 lb (83.9kg) BMI 24.41 kg/(m2).General Appearance: Well appearing, alert, in no acute distress,well-hydrated, well nourished.Skin: Skin color, texture, turgor normal, no suspicious rashes or lesions.Extremities: He rises from the chair and stands in normal alignment. Hehas some visible atrophy of the left quad compared to the right. He hasno flattening of his lumbar lordosis. A well-preserved lumbar range ofmotion pain free. He can forward flex fingertips to mid tibia and risefrom it.?In the seated position he has good strength resisted muscle testing. Hedoes have visible fasciculations in his left quadriceps. He does developincreased pain in the left hip thigh and knee region after range of motionto his hip.?He has no effusion in his knee. 0- 130? range of motion bilaterally. Noinstability to varus or valgus stressing bilaterally. Excellent range ofmotion of both hips. 90? of flexion. 30? of external and 20? of internalrotation pain-free. He does have good strength but some increased pain inhis thigh after resisted hip flexion.No inguinal lymphadenopathy.Assessment and Plan:1. Left leg pain and paraesthesia2. History of Prostate CancerFunctional Plan: I advised him that his pain still seems to be radicularin nature.Given that his lumbar MRI scan is unremarkable I think we need to followthe course of his L3=4 nerve roots down through the pelvis.At this point I would recommend an MRI scan of his pelvis. This shouldgive us a good view of his bony architecture but also allow us to see ifthere is anything along the iliopsoas or femoral triangle that could beirritating his femoral nerve which seems to be the course of the symptoms.After discussion with him he is in agreement. He's going to follow up withhis urologist regarding his prostate cancer. We'll get him scheduled forhis pelvic MRI and see him back following to go over the results with himonce available.Farooq Cabrera MD [facility] CNOVon 02-06-2017 OV Office Visit (AGHWW1) -------GREGORY REYNOSO ([id number]) 1960 MDate Time Provider Department02/06/17 9:30 AM FAROOQ CABRERA AGHWW1 During your visit today, we recorded the following information about you: Respiration Weight Height 16/minute 83.9 kg 1.854 mGelmer Cabrera MD 02/15/2017 1:53 PM SignedChief complaint: Left thigh and knee painGregory Reynoso is a 56 year old male who presents for evaluation of pain in hisleft thigh and knee region. This started atraumatically a few months ago.Pain radiating in the thigh region down towards his knee but not below. Worsewith prolonged standing and walking. Associated episodes of painless givingway. Some episodes of shooting pain that feel like electrical shocks. He alsofeels like his ANDquot; muscle his vibratingANDquot;.He saw Dr. Horton at [facility]. He had an MRI scan of his lumbar spinelooking for L3 radiculopathy which reportedly was negative. Dr. Horton toldhim he didn't have an explanation for his leg pain.Reviewed nursing note and current pain scale.PAST MEDICAL HISTORYDiagnosis Date- HTN (hypertension)- Prostate cancer (HCC)PAST SURGICAL HISTORYNo date: HERNIA REPAIR HXNo date: PROSTATE BIOPSYHistory reviewed. No pertinent family history.Social HistorySubstance Use Topics- Smoking status: Never Smoker- Smokeless tobacco: Never Used- Alcohol use NoMedications:Current Outpatient Prescriptions:baclofen (LIORESAL) 10 mg tabletcelecoxib (CELEBREX) 200 mg capsuleLosartan-Hydrochloro thiazide 100-12.5 mg per tabletgabapentin (NEURONTIN) 300 mg capsuleNo current facility-administered medications for this visit.Allergies: ALLERGIESNo Known AllergiesREVIEW OF SYSTEMS:GENERAL: Well developed, well nourished. No acute distressPAIN: Pain lt kneeCARDIOVASCULAR: Negative for chest pain, leg swelling and palpations.MSK: Negative for joint pain, swelling, back pain, muscle pain.SKIN: Negative for lesions, rash, itching, metal sensitivityNEURO: Negative for seizure, trauma, numbness/tingling of extremities.ENDOCRINE: Negative for Diabetes Type 1 and Type 2HEMATOLOGY: Negative for excessive bleeding, clots, bleeding disorders.Physical Examination:Resp 16 Ht 6' 1ANDquot; (1.85m) Wt 185 lb (83.9kg) BMI 24.41 kg/(m2).General Appearance: Well appearing, alert, in no acute distress, well-hydrated,well nourished.Skin: Skin color, texture, turgor normal, no suspicious rashes or lesions.Extremities: He rises from the chair and stands in normal alignment. He hassome visible atrophy of the left quad compared to the right. He has noflattening of his lumbar lordosis. A well-preserved lumbar range of motionpain free. He can forward flex fingertips to mid tibia and rise from it.In the seated position he has good strength resisted muscle testing. He doeshave visible fasciculations in his left quadriceps.He has no effusion in his knee. 0 230? range of motion bilaterally. Noinstability to varus or valgus stressing bilaterally. Excellent range ofmotion of both hips. 90? of flexion. 30? of external and 20? of internalrotation pain-free. He does have good strength and no pain on resisted hipflexion.No inguinal lymphadenopathy.Peripheral Pulses: Normal.Neurologic: He has slight depression of his left knee jerk compared to theright. Symmetrical reflexes at the ankles.Images: I ordered obtained and reviewed today AP standing, lateral, skylineviews of the left knee for evaluation of left thigh and knee pain. No previousradiographs available for comparison. They show intact joint spaces and bonyarchitecture.Impression : Normal radiographs left kneeI ordered, obtained and reviewed today AP pelvis radiograph for evaluation ofleft hip and thigh pain. No previous radiographs available for comparison.They show intact joint spaces bony architecture.Impression: Normal radiographs hips and pelvisAssessment and Plan:1. Leg pain, diffuse, left - ICD9: 729.5, ICD10: M79.605 (primary diagnosis)2. Radiculopathy, lumbar region - ICD9: 724.4, ICD10: M54.16Functional Plan: I advised him that I could find no structural under Melodywith his hip or knee. His symptoms would seem to be consistent with an [id number]. This would be confirmed by his quadriceps atrophy and visiblefasciculations.I advised him that I would like to review his MRI scan of his lumbar spine.He's going to obtain this from [facility] and get it to me to review.Once I'm able to review all see him back to consider further workup dependingon the results.Laura Kangergies As of Date: 02/06/2017(No Known Allergies)Date Reviewed: 02/06/2017Reviewed by: Farooq Cabrera - Fully AssessedReason for Visit: Knee Pain [132] Cmt: lt kneePrimary Visit Diagnosis:Leg pain, diffuse, left [M79.605] Other Visit Diagnosis:Radiculopathy, lumbar region [M54.16]Order(s):XR KNEE 3V (AG,AV,EU,FV,HL,JENIFER,MM,SP) [[id number]] Order #: [id number] XR PELVIS 1-2V (AG,AV,EU,FV,HL,JENIFER,MM,SP) [[id number]] Order #: [id number] as of 02/06/2017 Sig: BACLOFEN 10 MG TABLET CELECOXIB 200 MG CAPSULE LOSARTAN 100 MG-HYDROCHLOROTH* GABAPENTIN 300 MG CAPSULEProblem List As Of Date 02/06/2017 Noted Resolved Radiculopathy, lumbar region [M54.16] INVALID FOR*Level of Service: NEW PATIENT VISIT LEVEL 4 [11523] Status:Closed by FAROOQ CABRERA MD on 02/15/17 [facility] PROGRESSon 02-06-2017 PROGRESS HNO ID: [id number] thor: Farooq Murrellervice: (none)Author Type: PhysicianType: Progress NotesFiled: 02/15/2017 1:53 PMNote Text:Chief complaint: Left thigh and knee painGregory Reynoso is a 56 year old male who presents for evaluation of painin his left thigh and knee region. This started atraumatically a fewmonths ago. Pain radiating in the thigh region down towards his knee butnot below. Worse with prolonged standing and walking. Associatedepisodes of painless giving way. Some episodes of shooting pain that feellike electrical shocks. He also feels like his muscle his vibrating.He saw Dr. Horton at [facility]. He had an MRI scan of his lumbarspine looking for L3 radiculopathy which reportedly was negative. told him he didn't have an explanation for his leg pain.Reviewed nursing note and current pain scale.PAST MEDICAL HISTORYDiagnosis Date- HTN (hypertension)- Prostate cancer (HCC)PAST SURGICAL HISTORYNo date: HERNIA REPAIR HXNo date: PROSTATE BIOPSYHistory reviewed. No pertinent family history.Social HistorySubstance Use Topics- Smoking status: Never Smoker- Smokeless tobacco: Never Used- Alcohol use NoMedications:Current Outpatient Prescriptions:baclofen (LIORESAL) 10 mg tabletcelecoxib (CELEBREX) 200 mg capsuleLosartan-Hydrochloro thiazide 100-12.5 mg per tabletgabapentin (NEURONTIN) 300 mg capsuleNo current facility-administered medications for this visit.Allergies: ALLERGIESNo Known AllergiesREVIEW OF SYSTEMS:GENERAL: Well developed, well nourished. No acute distressPAIN: Pain lt kneeCARDIOVASCULAR: Negative for chest pain, leg swelling and palpations.MSK: Negative for joint pain, swelling, back pain, muscle pain.SKIN: Negative for lesions, rash, itching, metal sensitivityNEURO: Negative for seizure, trauma, numbness/tingling of extremities.ENDOCRINE: Negative for Diabetes Type 1 and Type 2HEMATOLOGY: Negative for excessive bleeding, clots, bleeding disorders.Physical Examination:Resp 16 Ht 6' 1 (1.85m) Wt 185 lb (83.9kg) BMI 24.41 kg/(m2).General Appearance: Well appearing, alert, in no acute distress,well-hydrated, well nourished.Skin: Skin color, texture, turgor normal, no suspicious rashes or lesions.Extremities: He rises from the chair and stands in normal alignment. Hehas some visible atrophy of the left quad compared to the right. He hasno flattening of his lumbar lordosis. A well-preserved lumbar range ofmotion pain free. He can forward flex fingertips to mid tibia and risefrom it.In the seated position he has good strength resisted muscle testing. Hedoes have visible fasciculations in his left quadriceps.He has no effusion in his knee. 0 230? range of motion bilaterally. Noinstability to varus or valgus stressing bilaterally. Excellent range ofmotion of both hips. 90? of flexion. 30? of external and 20? of internalrotation pain-free. He does have good strength and no pain on resistedhip flexion.No inguinal lymphadenopathy.Peripheral Pulses: Normal.Neurologic: He has slight depression of his left knee jerk compared to theright. Symmetrical reflexes at the ankles.Images: I ordered obtained and reviewed today AP standing, lateral,skyline views of the left knee for evaluation of left thigh and knee pain. No previous radiographs available for comparison. They show intact jointspaces and bony architecture.Impression: Normal radiographs left kneeI ordered, obtained and reviewed today AP pelvis radiograph for evaluationof left hip and thigh pain. No previous radiographs available forcomparison. They show intact joint spaces bony architecture.Impression: Normal radiographs hips and pelvisAssessment and Plan:1. Leg pain, diffuse, left - ICD9: 729.5, ICD10: M79.605 (primarydiagnosis)2. Radiculopathy, lumbar region - ICD9: 724.4, ICD10: M54.16Functional Plan: I advised him that I could find no structural underMelody with his hip or knee. His symptoms would seem to be consistentwith an L3 radiculopathy. This would be confirmed by his quadricepsatrophy and visible fasciculations.I advised him that I would like to review his MRI scan of his lumbarspine. He's going to obtain this from [facility] and get it to me toreview.Once I'm able to review all see him back to consider further workupdepending on the results.Farooq Cabrera MD Normal [facility] Vital Signs Date Time Vital Sign Value Performing Clinician Facility 12-08-2024 13:32-0400 Body height 185.[address] Min Barton MD Work Phone: [facility] 12-08-2024 13:32-0400 Body mass index (BMI) [Ratio] 23.8 kg/m2 Dr. Min Barton MD Work Phone: [facility] 12-08-2024 13:32-0400 Body temperature 98 [degF] Dr. Min Barton MD Work Phone: [facility] 12-08-2024 13:32-0400 Body weight 82.[address] Min Barton MD Work Phone: [facility] 12-08-2024 13:32-0400 Diastolic blood pressure 72 mm[Hg] Dr. Min Barton MD Work Phone: [facility] 12-08-2024 13:32-0400 Heart rate 76 /min Dr. Min Barton MD Work Phone: [facility] 12-08-2024 13:32-0400 Respiratory rate 18 /min Dr. Min Barton MD Work Phone: [facility] 12-08-2024 13:32-0400 SaO2% (BldA) [Mass fraction] 98 % Dr. Min Barton MD Work Phone: [facility] 12-08-2024 13:32-0400 Systolic blood pressure 134 mm[Hg] Dr. Min Barton MD Work Phone: [facility] 10-27-2024 14:44-0400 Body temperature 97.1 [degF] Dr. Min Barton MD Work Phone: [facility] 10-27-2024 14:44-0400 Diastolic blood pressure 84 mm[Hg] Dr. Min Barton MD Work Phone: [facility] 10-27-2024 14:44-0400 Heart rate 64 /min Dr. Min Barton MD Work Phone: [facility] 10-27-2024 14:44-0400 Respiratory rate 16 /min Dr. Min Barton MD Work Phone: [facility] 10-27-2024 14:44-0400 SaO2% (BldA) [Mass fraction] 97 % Dr. Min Barton MD Work Phone: [facility] 10-27-2024 14:44-0400 Systolic blood pressure 153 mm[Hg] Dr. Min Barton MD Work Phone: [facility] 10-27-2024 13:52-0400 Body mass index (BMI) [Ratio] 23.7 kg/m2 Dr. Min Barton MD Work Phone: [facility] 10-27-2024 13:52-0400 Body weight 81.[address] Min Barton MD Work Phone: [facility] 02-09-2024 11:04-0400 Body height 186.7 cm Tracy Ruggiero MD Work Phone: [facility] 02-09-2024 11:04-0400 Body mass index (BMI) [Ratio] 23.18 kg/m2 Tracy Ruggiero MD Work Phone: [facility] 02-09-2024 11:04-0400 Body temperature 97.2 [degF] Tracy Ruggiero MD Work Phone: [facility] 02-09-2024 11:04-0400 Body weight 80.79 kg Tracy Ruggiero MD Work Phone: [facility] 10-28-2023 14:09-0400 Body temperature 96.5 [degF] Dr. Min Barton Work Phone: [facility] 10-28-2023 14:09-0400 Diastolic blood pressure 65 mm[Hg] Dr. Min Barton Work Phone: [facility] 10-28-2023 14:09-0400 Heart rate 81 /min Dr. Min Barton Work Phone: [facility] 10-28-2023 14:09-0400 Respiratory rate 16 /min Dr. Min Barton Work Phone: [facility] 10-28-2023 14:09-0400 SaO2% (BldA) [Mass fraction] 97 % Dr. Min Barton Work Phone: [facility] 10-28-2023 14:09-0400 Systolic blood pressure 117 mm[Hg] Dr. Min Barton Work Phone: [facility] 10-28-2023 13:38-0400 Body height 185.[address] Min Barton Work Phone: [facility] 10-28-2023 13:38-0400 Body mass index (BMI) [Ratio] 24 kg/m2 Dr. Min Barton Work Phone: [facility] 10-28-2023 13:38-0400 Body weight 82.[address] Min Barton Work Phone: [facility] 08-10-2023 10:25-0500 Body mass index (BMI) [Ratio] 23.79 kg/m2 Tracy Ruggiero MD Work Phone: [facility] 08-10-2023 10:25-0500 Body temperature 97.5 [degF] Tracy Ruggiero MD Work Phone: [facility] 08-10-2023 10:25-0500 Body weight 82.92 kg Tracy Ruggiero MD Work Phone: [facility] 07-10-2023 08:39-0500 Body height 185.[address] Min Barton Work Phone: [facility] 07-10-2023 08:39-0500 Body mass index (BMI) [Ratio] 24.4 kg/m2 Dr. Min Barton Work Phone: [facility] 07-10-2023 08:39-0500 Body temperature 97.6 [degF] Dr. Min Barton Work Phone: [facility] 07-10-2023 08:39-0500 Body weight 83.[address] Min Barton Work Phone: [facility] 07-10-2023 08:39-0500 Diastolic blood pressure 80 mm[Hg] Dr. Min Barton Work Phone: [facility] 07-10-2023 08:39-0500 Heart rate 66 /min Dr. Min Barton Work Phone: [facility] 07-10-2023 08:39-0500 Respiratory rate 16 /min Dr. Min Barton Work Phone: [facility] 07-10-2023 08:39-0500 SaO2% (BldA) [Mass fraction] 98 % Dr. Min Barton Work Phone: [facility] 07-10-2023 08:39-0500 Systolic blood pressure 124 mm[Hg] Dr. Min Barton Work Phone: [facility] 03-19-2023 07:13-0400 Body temperature 98.4 [degF] Dr. Min Barton Work Phone: [facility] 03-19-2023 07:13-0400 Diastolic blood pressure 82 mm[Hg] Dr. Min Barton Work Phone: [facility] 03-19-2023 07:13-0400 Heart rate 74 /min Dr. Min Barton Work Phone: [facility] 03-19-2023 07:13-0400 Respiratory rate 16 /min Dr. Min Barton Work Phone: [facility] 03-19-2023 07:13-0400 SaO2% (BldA) [Mass fraction] 96 % Dr. Min Barton Work Phone: [facility] 03-19-2023 07:13-0400 Systolic blood pressure 149 mm[Hg] Dr. Min Barton Work Phone: [facility] 02-02-2023 10:20-0400 Body height 186.69 cm Min Cunninghamtu Work Phone: [facility] Work Phone: 02-02-2023 10:20-0400 Body mass index (BMI) [Ratio] 23.23 kg/m2 Efmanny Cunninghamcandiekenn Work Phone: [facility] Work Phone: 02-02-2023 10:20-0400 Body surface area Derived from formula 2.06 m2 Min Cunninghamcandiekenn Work Phone: [facility] Work Phone: 02-02-2023 10:20-0400 Body temperature 97.2 [degF] Min Cunninghamcandiekenn Work Phone: [facility] Work Phone: 02-02-2023 10:20-0400 Body weight 80.97 kg Min Barton Work Phone: [facility] Work Phone: 08-06-2022 14:06-0500 Body temperature 97.4 [degF] Dr. Min Barton Work Phone: [facility] 08-06-2022 14:06-0500 Diastolic blood pressure 72 mm[Hg] Dr. Min Barton Work Phone: [facility] 08-06-2022 14:06-0500 Heart rate 76 /min Dr. Min Barton Work Phone: [facility] 08-06-2022 14:06-0500 Respiratory rate 16 /min Dr. Min Barton Work Phone: [facility] 08-06-2022 14:06-0500 SaO2% (BldA) [Mass fraction] 98 % Dr. Min Barton Work Phone: [facility] 08-06-2022 14:06-0500 Systolic blood pressure 112 mm[Hg] Dr. Min Barton Work Phone: [facility] 06-29-2022 08:30-0500 Body temperature 97 [degF] Tracy Ball [employer]FORMER [employer] Work Phone: [facility] 06-29-2022 08:30-0500 Body weight 83.01 kg Tracy Ball TRANSFORMER TE[employer]IST Work Phone: [facility] 06-29-2022 08:30-0500 Diastolic blood pressure 98 mm[Hg] Tracy Ball TRANSFORMER TE[employer]IST Work Phone: [facility] 06-29-2022 08:30-0500 Heart rate 54 /min Tracy Ball TRANSFORMER TE[employer] MARK[employer] E[employer]OMIST Work Phone: [facility] 06-29-2022 08:30-0500 Respiratory rate 16 /min Tracy Ball TRANSFORMER TE[employer] E[employer]OMIST Work Phone: [facility] 06-29-2022 08:30-0500 SaO2% (BldA) [Mass fraction] 97 % Tracy Ball TRANSFORMER TESTER.[employer] MARK[employer] E[employer]OMIST Work Phone: [facility] 06-29-2022 08:30-0500 Systolic blood pressure 148 mm[Hg] Tracy Ball TRANSFORMER TE[employer] MARK[employer] E[employer]OMIST Work Phone: [facility] 06-27-2022 13:48-0500 Body height 185.[address] Min Barton Work Phone: [facility] 06-27-2022 13:48-0500 Body mass index (BMI) [Ratio] 23.8 kg/m2 Dr. Min Barton Work Phone: [facility] 06-27-2022 13:48-0500 Body weight 82.[address] Min Barton Work Phone: [facility] 05-18-2022 08:20-0500 Body height 185.[address] Min Barton Work Phone: [facility] Work Phone: 05-18-2022 08:20-0500 Body mass index (BMI) [Ratio] 23.8 kg/m2 Dr. Min Barton Work Phone: [facility] 05-18-2022 08:20-0500 Body temperature 98.2 [degF] Dr. Min Barton Work Phone: [facility] 05-18-2022 08:20-0500 Body weight 82.[address] Min Barton Work Phone: [facility] 05-18-2022 08:20-0500 Diastolic blood pressure 80 mm[Hg] Dr. Min Barton Work Phone: [facility] 05-18-2022 08:20-0500 Heart rate 82 /min Dr. Min Barton Work Phone: [facility] 05-18-2022 08:20-0500 Respiratory rate 16 /min Dr. Min Barton Work Phone: [facility] 05-18-2022 08:20-0500 Systolic blood pressure 122 mm[Hg] Dr. Min Barton Work Phone: [facility] 05-15-2022 14:11-0500 Body temperature 96.7 [degF] Dr. Min Barton Work Phone: [facility] 05-15-2022 14:11-0500 Body weight 82.[address] Min Barton Work Phone: [facility] 05-15-2022 14:11-0500 Diastolic blood pressure 82 mm[Hg] Dr. Min Barton Work Phone: [facility] 05-15-2022 14:11-0500 Heart rate 74 /min Dr. Min Barton Work Phone: [facility] 05-15-2022 14:11-0500 Respiratory rate 16 /min Dr. Min Barton Work Phone: [facility] 05-15-2022 14:11-0500 SaO2% (BldA) [Mass fraction] 99 % Dr. Min Barton Work Phone: [facility] 05-15-2022 14:11-0500 Systolic blood pressure 136 mm[Hg] Dr. Min Barton Work Phone: [facility] 04-22-2022 10:01-0400 Body temperature 98 [degF] Dr. Min Barton Work Phone: [facility] 04-22-2022 10:01-0400 Diastolic blood pressure 86 mm[Hg] Dr. Min Barton Work Phone: [facility] 04-22-2022 10:01-0400 Heart rate 57 /min Dr. Min Barton Work Phone: [facility] 04-22-2022 10:01-0400 Respiratory rate 16 /min Dr. Min Barton Work Phone: [facility] 04-22-2022 10:01-0400 SaO2% (BldA) [Mass fraction] 94 % Dr. Min Barton Work Phone: [facility] 04-22-2022 10:01-0400 Systolic blood pressure 157 mm[Hg] Dr. Min Barton Work Phone: [facility] 04-22-2022 06:44-0400 Body height 185.[address] Min Barton Work Phone: [facility] Work Phone: 04-22-2022 06:44-0400 Body mass index (BMI) [Ratio] 22.9 kg/m2 Dr. Min Barton Work Phone: [facility] 04-22-2022 06:44-0400 Body weight [address] Min Barton Work Phone: [facility] 03-22-2022 07:03-0400 Diastolic blood pressure 81 mm[Hg] Dr. Min Barton Work Phone: [facility] Work Phone: 03-22-2022 07:03-0400 Heart rate 75 /min Dr. Min Barton Work Phone: [facility] Work Phone: 03-22-2022 07:03-0400 Respiratory rate 16 /min Dr. Min Barton Work Phone: [facility] Work Phone: 03-22-2022 07:03-0400 SaO2% (BldA) [Mass fraction] 98 % Dr. Min Barton Work Phone: [facility] Work Phone: 03-22-2022 07:03-0400 Systolic blood pressure 145 mm[Hg] Dr. Min Barton Work Phone: [facility] Work Phone: 03-22-2022 05:54-0400 Body height 185.[address] Min Barton Work Phone: [facility] Work Phone: 03-22-2022 05:54-0400 Body mass index (BMI) [Ratio] 23.3 kg/m2 Dr. Min Barton Work Phone: [facility] Work Phone: 03-22-2022 05:54-0400 Body temperature 97 [degF] Dr. Min Barton Work Phone: [facility] Work Phone: 03-22-2022 05:54-0400 Body weight 80.[address] Min Barton Work Phone: [facility] Work Phone: 03-14-2022 08:29-0400 Body height 185.[address] Min Barton Work Phone: [facility] Work Phone: 03-14-2022 08:29-0400 Body mass index (BMI) [Ratio] 23.2 kg/m2 Dr. Min Barton Work Phone: [facility] Work Phone: 03-14-2022 08:29-0400 Body temperature 96.8 [degF] Dr. Min Barton Work Phone: [facility] Work Phone: 03-14-2022 08:29-0400 Body weight 79.[address] Min Barton Work Phone: [facility] Work Phone: 03-14-2022 08:29-0400 Diastolic blood pressure 80 mm[Hg] Dr. Min Barton Work Phone: [facility] Work Phone: 03-14-2022 08:29-0400 Heart rate 87 /min Dr. Min Barton Work Phone: [facility] Work Phone: 03-14-2022 08:29-0400 Respiratory rate 16 /min Dr. Min Barton Work Phone: [facility] Work Phone: 03-14-2022 08:29-0400 SaO2% (BldA) [Mass fraction] 99 % Dr. Min Barton Work Phone: [facility] Work Phone: 03-14-2022 08:29-0400 Systolic blood pressure 132 mm[Hg] Dr. Min Barton Work Phone: [facility] Work Phone: 02-17-2022 13:26-0400 Body height 185.[address] Min Barton Work Phone: [facility] Work Phone: 02-17-2022 13:26-0400 Body mass index (BMI) [Ratio] 23.3 kg/m2 Dr. Min Barton Work Phone: [facility] Work Phone: 02-17-2022 13:26-0400 Body temperature 97.4 [degF] Dr. Min Barton Work Phone: [facility] Work Phone: 02-17-2022 13:26-0400 Body weight 80.[address] Min Barton Work Phone: [facility] Work Phone: 02-17-2022 13:26-0400 Diastolic blood pressure 84 mm[Hg] Dr. Min Barton Work Phone: [facility] Work Phone: 02-17-2022 13:26-0400 Heart rate 82 /min Dr. Min Barton Work Phone: [facility] Work Phone: 02-17-2022 13:26-0400 Respiratory rate 18 /min Dr. Min Barton Work Phone: [facility] Work Phone: 02-17-2022 13:26-0400 SaO2% (BldA) [Mass fraction] 99 % Dr. Min Barton Work Phone: [facility] Work Phone: 02-17-2022 13:26-0400 Systolic blood pressure 124 mm[Hg] Dr. Min Barton Work Phone: [facility] Work Phone: 02-14-2022 11:24-0400 Body temperature 98 [degF] Dr. Min Barton Work Phone: [facility] Work Phone: 02-14-2022 11:24-0400 Diastolic blood pressure 88 mm[Hg] Dr. Min Barton Work Phone: [facility] Work Phone: 02-14-2022 11:24-0400 Heart rate 76 /min Dr. Min Barton Work Phone: [facility] Work Phone: 02-14-2022 11:24-0400 Respiratory rate 16 /min Dr. Min Barton Work Phone: [facility] Work Phone: 02-14-2022 11:24-0400 SaO2% (BldA) [Mass fraction] 98 % Dr. Min Barton Work Phone: [facility] Work Phone: 02-14-2022 11:24-0400 Systolic blood pressure 145 mm[Hg] Dr. Min Barton Work Phone: [facility] Work Phone: 02-14-2022 08:10-0400 Body temperature 97.9 [degF] Dr. Min Barton Work Phone: [facility] Work Phone: 02-14-2022 08:10-0400 Diastolic blood pressure 81 mm[Hg] Dr. Min Barton Work Phone: [facility] Work Phone: 02-14-2022 08:10-0400 Heart rate 68 /min Dr. Min Barton Work Phone: [facility] Work Phone: 02-14-2022 08:10-0400 Respiratory rate 16 /min Dr. Min Barton Work Phone: [facility] Work Phone: 02-14-2022 08:10-0400 SaO2% (BldA) [Mass fraction] 95 % Dr. Min Barton Work Phone: [facility] Work Phone: 02-14-2022 08:10-0400 Systolic blood pressure 154 mm[Hg] Dr. Min Barton Work Phone: [facility] Work Phone: 02-13-2022 15:30-0400 Body height 185.[address] Min Barton Work Phone: [facility] Work Phone: 02-13-2022 15:30-0400 Body mass index (BMI) [Ratio] 23 kg/m2 Dr. Min Barton Work Phone: [facility] Work Phone: 02-13-2022 15:30-0400 Body weight 79.[address] Min Barton Work Phone: [facility] Work Phone: 11-22-2021 09:10-0400 Body temperature 97.3 [degF] Dr. Min Barton Work Phone: [facility] Work Phone: 11-22-2021 09:10-0400 Diastolic blood pressure 82 mm[Hg] Dr. Min Barton Work Phone: [facility] Work Phone: 11-22-2021 09:10-0400 Heart rate 61 /min Dr. Min Barton Work Phone: [facility] Work Phone: 11-22-2021 09:10-0400 Respiratory rate 14 /min Dr. Min Barton Work Phone: [facility] Work Phone: 11-22-2021 09:10-0400 SaO2% (BldA) [Mass fraction] 96 % Dr. Min Barton Work Phone: [facility] Work Phone: 11-22-2021 09:10-0400 Systolic blood pressure 128 mm[Hg] Dr. Min Barton Work Phone: [facility] Work Phone: 11-22-2021 09:10-0400 Body temperature 97.3 [degF] Dr. Min Barton Work Phone: [facility] Work Phone: 11-22-2021 09:10-0400 Diastolic blood pressure 82 mm[Hg] Dr. Min Barton Work Phone: [facility] Work Phone: 11-22-2021 09:10-0400 Heart rate 61 /min Dr. Min Barton Work Phone: [facility] Work Phone: 11-22-2021 09:10-0400 Respiratory rate 14 /min Dr. Min Barton Work Phone: [facility] Work Phone: 11-22-2021 09:10-0400 SaO2% (BldA) [Mass fraction] 96 % Dr. Min Barton Work Phone: [facility] Work Phone: 11-22-2021 09:10-0400 Systolic blood pressure 128 mm[Hg] Dr. Min Barton Work Phone: [facility] Work Phone: 11-21-2021 15:08-0400 Body height 185.[address] Min Barton Work Phone: [facility] Work Phone: 11-21-2021 15:08-0400 Body mass index (BMI) [Ratio] 23.5 kg/m2 Dr. Min Barton Work Phone: [facility] Work Phone: 11-21-2021 15:08-0400 Body temperature 97.5 [degF] Dr. Min Barton Work Phone: [facility] Work Phone: 11-21-2021 15:08-0400 Body weight 80.[address] Min Barton Work Phone: [facility] Work Phone: 11-21-2021 15:08-0400 Diastolic blood pressure 72 mm[Hg] Dr. Min Barton Work Phone: [facility] Work Phone: 11-21-2021 15:08-0400 Heart rate 80 /min Dr. Min Barton Work Phone: [facility] Work Phone: 11-21-2021 15:08-0400 Respiratory rate 16 /min Dr. Min Barton Work Phone: [facility] Work Phone: 11-21-2021 15:08-0400 SaO2% (BldA) [Mass fraction] 97 % Dr. Min Barton Work Phone: [facility] Work Phone: 11-21-2021 15:08-0400 Systolic blood pressure 134 mm[Hg] Dr. Min Barton Work Phone: [facility] Work Phone: 10-07-2021 14:24-0400 Body mass index (BMI) [Ratio] 23.6 kg/m2 Dr. Min Barton Work Phone: [facility] Work Phone: 10-07-2021 14:24-0400 Body temperature 96.9 [degF] Dr. Min Barton Work Phone: [facility] Work Phone: 10-07-2021 14:24-0400 Body weight 82.[address] Min Barton Work Phone: [facility] Work Phone: 10-07-2021 14:24-0400 Diastolic blood pressure 80 mm[Hg] Dr. Min Barton Work Phone: [facility] Work Phone: 10-07-2021 14:24-0400 Heart rate 76 /min Dr. Min Barton Work Phone: [facility] Work Phone: 10-07-2021 14:24-0400 Respiratory rate 16 /min Dr. Min Barton Work Phone: [facility] Work Phone: 10-07-2021 14:24-0400 SaO2% (BldA) [Mass fraction] 99 % Dr. Min Barton Work Phone: [facility] Work Phone: 10-07-2021 14:24-0400 Systolic blood pressure 144 mm[Hg] Dr. Min Barton Work Phone: [facility] Work Phone: 10-07-2021 14:24-0400 Body height 186.[address] Josué Lucas Work Phone: [facility] Work Phone: 10-07-2021 14:24-0400 Body mass index (BMI) [Ratio] 23.6 kg/m2 Dr. Josué Lucas Work Phone: [facility] Work Phone: 10-07-2021 14:24-0400 Body temperature 96.9 [degF] Dr. Josué Lcuas Work Phone: [facility] Work Phone: 10-07-2021 14:24-0400 Body weight 82.[address] Josué Lucas Work Phone: [facility] Work Phone: 10-07-2021 14:24-0400 Diastolic blood pressure 80 mm[Hg] Dr. Josué Lucas Work Phone: [facility] Work Phone: 10-07-2021 14:24-0400 Heart rate 76 /min Dr. Josué Lucas Work Phone: [facility] Work Phone: 10-07-2021 14:24-0400 Respiratory rate 16 /min Dr. Josué Lucas Work Phone: [facility] Work Phone: 10-07-2021 14:24-0400 SaO2% (BldA) [Mass fraction] 99 % Dr. Josué Lucas Work Phone: [facility] Work Phone: 10-07-2021 14:24-0400 Systolic blood pressure 144 mm[Hg] Dr. Josué Lucas Work Phone: [facility] Work Phone: 09-27-2021 15:24-0400 Body mass index (BMI) [Ratio] 23.4 kg/m2 Dr. Min Barton Work Phone: [facility] Work Phone: 09-27-2021 15:24-0400 Body temperature 96.4 [degF] Dr. Min Barton Work Phone: [facility] Work Phone: 09-27-2021 15:24-0400 Body weight 81.[address] Min Barton Work Phone: [facility] Work Phone: 09-27-2021 15:24-0400 Diastolic blood pressure 80 mm[Hg] Dr. Min Barton Work Phone: [facility] Work Phone: 09-27-2021 15:24-0400 Heart rate 75 /min Dr. Min Barton Work Phone: [facility] Work Phone: 09-27-2021 15:24-0400 Respiratory rate 18 /min Dr. iMn Barton Work Phone: [facility] Work Phone: 09-27-2021 15:24-0400 SaO2% (BldA) [Mass fraction] 98 % Dr. Min Barton Work Phone: [facility] Work Phone: 09-27-2021 15:24-0400 Systolic blood pressure 130 mm[Hg] Dr. Min Barton Work Phone: [facility] Work Phone: 09-27-2021 15:24-0400 Body height 186.[address] Josué Lucas Work Phone: [facility] Work Phone: 09-27-2021 15:24-0400 Body mass index (BMI) [Ratio] 23.4 kg/m2 Dr. Josué Lucas Work Phone: [facility] Work Phone: 09-27-2021 15:24-0400 Body temperature 96.4 [degF] Dr. Josué Lucas Work Phone: [facility] Work Phone: 09-27-2021 15:24-0400 Body weight 81.[address] Josué Lucas Work Phone: [facility] Work Phone: 09-27-2021 15:24-0400 Diastolic blood pressure 80 mm[Hg] Dr. Josué Lucas Work Phone: [facility] Work Phone: 09-27-2021 15:24-0400 Heart rate 75 /min Dr. Josué Lucas Work Phone: [facility] Work Phone: 09-27-2021 15:24-0400 Respiratory rate 18 /min Dr. Josué Lucas Work Phone: [facility] Work Phone: 09-27-2021 15:24-0400 SaO2% (BldA) [Mass fraction] 98 % Dr. Josué Lucas Work Phone: [facility] Work Phone: 09-27-2021 15:24-0400 Systolic blood pressure 130 mm[Hg] Dr. Josué Lucas Work Phone: [facility] Work Phone: 08-12-2021 07:24-0500 Body mass index (BMI) [Ratio] 21.2 kg/m2 Dr. Josué Lucas Work Phone: [facility] Work Phone: 08-12-2021 07:24-0500 Body temperature 97.4 [degF] Dr. Josué Lucas Work Phone: [facility] Work Phone: 08-12-2021 07:24-0500 Body weight 73.[address] Josué Lucas Work Phone: [facility] Work Phone: 08-12-2021 07:24-0500 Diastolic blood pressure 86 mm[Hg] Dr. Josué Lucas Work Phone: [facility] Work Phone: 08-12-2021 07:24-0500 Heart rate 73 /min Dr. Josué Lucas Work Phone: [facility] Work Phone: 08-12-2021 07:24-0500 Respiratory rate 16 /min Dr. Josué Lucas Work Phone: [facility] Work Phone: 08-12-2021 07:24-0500 SaO2% (BldA) [Mass fraction] 97 % Dr. Josué Lucas Work Phone: [facility] Work Phone: 08-12-2021 07:24-0500 Systolic blood pressure 172 mm[Hg] Dr. Josué Lucas Work Phone: [facility] Work Phone: 07-09-2021 14:14-0500 Body mass index (BMI) [Ratio] 23.5 kg/m2 Dr. Josué Lucas Work Phone: [facility] Work Phone: 07-09-2021 14:14-0500 Body temperature 96.5 [degF] Dr. Josué Lucas Work Phone: [facility] Work Phone: 07-09-2021 14:14-0500 Body weight 80.[address] Josué Lucas Work Phone: [facility] Work Phone: 07-09-2021 14:14-0500 Diastolic blood pressure 84 mm[Hg] Dr. Josué Lucas Work Phone: [facility] Work Phone: 07-09-2021 14:14-0500 Heart rate 79 /min Dr. Josué Lucas Work Phone: [facility] Work Phone: 07-09-2021 14:14-0500 Respiratory rate 18 /min Dr. Josué Lucas Work Phone: [facility] Work Phone: 07-09-2021 14:14-0500 SaO2% (BldA) [Mass fraction] 97 % Dr. Josué Lucas Work Phone: [facility] Work Phone: 07-09-2021 14:14-0500 Systolic blood pressure 138 mm[Hg] Dr. Josué Lucas Work Phone: [facility] Work Phone: Encounters Encounter Date Encounter Type Care Provider Facility Start: 12-08-2024 End: 12-08-[address] Min Barton MD -[facility] Work Phone: Start: 12-08-2024 End: 12-08-[address] Min Barton MD [facility] Start: 12-08-2024 End: 12-08-[address] Min Barton MD Work Phone: [facility] Work Phone: Start: 12-08-2024 End: 12-08-2024 ambulatory [facility] Facility:[facility] Start: 10-27-2024 End: 10-27-[address] Beth Hinton MD -Medical Out Work Phone: Start: 10-27-2024 End: 10-27-2024 [facility]ulatory [facility] Facility:[facility] Start: 09-07-2024 ambulatory [facility] Fac[facility] ty:[facility] Start: 08-03-2024 End: 08-03-2024 ambulatory BETH HINTON MD Facility:[facility] Start: 07-27-2024 End: 07-27-2024 ambulatory [facility] Start: 06-09-2024 End: 06-09-2024 ambulatory [facility] Facility:[facility] Start: 04-13-2024 End: 04-13-2024 ambulatory [facility] Facility:[facility] Start: 04-13-2024 End: 04-13-2024 ambulatory [facility] Facility:[facility] Start: 02-09-2024 End: 02-09-2024 Patient encounter procedure Tracy Ruggiero MD Work Phone: [facility] Comment on above: Hoarseness of voice (Primary Dx); Paralysis of left vocal cord Start: 02-09-2024 End: 02-09-2024 ambulatory [facility] Ambulatory Start: 02-04-2024 End: 02-04-2024 ambulatory Beth Hinton Facility:[facility] Start: 01-11-2024 End: 01-11-2024 [facility] Start: 10-28-2023 End: 10-28-[address] Min Barton Work Phone: [facility] Work Phone: Start: 10-28-2023 End: 10-28-[address] Min Barton Work Phone: [facility]-Medical Out Work Phone: Start: 09-24-2023 End: 09-24-[address] Min Barton Work Phone: [facility] Work Phone: Start: 09-24-2023 End: 09-24-[address] Min Barton Work Phone: [facility]-Laboratory, Specimen Work Phone: Start: 08-10-2023 End: 08-10-2023 Patient encounter procedure Tracy Ruggiero MD Work Phone: [facility] Comment on above: Hoarseness of voice (Primary Dx); Paralysis of left vocal cord Start: 08-10-2023 End: 08-10-2023 ambulatory TRACY Nichols [facility] Ambulatory Start: 07-10-[address] Min Barton Work Phone: [facility] Start: 07-10-2023 End: 07-10-[address] Min Barton Work Phone: [facility] Work Phone: Start: 07-10-2023 End: 07-10-2023 Encounter for general adult medical examination without abnormal findings Dr. Min Barton Work Phone: [facility] Start: 07-10-2023 End: 07-10-[address] Min Barton Work Phone: [facility] Work Phone: Start: 06-05-2023 End: 06-05-[address] Min Barton Work Phone: [facility] Work Phone: Start: 06-05-2023 End: 06-05-[address] Min Barton Work Phone: [facility]-Laboratory Work Phone: Start: 03-19-2023 End: 03-19-[address] Min Barton Work Phone: [facility] Work Phone: Start: 02-02-2023 Patient encounter procedure Min Barton Work Phone: [facility] [address] Work Phone: Start: 02-02-[address] Tracy Ruggiero Facility:[id number] Start: 01-19-[address] Tracy Ruggiero Facility:[id number] Start: 01-06-[address] Tracy Ruggiero Facility:[id number] Start: 01-06-2023 Patient encounter procedure Min Barton Work Phone: [facility] [address] [place] Work Phone: Start: 12-22-2022 End: 12-22-[address] 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 Tracy Ruggiero Facility:[facility] Start: 08-06-2022 End: 08-06-[address] Min Barton Work Phone: [facility] Work Phone: Start: 08-06-2022 End: 08-06-[address] Min Barton Work Phone: [facility] Start: 06-29-2022 End: 06-29-2022 ambulatory MIN BARTON Facility:[facility] Start: 06-29-2022 End: 06-29-2022 Office outpatient new 20 minutes Tracy Oates APRN.CNP Work Phone: [facility] Comment on above: Sore throat (Primary Dx) Start: 06-27-2022 End: 06-27-[address] Min Barton Work Phone: [facility] Work Phone: Start: 06-27-2022 End: 06-27-[address] Min Barton Work Phone: [facility] Start: 05-18-2022 End: 05-18-[address] Min Barton Work Phone: [facility] Start: 05-15-2022 End: 05-15-[address] Min Barton Work Phone: [facility] Work Phone: Start: 05-15-2022 End: 05-15-[address] Min Barton Work Phone: [facility] Start: 04-22-2022 End: 04-22-2022 Admission to same day surgery center Dr[facility] Min Barton [facility] Start: 04-22-2022 End: 04-22-[address] Min Barton Work Phone: [facility] Work Phone: Start: 03-22-2022 End: 03-22-2022 Emergency department patient visit Dr. Min Barton Work Phone: [facility]-Emergency Department Start: 03-17-2022 End: 03-17-[address] Min Barton Work Phone: [facility] Start: 03-17-2022 End: 03-17-[address] Min Barton Work Phone: [facility] Work Phone: Start: 03-17-2022 End: 03-17-[address] Min Barton Work Phone: [facility]-Laboratory Start: 03-14-2022 End: 03-14-[address] Min Barton Work Phone: [facility] Start: 02-26-2022 End: 02-26-[address] Min Barton Work Phone: [facility] Start: 02-24-2022 End: 02-24-[address] Min Barton Work Phone: [facility] Work Phone: Start: 02-24-2022 End: 02-24-[address] Min Barton Work Phone: [facility]-Laboratory Start: 02-17-2022 End: 02-17-[address] Min Barton Work Phone: [facility] Start: 02-14-2022 Non-patient / Non-visit Dr. Chidi Barton Work Phone: [facility] Start: 02-13-2022 End: 02-14-2022 Evaluation and management of inpatient Dr. Min Barton Work Phone: [facility]-Medical Surgical 3 Start: 02-13-2022 Non-patient / Non-visit Dr. Chidi Barton Work Phone: [facility] Start: 01-15-2022 End: 01-15-[address] Min Barton Work Phone: [facility]-Laboratory Start: 12-13-2021 End: 12-13-[address] Min Barton Work Phone: [facility]-Laboratory, Specimen Start: 12-06-2021 End: 12-06-[address] Min Barton Work Phone: [facility]-Pulmonary Services/Neurology Start: 12-06-2021 Non-patient / Non-visit Dr. Chidi Barton Work Phone: [facility] Start: 12-05-2021 End: 12-05-[address] Min Barton Work Phone: [facility]-Laboratory Start: 11-22-2021 End: 11-22-[address] Min Barton Work Phone: [facility] Start: 11-21-2021 End: 11-21-[address] Min Barton Work Phone: [facility] Start: 10-14-2021 End: 10-14-[address] Josué Lucas Work Phone: [facility]-Cat Scan, [facility] Start: 10-07-2021 End: 10-07-[address] Josué Lucas Work Phone: [facility]-Ultrasound, [facility] Start: 09-30-2021 End: 09-30-[address] Josué Lucas Work Phone: [facility]-Laboratory, Specimen Start: 09-30-2021 End: 09-30-[address] Josué Lucas Work Phone: [facility] Start: 09-27-2021 End: 09-27-[address] Josué Lucas [facility] Start: 09-23-2021 End: 09-23-2021 ambulatory JOSUÉ CHI АЛЕКСАНДР Facility:[facility] Start: 09-23-2021 End: 09-23-2021 Subsequent hospital visit by physician [facility] Start: 09-23-2021 End: 09-23-2021 ambulatory JOSUÉ CHI АЛЕКСАНДР Facility:[facility] Start: 09-23-2021 End: 09-23-2021 Subsequent hospital visit by physician [facility] Start: 08-26-2021 End: 08-26-[address] Josué Lucas Work Phone: [facility]-Nuclear Medicine, [facility] Start: 08-14-2021 End: 08-14-[address] Josué Lucas Work Phone: [facility]-Outpatient Bone Densitometry Start: 08-12-2021 End: 08-12-[address] Josué Lucas Work Phone: [facility] Start: 07-15-2021 End: 07-15-[address] Josué Lucas Work Phone: [facility], [facility] Start: 07-09-2021 End: 07-09-[address] Josué Lucas Work Phone: [facility]-Laboratory, [place] Start: 07-09-2021 End: 07-09-[address] Josué Lucas Work Phone: [facility] Start: 07-31-2017 Ambulatory FAROOQ [place] ty:[facility] Start: 06-12-2017 End: 06-12-2017 [facility] [place] Start: 06-02-[address] [facility] Start: 05-19-2017 End: 05-19-[address] [facility] Start: 04-28-2017 End: 04-28-[address] [facility] Start: 04-24-2017 End: 04-24-[address] [facility] [place] Start: 04-03-2017 End: 04-03-[address] [facility] Start: 03-31-[address] [facility] Start: 03-20-2017 End: 03-23-2017 Ambulatory FAROOQ BLANCA [facility] Start: 03-10-2017 End: 03-11-2017 Ambulatory FAROOQ RIOS [facility] Start: 02-27-2017 End: 02-27-2017 Ambulatory FAROOQ RIOS [facility] Start: 02-06-2017 End: 02-06-2017 Ambulatory FAROOQ RIOS [facility] Procedures Date Procedure Procedure Detail Performing Clinician Start: 03-19-2023 Plain x-ray of elbow Dr Courtney Barton Work Phone: Start: 06-29-2022 STREP A MOLECULAR (POC) Tracy Oates APRN.CNP Work Phone: Start: 04-22-[address] Kenn Barton Work Phone: Start: 03-22-2022 X-ray of both feet Dr. Min Barton Work Phone: Start: 02-13-[address] Kenn Barton Work Phone: Start: 10-14-2021 CT of soft tissues o f neck with contrast Dr. Josué Lucas Work Phone: Start: 10-07-[address] Calvin Lucas Work Phone: Start: 09-23-2021 End: 09-23-2021 Parathyroid imaging w/tomographic spect & ct [facility] Provider Start: 08-26-2021 Single photon emissi on computed tomography of parathyroid Dr. Josué Lucas Work Phone: Start: 08-14-2021 Dual energy X-ray absorptiometry Dr. Josué Lucas Work Phone: Start: 07-15-[address] Josué gallego Work Phone: Plan of Treatment Date Care Activity Detail Author Start: 12-08-2024 CBC W Auto Differential panel - Blood [facility] Start: 12-08-2024 Comprehensive metabolic 2000 panel - Serum or Plasma [facility] Start: 10-27-2024 Iv infusion therapy/prophylaxis /dx 1st to 1 hr THER/PROPH/DIAG IV INF INIT [facility] Start: 02-28-2024 Influenza vaccination Influenza Vaccine (#1) [facility] Start: 02-08-2024 End: 02-08-2024 Patient encounter procedure 02/08/2024 10:45 AM EDT Office Visit [facility] [address] [place] [id number] [place] [id number] [place], [place] [id number] [facility] Start: 07-13-2023 FUV, Provider: Tracy Ruggiero, Status: Pen, Time: 10:45 AM FUV, Provider: Tracy Ruggiero, Status: Pen, Time: 10:45 AM FU-Lgrgewbwdgqolr-Nx agrin [facility] [address] Work Phone: Start: 07-13-2023 End: 07-13-2023 Patient encounter procedure 07/13/2023 10:45 AM EST Office Visit [facility] [address] [place] [address] [place] [id number] [place] [address] [facility] Start: 2023 Pneumococcal Vaccine: 65+ Years (1 - PCV) Pneumococcal Vaccine: 65+ Years (1 - PCV) [facility] Start: 2023 Pneumococcal Vaccine: 65+ Years (1 of 1 - PCV) Pneumococcal Vaccine: 65+ Years (1 of 1 - PCV) [facility] Start: 02-27-2023 COVID-19 Vaccine ( season) COVID-19 Vaccine ( season) [facility] Start: 02-27-2023 Influenza vaccination Influenza Vaccine (#1) [facility] Start: 02-02-2023 POV, Provider: Tracy Ruggiero, Status: Pen, Time: 10:30 AM POV, Provider: Tracy Ruggiero, Status: Pen, Time: 10:30 AM [facility] [address] [place] Work Phone: Start: 01-19-2023 VIRDAIANA, Provider: Cathy Stoddard, Status: Pen, Time: 1:00 PM MALAIKA, Provider: Cathy Stoddard, Status: Pen, Time: 1:00 PM [facility] [address] [place] Work Phone: Start: 06-29-2022 DEPRESSION ASSESSMENT DEPRESSION ASSESSMENT [facility] Start: 05-15-2022 Patient referral [facility] Work Phone: Start: 04-22-2022 Anes esoph thyrd larynx trach & lymph neck 1yr ANESTH NECK ORGAN 1YR/> [facility] Start: 04-22-2022 Largsc w/njx vocal cord ther w/micro/telescope LARYNGOSCOP W/VC INJ + SCOPE [facility] Start: 04-22-2022 Ambulation without limitation [facility] Start: 04-22-2022 Elevation of head of bed [facility] Start: 04-22-2022 Patient discharge [facility] Start: 04-22-2022 Procedure discontinued [facility] Start: 04-22-2022 Taking patient vital signs [facility] Start: 04-22-2022 Vital signs measurements [facility] Start: 04-22-2022 Medical regimen orders management [facility] Start: 04-22-2022 Blood chemistry [facility] Work Phone: Start: 04-22-2022 Complete blood count [facility] Work Phone: Start: 04-22-2022 Medication education [facility] Start: 03-17-2022 Patient referral [facility] Work Phone: Start: 03-14-2022 Patient referral [facility] Work Phone: Start: 02-27-2022 Influenza vaccination INFLUENZA (#1) [facility] Start: 02-14-2022 Patient discharge [facility] Work Phone: Start: 02-13-2022 Following clinical pathway protocol [facility] Work Phone: Start: 02-13-2022 Parathyroidectomy/explorati on parathyroids EXPLORE PARATHYROID GLANDS [facility] Work Phone: Start: 02-13-2022 Thymectomy prtl/tot transcervical appr spx REMOVAL OF THYMUS GLAND [facility] Work Phone: Start: 02-13-2022 Application of ice collar, cap or bag [facility] Work Phone: Start: 02-13-2022 Elevation of head of bed [facility] Work Phone: Start: 02-13-2022 Admission procedure [facility] Work Phone: Start: 06-13-2021 COVID-19 VACCINE (4 - Booster for Moderna series) COVID-19 VACCINE (4 - Booster for Moderna series) [facility] Start: 02-27-2021 Influenza vaccination INFLUENZA (#1) [facility] Start: 2018 RSV patients and/or patients aged 60+ years (1 - 1-dose 60+ series) RSV patients and/or patients aged 60+ years (1 - 1-dose 60+ series) [facility] Start: 2013 PROSTATE CANCER SCREENING DISCUSSION PROSTATE CANCER SCREENING DISCUSSION [facility] [facility] Start: 2008 SHINGRIX VACCINE (1 of 2) SHINGRIX VACCINE (1 of 2) [facility] Start: 2008 Zoster Vaccines (1 of 2) Zoster Vaccines (1 of 2) [facility] Start: 2003 COLOGUARD (FIT-DNA) COLOGUARD (FIT-DNA) [facility] Start: 2003 Colonoscopy COLONOSCOPY [facility] Start: 2003 COLORECTAL CANCER SCREENING COLORECTAL CANCER SCREENING [facility] Start: [address] COLONOGRAPHY [facility] Start: 2003 DIABETES SCREEN DIABETES SCREEN [facility] Start: 2003 FECAL OCCULT BLOOD FECAL OCCULT BLOOD [facility] Start: 2003 SIGMOIDOSCOPY SIGMOIDOSCOPY [facility] Start: 1993 LIPID SCREEN LIPID SCREEN [facility] Start: 1980 DTaP/Tdap/Td Vaccines (1 - Tdap) DTaP/Tdap/Td Vaccines (1 - Tdap) [facility] Start: 1977 Urine microalbumin profile DTAP,TDAP,TD (1 - Tdap) [facility] Start: 1976 HEPATITIS C SCREENING HEPATITIS C SCREENING [facility] Start: 1976 Hepatitis C screening Hepatitis C Screening [facility] Start: 1976 HIV SCREENING HIV SCREENING [facility] Start: 1970 Adult depression screening assessment [facility] Start: 1959 MMR Vaccines (1 of 1 - Standard series) MMR Vaccines (1 of 1 - Standard series) [facility] Start: 1958 COVID-19 Vaccine (#1) COVID-19 Vaccine (#1) [facility] Start: 1958 Lipid panel Lipid Panel [facility] Start: 1958 Screening for malignant neoplasm of colon [facility] Start: 1958 Yearly Adult Physical Yearly Adult Physical [facility] Alanine aminotransfe rase [Enzymatic activity/volume] in Serum or Plasma [facility] Albumin [Mass/volume ] in Serum or Plasma [facility] Alkaline phosphatase [Enzymatic activity/volume] in Serum or Plasma [facility] Anion gap in Serum o r Plasma [facility] Anion gap measurement [facility] Work Phone: Bilirubin, total measurement [facility] Blood chemistry [facility] Work Phone: BUN/Creatinine ratio [facility] Work Phone: BUN/Creatinine ratio [facility] Calcium [Mass/volume ] in Serum or Plasma [facility] Work Phone: Calcium [Mass/volume ] in Serum or Plasma [facility] Carbon dioxide, tota l [Moles/volume] in Central venous blood [facility] Carbon dioxide, tota l [Moles/volume] in Serum or Plasma [facility] Work Phone: Chloride [Moles/volu me] in Serum or Plasma [facility] Work Phone: Complete blood count [facility] Work Phone: Creatinine [Mass/vol ume] in Serum or Plasma [facility] Creatinine [Moles/vo lume] in Serum or Plasma [facility] Work Phone: Erythrocyte mean corpuscular volume determination [facility] Glucose [Mass/volume ] in Serum or Plasma [facility] Work Phone: Glucose [Mass/volume ] in Serum or Plasma [facility] Hematocrit [Volume Fraction] of Blood [facility] Work Phone: Hematocrit [Volume Fraction] of Blood [facility] Hemoglobin [Mass/vol ume] in Blood [facility] Work Phone: Hemoglobin [Mass/vol ume] in Blood [facility] Leukocytes [#/volume ] in Blood [facility] Work Phone: Leukocytes [#/volume ] in Blood [facility] Mean corpuscular hem oglobin concentration determination [facility] Work Phone: Mean corpuscular hem oglobin concentration determination [facility] Mean corpuscular hem oglobin determination [facility] Work Phone: Mean corpuscular hem oglobin determination [facility] Measurement of renal function [facility] Work Phone: Measurement of renal function [facility] Neutrophil count [facility] Neutrophil percent differential count [facility] Patient Education [facility] Work Phone: Patient referral [facility] Work Phone: Platelets [#/volume] in Blood [facility] Work Phone: Platelets [#/volume] in Blood [facility] Potassium [Moles/vol ume] in Serum or Plasma [facility] Work Phone: Potassium measurement [facility] Red blood cell count [facility] Work Phone: Red blood cell count [facility] Red cell distributio n width determination [facility] Work Phone: Red cell distributio n width determination [facility] Serum chloride measurement [facility] Sodium [Moles/volume ] in Serum or Plasma [facility] Work Phone: Sodium measurement [facility] SPECT Parathyroid gland [facility] Total protein measurement [facility] Urea nitrogen [Mass/ volume] in Serum or Plasma [facility] Work Phone: Urea nitrogen [Mass/ volume] in Serum or Plasma [facility] Immunizations Immunization Date Immunization Notes Care Provider Fa cility 04-18-2021 Covid (Moderna) Dr. Angela Barton Work Phone: [facility] 10-11-2020 Brandicted) Dr. Angela Barton Work Phone: [facility] 09-13-2020 Brandicted) Dr. Angela Barton Work Phone: [facility] Payers Date Payer Category Payer Self-pay [id number] 2023 Private Health Insurance [id number] 2011 Private Health Insurance [id number] 2011 Private Health Insurance AETNA A ETNA CHOICE POS II [id number] 2011-Present [phone] [address] [place] [address] POS [id number] 2011 Private Health Insurance [id number] 1958 Unknown [id number] [id number]. 356 1958 Unknown [id number] 2..840.1.446907.3.579.2. 356 1958 Unknown [id number] 2..840.1.581024.3.579.2. 356 1958 Unknown [id number] 2..840.1.339213.3.579.2. 356 1958 Unknown [id number] 2..840.1.829350.3.579.2. 356 1958 Unknown [id number] 2..840.1.401051.3.579.2. 1244 1958 Unknown [id number] 2.840.1.012993.3.579.2. 1244 1958 Unknown [id number] 2.840.1.305463.3.579.2. 627 Unknown [employer]ET[employer] Unknown [id number] 2.840.1.190483.3.579.2. 462 Unknown [id number] 2.840.1.460664.3.579.2. 462 Unknown [id number] 2.840.1.338960.3.579.2. 462 Unknown [id number] 2.840.1.169870.3.579.2. 462 Unknown [id number] 2.840.1.128691.3.579.2. 462 Unknown [id number] 2.840.1.104847.3.579.2. 462 Unknown [id number] 2..840.1.549992.3.579.2. 462 Unknown [id number] 2..840.1.276188.3.579.2. 462 Unknown [id number] 2..840.1.897584.3.579.2. 462 Unknown [id number] 2..840.1.281692.3.579.2. 462 Unknown [id number] 2.16.840.1.434478.3.579.2. 462 Social History Date Type Detail Facility Start: 02-06-2017 End: 08-02-2024 Tobacco smoking status NHIS Never smoked tobacco [facility] Start: 02-06-2017 End: 08-10-2023 Tobacco use and exposure Smokeless tobacco non-user [facility] Start: 06-12-2017 End: 06-29-2022 Alcohol intake Current non-drinker of alcohol (finding) [facility] Start: 1960 Sex Assigned At Not on file [facility] Start: 09-13-2021 End: 02-09-2024 Exposure to SARS-CoV-2 (event) Not sure [facility] Work Phone: Start: 09-30-2021 End: 07-10-2023 Tobacco smoking status NHIS Unknown if ever smoked [facility] Start: 07-05-2019 Non-smoker [facility] Start: 1960 Sex Assigned At Male [facility] Start: 08-10-2023 End: 02-09-2024 Non-smoker Non-smoker [facility] [address] [place] Work Phone: Start: 08-10-2023 End: 02-09-2024 Gender identity Not on file [facility] Work Phone: Start: 08-10-2023 End: 02-09-2024 Alcohol intake Lifetime non-drinker (finding) [facility] Work Phone: Medical Equipment Procedure Code Equipment Code Equipment Origin al Text Equipment Identifier Dates Parathyroidectomy DRESSING,SURGI ALFREDITO 4x8 FDA Start: 02-13-2022 Parathyroidectomy SUTURE,LIGA CL IP MED [id number] FDA Start: 02-13-2022 Parathyroidectomy SUTURE,LIGA CL IP MED LT200 FDA Start: 02-13-2022 Parathyroidectomy SUTURE,LIGA CL IP SM LT-100 FDA Start: 02-13-2022 Parathyroidectomy SUTURE,LIGA CL IP SM LT-100 FDA Start: 02-13-2022 Parathyroidectomy DRESSING,SURGI ALFREDITO 4x8 FDA Start: 02-13-2022 Parathyroidectomy SUTURE,LIGA CL IP MED LT200 FDA Start: 02-13-2022 Parathyroidectomy SUTURE,LIGA CL IP MED LT200 FDA Start: 02-13-2022 Parathyroidectomy SUTURE,LIGA CL IP SM LT-100 FDA Start: 02-13-2022 Parathyroidectomy SUTURE,LIGA CL IP SM LT-100 FDA Start: 02-13-2022 Parathyroidectomy DRESSING,SURGI ALFREDITO 4x8 FDA Start: 02-13-2022 Parathyroidectomy SUTURE,LIGA CL IP MED LT200 FDA Start: 02-13-2022 Parathyroidectomy SUTURE,LIGA CL IP MED LT200 FDA Start: 02-13-2022 Parathyroidectomy SUTURE,LIGA CL IP SM LT-100 FDA Start: 02-13-2022 Parathyroidectomy SUTURE,LIGA CL IP SM LT-100 FDA Start: 02-13-2022 Parathyroidectomy DRESSING,SURGI ALFREDITO 4x8 FDA Start: 02-13-2022 Parathyroidectomy SUTURE,LIGA CL IP MED LT200 FDA Start: 02-13-2022 Parathyroidectomy SUTURE,LIGA CL IP MED LT200 FDA Start: 02-13-2022 Parathyroidectomy SUTURE,LIGA CL IP SM LT-100 FDA Start: 02-13-2022 Parathyroidectomy SUTURE,LIGA CL IP SM LT-100 FDA Start: 02-13-2022 Parathyroidectomy DRESSING,SURGI ALFREDITO 4x8 FDA Start: 02-13-2022 Parathyroidectomy SUTURE,LIGA CL IP MED LT200 FDA Start: 02-13-2022 Parathyroidectomy SUTURE,LIGA CL IP MED LT200 FDA Start: 02-13-2022 Parathyroidectomy SUTURE,LIGA CL IP SM LT-100 FDA Start: 02-13-2022 Parathyroidectomy SUTURE,LIGA CL IP SM LT-100 FDA Start: 02-13-2022 Parathyroidectomy DRESSING,SURGI ALFREDITO 4x8 FDA Start: 02-13-2022 Parathyroidectomy SUTURE,LIGA CL IP MED LT200 FDA Start: 02-13-2022 Parathyroidectomy SUTURE,LIGA CL IP MED LT200 FDA Start: 02-13-2022 Parathyroidectomy SUTURE,LIGA CL IP SM LT-100 FDA Start: 02-13-2022 Parathyroidectomy SUTURE,LIGA CL IP SM LT-100 FDA Start: 02-13-2022 Parathyroidectomy DRESSING,SURGI ALFREDITO 4x8 FDA Start: 02-13-2022 Parathyroidectomy SUTURE,LIGA CL IP MED LT200 FDA Start: 02-13-2022 Parathyroidectomy SUTURE,LIGA CL IP MED LT200 FDA Start: 02-13-2022 Parathyroidectomy SUTURE,LIGA CL IP SM LT-100 FDA Start: 02-13-2022 Parathyroidectomy SUTURE,LIGA CL IP SM LT-100 FDA Start: 02-13-2022 Parathyroidectomy DRESSING,SURGI ALFREDITO 4x8 FDA Start: 02-13-2022 Parathyroidectomy SUTURE,LIGA CL IP MED LT200 FDA Start: 02-13-2022 Parathyroidectomy SUTURE,LIGA CL IP MED LT200 FDA Start: 02-13-2022 Parathyroidectomy SUTURE,LIGA CL IP SM LT-100 FDA Start: 02-13-2022 Parathyroidectomy SUTURE,LIGA CL IP SM LT-100 FDA Start: 02-13-2022 Parathyroidectomy DRESSING,SURGI ALFREDITO 4x8 FDA Start: 02-13-2022 Parathyroidectomy SUTURE,LIGA CL IP MED LT200 FDA Start: 02-13-2022 Parathyroidectomy SUTURE,LIGA CL IP MED LT200 FDA Start: 02-13-2022 Parathyroidectomy SUTURE,LIGA CL IP SM LT-100 FDA Start: 02-13-2022 Parathyroidectomy SUTURE,LIGA CL IP SM LT-100 FDA Start: 02-13-2022 Parathyroidectomy DRESSING,SURGI ALFREDITO 4x8 FDA Start: 02-13-2022 Parathyroidectomy SUTURE,LIGA CL IP MED LT200 FDA Start: 02-13-2022 Parathyroidectomy SUTURE,LIGA CL IP MED LT200 FDA Start: 02-13-2022 Parathyroidectomy SUTURE,LIGA CL IP SM LT-100 FDA Start: 02-13-2022 Parathyroidectomy SUTURE,LIGA CL IP SM LT-100 FDA Start: 02-13-2022 Parathyroidectomy DRESSING,SURGI ALFREDITO 4x8 FDA Start: 02-13-2022 Parathyroidectomy SUTURE,LIGA CL IP MED LT200 FDA Start: 02-13-2022 Parathyroidectomy SUTURE,LIGA CL IP MED LT200 FDA Start: 02-13-2022 Parathyroidectomy SUTURE,LIGA CL IP SM LT-100 FDA Start: 02-13-2022 Parathyroidectomy SUTURE,LIGA CL IP SM LT-100 FDA Start: 02-13-2022 Parathyroidectomy DRESSING,SURGI ALFREDITO 4x8 FDA Start: 02-13-2022 Parathyroidectomy SUTURE,LIGA CL IP MED LT200 FDA Start: 02-13-2022 Parathyroidectomy SUTURE,LIGA CL IP MED LT200 FDA Start: 02-13-2022 Parathyroidectomy SUTURE,LIGA CL IP SM LT-100 FDA Start: 02-13-2022 Parathyroidectomy SUTURE,LIGA CL IP SM LT-100 FDA Start: 02-13-2022 Parathyroidectomy DRESSING,SURGI ALFREDITO 4x8 FDA Start: 02-13-2022 Parathyroidectomy SUTURE,LIGA CL IP MED LT200 FDA Start: 02-13-2022 Parathyroidectomy SUTURE,LIGA CL IP MED LT200 FDA Start: 02-13-2022 Parathyroidectomy SUTURE,LIGA CL IP SM LT-100 FDA Start: 02-13-2022 Parathyroidectomy SUTURE,LIGA CL IP SM LT-100 FDA Start: 02-13-2022 Parathyroidectomy DRESSING,SURGI ALFREDITO 4x8 FDA Start: 02-13-2022 Parathyroidectomy SUTURE,LIGA CL IP MED LT200 FDA Start: 02-13-2022 Parathyroidectomy SUTURE,LIGA CL IP MED LT200 FDA Start: 02-13-2022 Parathyroidectomy SUTURE,LIGA CL IP SM LT-100 FDA Start: 02-13-2022 Parathyroidectomy SUTURE,LIGA CL IP SM LT-100 FDA Start: 02-13-2022 Microlaryngoscopy PROLARYN VOICE GEL FDA Start: 04-22-2022 Microlaryngoscopy PROLARYN VOICE GEL FDA Start: 04-22-2022 Microlaryngoscopy PROLARYN VOICE GEL FDA Start: 04-22-2022 Microlaryngoscopy PROLARYN VOICE GEL FDA Start: 04-22-2022 Microlaryngoscopy PROLARYN VOICE GEL FDA Start: 04-22-2022 Microlaryngoscopy PROLARYN VOICE GEL FDA Start: 04-22-2022 Microlaryngoscopy PROLARYN VOICE GEL FDA Start: 04-22-2022 Microlaryngoscopy PROLARYN VOICE GEL FDA Start: 04-22-2022 Microlaryngoscopy PROLARYN VOICE GEL FDA Start: 04-22-2022 Microlaryngoscopy PROLARYN VOICE GEL FDA Start: 04-22-2022 6.5 mm CALCELLOU S BONE SCREW FDA Start: 07-12-2019 6.5 mm CANCELLOU S BONE SCREW FDA Start: 07-12-2019 132 neck angle h ip stem FDA Start: 07-12-2019 CLUSTER HOLE SHELL FDA Start: 07-12-2019 ceramic v40 femo ral head FDA Start: 07-12-2019 poly insert FDA Start: 07-12-2019 6.5 mm CALCELLOU S BONE SCREW FDA Start: 07-12-2019 6.5 mm CANCELLOU S BONE SCREW FDA Start: 07-12-2019 132 neck angle h ip stem FDA Start: 07-12-2019 CLUSTER HOLE SHELL FDA Start: 07-12-2019 ceramic v40 femo ral head FDA Start: 07-12-2019 poly insert FDA Start: 07-12-2019 6.5 mm CALCELLOU S BONE SCREW FDA Start: 07-12-2019 6.5 mm CANCELLOU S BONE SCREW FDA Start: 07-12-2019 132 neck angle h ip stem FDA Start: 07-12-2019 CLUSTER HOLE SHELL FDA Start: 07-12-2019 ceramic v40 femo ral head FDA Start: 07-12-2019 poly insert FDA Start: 07-12-2019 6.5 mm CALCELLOU S BONE SCREW FDA Start: 07-12-2019 6.5 mm CANCELLOU S BONE SCREW FDA Start: 07-12-2019 132 neck angle h ip stem FDA Start: 07-12-2019 CLUSTER HOLE SHELL FDA Start: 07-12-2019 ceramic v40 femo ral head FDA Start: 07-12-2019 poly insert FDA Start: 07-12-2019 132 neck angle h ip stem FDA Start: 07-12-2019 6.5 mm CALCELLOU S BONE SCREW FDA Start: 07-12-2019 6.5 mm CANCELLOU S BONE SCREW FDA Start: 07-12-2019 CLUSTER HOLE SHELL FDA Start: 07-12-2019 ceramic v40 femo ral head FDA Start: 07-12-2019 poly insert FDA Start: 07-12-2019 132 neck angle h ip stem FDA Start: 07-12-2019 6.5 mm CALCELLOU S BONE SCREW FDA Start: 07-12-2019 6.5 mm CANCELLOU S BONE SCREW FDA Start: 07-12-2019 CLUSTER HOLE SHELL FDA Start: 07-12-2019 ceramic v40 femo ral head FDA Start: 07-12-2019 poly insert FDA Start: 07-12-2019 132 neck angle h ip stem FDA Start: 07-12-2019 6.5 mm CALCELLOU S BONE SCREW FDA Start: 07-12-2019 6.5 mm CANCELLOU S BONE SCREW FDA Start: 07-12-2019 CLUSTER HOLE SHELL FDA Start: 07-12-2019 ceramic v40 femo ral head FDA Start: 07-12-2019 poly insert FDA Start: 07-12-2019 132 neck angle h ip stem FDA Start: 07-12-2019 6.5 mm CALCELLOU S BONE SCREW FDA Start: 07-12-2019 6.5 mm CANCELLOU S BONE SCREW FDA Start: 07-12-2019 CLUSTER HOLE SHELL FDA Start: 07-12-2019 ceramic v40 femo ral head FDA Start: 07-12-2019 poly insert FDA Start: 07-12-2019 132 neck angle h ip stem FDA Start: 07-12-2019 6.5 mm CALCELLOU S BONE SCREW FDA Start: 07-12-2019 6.5 mm CANCELLOU S BONE SCREW FDA Start: 07-12-2019 CLUSTER HOLE SHELL FDA Start: 07-12-2019 ceramic v40 femo ral head FDA Start: 07-12-2019 poly insert FDA Start: 07-12-2019 132 neck angle h ip stem FDA Start: 07-12-2019 6.5 mm CALCELLOU S BONE SCREW FDA Start: 07-12-2019 6.5 mm CANCELLOU S BONE SCREW FDA Start: 07-12-2019 CLUSTER HOLE SHELL FDA Start: 07-12-2019 ceramic v40 femo ral head FDA Start: 07-12-2019 poly insert FDA Start: 07-12-2019 132 neck angle h ip stem FDA Start: 07-12-2019 6.5 mm CALCELLOU S BONE SCREW FDA Start: 07-12-2019 6.5 mm CANCELLOU S BONE SCREW FDA Start: 07-12-2019 CLUSTER HOLE SHELL FDA Start: 07-12-2019 ceramic v40 femo ral head FDA Start: 07-12-2019 poly insert FDA Start: 07-12-2019 132 neck angle h ip stem FDA Start: 07-12-2019 6.5 mm CALCELLOU S BONE SCREW FDA Start: 07-12-2019 6.5 mm CANCELLOU S BONE SCREW FDA Start: 07-12-2019 CLUSTER HOLE SHELL FDA Start: 07-12-2019 ceramic v40 femo ral head FDA Start: 07-12-2019 poly insert FDA Start: 07-12-2019 132 neck angle h ip stem FDA Start: 07-12-2019 6.5 mm CALCELLOU S BONE SCREW FDA Start: 07-12-2019 6.5 mm CANCELLOU S BONE SCREW FDA Start: 07-12-2019 CLUSTER HOLE SHELL FDA Start: 07-12-2019 ceramic v40 femo ral head FDA Start: 07-12-2019 poly insert FDA Start: 07-12-2019 132 neck angle h ip stem FDA Start: 07-12-2019 6.5 mm CALCELLOU S BONE SCREW FDA Start: 07-12-2019 6.5 mm CANCELLOU S BONE SCREW FDA Start: 07-12-2019 CLUSTER HOLE SHELL FDA Start: 07-12-2019 ceramic v40 femo ral head FDA Start: 07-12-2019 poly insert FDA Start: 07-12-2019 132 neck angle h ip stem FDA Start: 07-12-2019 6.5 mm CALCELLOU S BONE SCREW FDA Start: 07-12-2019 6.5 mm CANCELLOU S BONE SCREW FDA Start: 07-12-2019 CLUSTER HOLE SHELL FDA Start: 07-12-2019 ceramic v40 femo ral head FDA Start: 07-12-2019 poly insert FDA Start: 07-12-2019 132 neck angle h ip stem FDA Start: 07-12-2019 6.5 mm CALCELLOU S BONE SCREW FDA Start: 07-12-2019 6.5 mm CANCELLOU S BONE SCREW FDA Start: 07-12-2019 CLUSTER HOLE SHELL FDA Start: 07-12-2019 ceramic v40 femo ral head FDA Start: 07-12-2019 poly insert FDA Start: 07-12-2019 132 neck angle h ip stem FDA Start: 07-12-2019 6.5 mm CALCELLOU S BONE SCREW FDA Start: 07-12-2019 6.5 mm CANCELLOU S BONE SCREW FDA Start: 07-12-2019 CLUSTER HOLE SHELL FDA Start: 07-12-2019 ceramic v40 femo ral head FDA Start: 07-12-2019 poly insert FDA Start: 07-12-2019 132 neck angle h ip stem FDA Start: 07-12-2019 6.5 mm CALCELLOU S BONE SCREW FDA Start: 07-12-2019 6.5 mm CANCELLOU S BONE SCREW FDA Start: 07-12-2019 CLUSTER HOLE SHELL FDA Start: 07-12-2019 ceramic v40 femo ral head FDA Start: 07-12-2019 poly insert FDA Start: 07-12-2019 132 neck angle h ip stem FDA Start: 07-12-2019 6.5 mm CALCELLOU S BONE SCREW FDA Start: 07-12-2019 6.5 mm CANCELLOU S BONE SCREW FDA Start: 07-12-2019 CLUSTER HOLE SHELL FDA Start: 07-12-2019 ceramic v40 femo ral head FDA Start: 07-12-2019 poly insert FDA Start: 07-12-2019 132 neck angle h ip stem FDA Start: 07-12-2019 6.5 mm CALCELLOU S BONE SCREW FDA Start: 07-12-2019 6.5 mm CANCELLOU S BONE SCREW FDA Start: 07-12-2019 CLUSTER HOLE SHELL FDA Start: 07-12-2019 ceramic v40 femo ral head FDA Start: 07-12-2019 poly insert FDA Start: 07-12-2019 132 neck angle h ip stem FDA Start: 07-12-2019 6.5 mm CALCELLOU S BONE SCREW FDA Start: 07-12-2019 6.5 mm CANCELLOU S BONE SCREW FDA Start: 07-12-2019 CLUSTER HOLE SHELL FDA Start: 07-12-2019 ceramic v40 femo ral head FDA Start: 07-12-2019 poly insert FDA Start: 07-12-2019 Goals Date Patient Goal Desired Activity /State Functional Status Date Assessment Result Facility 02-14-2022 Functional status Up ad tigist [facility] Work Phone: Mental Status Date Assessment Result Facility 10-27-2024 Cognitive function Awake;Alert;A ppropriate;Follo ws [facility] Work Phone: 10-28-2023 Cognitive function Voice/Name [facility] Work Phone: 04-22-2022 Cognitive function Level Of Cons ciousness Awake;Alert;Appropriate;Follo ws [facility] Work Phone: 04-22-2022 Cognitive function Voice/Name [facility] Work Phone: 02-14-2022 Cognitive function Voice/Name [facility] Work Phone: Clinical Notes 09-23-2021 to 12-08-2024 Note Date & Type Note Facility 12-08-2024 Evaluation note Diagnosis Onset Date Resolution Health care maintenance acute J une 2024 1:29pm Anxiety and depression chronic Ju ne 2024 1:29pm GERD (gastroesophageal reflux disease) chronic December 08, 2024 1:29pm Gout chronic December 08 1:29pm Hyperparathyroidism chronic December 08, 2024 1:29pm Hypertension chronic December 08 025 1:29pm [facility] Work Phone: 1(169) 781-955508-13-2024 History of Present illness Narrative* Tracy Ruggiero MD - 02/09/2024 10:45 AM EDT Chief Complaint Chief Complaint Patient presents with Follow-up 6 month follow up visit Pertinent History: He is s/p parathyroidectomy s/p excision and 4 gland exploration in 01/2022. He underwent a vocal cord injection with prolaryn by an outside ENT in 03/2022 without improvement. Left vocal cord paralysis s/p fat injection on 12/22/2022 Interval History (07/2023): His voice is stable. He has raspiness and fatigue at the end of the day. He is able to improve his voice by taking a deep breath prior to phonation. He is working on achieving euthyroid. Overall pleased with current course. Exam: VOICE: Near normal voice RESPIRATION: Breathing comfortably, no stridor. ORAL CAVITY/OROPHARYNX/LIPS: Normal mucous membranes, normal floor of mouth/tongue/OP, no masses orlesions are noted. SKIN: Neck skin is without scar or injury. PSYCH: Alert and oriented with appropriate mood and affect. PROCEDURE NOTE: Recommended stroboscopy. Risks, benefits, and alternatives were explained. They wished to proceed and provides verbal consent. PROCEDURE: Flexible laryngoscopy with stroboscopy, CPT 72487 POSTPROCEDURE DIAGNOSIS: Voice INDICATIONS: Inability to tolerate mirror exam or abnormal findings on mirror,Stroboscopy performedto assess one of the followin. Diagnosis of symptomatic disorder involving the voice, swallow, upper aerodigestive tract, including KIERRA disorders, or 2. Preoperative evaluation of vocal cord function for individuals undergoing surgery where the RLN or vagus nerves are at risk of injury, or 3. Further evaluation of abnormalities of the upper aerodigestive tract discovered by another modality, such as CT, MRI, bronchoscopy or EGD Description of Procedure: After adequate afrin and lidocaine spray, I advanced the endoscope. Visualization of the nasopharynx, vallecula, posterior pharyngeal webster, pyriform, epiglottis and post cricoid areas was unremarkable. The following laryngeal findings were noted: vocal cord movement was asymmetric with left immobile in the median position closure was complete Mucosal wave was symmetric, but slightly reduced on the left- likely stiffness from the fat injection vs slightly increased on the right with mild paresis Compression was increased mild AP > FVC the subglottis was widely patent Pharyngeal wall squeeze was normal Procedure well tolerated. 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 His exam is stable from previous visit. Voicing is stable and he is pleased with normal volume and ability to shoot. Mild raspiness is not bothersome to him. We discussed: He will follow up as needed. There are no restrictions to his voice. He will use breath support when talking. The patient's questions were answered. Scribe Attestation By signing my name below, I, Ardiana Lowejudy , Scribe attest that this documentation has been prepared under the direction and in the presence of Tracy Ruggiero MD. documented in this [facility] Work Phone: 1(927) 371-550302-12-2024 History of Present illness Narrative* Tracy Ruggiero MD - 08/10/2023 10:45 AM EST Chief Complaint Chief Complaint Patient presents with Hoarseness Pertinent History: He is s/p parathyroidectomy s/p excision and 4 gland exploration in 01/2022. He underwent a vocal cord injection with prolaryn by an outside ENT in 03/2022 without improvement. Left vocal cord paralysis s/p fat injection on 12/22/2022 Interval History (01/2023): The patient is accompanied by his . He has been doing well. He has a raspy voice at the end of the day. He has soft phonation at baseline and has noticed trouble increasing his volume in nosy environments. Overall improved from preop Exam: VOICE: Mild glottal farias, variable with breath support. Normal volume. RESPIRATION: Breathing comfortably, no stridor. ORAL CAVITY/OROPHARYNX/LIPS: Normal mucous membranes, normal floor of mouth/tongue/OP, no masses orlesions are noted. SKIN: Neck skin is without scar or injury. PSYCH: Alert and oriented with appropriate mood and affect. PROCEDURE NOTE: Recommended stroboscopy. Risks, benefits, and alternatives were explained. wished to proceed and provides verbal consent. PROCEDURE: Flexible laryngoscopy with stroboscopy, CPT 18406 POSTPROCEDURE DIAGNOSIS: voice INDICATIONS: Inability to tolerate mirror exam or abnormal findings on mirror, Flexible Laryngoscopy/Stroboscopy performed to assess one of the followin. Diagnosis of symptomatic disorder involving the voice, swallow, upper aerodigestive tract, including KIERRA disorders, or 2. Preoperative evaluation of vocal cord function for individuals undergoing surgery where the RLN or vagus nerves are at risk of injury, or 3. Further evaluation of abnormalities of the upper aerodigestive tract discovered by another modality, such as CT, MRI, bronchoscopy or EGD Description of Procedure: After adequate afrin and lidocaine spray, I advanced the endoscope. Visualization of the nasopharynx, vallecula, posterior pharyngeal webster, pyriform, epiglottis and post cricoid areas was unremarkable. The following laryngeal findings were noted: vocal cord movement was asymmetric with left immobile in the median position closure was complete Mucosal wave was symmetric, but slightly reduced on the left- likely stiffness from the fat injection Compression was increased mild AP > FVC the subglottis was widely patent Pharyngeal wall squeeze was normal Procedure well tolerated. 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 Today's exam showed improved positioning of the left vocal cord. He has mild stiffness of the left vocal cord secondary to fat injection. Otherwise, he was assured that his overall appearance is improved. We discussed: There are no restrictions to his voice. He was encouraged to take a deep breath before speaking to improve respiratory drive. He will follow up in one year, or as needed if there are changes to his voice or breathing. The patient's questions were answered. Scribe Attestation By signing my name below, IAdriana , Scribe attest that this documentation has been prepared under the direction and in the presence of Tracy Ruggiero MD. documented in this [facility] Work Phone: 1(988) 967-496007-11-2023 Reason for visit Narrative* An interactive audio and video telecommunication system which permits real time communications between the patient (at the originating site) and provider (at the distant site) was utilized to providethis telehealth service. * Verbal consent was requested and obtained from GREGORY REYNOSO on this date, 01/06/2023 09:45 AM , for a telehealth visit. [facility] [address] [place] Work Phone: 1(572) 185-383106-26-2023 NotePROCEDURE DETAILS Preoperative Diagnosis: 1. Left vocal cord paresis, J38.00 2. Hoarseness 3. Glottic Insuffiency Postoperative Diagnosis: 1. Left vocal cord paresis, J38.00 2. Hoarseness 3. Glottic Insuffiency Surgeon: Tracy Ruggiero Resident/Fellow/Other Poacher Wringer Operator: Peter Chu Procedure: 1. Right thigh fat graft harvest 2. Microdirect laryngoscopy with left vocal cord injection Anesthesia: \Bernie Liz Estimated Blood Loss: <1cc Findings: atrophic left vocal cord Specimens(s) Collected: no, Operative Report: Indication for Surgery : Hoarseness with persistent findings of left vocal cord paresis. Requests longer lasting option, with decision to proceed with fat injection due to desire to limit external incisions. Risks and benefits discussed to include but not be limited to bleeding, infection, damage to surrounding structures including the teeth, gums, lips and tongue, hoarseness which may be permanent, scarring, swallow changes which may require secondary intervention, change in taste which may not completely resolve, medical complications, and risks of anesthesia. Description of Procedure: The patient was taken to the operating room and placed in the supine position on the operating room table. A time out procedure was performed confirming patient and site. Following satisfactory induction of general anesthesia, the upper teeth were covered with a moldable tooth guard. The patient was intubated with a 5.0 WEB UI DESIGNER. An initial diagnostic laryngoscopy with microscope was performed which revealed a normal vallecula, bilateral pyriforms, immediate subglottis and no gross lesions or masses. The right thigh was prepped and draped in sterile fashion and anesthetized with 1% lidocaine with epinephrine. A 15 blade was used to make a stab incision in the postero-lateral aspect of the thigh. A liposuction cannula with a syringe was inserted through the stab incision and about 4-5 mLs of fat were obtained.. This was irrigated with sterile saline, and allowed to absorb additional water via telfa. It was then packed into the Bruening syringe with the 19g needle then attached. The Bruenning syringe was then loaded and primed with the fat. The Dedo laryngoscope was advanced until the vocal cords were visualized and suspended. The microscope was moved in position, and utilized for remainder of the procedure. Appropriate eye and face protections was applied to the patient. Under microscopic guidance, the left vocal cord was injected lateral to the vocal ligament with fat using about 9 clicks to medialize, with 20% overcorrection. 5-0fast absorbing gut sutures were placed in the right thigh with a telfa island dressing. Pressure was held throughout the procedure to minimize hematoma formation. The patient tolerated this well. The patient was then turned back to Anesthesia for extubation and returned to the recovery room in satisfactory condition. Sponge, needle, instrument counts were reported as correct. Estimated blood loss was minimal. I was present and participated in all aspects of procedure. Note Recipients: Min Barton MD - [id number] [] Attestation: Note Completion: Attending AttestationI was present for the entire procedure Electronic Signatures: Tracy Ruggiero) (Signed 22-Dec-2022 10:19) Authored: Post-Operative Note, Chart Review, Note Completion Last Updated: 22-Dec-2022 10:19 by Tracy Ruggiero)[facility]06-26-2023 Miscellaneous Notes* Op Note - Tracy Ruggiero MD - 12/22/2022 10:10 AM EDT PROCEDURE DETAILS Preoperative Diagnosis: 1. Left vocal cord paresis, J38.00 2. Hoarseness 3. Glottic Insuffiency Postoperative Diagnosis: 1. Left vocal cord paresis, J38.00 2. Hoarseness 3. Glottic Insuffiency Surgeon: Tracy Ruggiero Resident/Fellow/Other Poacher Wringer Operator: Peter Chu Procedure: 1. Right thigh fat graft harvest 2. Microdirect laryngoscopy with left vocal cord injection Anesthesia: \Shalonda Lorinlauramisti Estimated Blood Loss: <1cc Findings: atrophic left vocal cord Specimens(s) Collected: no, Operative Report: Indication for Surgery : Hoarseness with persistent findings of left vocal cord paresis. Requests longer lasting option, with decision to proceed with fat injection due to desire to limit external incisions. Risks and benefits discussed to include but not be limited to bleeding, infection, damage to surrounding structures including the teeth, gums, lips and tongue, hoarseness which may be permanent, scarring, swallow changes which may require secondary intervention, change in taste which may not completely resolve, medical complications, and risks of anesthesia. Description of Procedure: The patient was taken to the operating room and placed in the supine position on the operating roomtable. A time out procedure was performed confirming patient and site. Following satisfactory induction of general anesthesia, the upper teeth were covered with a moldable tooth guard. The patient was intubated with a 5.0 WEB UI DESIGNER. An initial diagnostic laryngoscopy with microscope was performed which revealed a normal vallecula,bilateral pyriforms, immediate subglottis and no gross lesions or masses. The right thigh was prepped and draped in sterile fashion and anesthetized with 1% lidocaine with epinephrine. A 15 blade wasused to make a stab incision in the postero-lateral aspect of the thigh. A liposuction cannula witha syringe was inserted through the stab incision and about 4-5 mLs of fat were obtained.. This was irrigated with sterile saline, and allowed to absorb additional water via telfa. It was then packed into the Bruening syringe with the 19g needle then attached. The Bruenning syringe was then loaded and primed with the fat. The Dedo laryngoscope was advanced until the vocal cords were visualized and suspended. The microscope was moved in position, and utilized for remainder of the procedure. Appropriate eye and face protections was applied to the patient. Under microscopic guidance, the left vocal cord was injected lateral to the vocal ligament with fat using about 9 clicks to medialize, with 20% overcorrection. 5-0fast absorbing gut sutures were placed in the right thigh with a telfa island dressing. Pressure washeld throughout the procedure to minimize hematoma formation. The patient tolerated this well. The patient was then turned back to Anesthesia for extubation and returned to the recovery room in satisfactory condition. Sponge, needle, instrument counts were reported as correct. Estimated blood loss was minimal. I was present and participated in all aspects of procedure. Note Recipients: Min Barton MD - [phone] [] Attestation: Note Completion: Attending Attestation I was present for the entire procedure Electronic Signatures: Tracy Ruggiero) (Signed 22-Dec-2022 10:19) Authored: Post-Operative Note, Chart Review, Note Completion Last Updated: 22-Dec-2022 10:19 by Tracy Ruggiero) documented in this [facility] Work Phone: 1([phone]) [phone] Note* Op Note - Tracy Rugigero MD - 12/22/2022 10:10 AM EDT PROCEDURE DETAILS Preoperative Diagnosis: 1. Left vocal cord paresis, J38.00 2. Hoarseness 3. Glottic Insuffiency Postoperative Diagnosis: 1. Left vocal cord paresis, J38.00 2. Hoarseness 3. Glottic Insuffiency Surgeon: Tracy Ruggiero Resident/Fellow/Other Poacher Wringer Operator: Peter Chu Procedure: 1. Right thigh fat graft harvest 2. Microdirect laryngoscopy with left vocal cord injection Anesthesia: \Bernie Liz Estimated Blood Loss: <1cc Findings: atrophic left vocal cord Specimens(s) Collected: no, Operative Report: Indication for Surgery : Hoarseness with persistent findings of left vocal cord paresis. Requests longer lasting option, with decision to proceed with fat injection due to desire to limit external incisions. Risks and benefits discussed to include but not be limited to bleeding, infection, damage to surrounding structures including the teeth, gums, lips and tongue, hoarseness which may be permanent, scarring, swallow changes which may require secondary intervention, change in taste which may not completely resolve, medical complications, and risks of anesthesia. Description of Procedure: The patient was taken to the operating room and placed in the supine position on the operating roomtable. A time out procedure was performed confirming patient and site. Following satisfactory induction of general anesthesia, the upper teeth were covered with a moldable tooth guard. The patient was intubated with a 5.0 WEB UI DESIGNER. An initial diagnostic laryngoscopy with microscope was performed which revealed a normal vallecula,bilateral pyriforms, immediate subglottis and no gross lesions or masses. The right thigh was prepped and draped in sterile fashion and anesthetized with 1% lidocaine with epinephrine. A 15 blade wasused to make a stab incision in the postero-lateral aspect of the thigh. A liposuction cannula witha syringe was inserted through the stab incision and about 4-5 mLs of fat were obtained.. This was irrigated with sterile saline, and allowed to absorb additional water via telfa. It was then packed into the Bruening syringe with the 19g needle then attached. The Bruenning syringe was then loaded and primed with the fat. The Dedo laryngoscope was advanced until the vocal cords were visualized and suspended. The microscope was moved in position, and utilized for remainder of the procedure. Appropriate eye and face protections was applied to the patient. Under microscopic guidance, the left vocal cord was injected lateral to the vocal ligament with fat using about 9 clicks to medialize, with 20% overcorrection. 5-0fast absorbing gut sutures were placed in the right thigh with a telfa island dressing. Pressure washeld throughout the procedure to minimize hematoma formation. The patient tolerated this well. The patient was then turned back to Anesthesia for extubation and returned to the recovery room in satisfactory condition. Sponge, needle, instrument counts were reported as correct. Estimated blood loss was minimal. I was present and participated in all aspects of procedure. Note Recipients: Min Barton MD - [id number] [] Attestation: Note Completion: Attending Attestation I was present for the entire procedure Electronic Signatures: Tracy Ruggiero) (Signed 22-Dec-2022 10:19) Authored: Post-Operative Note, Chart Review, Note Completion Last Updated: 22-Dec-2022 10:19 by Tracy Ruggiero) [facility] Work Phone: 1([phone]) [phone] NoteHistory of Present Illness: History Present Illness: Reason for surgery: Left vocal cord paresis HPI: This patient is a 62-year-old male with a history of a left vocal cord paresis following a parathyroidectomy who presents for MDL, vocal cord medialization with fat graft. Therefore, given the above, decision was made to proceed to the operating room for the below listed procedures. The risks, benefits, and alternatives of surgery were discussed extensively in the outpatient setting. Please see outpatient clinic note for complete details of the discussion. There have otherwise been no major changes to the patient's medical status since the previous outpatient surgical visit. No new complaints or relevant history to note today. All questions were answered. Informed consent was obtained/confirmed. Allergies: Allergies: No Known Allergies: Home Medication Review: Home Medications Reviewed: yes Impression/Procedure: Impression and Planned Procedure: MDL, left vocal cord injection with fat autograft ERAS (Enhanced Recovery After Surgery): ERAS Patient: no Physical Exam by System: Constitutional: Well developed, awake/alert/oriented x3, no distress, alert and cooperative Eyes: Sclera nonicteric. EOMI ENMT: Dysphonia Head/Neck: Neck supple, no apparent injury, No JVD, trachea midline Respiratory/Thorax: Good chest expansion, thorax symmetric. Breathing unlabored Cardiovascular: No signs of peripheral edema or cyanosis Extremities: Moving all extremities spontaneously. No evidence of clubbing or contracture Neurological: alert and oriented x3, intact senses, normal strength Psychological: Appropriate mood and behavior Skin: Warm and dry, no lesions, no rashes Consent: COVID-19 Consent: COVID-19 Risk ConsentSurgeon has reviewed nguyen risks related to the risk of phani COVID-19 and if they contract COVID-19 what the risks are. Attestation: Note Completion: I am a: Resident/Fellow Attending AttestationI saw and evaluated the patient. I personally obtained the nguyen and critical portions of the history and physical exam or was physically present for nguyen and critical portions performed by the resident/fellow. I reviewed the resident/fellows documentation and discussed the patient with the resident/fellow. I agree with the resident/fellows medical decision making as documented in the note. I personally evaluated the patient [id number] Electronic Signatures: Peter Chu (Resident)) (Signed 22-Dec-2022 07:36) Authored: History of Present Illness, Allergies, Home Medication Review, Impression/Procedure, ERAS, Physical Exam, Consent, Note Completion Tracy Ruggiero) (Signed 22-Dec-2022 09:34) Authored: Note Completion Co-Signer: History of Present Illness, Allergies, Home Medication Review, Impression/Procedure, ERAS, Physical Exam, Consent, Note Completion Last Updated: 22-Dec-2022 09:34 by Tracy Ruggiero)[facility]06-26-2023 History and physical note* Peter Chu MD - 12/22/2022 7:31 AM EDT History of Present Illness: History Present Illness: Reason for surgery: Left vocal cord paresis HPI: This patient is a 62-year-old male with a history of a left vocal cord paresis following a parathyroidectomy who presents for MDL, vocal cord medialization with fat graft. Therefore, given the above,decision was made to proceed to the operating room for the below listed procedures. The risks, benefits, and alternatives of surgery were discussed extensively in the outpatient setting. Please see outpatient clinic note for complete details of the discussion. There have otherwise been no major changes to the patient's medical status since the previous outpatient surgical visit. No new complaintsor relevant history to note today. All questions were answered. Informed consent was obtained/confirmed. Allergies: Allergies: No Known Allergies : Home Medication Review: Home Medications Reviewed: yes Impression/Procedure: Impression and Planned Procedure: MDL, left vocal cord injection with fat autograft ERAS (Enhanced Recovery After Surgery): ERAS Patient: no Physical Exam by System: Constitutional: Well developed, awake/alert/oriented x3, no distress, alert and cooperative Eyes: Sclera nonicteric. EOMI ENMT: Dysphonia Head/Neck: Neck supple, no apparent injury, No JVD, trachea midline Respiratory/Thorax: Good chest expansion, thorax symmetric. Breathing unlabored Cardiovascular: No signs of peripheral edema or cyanosis Extremities: Moving all extremities spontaneously. No evidence of clubbing or contracture Neurological: alert and oriented x3, intact senses, normal strength Psychological: Appropriate mood and behavior Skin: Warm and dry, no lesions, no rashes Consent: COVID-19 Consent: COVID-19 Risk Consent Surgeon has reviewed nguyen risks related to the risk of phani COVID-19 and if they contract COVID-19 what the risks are. Attestation: Note Completion: I am a: Resident/Fellow Attending Attestation I saw and evaluated the patient. I personally obtained the nguyen and critical portions of the history and physical exam or was physically present for nguyen and critical portions performed by the resident/fellow. I reviewed the resident/fellow?s documentation and discussed the patient with the resident/fellow. I agree with the resident/fellow?s medical decision making as documented in the note. I personally evaluated the patient on 22-Dec-2022 Electronic Signatures: Peter Chu (Resident)) (Signed 22-Dec-2022 07:36) Authored: History of Present Illness, Allergies, Home Medication Review, Impression/Procedure, ERAS, Physical Exam, Consent, Note Completion Tracy Ruggiero) (Signed 22-Dec-2022 09:34) Authored: Note Completion Co-Signer: History of Present Illness, Allergies, Home Medication Review, Impression/Procedure, ERAS, Physical Exam, Consent, Note Completion Last Updated: 22-Dec-2022 09:34 by Tracy Ruggiero) [facility] Work Phone: 1(445) 311-878506-26-2023 History and physical note* Peter Chu MD - 12/22/2022 7:31 AM EDT History of Present Illness: History Present Illness: Reason for surgery: Left vocal cord paresis HPI: This patient is a 62-year-old male with a history of a left vocal cord paresis following a parathyroidectomy who presents for MDL, vocal cord medialization with fat graft. Therefore, given the above,decision was made to proceed to the operating room for the below listed procedures. The risks, benefits, and alternatives of surgery were discussed extensively in the outpatient setting. Please see outpatient clinic note for complete details of the discussion. There have otherwise been no major changes to the patient's medical status since the previous outpatient surgical visit. No new complaintsor relevant history to note today. All questions were answered. Informed consent was obtained/confirmed. Allergies: Allergies: No Known Allergies : Home Medication Review: Home Medications Reviewed: yes Impression/Procedure: Impression and Planned Procedure: MDL, left vocal cord injection with fat autograft ERAS (Enhanced Recovery After Surgery): ERAS Patient: no Physical Exam by System: Constitutional: Well developed, awake/alert/oriented x3, no distress, alert and cooperative Eyes: Sclera nonicteric. EOMI ENMT: Dysphonia Head/Neck: Neck supple, no apparent injury, No JVD, trachea midline Respiratory/Thorax: Good chest expansion, thorax symmetric. Breathing unlabored Cardiovascular: No signs of peripheral edema or cyanosis Extremities: Moving all extremities spontaneously. No evidence of clubbing or contracture Neurological: alert and oriented x3, intact senses, normal strength Psychological: Appropriate mood and behavior Skin: Warm and dry, no lesions, no rashes Consent: COVID-19 Consent: COVID-19 Risk Consent Surgeon has reviewed nguyen risks related to the risk of phani COVID-19 and if they contract COVID-19 what the risks are. Attestation: Note Completion: I am a: Resident/Fellow Attending Attestation I saw and evaluated the patient. I personally obtained the nguyen and critical portions of the history and physical exam or was physically present for nguyen and critical portions performed by the resident/fellow. I reviewed the resident/fellow?s documentation and discussed the patient with the resident/fellow. I agree with the resident/fellow?s medical decision making as documented in the note. I personally evaluated the patient on 22-Dec-2022 Electronic Signatures: Peter Chu (Resident)) (Signed 22-Dec-2022 07:36) Authored: History of Present Illness, Allergies, Home Medication Review, Impression/Procedure, ERAS, Physical Exam, Consent, Note Completion Tracy Ruggiero) (Signed 22-Dec-2022 09:34) Authored: Note Completion Co-Signer: History of Present Illness, Allergies, Home Medication Review, Impression/Procedure, ERAS, Physical Exam, Consent, Note Completion Last Updated: 22-Dec-2022 09:34 by Tracy Ruggiero) documented in this [facility] Work Phone: 1(298) 323-972505-01-2023 History of Present illness Narrative* Left vocal cord paralysis. * Interval History (10/2022): * She is s/p a leftat injection on 12/22/2022. He has a raspy voice is low volume phonation. He reports that he has fatigue at the end of the day, but has noticed overall voice improvement. He has worked with speech therapy. * No swallowing, breathing, laryngospasm, fever, chills, nausea or vomiting. * ROS performed. All other systems are reviewed and are negative for complaint except as noted in HPI. [facility] [address] Work Phone: 1(247) 318-261105-01-2023 History of Present illness Narrative* Left vocal cord paralysis. * Interval History (10/2022): * She is s/p a left fat injection on 12/22/2022. He has a raspy voice is low volume phonation. He reports that he has fatigue at the end of the day, but has noticed overall voice improvement. He has worked with speech therapy. * No swallowing, breathing, laryngospasm, fever, chills, nausea or vomiting. * ROS performed. All other systems are reviewed and are negative for complaint except as noted in HPI. [facility] [address] Work Phone: 1([phone]) 325-161002-02-2023 History of Present illness Narrative* Voice assessment: * Patient presents with dysphonia 2/2 a diagnosis of left vocal cord immobility, s/p augmentation procedure on 12/22/2022. Residual compensatory MTD suspected with frequent throat clearing. Patient appears to be an excellent candidate for therapy which will target vocal wellness and voice rebalancing. * Voice quality based on the GRBAS scale: 0=absent; 1=mild; 2=moderate; 3=severe * Grade: 1-2 * Roughness: 1-2 * Breathiness: 0 * Asthenia: 0 * Strain: 1-2 * Contributing Factors: supraglottic compression , inadequate breath support , decreased neuromuscular control of speech/swallow muscles , habitual behaviors that misuse/abuse the voice and abnormal vibratory mechanisms due to physical changes * NOMS Score: mild-moderate: level 5 * Treatment recommendations: treatment indicated (see goals below) [facility] [address] Work Phone: [phone]) 474-414801-01-2023 NoteHNO ID: [id number] Author: Tracy Oates APRN.LABOUR MARKET ECONOMIST Service: ? Author Type: Nurse Practitioner Type: Progress Notes Filed: 06/29/2022 8:46 AM Note Text: This note was created using CICCWORLDriter. Subjective Gregory Reynoso is a 62 year old male. HPI by patient: Gregory is a 62 year old presenting to the office with the complaint of URI Started approximately 4 days ago. Was seen by PCP 3 days ago for same complaint. Was negative for Covid and Flu at that time. Associated symptoms include sore throat, congestion, hoarseness, PND, chills Denies fever Vaccinated for influenza: no Covid Immunization Dates Overdue - COVID-19 VACCINE (4 - Booster for Moderna series) Overdue since 06/13/2021 04/18/2021 Outside Immunization: Covid (Moderna) 10/11/2020 Imm Admin: COVID-19 original vaccine, full dose, monovalent (MODERNA) 09/13/2020 Imm Admin: COVID-19 original vaccine, full dose, monovalent (MODERNA) Personal history of Covid: no Flu/RSV contacts: no Strep contacts: no Sick contacts: no Covid + contacts: no Travel in the last 14 days: no Smoking history/second hand smoke: no OTC mucinex No antibiotic use in the last 60 days. ALLERGIES No Known Allergies No family history on file. Social History Tobacco Use Smoking status: Never Smokeless tobacco: Never Alcohol use: No Drug use: No Review of Systems Constitutional: Positive for chills. Negative for fever. HENT: Positive for congestion, postnasal drip, rhinorrhea and sore throat. Negative for ear pain. Respiratory: Positive for cough. Cardiovascular: Negative for chest pain. Allergic/Immunologic: Negative for immunocompromised state. Neurological: Negative for headaches. Hematological: Negative for adenopathy. Objective There were no vitals taken for this visit. Physical Exam Vitals and nursing note reviewed. Constitutional: Appearance: He is well-developed. HENT: Right Ear: Tympanic membrane and ear canal normal. Left Ear: Tympanic membrane and ear canal normal. Nose: Congestion and rhinorrhea present. Mouth/Throat: Mouth: Mucous membranes are moist. Pharynx: Oropharynx is clear. Uvula midline. Posterior oropharyngeal erythema present. No oropharyngeal exudate. Cardiovascular: Rate and Rhythm: Normal rate and regular rhythm. Heart sounds: Normal heart sounds. Pulmonary: Effort: Pulmonary effort is normal. Breath sounds: Normal breath sounds. Lymphadenopathy: Cervical: No cervical adenopathy. Skin: General: Skin is warm and dry. Neurological: Mental Status: He is alert and oriented to person, place, and time. Assessment and Plan ASSESSMENT/PLAN: 1. Sore throat - ICD9: 462, ICD10: J02.9 - suspect viral - Rapid Strep negative in the office today - Discussed supportive care treatment with fluids, rest and analgesia. - STREP A MOLECULAR (POC) - PREDNISONE 10 MG TABLET Tracy Oates APRN.LABOUR MARKET ECONOMIST Medical Decision Making: Problems: Moderate: New problem with uncertain prognosis Data: Unique test(s) ordered: 1 Risk: Moderate: Drug management Medical Decision Making Level: 4 - Moderate This patient encounter involved the screening or treatment of novel coronavirus infection (COVID-19).[facility] [place]01-01-2023 Instructions* Patient Instructions* Tracy Oates APRN.LABOUR MARKET ECONOMIST - 06/29/2022 8:45 AM EST UPPER RESPIRATORY INFECTIONS Most cases are caused by viruses and most cases are mild, temporary, and harmless. Symptoms can last 2 to 3 weeks and can include: nasal congestion, sore throat, coughing, muscles aches, headaches, nausea, diarrhea, fatigue and fever. 1. Drink plenty of fluids. 2. Get lots of rest. 3. Avoid dehydrants such as caffeine and alcohol. 4. Nasal saline is an effective decongestant and be used frequently throughout the day. 5. To loosen phlegm and help coughing, drink plenty of fluids and using a humidifier. 6. For sore throats, it is ok to use cough drops, throat sprays, or gargling warm salt water. 7. Always cover your mouth when you cough or sneeze, and wash your hands frequently. Avoid crowded areas like shopping centers, movies while you are sick so you don't machine pecan picker a different virus, or infect others. 8. Avoid exposure to cigarettes or fumes. 9. Avoid irritants such as potpourri, dust, perfumes, scented candles and scented sprays 10. Air conditioning is an effective allergen and irritant avoidance strategy in the spring, summerand fall. 11. Honey is an effective cough suppressant. Try one tsp two to three times per day. The below information is from prescribersletter.[employer]: Antibiotics Will rarely help an upper respiratory infections. Antibiotics lead to more resistant infections that are harder to treat. There is little to no benefit to taking antibiotics for most acute upper respiratory tract infections. [facility] History of Present illness Narrative* Tracy Oates APRN.CNP - 06/29/2022 8:28 AM EST This note was created using [employer]iderter. Subjective Gregory Reynoso is a 62 year old male. HPI by patient: Gregory is a 62 year old presenting to the office with the complaint of URI Started approximately 4 days ago. Was seen by PCP 3 days ago for same complaint. Was negative for Covid and Flu at that time. Associated symptoms include sore throat, congestion, hoarseness, PND, chills Denies fever Vaccinated for influenza: no Covid Immunization Dates Overdue - COVID-19 VACCINE (4 - Booster for Moderna series) Overdue since 06/13/2021 04/18/2021 Outside Immunization: Covid (Moderna) 10/11/2020 Imm Admin: COVID-19 original vaccine, full dose, monovalent (MODERNA) 09/13/2020 Imm Admin: COVID-19 original vaccine, full dose, monovalent (MODERNA) Personal history of Covid: no Flu/RSV contacts: no Strep contacts: no Sick contacts: no Covid + contacts: no Travel in the last 14 days: no Smoking history/second hand smoke: no OTC mucinex No antibiotic use in the last 60 days. ALLERGIES No Known Allergies No family history on file. Social History Tobacco Use Smoking status: Never Smokeless tobacco: Never Alcohol use: No Drug use: No Review of Systems Constitutional: Positive for chills. Negative for fever. HENT: Positive for congestion, postnasal drip, rhinorrhea and sore throat. Negative for ear pain. Respiratory: Positive for cough. Cardiovascular: Negative for chest pain. Allergic/Immunologic: Negative for immunocompromised state. Neurological: Negative for headaches. Hematological: Negative for adenopathy. Objective There were no vitals taken for this visit. Physical Exam Vitals and nursing note reviewed. Constitutional: Appearance: He is well-developed. HENT: Right Ear: Tympanic membrane and ear canal normal. Left Ear: Tympanic membrane and ear canal normal. Nose: Congestion and rhinorrhea present. Mouth/Throat: Mouth: Mucous membranes are moist. Pharynx: Oropharynx is clear. Uvula midline. Posterior oropharyngeal erythema present. No oropharyngeal exudate. Cardiovascular: Rate and Rhythm: Normal rate and regular rhythm. Heart sounds: Normal heart sounds. Pulmonary: Effort: Pulmonary effort is normal. Breath sounds: Normal breath sounds. Lymphadenopathy: Cervical: No cervical adenopathy. Skin: General: Skin is warm and dry. Neurological: Mental Status: He is alert and oriented to person, place, and time. Assessment and Plan ASSESSMENT/PLAN: 1. Sore throat - ICD9: 462, ICD10: J02.9 - suspect viral - Rapid Strep negative in the office today - Discussed supportive care treatment with fluids, rest and analgesia. - STREP A MOLECULAR (POC) - PREDNISONE 10 MG TABLET Tracy Oates APRN.LABOUR MARKET ECONOMIST Medical Decision Making: Problems: Moderate: New problem with uncertain prognosis Data: Unique test(s) ordered: 1 Risk: Moderate: Drug management Medical Decision Making Level: 4 - Moderate This patient encounter involved the screening or treatment of novel coronavirus infection (COVID-19). [facility] NoteHNO ID: [id number] Author: GÓMEZ Marks) Service: ? Author Type: Technologist Type: Progress Notes Filed: 09/25/2021 7:00 AM Note Text: RADIOLOGY SERVICE PROGRESS NOTE SERVICE DATE: 09/23/2021 SERVICE TIME: 9:35 AM PATIENT IDENTITY VERIFICATION COMPLETED USING TWO (2) STANDARD IDENTIFIERS: Name and Date of confirmed by patient verbally FALL SCREENING: Has the patient had 2 falls in the last year or 1 fall with injury or currently using an Ambulatory Assistive Device (Walker, Cane, Wheelchair, Crutches, etc.)? No PATIENT GENDER DATA: .male ALLERGIES: Reviewed and unchanged MEDICATIONS REVIEWED: Not applicable PATIENT RELEVANT IMPLANT DATA REVIEWED: Not Applicable CREATININE: No results found for: CREAT, EGFROTH, EGFRAA P.O.C.T. RESULTS: N/A September 23, [address] PERFORMED: No IV SITE: Ambulatory: A peripheral IV was started in the Right antecubital site with a Angio cath: 22 gauge. POST EXAM PIV STATUS: Discontinued PROCEDURE TYPE: NM Parathyroid: 359.0 microcurries of Nal 123 capsules was administered orally at 0930. 35.0 mCi of Tc99m Sestamibi was injected IV at 1230. ADMINISTRATION TIME: PATIENT DISCHARGED TO: Ambulatory patient, left [place] department area. A Diagnostic radioactive procedure has taken place, with no further precautions necessary other than routine body substance precautions. More information regarding radiation safety can be found using this link: [email or web address] SIGNATURE: GÓMEZ Marks) PATIENT NAME: Gregory Reynoso DATE: September 23, 2021 TIME: 9:35 AM [facility] [place] Diagnosis Onset Date Resolution Status Prostate cancer acute Vitamin D deficiency acute Gout chronic Hypertension chronic Hyperparathyroidism acute Hypercalcemia acute Hyperparathyroidism acute Hyperparathyroidism acute [facility] Work Phone: Evaluation note* Diagnosis Onset Date Resolution Status Prostate cancer acute Vitamin D deficiency acute Gout chronic Hypertension chronic Hyperparathyroidism acute Hypercalcemia acute Hyperparathyroidism acute Hyperparathyroidism acute Hyperparathyroidism acute Osteopenia acute Gout chronic Hypertension chronic [facility] Work Phone: Evaluation note* Diagnosis Onset Date Resolution Status Hyperparathyroidism acute Hypercalcemia acute Hyperparathyroidism acute Hyperparathyroidism acute Hyperparathyroidism acute Osteopenia acute Gout chronic Hypertension chronic Hyperparathyroidism acute [facility] Work Phone: Evaluation note* Diagnosis Onset Date Resolution Status Hypercalcemia acute Hyperparathyroidism acute Hyperparathyroidism acute Hyperparathyroidism acute Osteopenia acute Gout chronic Hypertension chronic Hyperparathyroidism acute Gout attack noneactive [facility] Work Phone: Evaluation note* Diagnosis Onset Date Resolution Status Hyperparathyroidism acute Gout attack noneactive [facility] Work Phone: Evaluation note* Diagnosis Onset Date Resolution Status Hyperparathyroidism chronic Gout attack noneactive Gout chronic Hyperparathyroidism chronic Hypertension chronic Hoarseness of voice acute S/P parathyroidectomy acute Hyperparathyroidism chronic [facility] Work Phone: Evaluation note* Diagnosis Onset Date Resolution Status Hyperparathyroidism chronic Gout attack noneactive Gout chronic Hyperparathyroidism chronic Hypertension chronic Hoarseness of voice acute S/P parathyroidectomy acute Hyperparathyroidism chronic Anxiety and depression chron ic Gout chronic Hoarseness of voice acute S/P parathyroidectomy acute Hyperparathyroidism chronic [facility] Work Phone: Evaluation note* Diagnosis Onset Date Resolution Status Gout attack noneactive Gout chronic Hyperparathyroidism chronic Hypertension chronic Hoarseness of voice acute S/P parathyroidectomy acute Hyperparathyroidism chronic Anxiety and depression chron ic Gout chronic Hoarseness of voice acute S/P parathyroidectomy acute Hyperparathyroidism chronic [facility] Work Phone: Evaluation note* Diagnosis Onset Date Resolution Status Gout chronic Hyperparathyroidism chronic Hypertension chronic Hoarseness of voice acute S/P parathyroidectomy acute Hyperparathyroidism chronic Anxiety and depression chron ic Gout chronic Hoarseness of voice acute S/P parathyroidectomy acute Hyperparathyroidism chronic [facility] Work Phone: Evaluation note* Diagnosis Onset Date Resolution Status Gout chronic Hyperparathyroidism chronic Hypertension chronic Hoarseness of voice acute S/P parathyroidectomy acute Hyperparathyroidism chronic Anxiety and depression chron ic Gout chronic Hoarseness of voice acute S/P parathyroidectomy acute Hyperparathyroidism chronic Hoarseness of voice acute Left foot pain acute Anxiety and depression chron ic Gout chronic [facility] Work Phone: Evaluation note* Diagnosis Onset Date Resolution Status Gout chronic Hyperparathyroidism chronic Hypertension chronic Hoarseness of voice acute S/P parathyroidectomy acute Hyperparathyroidism chronic Anxiety and depression chron ic Gout chronic Hoarseness of voice acute S/P parathyroidectomy acute Hyperparathyroidism chronic Hoarseness of voice acute Left foot pain acute Anxiety and depression chron ic Gout chronic Acute sinusitis acute [facility] Work Phone: Evaluation note* Diagnosis Onset Date Resolution Status Anxiety and depression chron ic Gout chronic Hoarseness of voice acute S/P parathyroidectomy acute Hyperparathyroidism chronic Hoarseness of voice acute Left foot pain acute Anxiety and depression chron ic Gout chronic Acute sinusitis acute Cough acute Left foot pain acute URI (upper respiratory infection) acute [facility] Work Phone: Evaluation note* Diagnosis Sore throat- Primary Acute pharyngitis [facility] Diagnosis Onset Date Resolution Status Left foot pain acute Anxiety and depression chron ic Gout chronic Hoarseness of voice chronic Acute sinusitis acute Cough acute Left foot pain acute URI (upper respiratory infection) acute S/P parathyroidectomy acute Hoarseness of voice chronic Hyperparathyroidism chronic [facility] Work Phone: Evaluation note* Diagnosis Paralysis of vocal cords and larynx, unspecified Dysphonia Other diseases of larynx Essential (primary) hypertension Unspecified essential hypertension Gastro-esophageal reflux disease without esophagitis documented in this encounter [facility] Work Phone: Evaluation note* Diagnosis Onset Date Resolution Status Arthritis of right elbow acu te Strain of right elbow acute [facility] Work Phone: Evaluation note* Diagnosis Onset Date Resolution Status Arthritis of right elbow acu te Strain of right elbow acute Health care maintenance acut e Anxiety and depression chron ic Gout chronic Hyperparathyroidism chronic Hypertension chronic [facility] Work Phone: Evaluation note* Diagnosis Hoarseness of voice- Primary Dysphonia Paralysis of left vocal cord documented in this encounter [facility] Work Phone: Evaluation note* Diagnosis Onset Date Resolution Status Health care maintenance acut e Anxiety and depression chron ic Gout chronic Hyperparathyroidism chronic Hypertension chronic [facility] Work Phone: Evaluation note* Diagnosis Hoarseness of voice- Primary Dysphonia Paralysis of left vocal cord documented in this encounter [facility] Work Phone: Evaluation noteNo assessment information available [facility] Work Phone: Hospital Discharge instructions Additional Instructions Please take the pain medication and antibiotic as directed as I do have concern that the redness and swelling could be an atypical presentation for infection as your x-ray did not reveal any fracture or dislocation. Continue to ice the area to help reduce pain and speed healing and if you have any further concerns or no improvement despite treatment please [facility] Discharge instructions Additional Instructions [facility] Reason for referral (narrative)No reason for referral [facility] Work [facility]: Summary Purpose Family History No Family History Records Found Relationship Condition Age at Onset Recorded Date/T hung Not Specified Hypertension Unknown brother Myocardial infarction 55 sister Myocardial infarction 43 Advance Directives No Advanced Directives Records Found Advance Directive Response Recorded Date/ Time Advance Directives No June 04, 2015 2:45pm Living Will No July 12 1:58pm Power of Shuttle Buggy Operator No July 12, 2019 1:58pm Advance Directive Response Recorded Date/ Time Name of Medical Power of Shuttle Buggy Operator CHRISSY Nayak February 13, 2022 3:30pm Advance Directives No June 04, 2015 2:45pm Living Will Yes February 13 3:30pm Power of Shuttle Buggy Operator Yes February 13 3:30pm Advance Directive Response Recorded Date/ Time Name of Medical Power of Shuttle Buggy Operator KATSalvador Ritika Nael February 13, 2022 3:30pm Name of Medical Power of Shuttle Buggy Operator RITIKA EDGARDO March 22, 2022 6:02am Advance Directives No June 04, 2015 2:45pm Living Will Yes March 22, 2022 6:02am Power of Shuttle Buggy Operator Yes February 6:02am Advance Directive Response Recorded Date/ Time Name of Medical Power of Shuttle Buggy Operator CHRISSY Nayak February 13, 2022 3:30pm Name of Medical Power of Shuttle Buggy Operator RITIKA REYNOSO March 22, 2022 6:02am Name of Medical Power of Shuttle Buggy Operator April 15, 2022 9:33am Advance Directives No June 04, 2015 2:45pm Living Will Yes April 15 9:33am Power of Shuttle Buggy Operator Yes April 15, 2022 9:33am Advance Directive Response Recorded Date/ Time Name of Medical Power of Shuttle Buggy Operator CHRISSY Nayak February 13, 2022 2:30pm Name of Medical Power of Shuttle Buggy Operator RITIKA ERYNOSO March 22, 2022 5:02am Name of Medical Power of Shuttle Buggy Operator April 15, 2022 8:33am Advance Directives No June 04, 2015 1:45pm Living Will Yes April 15 8:33am Power of Shuttle Buggy Operator Yes April 15, 2022 8:33am Advance Directive Response Recorded Date/ Time Name of Medical Power of Shuttle Buggy Operator RITIKA REYNOSO March 22, 2022 5:02am Name of Medical Power of Shuttle Buggy Operator April 15, 2022 8:33am Advance Directives No June 04, 2015 1:45pm Living Will Yes April 15 8:33am Power of Shuttle Buggy Operator Yes April 15, 2022 8:33am Advance Directive Response Recorded Date/ Time Name of Medical Power of Shuttle Buggy Operator April 15, 2022 8:33am Advance Directives No June 04, 2015 1:45pm Living Will Yes April 15 8:33am Power of Shuttle Buggy Operator Yes April 15, 2022 8:33am Advance Directive Response Recorded Date/ Time Advance Directives No April 12:48pm Living Will Yes May 25, 023 12:48pm Power of Shuttle Buggy Operator Yes May 25, 2023 12:48pm Advance Directive Response Recorded Date/ Time Advance Directives No April 1:48pm Living Will Yes May 25 023 1:48pm Power of Shuttle Buggy Operator Yes May 25, 2023 1:48pm Advance Directive Response Recorded Date/ Time Advance Directives No August 02, 2024 1:00pm Chief Complaint and Reason for Visit Chief Complaint PET COUNSELOR-EST CARE-NPP MAIL ED E21.3 HYPERPARATHYROID HYPERPARATHYROIDISM HYPERPARATHYROIDISM XK-[id number]-UVL&CONSENT ONLY-BIM PT F/U Dexa Scan [facility] Main Reason for Visit Prostate cancer Vitamin D deficiency Gout Hypertension Hyperparathyroidism Hypercalcemia Hyperparathyroidism Hyperparathyroidism Chief Complaint PET COUNSELOR-EST CARE-NPP MAIL ED E21.3 HYPERPARATHYROID HYPERPARATHYROIDISM HYPERPARATHYROIDISM HX-Ltpmfsj-HGC&CONSENT ONLY-BIM PT F/U Dexa Scan [facility] Main 3 M FU Hyperparathyroidism, unspecified Hyperparathyroidism, unspecified Reason for Visit Prostate cancer Vitamin D deficiency Gout Hypertension Hyperparathyroidism Hypercalcemia Hyperparathyroidism Hyperparathyroidism Hyperparathyroidism Osteopenia Gout Hypertension Chief Complaint HYPERPARATHYROID HYPERPARATHYROIDISM HYPERPARATHYROIDISM YF-Fownppt-ITM&CONSENT ONLY-BIM PT F/U Dexa Scan [facility] Main 3 M FU Hyperparathyroidism, unspecified Hyperparathyroidism, unspecified DISCUSS THYROID GOUT PRE-OP LABS FOR 12/13/21 Reason for Visit Hyperparathyroidism Hypercalcemia Hyperparathyroidism Hyperparathyroidism Hyperparathyroidism Osteopenia Gout Hypertension Hyperparathyroidism Chief Complaint HYPERPARATHYROIDISM VA-Swagqio-PQQ&CONSENT ONLY-BIM PT F/U Dexa Scan [facility] Main 3 M FU Hyperparathyroidism, unspecified Hyperparathyroidism, unspecified DISCUSS THYROID GOUT LABWORK PRE-OP LABS FOR 12/13/21 PROSTATE BIOPSY Reason for Visit Hypercalcemia Hyperparathyroidism Hyperparathyroidism Hyperparathyroidism Osteopenia Gout Hypertension Hyperparathyroidism Gout attack Chief Complaint [id number]-CYZ&CONSE NT ONLY-BIM PT F/U Dexa Scan [facility] Main 3 M FU Hyperparathyroidism, unspecified Hyperparathyroidism, unspecified DISCUSS THYROID GOUT LABWORK PRE-OP LABS FOR 12/13/21 PROSTATE BIOPSY E-ORDER Reason for Visit Hypercalcemia Hyperparathyroidism Hyperparathyroidism Hyperparathyroidism Osteopenia Gout Hypertension Hyperparathyroidism Gout attack Chief Complaint DISCUSS THYROID GOUT LABWORK PRE-OP LABS FOR 12/13/21 PROSTATE BIOPSY E-ORDER PARATHYROID HYPERPARATHYROIDISM Reason for Visit Hyperparathyroidism Gout attack Chief Complaint DISCUSS THYROID GOUT LABWORK PRE-OP LABS FOR 12/13/21 PROSTATE BIOPSY E-ORDER PARATHYROID HYPERPARATHYROIDISM HYPERPARATHYROIDISM 4 M FU INT LABS TWO 'S PARATHYROIDECTOMY 02/13 Reason for Visit Hyperparathyroidism Gout attack Gout Hyperparathyroidism Hypertension Hoarseness of voice S/P parathyroidectomy Hyperparathyroidism Chief Complaint DISCUSS THYROID GOUT LABWORK PRE-OP LABS FOR 12/13/21 PROSTATE BIOPSY E-ORDER PARATHYROID HYPERPARATHYROIDISM HYPERPARATHYROIDISM 4 M FU INT LABS TWO 'Marlen PARATHYROIDECTOMY 02/13 gout INT LABS 1 month parathyroid--labs prior Reason for Visit Hyperparathyroidism Gout attack Gout Hyperparathyroidism Hypertension Hoarseness of voice S/P parathyroidectomy Hyperparathyroidism Anxiety and depression Gout Hoarseness of voice S/P parathyroidectomy Hyperparathyroidism Chief Complaint GOUT LABWORK PRE-OP LABS FOR 12/13/21 PROSTATE BIOPSY E-ORDER PARATHYROID HYPERPARATHYROIDISM HYPERPARATHYROIDISM 4 M FU INT LABS TWO HORACIO PARATHYROIDECTOMY 02/13 gout INT LABS 1 month parathyroid--labs prior LOWER EXTREMITY Reason for Visit Gout attack Gout Hyperparathyroidism Hypertension Hoarseness of voice S/P parathyroidectomy Hyperparathyroidism Anxiety and depression Gout Hoarseness of voice S/P parathyroidectomy Hyperparathyroidism Chief Complaint E-ORDER PARATHYROID HYPERPARATHYROIDISM HYPERPARATHYROIDISM 4 M FU INT LABS TWO HORACIO PARATHYROIDECTOMY 02/13 gout INT LABS 1 month parathyroid--labs prior LOWER EXTREMITY DIRECT LARYNGOSCOPY WITH VOCAL CORD INJECTION Reason for Visit Gout Hyperparathyroidism Hypertension Hoarseness of voice S/P parathyroidectomy Hyperparathyroidism Anxiety and depression Gout Hoarseness of voice S/P parathyroidectomy Hyperparathyroidism Chief Complaint PARATHYROID HYPERPARATHYROIDISM HYPERPARATHYROIDISM 4 M FU INT LABS TWO HORACIO PARATHYROIDECTOMY 02/13 gout INT LABS 1 month parathyroid--labs prior LOWER EXTREMITY DIRECT LARYNGOSCOPY WITH VOCAL CORD INJECTION 3 M FU Reason for Visit Gout Hyperparathyroidism Hypertension Hoarseness of voice S/P parathyroidectomy Hyperparathyroidism Anxiety and depression Gout Hoarseness of voice S/P parathyroidectomy Hyperparathyroidism Hoarseness of voice Left foot pain Anxiety and depression Gout Chief Complaint PARATHYROID HYPERPARATHYROIDISM HYPERPARATHYROIDISM 4 M FU INT LABS TWO HORACIO PARATHYROIDECTOMY 02/13 gout INT LABS 1 month parathyroid--labs prior LOWER EXTREMITY DIRECT LARYNGOSCOPY WITH VOCAL CORD INJECTION 3 M FU Cough Reason for Visit Gout Hyperparathyroidism Hypertension Hoarseness of voice S/P parathyroidectomy Hyperparathyroidism Anxiety and depression Gout Hoarseness of voice S/P parathyroidectomy Hyperparathyroidism Hoarseness of voice Left foot pain Anxiety and depression Gout Acute sinusitis Chief Complaint gout INT LABS 1 month parathyroid--labs prior LOWER EXTREMITY DIRECT LARYNGOSCOPY WITH VOCAL CORD INJECTION 3 M FU Cough 6 WK FU Reason for Visit Anxiety and depressi on Gout Hoarseness of voice S/P parathyroidectomy Hyperparathyroidism Hoarseness of voice Left foot pain Anxiety and depression Gout Acute sinusitis Cough Left foot pain URI (upper respiratory infection) Chief Complaint DIRECT LARYNGOSCOPY WITH VOCAL CORD INJECTION 3 M FU Cough 6 WK FU FU PARATHYROID E ORDER Reason for Visit Left foot pain Anxiety and depression Gout Hoarseness of voice Acute sinusitis Cough Left foot pain URI (upper respiratory infection) S/P parathyroidectomy Hoarseness of voice Hyperparathyroidism Chief Complaint SWOLLEN RIGHT ELBOW xray Reason for Visit Arthritis of right e lbow Strain of right elbow Chief Complaint SWOLLEN RIGHT ELBOW xray 1 YEAR FOLLOW UP Reason for Visit Arthritis of right e lbow Strain of right elbow Health care maintenance Anxiety and depression Gout Hyperparathyroidism Hypertension Chief Complaint 1 YEAR FOLLOW UP Reason for Visit Health care maintena nce Anxiety and depression Gout Hyperparathyroidism Hypertension Chief Complaint 1 YEAR FOLLOW UP RECLAST Reason for Visit Health care maintena nce Anxiety and depression Gout Hyperparathyroidism Hypertension Chief Complaint Admit Date RECLAST October 27, 2024 1:37pm 5 M December 08, 2024 1:29 pm Reason for Visit Admit Date Health care maintenance December 08, 2024 1:29pm Anxiety and depression December 08, 2024 1 :29pm GERD (gastroesophageal reflux disease) J une 2024 1:29pm Gout December 08, 2024 1:29 pm Hyperparathyroidism December 08, 2024 1:29 pm Hypertension December 08, 2024 1:29 pm Chief Complaint POVPOV Additional Source Comments (unrecognized sect ion and content) No Status Records FoundNo Status Records FoundNo Status Records FoundNo Status Records FoundNo Status Records FoundNo Status Records FoundNo Status Records FoundNo Status Records Found INFORMATION SOURCE (unrecogn ized section and content) DATE CREATED AUTHOR 12/22/2017 [facility] DATE CREATED AUTHOR AUTHOR'S ORGANIZ ATION 12/22/2017 [facility] DATE CREATED AUTHOR AUTHOR'S ORGANIZ ATION 06/29/2022 [facility] DATE CREATED AUTHOR AUTHOR'S ORGANIZ ATION 02/02/2023 [facility] DATE CREATED AUTHOR AUTHOR'S ORGANIZ ATION 02/08/2023 [employer] DATE CREATED AUTHOR AUTHOR'S ORGANIZ ATION 02/11/2024 [facility] DATE CREATED AUTHOR AUTHOR'S ORGANIZ ATION 08/19/2024 [facility] DATE CREATED AUTHOR AUTHOR'S ORGANIZ ATION 12/11/2024 [facility] Source Comments (unrecognize d section and content) In the event this informatio n is protected by the Federal Confidentiality of Alcohol and Drug Abuse Patient Records regulations: The Federal rules restrict any use of the information to criminally investigate or prosecute any alcohol or drug abuse patient[facility] the event this information is protected by the Federal Confidentiality of Alcohol and Drug Abuse Patient Records regulations: The Federal rules restrict any use of the information to criminally investigate or prosecute any alcohol or drug abuse patient.[facility] the event this information is protected by the Federal Confidentiality of Alcohol and Drug Abuse Patient Records regulations: The Federal rules restrict any use of the information to criminally investigate or prosecute any alcohol or drug abuse patient.[facility] the event this information is protected by the Federal Confidentiality of Alcohol and Drug Abuse Patient Records regulations: The Federal rules restrict any use of the information to criminally investigate or prosecute any alcohol or drug abuse patient.[facility] Reason for Visit (unrecogniz ed section and content) Reason Comments Radiology NM Reason Comments Chest Congestion sore throat x 4 days Reason Comments Other MICRO-DIRECT LARYNGO SCOPY, ABDOMINAL VS. RIGHT THIGH FAT GRAFT HARVEST WITH LEFT VOCAL CORD Reason Comments Hoarseness Reason Comments Follow-up 6 month follow up vi sit Care Teams (unrecognized sec tion and content) Immigration Services Officer Relationship Specialty Start Date End Date Josué Lucas Chi PCP - General Gerontology 02/06/17 Immigration Services Officer Relationship Specialty Start Date End Date Josué Lucas Chi PCP - General Gerontology 02/06/17 Immigration Services Officer Relationship Specialty Start Date End Date Josué Lucas Chi PCP - General Gerontology 02/06/17 Immigration Services Officer Relationship Specialty Start Date End Date Min Barton MD [address] [place] [address] PCP - General Internal Medicine 06/29/22 Team Status: Active Member Role Status Dates Dr. Josué Lucas MD Family Provider Active Dr. Min Barton MD Primary Care Provider Active Team Status: Inactive Member Role Status Dates Dr. Min Barton MD Primary Care Jhon do, Attending Provider, Referring Provider Active Team Status: Inactive Member Role Status Dates Dr. Min Barton MD Primary Care Provider, Refer ring Provider Active Jerry QUESADA PA Attending Provider Active Team Status: Inactive Member Role Status Dates Dr. Min Barton MD Primary Care Provider, Refer ring Provider Active Dr. Harvey Dotson MD Attending Provider Active Team Status: Inactive Member Role Status Dates Dr. Min Barton MD Primary Care Provider Active Dr. Darrell Bacon MD Attending Provider, Referr ing Provider Active Team Status: Inactive Member Role Status Dates Dr. Min Barton MD Primary Care Provider Active Dr. Catarino Aguilera MD Attending Provider, Referring Pr ovider Active Team Status: Inactive Member Role Status Dates Dr. Min Barton MD Primary Care Provider Active Dr. Harvey Dotson MD Attending Provider Active Immigration Services Officer Relationship Specialty Start Date End Date Min Barton MD [address] [facility] Internal [facility] [place] [address] PCP - General 11/13/22 Team Status: Inactive Member Role Status Dates Dr. Min Barton MD Primary Care Provider, Refer ring Provider Active Darrell Barnett PA, PA Attending Provider Active Team Status: Inactive Member Role Status Dates Dr. Min Barton MD Primary Care Provider Active Dr. Trevor Giles MD Attending Provider Active Immigration Services Officer Relationship Specialty Start Date End Date Min Barton MD [address] [facility] Internal [facility] [place] [address] PCP - General 11/13/22 Team Status: Inactive Member Role Status Dates Dr. Min Barton MD Primary Care Provider Active Dr. Beth Hinton MD Attending Provider, Referring Pr ovider Active Immigration Services Officer Relationship Specialty Start Date End Date Min Barton MD [address] [facility] Internal [facility] [place] [address] PCP - General 11/13/22 Team Status: Active Member Role Status Dates Dr. Min Barton MD Primary Care Provider Active Team Status: Inactive Member Role Status Dates Dr. Min Barton MD Primary Care Provider Active Start: October 27, 2024 End: October 27, 2024 Dr. Beth Hinton MD Attending Provider Active Start: October 27, 2024 End: October 27, 2024 Dr. Beth Hinton MD Referring Provider Active Start: October 27, 2024 End: October 27, 2024 Team Status: Inactive Member Role Status Dates Dr. Min Barton MD Primary Care Provider Active Start: December 08, 2024 End: December 08, 2024 Dr. Min Barton MD Attending Provider Active Start: December 08, 2024 End: December 08, 2024 Dr. Min Barton MD Referring Provider Active Start: December 08, 2024 End: December 08, 2024 Team Status: Active Member Role Status Dates Dr. Min Barton MD Primary Care Provider Active Start: December 08, 2024 Dr. Min Barton MD Attending Provider Active Start: December 08, 2024 Dr. Min Barton MD Referring Provider Active Start: December 08, 2024 Goals (unrecognized section and content) Goals may be documented in a n alternate sectionGoals may be documented in an alternate sectionGoals may be documented in an alternate sectionGoals may be documented in an alternate sectionGoals may be documented in an alternate sectionGoals may be documented in an alternate sectionGoals may be documented in an alternate sectionGoals may be documented in an alternate sectionGoals may be documented in an alternate sectionGoals may be documented in an alternate sectionGoals may be documented in an alternate sectionGoals may be documented in an alternate section FOR RECORDS PERTAINING TO PATIENTS WHO ARE OR HAVE BEEN ENROLLED IN A CHEMICAL DEPENDENCY/SUBSTANCEABUSE PROGRAM, SOME INFORMATION MAY BE OMITTED. This clinical summary was aggregated from multiple sources. Caution should be exercised in using it in the provision of clinical care. This summary normalizes information from multiple sources, and as a consequence, information in this document may materially change the coding, format and clinical context of patient data. In addition, data may be omitted in some cases. CLINICAL DECISIONS SHOULD BE BASED ON THE PRIMARY CLINICAL RECORDS. [employer] provides no warranty or guarantee of the accuracy or completeness of information in this document.
[2025-01-26 08:54] LABS: PTHIN 47 pg/mL (11-61)
[2025-01-26 09:09] LABS: Anion Gap 11 (5-15); BUN 22 mg/dL (4-19); BUN/Creat Ratio 17.0 RATIO (10-20); Calcium,Total 10.7 mg/dL (7.6-11.0); Carbon Dioxide 25.2 mmol/L (21.0-32.0); Chloride 102 mmol/L (98-108); Glucose 83 mg/dL (70-99); Potassium 4.9 mmol/L (3.3-5.1); Vitamin D,25 Hydroxy 42.3 ng/mL (30-100)
== END | disposition home or self-care (01) ==
LOC: LAB 07:22
PROVIDERS: PCP Internal Medicine; Referring Provider Internal Medicine Endocrinology, Diabetes & Metabolism; Visit Provider Internal Medicine Endocrinology, Diabetes & Metabolism
DX: E21.0 Primary hyperparathyroidism (principal); E55.9 Vitamin D deficiency, unspecified; E04.9 Nontoxic goiter, unspecified
CPT/HCPCS: 36415; 80048; 82306; 83970

== ENCOUNTER → 2025-03-27 | Outpatient (CLI) | payer OTHER, SELFPAY ==
--- OUTSIDE RECORDS SUMMARY | 2024-08-03 17:03 | XMS RPT_ITS ---
Author Name Auto Generated Organization [facility] Care Team Providers Care Manager Administrative Services Name Role Phone RUNER BETH JAMES Attending Unavailable PROBLEMS No Problem Records Found PROCEDURES No Procedure Records Found RESULTS BMP Collected: 08/03/2024 4:03 PM Status: F Source: [facility] MAIN TYPE CODE TESTS RESULT OUT OF RANGE REFERENCE UNITS LAB GLU(LOINC) Glucose Level 103 82-115 mg/dL LAB NA(LOINC) Sodium Level 139 136-145 mEq/L LAB K(LOINC) Potassium Level 5.0 3.5-5.0 mEq/L LAB CL(LOINC) Chloride 103 98-110 mEq/L LAB CO2(LOINC) CO2 29 22-32 mEq/L LAB EBAL(LOINC) Electrolyte Balance 7.0 4.0-15.0 mEq/L LAB BUN(LOINC) BUN 27.0 High 8.0-22.0 mg/dL LAB CRE(LOINC) Creatinine Lvl (s) 1.32 0.60-1.40 mg/dL Result Comment: Testing perf ormed on [employer] CH analyzer using enzymatic creatinine methodology. LAB BC(LOINC) BUN/Creatinine Ratio 20.5 10.0-22.0 ratio LAB CA(LOINC) Calcium Lvl 10.7 High 8.7-10.4 mg/dL Performed By: #### PTH, BMP, VIDH, GFR #### [address] [address] PTH Collected: 4:03 PM Status: F Source: [facility] MAIN TYPE CODE TESTS RESULT OUT OF RANGE REFERENCE UNITS LAB PTH(LOINC) PTH, Intact 98.6 High 18.5-88.0 pg/mL Performed By: #### PTH, BMP, VIDH, GFR #### [address] [address] VIDH Collected: 5 4:03 PM Status: F Source: [facility] MAIN TYPE CODE TESTS RESULT OUT OF RANGE REFERENCE UNITS LAB VIDH(LOINC) Vit. D 25-Hydroxy 37.4 ng/mL Result Comment: Interpretive Values Based on Total 25(OH)D: Severe Deficiency <20 ng/mL Mild to Moderate Deficiency 20-30 ng/mL Optimum Levels 30-100 ng/mL Toxicity Possible >100 ng/mL Performed By: #### PTH, BMP, VIDH, GFR #### [facility] [address] [place] [id number] .GFR Collected: 08/03/2024 4:03 PM Status: F Source: [facility] MAIN TYPE CODE TESTS RESULT OUT OF RANGE REFERENCE UNITS LAB eGFR(LOINC) Estimated Glomerular Filtration Rate 59 ml/min/1. 73sqm Result Comment: Stages of Chronic Kidney Disease (CKD) Stage Description eGFR(ml/min/1.73 sq.m.) CKD 1 Normal kidney function or >=90 normal kindney function with possible kidney damage (ex. Proteinuria) CKD 2 Kidney damage with mild loss 60-89 of kidney function CKD 3a Mild to moderate loss of kidney 45-59 function CKD 3b Moderate to severe loss of 30-44 of kindey function CKD 4 Severe loss of kidney function 15-29 CKD 5 Kidney failure <15 Note: (go live 2024) the eGFR calculation was updated to the 2020 CKD-EPI creatinine equation without a race factor to calculate the eGFR results. Performed By: #### PTH, BMP, VIDH, GFR #### [place] [id number] ALLERGIES No Allergies Records Found ENCOUNTERS ADMIT/DISCHARGE ACCOUNT NUMBER ADMITTING ENCOUNTER CLASS LOC ATION SOURCE 08/03/2024/ 5 [id number] Ambulatory ABuilding:[facility] MAIN PAYERS ENCOUNTER GUARANTOR PAYER SUBSCRIBER SOURCE 08/03/2024 GREGORY HODGES: [id number] [place] [address] Primary Insurance:[employer] [facility] Number: [id number] Date:[id number] Name:[address] [id number] [address]GZ: GREGORY HODGES: [id number] [place], [place] [address]Gur: (WP) [facility]
[2025-03-27 11:20] LABS: PSA,Total- Diagnostic 7.24 ng/mL (0.00-4.00)
== END | disposition home or self-care (01) ==
LOC: LAB 09:19
PROVIDERS: PCP Internal Medicine; Referring Provider Urology; Visit Provider Urology
DX: C61 Malignant neoplasm of prostate (principal)
CPT/HCPCS: 36415; 84153

== ENCOUNTER → 2025-04-10 | Outpatient (CLI) | payer OTHER, SELFPAY ==
--- NOTE | 2025-04-10 12:50 | MRI_ITS ---
PROCEDURE: PELVIS W/WO CONTRAST, 04/10/2025 REASON FOR EXAM: ELEVATED PSA. Additionally, there is also a reported history of known prostate cancer. PSA 7.24 on 03/27/2025, per technologist report. TECHNIQUE: Multisequence multiplanar MRI pelvis was performed with and without IV contrast. IV Contrast: 17 mL Clariscan COMPARISON: None FINDINGS: Variable overall mild motion limitation. Additional considerable artifact on diffusion related to RIGHT hip arthroplasty hardware greater than bowel gas, severely degrading diffusion which is notably a nguyen sequence. Portions of the surrounding RIGHT pelvis obscured on some additional sequences obtained. Prostate size: 4.8 x 3.6 x 5.1 cm, estimated volume 45.8 mL. Per the above provided PSA, PSA density is 0.158 ng/mL. Transition zone: No clear high-risk lesion allowing for limitations. PI-RADS 2 findings. Scattered calcifications. Peripheral Zone: No clear high-risk lesion allowing for limitations. Fairly extensive background changes of presumed prostatitis (PI-RADS 2). Neurovascular bundles: Unremarkable. Seminal vesicles: Unremarkable. Bladder: Underdistended and suboptimally evaluated. Appearance suggests chronic bladder outlet obstruction. Lymph nodes: Unremarkable, where visible. Bones: Artifact as above. 11 mm T2 bright lesion in the RIGHT sacrum with suspected enhancement. Focal enhancement in the posterior superior corner of the L4 vertebral body on the RIGHT may be degenerative. Other: Diverticulosis. Tiny fat containing LEFT inguinal hernia.. MRI/Pelvis W/WO Contrast IMPRESSION: 1. Limited exam as above mostly by artifact related to RIGHT hip arthroplasty. 2. Mild prostatomegaly/BPH and fairly considerable sequela of presumed prostati tis without clear high risk lesion identified allowing for limitations (PI-RADS 2). 3. 11 mm nonspecific lesion in the RIGHT sacrum. Prostatic osseous metastatic disease is typically unlikely below PSA 10, however, difficult to entirely exclude. Similar finding in the lumbar spine co uld be degenerative, however this is not definite. Correlate with medical history and compare with any available outside imaging. If unavailable, consider bone scan, CT, dedicated MRI, or close follow-up to evaluate stability. 4. No overt pelvic lymphadenopathy, where visible. 5. Additional description as above. Reading Location: [id number]
== END | disposition home or self-care (01) ==
PROVIDERS: PCP Internal Medicine; Referring Provider Urology; Visit Provider Urology
DX: C61 Malignant neoplasm of prostate (principal)
CPT/HCPCS: 72197; A9575; A4216